=== PATIENT | male | born 1940 | race African-American/Black ===

== ENCOUNTER → 2016-03-06 | Outpatient (CLI) | payer BC ==
[2015-06-19 21:00] VITALS: BP 156/83
[~2016-03-06] MED LIST: ALLO300T PO; ASPI325T11 PO; ASPI81TA2 PO; BUPIVACAINE 0.5% 50 ML VIAL. IJ ONE; CALC0.5C PO; CARV25TA2 PO; CARV6.25 PO; CLOP75TA27 PO; Diltiazem Hcl PO; Doxycycline Hyclate PO; FURO-68 PO; FURO80TA3 PO; IOHEXOL 300 MG/ML 50 ML VIAL. INT ART ONE; KRIL1CAP10 PO; LIDOCAINE 1% Multi-Dose 20 ML VIAL. ID ONE; LISI2.5T PO; LORA10TA3 PO; MULT1TAB13 PO; OMEG-57 PO; POTA20TA4 PO; POTA20TA82 PO; POTA20TA84 PO; RIVA10TA PO; SOTA80TA PO; Sulfamethoxazole/Trimethoprim PO; baking soda PO; methylPREDNISolone ACETATE 40 MG/ML VIAL. INT ART ONE
--- NOTE | 2016-03-06 16:44 | KCIC ---
PROCEDURE Therapeutic right hip injection using fluoroscopic guidance. HISTORY Hip pain. TECHNIQUE The procedure was explained to the patient as were potential risks, including infection, bleeding or allergic reaction. All questions were answered. Informed written and verbal consent was obtained. The hip was prepped and draped in the usual sterile manner. Following administration of local anesthetic, a 22-gauge spinal needle was advanced into the hip joint without difficulty, with care taken to avoid the vascular structures. Stylet was removed and following negative aspiration, a mixture of 4 cc Omnipaque-300, 2 cc (80 mg) Depo-Medrol, 4 cc 0.5% Marcaine and 4 cc 1% lidocaine were injected without difficulty. Fluoroscopy demonstrates uniform and satisfactory distribution of the injection through the hip. The needle was removed. There was good hemostasis at the injection site. The patient left in stable condition without immediate complication. The patient was given postprocedural instructions, instructed to contact us or the emergency room if there are any complications. A single spot image was obtained. FLUOROSCOPY TIME: 44 seconds Electronically signed by: Pineda Doyle MD (Mar 06, 2016 16:43:35)
== END | disposition home or self-care (01) ==
LOC: KCIC 15:15
PROVIDERS: ATTEND Internal Medicine Rheumatology
DX: M25.551 Pain in right hip (principal)
CPT/HCPCS: J1030; J3490; Q9967

== ENCOUNTER 2016-04-03 15:52 | Emergency (ER) | payer BC ==
[~2016-04-03] VITALS: Ht 185.4 cm; Wt 104.3 kg
[~2016-04-03 15:52] MED LIST changes: -BUPIVACAINE 0.5% 50 ML VIAL. IJ ONE; -IOHEXOL 300 MG/ML 50 ML VIAL. INT ART ONE; -LIDOCAINE 1% Multi-Dose 20 ML VIAL. ID ONE; -methylPREDNISolone ACETATE 40 MG/ML VIAL. INT ART ONE
[2016-04-03 16:32] LABS: BASO # 0.1 x10^3/uL (0.0-0.2); BASO % 1 % (0-3); EOS % 3 % (0-3); HEMATOCRIT 34.3 % (39.0-53.0); HEMOGLOBIN 11.3 g/dL (13.0-17.5); LYMPH % 21 % (24-48); MEAN CORPUSCULAR HEMOGLOBIN 30 pg (25-35); MEAN CORPUSCULAR HGB CONC 33 g/dL (31-37); MEAN CORPUSCULAR VOLUME 92 fL (79-100); MONO % 10 % (0-9); NEUT % 64 % (31-73); PLATELET COUNT 198 x10^3/uL (140-400); RED BLOOD COUNT 3.72 x10^6/uL (4.30-5.70); RED CELL DISTRIBUTION WIDTH 15.7 % (11.5-14.5); WHITE BLOOD COUNT 4.7 x10^3/uL (4.0-11.0)
[2016-04-03 16:45] LABS: CALCIUM 9.2 mg/dL (8.5-10.1); CREATININE 3.5 mg/dL (0.7-1.3); GFR 20.7; POTASSIUM 4.7 mmol/L (3.5-5.1)
--- NOTE | 2016-04-03 18:02 | PHYS DOC ---
Past Medical History Past Medical History: A-Fib, Hypertension, Other Additional Past Medical Histor: GOUT Past Surgical History: Knee Replacement Additional Past Surgical Histo: cardiac stents placed Alcohol Use: Sober Drug Use: None Adult General Chief Complaint Chief Complaint: OTHER COMPLAINTS [facility] Patient is a 75 year old male who presents with from urgent care for concern of A fib with rate in 110s. He notes 1 week of rhinorrhea, dry cough, fatigue, intermittent nausea and chills. He has been taking OTC cough medication. He notes some dyspnea and lightheadedness on exertion. Denies resting dyspnea, resting lightheadedness/dizziness, chest pain, orthopnea, leg pain or swelling. Review of Systems Review of Systems Constitutional: Denies measured fever [] Eyes: Denies change in visual acuity, redness, or eye pain [] HENT: Denies nasal congestion or sore throat [] Respiratory: Denies shortness of breath [] Cardiovascular: No additional information not addressed in HPI [] GI: Denies abdominal pain, nausea, vomiting, bloody stools or diarrhea [] : Denies dysuria or hematuria [] Musculoskeletal: Denies back pain or joint pain [] Integument: Denies rash or skin lesions [] Neurologic: Denies headache, focal weakness or sensory changes [] Endocrine: Denies polyuria or polydipsia [] Allergies Allergies Allergies Coded Allergies Type Severity Reaction Last Updated Verified No Known Drug Allergies 10/07/13 No Physical Exam Physical Exam Constitutional: Well developed, well nourished, no acute distress, non-toxic appearance. [] HENT: Normocephalic, atraumatic, bilateral external ears normal, oropharynx moist, no oral exudates, nose normal. [] Eyes: PERRLA, EOMI, conjunctiva normal, no discharge. [] Neck: Normal range of motion, supple, no stridor. [] Cardiovascular: Irregular rhythm [] Lungs & Thorax: Bilateral breath sounds clear to auscultation [] Abdomen: Bowel sounds normal, soft, no tenderness. [] Skin: Warm, dry, no erythema, no rash. [] Back: Normal ROM. [] Extremities: No tenderness, ROM intact, no edema. [] Neurologic: Alert and oriented X 3, normal motor function, normal sensory function, no focal deficits noted. [] Psychologic: Affect normal, judgement normal, mood normal. [] Current Patient Data Vital Signs Vital Signs Date Time Temp Pulse Resp B/P Pulse Ox O2 Delivery O2 Flow Rate FiO2 04/03/16 18:34 113 15 141/94 98 Room Air 04/03/16 16:12 98.4 98.4 Lab Values Laboratory Tests Test 04/03/16 16:24 White Blood Count 4.7x10^3/uL (4.0-11.0) Red Blood Count 3.72x10^6/uL (4.30-5.70) L Hemoglobin 11.3g/dL (13.0-17.5) L Hematocrit 34.3% (39.0-53.0) L Mean Corpuscular Volume 92fL (79-100) Mean Corpuscular Hemoglobin 30pg (25-35) Mean Corpuscular Hemoglobin Concent 33g/dL (31-37) Red Cell Distribution Width 15.7% (11.5-14.5) H Platelet Count 198x10^3/uL (140-400) Neutrophils (%) (Auto) 64% (31-73) Lymphocytes (%) (Auto) 21% (24-48) L Monocytes (%) (Auto) 10% (0-9) H Eosinophils (%) (Auto) 3% (0-3) Basophils (%) (Auto) 1% (0-3) Neutrophils # (Auto) 3.0x10^3uL (1.8-7.7) Lymphocytes # (Auto) 1.0x10^3/uL (1.0-4.8) Monocytes # (Auto) 0.5x10^3/uL (0.0-1.1) Eosinophils # (Auto) 0.1x10^3/uL (0.0-0.7) Basophils # (Auto) 0.1x10^3/uL (0.0-0.2) Sodium Level 139mmol/L (136-145) Potassium Level 4.7mmol/L (3.5-5.1) Chloride Level 101mmol/L (98-107) Carbon Dioxide Level 24mmol/L (21-32) Anion Gap 14 (6-14) Blood Urea Nitrogen 58mg/dL (8-26) H Creatinine 3.5mg/dL (0.7-1.3) H Estimated GFR (Cockcroft-Gault) 20.7 Glucose Level 97mg/dL (70-99) Calcium Level 9.2mg/dL (8.5-10.1) Troponin I Quantitative < 0.017ng/mL (0.000-0.055) YN-Anr-I-Type Natriuretic Peptide 1692pg/mL (0-449) H Laboratory Tests 04/03/16 16:24 Laboratory Tests 04/03/16 16:24 EKG EKG EKG as interpreted by me as atrial fibrillation, rate 113, no ST-T changes, normal intervals Radiology/Procedures Radiology/Procedures Chest xray as interpreted by me with no acute cardiopulmonary disease process Course & Med Decision Making Course & Med Decision Making Pertinent Labs and Imaging studies reviewed. (See chart for details) Workup is unremarkable other than noted CKD. His HR has been in 80s to 110s. He feels well at rest and minimal exertion. Discussed his cough medication and illness could be elevating his HR. He would like to go home, hydrate and avoid cough medicine to try for better rate control prior to being admitted to the hospital. Strict return precautions given. He and understand and agree with plan. Dragon Disclaimer Dragon Disclaimer This electronic medical record was generated, in whole or in part, using a voice recognition dictation system. Departure Departure Impression: Primary Impression: Upper respiratory infection Additional Impressions: Atrial fibrillation Dyspnea on exertion Disposition: 01 HOME, SELF-CARE Condition: STABLE Referrals: Adboulaye CARDENAS MD (PCP) Patient Instructions: Upper Respiratory Infection, Adult, [id number] Additional Instructions: Follow-up with your primary care doctor within one week. Return for any concerns. Problem Qualifiers Primary Impression: Upper respiratory infection URI type: unspecified viral URI Qualified Code: J06.9 - Acute upper respiratory infection, unspecified Additional Impressions: Atrial fibrillation Atrial fibrillation type: chronic Qualified Code: I48.2 - Chronic atrial fibrillation Ramiro COELHO MD Apr 03, 2016 18:02
[2016-04-03 18:34] VITALS: BP 141/94
--- NOTE | 2016-04-03 18:39 | EKG ---
[facility] [address] [place] [address] Test Date: 2016-04-03 Test Time: 16:14:01 Pat Name: ROSALIA MARTI Department: Room: Gender: M Web Worker: : 1940 Requested By: Ramiro COELHO Order Number: [id number] Reading MD: Roger Lyles Measurements Intervals [place] Rate: 113 P: 90 W[place]: 172 QRS: 46 QRSD: 92 T: 26 QT: 348 QTc: 477 Interpretive Statements SINUS TACHYCARDIA NONSPECIFIC ANTERIOR ST CHANGES T ABNORMALITY IN INFERIOR LEADS RI6.01 Unconfirmed report Electronically Signed On 04-10-2016 10:38:24 MOLD COOLER by Roger Lyles
--- NOTE | 2016-04-04 08:29 | RAD ---
Chest, 2 views, 04/03/2016: History: Dyspnea on exertion, hypertension Comparison is made to a study from 09/23/2013. The heart size and pulmonary vascularity are normal. No pulmonary infiltrates are seen. There is no evidence of pleural fluid. There is moderate hypertrophic spurring in the spine. IMPRESSION: No acute cardiopulmonary abnormality is detected.
== END 2016-04-03 18:35 | disposition home or self-care (01) ==
LOC: ER 15:52
DX: I48.2 Chronic atrial fibrillation (principal); R06.09 Other forms of dyspnea; J06.9 Acute upper respiratory infection, unspecified; I10 Essential (primary) hypertension
CPT/HCPCS: 36415; 71020; 80048; 83880; 84484; 85027; 93005; 99285-25

== ENCOUNTER 2016-06-07 19:40 | Emergency (ER) | payer BC ==
[~2016-06-07] VITALS: Ht 185.4 cm; Wt 106.6 kg
[~2016-06-07 19:40] MED LIST changes: -SOTA80TA PO; +SOTA80TA48 PO
--- NOTE | 2016-06-07 21:11 | RAD ---
PROCEDURE Noncontrast head CT Noncontrast cervical spine CT HISTORY Fall. Head injury. Neck pain. TECHNIQUE Noncontrast axial cross sectional CT scanning of the head was performed. Noncontrast helical CT scanning of the cervical spine was performed. Multiplanar 2D reconstructions were generated. One or more of the following individualized dose reduction techniques were utilized for this study: 1. Automated exposure control 2. Adjustment of the mA and/or kV according to patient size 3. Use of iterative reconstruction technique COMPARISON None available. FINDINGS HEAD CT: No acute intracranial hemorrhage or midline shift or mass-effect or extra-axial fluid collection is seen. The into the megaly seen with distention of the occipital and temporal horns. This may be secondary to cerebral atrophy or normal pressure hydrocephalus. Moderate to severe bilateral periventricular white matter hypodensity is seen consistent with chronic small vessel ischemic disease in this age group. This may be seen with normal pressure hydrocephalus secondary to transependymal flow CSF as well. No focal hypodense area is seen to indicate an acute infarct or edema radiographically. No skull fracture or pneumocephalus is seen. No opacification of the mastoid sinuses or the paranasal sinuses is seen. The maxillary sinuses are not completely seen in this study. CERVICAL SPINE CT: No acute fracture is evident. No anterolisthesis is seen. No discitis or osteolytic process is evident. There is moderate to severe degenerative disc space narrowing and endplate spurring throughout the cervical spine. Degenerative facet arthropathy is evident. IMPRESSION HEAD CT: No acute intracranial hemorrhage is seen. Moderate to severe bilateral periventricular white matter hypodensity which may be seen with chronic small vessel ischemic disease or transependymal flow of CSF in association with normal pressure hydrocephalus. Ventriculomegaly is present. CERVICAL SPINE CT: No acute fracture. Moderate to severe degenerative cervical spondylosis. Electronically signed by: Chente Almeida MD (June 07, 2016 21:09:03)
--- NOTE | 2016-06-07 21:28 | PHYS DOC ---
Past Medical History Past Medical History: A-Fib, Hypertension, Other Additional Past Medical Histor: GOUT Past Surgical History: Knee Replacement Additional Past Surgical Histo: cardiac stents placed Alcohol Use: Rarely Drug Use: None Adult General Chief Complaint Chief Complaint: MECHANICAL FALL HPI HPI Patient is a 75 year old male brought to the ED by family members after a fall at home. He doesn't know what happened, he doesn't know if his feet got tangled up her , and he fell down about 5 steps. He doesn't believe he hit his head , his neck is a bit sore but it was before the fall, he says he hurts in the middle of his back to the low back. He has no other specific complaints. PCP Dr. Tree Condon Review of Systems Review of Systems Constitutional: Denies fever or chills [] Eyes: Denies change in visual acuity, redness, or eye pain [] HENT: Denies nasal congestion or sore throat [] Respiratory: Denies cough or shortness of breath [] Cardiovascular: Denies chest pain GI: Denies abdominal pain, nausea, vomiting, bloody stools or diarrhea [] : Denies dysuria or hematuria [] Musculoskeletal: As in history of present illness Integument: Denies rash or skin lesions [] Neurologic: Denies headache, focal weakness or sensory changes [] Allergies Allergies Allergies Coded Allergies Type Severity Reaction Last Updated Verified No Known Drug Allergies 10/07/13 No Physical Exam Physical Exam Constitutional: Well developed, well nourished, no acute distress, non-toxic appearance. Alert, mentating normally. HENT: Normocephalic, atraumatic, bilateral external ears normal, oropharynx moist, no oral exudates, nose normal. [] Eyes: conjunctiva normal, no discharge. [] Neck: C-collar had been placed at the ED triage area and was initially left in place Cardiovascular:Heart rate regular rhythm, no murmur [] Lungs & Thorax: Bilateral breath sounds clear to auscultation [] Abdomen: Bowel sounds normal, soft, no tenderness, no masses, no pulsatile masses. [] Skin: Warm, dry, no erythema, no rash. [] Back: Tender to palpation in the mid thoracic spine without significant point tenderness, no deformity, no overlying skin abnormality. Extremities: No tenderness, no cyanosis, no clubbing, ROM intact, no edema. [] Neurologic: Alert and oriented X 3, normal motor function, normal sensory function, no focal deficits noted. [] Current Patient Data Vital Signs Vital Signs Date Time Temp Pulse Resp B/P Pulse Ox O2 Delivery O2 Flow Rate FiO2 06/07/16 21:17 72 18 154/79 94 Room Air 06/07/16 19:46 98.6 98.6 EKG EKG [] Radiology/Procedures Radiology/Procedures CT scan of the head and cervical spine read by the radiologist. No acute intracranial or cervical spine finding. However, radiologist did remark that the patient has findings that may be consistent with normal pressure hydrocephalus. Ventriculomegaly is present. Thoracolumbar two-view x-rays obtained and read by me. [] Course & Med Decision Making Course & Med Decision Making Pertinent Labs and Imaging studies reviewed. (See chart for details) 75-year-old male who fell down some stairs without apparent significant injury. However, CT scan of the head has findings that could be consistent with normal pressure hydrocephalus. I discussed with the patient and his who states that yes for about 1 month the patient has had some gait disturbance, he had a fall in the yard and he doesn't know what happened today but something caused him to fall. He denies urinary incontinence. When talking to him, he does not appear to have any dementia today. I called and spoke with Dr. Casper, taking calls for Dr. Condon, and let him know about the concern. He advised that we will have the patient follow up with Dr. Condon, he sent a message to Dr. Condon about the CT scan findings. [] Dragon Disclaimer Dragon Disclaimer This electronic medical record was generated, in whole or in part, using a voice recognition dictation system. Departure Departure Impression: Primary Impression: Fall (on) (from) other stairs and steps, initial encounter Additional Impression: Gait disturbance Disposition: 01 HOME, SELF-CARE Condition: STABLE Referrals: TIFFANY CONDON MD (PCP) Patient Instructions: Contusion, [id number] Additional Instructions: Ice to areas of pain. Call tomorrow to make an appointment with Dr. Condon. As we discussed, there is a possible abnormality on your CT scan that he needs to know about. I spoke with Dr. Tremayne lux who will send Dr. Condon a message. He may refer you to a neurologist for further evaluation. Problem Qualifiers ILEANA SUNG MD June 07, 2016 21:28
[2016-06-07 21:38] VITALS: BP 176/92
--- NOTE | 2016-06-08 08:11 | RAD ---
Thoracolumbar spine, 2 views, 06/07/2016: History: Pain Two views of the spine centered at the thoracolumbar junction level were obtained. No fracture or dislocation is identified. There is disc space narrowing and moderate marginal spurring at multiple levels. There are bridging osteophytes at several levels. There are moderate degenerative changes involving the facet joints in the lumbar spine. Aortic calcific plaquing is present. Multiple surgical clips are evident in the abdomen. IMPRESSION: 1. Moderate multilevel hypertrophic degenerative change. 2. No acute bony abnormality is detected.
== END 2016-06-07 21:50 | disposition home or self-care (01) ==
LOC: ER 19:40
DX: R26.9 Unspecified abnormalities of gait and mobility (principal); M54.6 Pain in thoracic spine; I48.91 Unspecified atrial fibrillation; I10 Essential (primary) hypertension; M10.9 Gout, unspecified; Z95.5 Presence of coronary angioplasty implant and graft; W10.9XXA Fall (on) (from) unspecified stairs and steps, initial encounter; Y93.89 Activity, other specified; Y92.096 Garden or yard of other non-institutional residence as the place of occurrence of the external cause; Y99.8 Other external cause status
CPT/HCPCS: 70450; 72080; 72125; 99284-25

== ENCOUNTER → 2016-10-16 | Outpatient (CLI) | payer BC ==
[~2016-10-16] MED LIST changes: +ACET325T9 PO; +ASPI-630 PO; -ASPI81TA2 PO; +CLOP75TA PO; -CLOP75TA27 PO; +CLOP75TA57 PO; +DIPH25TA64 PO; +DOCU100C28 PO; +FURO80TA72 PO; +LOSA50TA2 PO; +TIZA4TAB PO; +TRAM50TA PO
[2016-10-25 08:16] VITALS: BP 123/71
== END | disposition home or self-care (01) ==
LOC: SURGPAT 13:15
PROVIDERS: ATTEND Orthopaedic Surgery Sports Medicine
DX: M16.11 Unilateral primary osteoarthritis, right hip (principal); Z96.641 Presence of right artificial hip joint
CPT/HCPCS: 36415; 87641

== ENCOUNTER → 2016-10-19 | Outpatient (CLI) | payer BC ==
--- NOTE | 2016-10-19 10:27 | CARD ---
APPROVED REPORT EXAM: Two-dimensional and M-mode echocardiogram with Doppler and color Doppler. Other Information Quality : GoodHR: 68bpm Rhythm : NSR INDICATION Pre-Op RISK FACTORS Hypertension Hyperlipidemia Previous smoker 2D DIMENSIONS RVDd2.9 (2.9-3.5cm)Left Atrium(2D)4.3 (1.6-4.0cm) IVSd1.2 (0.7-1.1cm)Aortic Root(2D)3.3 (2.0-3.7cm) LVDd6.0 (3.9-5.9cm)LVOT Diameter2.4 (1.8-2.4cm) PWd1.2 (0.7-1.1cm)LVDs4.1 (2.5-4.0cm) FS (%) 31.5 %SV105.6 ml LVEF(%)58.5 (>50%) Aortic Valve AoV Peak Jake.120.9cm/sAoV VTI25.3cm AO Peak GR.5.8mmHgLVOT Peak Jake.113.7cm/s AO Mean GR.3mmHgAVA (VMAX)4.30cm2 Mitral Valve MV E Svmxmstw15.8cm/sMV DECEL [id number] MV A Hcnrwrdi88.3cm/sE/A Ratio1.0 MV A Aysflpdl695ot Pulmonary Valve PV Peak Imqnetkq493.9cm/s Pulmonary Vein S1 Ozfciczk81.1cm/sD2 Hgzbblfy99.3cm/s PVa [id number] LEFT VENTRICLE The left ventricle is normal size. There is mild concentric left ventricular hypertrophy. The left ve ntricular systolic function is normal. The Ejection Fraction is 55-60%. There is normal LV segmental wall motion. The left ventricular diastolic function and filling is normal for age. RIGHT VENTRICLE The right ventricle is normal size. There is normal right ventricular wall thickness. The right ventr icular systolic function is normal. ATRIA The left atrium is mildly dilated. The right atrium size is normal. The interatrial septum is intact with no evidence for an atrial septal defect or patent foramen ovale as noted on 2-D or Doppler imagi ng. AORTIC VALVE The aortic valve is mildly sclerotic. The aortic valve is trileaflet. Doppler and Color Flow revealed no significant aortic regurgitation. There is no significant aortic valvular stenosis. MITRAL VALVE Mitral annular calcification is mild. The mitral valve leaflets are thickened. There is no evidence o f mitral valve prolapse. There is no mitral valve stenosis. Doppler and Color Flow revealed no mitral valve regurgitation noted. TRICUSPID VALVE Doppler and Color Flow revealed trace tricuspid regurgitation. PULMONIC VALVE The pulmonary valve is not well visualized but appears to open adequately. Doppler and Color Flow rev ealed trace pulmonic valvular regurgitation. There is no pulmonic valvular stenosis by spectral Doppl er. GREAT VESSELS The aortic root is normal in size. The ascending aorta is normal in size. The pulmonary artery is nor mal. The IVC is normal in size and collapses >50% with inspiration. PERICARDIAL EFFUSION There is no evidence of significant pericardial effusion. Critical Notification Critical Value: No <Conclusion> The left ventricular systolic function is normal. The Ejection Fraction is 55-60%. There is normal LV segmental wall motion. Doppler and Color Flow revealed trace tricuspid regurgitation. There is no evidence of significant pericardial effusion.
== END | disposition home or self-care (01) ==
LOC: ECHO 08:04
PROVIDERS: ATTEND Internal Medicine Cardiovascular Disease
DX: Z01.818 Encounter for other preprocedural examination (principal); I51.7 Cardiomegaly
CPT/HCPCS: 93306

== ENCOUNTER 2016-10-23 08:45 | Inpatient (IN) | payer BC ==
[2016-10-23] VITALS (9 sets, daily range): BP systolic 113–140; BP diastolic 67–93
[~2016-10-23] VITALS: Ht 185.4 cm; Wt 113.4 kg
[~2016-10-23 08:45] MED LIST changes: +IV RINGERS,LACTATED 1000ML 1,000 ML IV SCH; +LIDOCAINE 1% 1 ML SYRINGE. ID PRN; +MORPHINE SULFATE 5 MG, KETOROLAC 30 MG, ROPIVacaine 0.5% PF 60 ML, EPINEPHrine 0.5 MG i... INT ART ONE; +PROCHLORPERAZINE 10 MG/2 ML VIAL. IV PRN; +TRANEXAMIC ACID 1,000 MG in IV NORMAL SALINE 50ML 50 ML INJ ONE; +fentaNYL PF VIAL 100 MCG/2 ML VIAL IV PRN
[2016-10-23] MEDS ORDERED: PROPOFOL 20 ML IV ONE (08:59)
[2016-10-23] MEDS ORDERED: LIDOCAINE 2% PF Vial for OR 5 ML VIAL. ONE (08:59)
[2016-10-23] MEDS ORDERED: ONDANSETRON PF 4 MG/2 ML VIAL. ONE (08:59)
[2016-10-23] MEDS ORDERED: FAMOTIDINE 20 MG/2 ML VIAL ONE (08:59)
[2016-10-23] MEDS ORDERED: ROCURONIUM 100 MG/10 ML VIAL. ONE (09:00)
[2016-10-23] MEDS ORDERED: fentaNYL PF VIAL 100 MCG/2 ML VIAL ONE ×2 (09:00→10:52)
[2016-10-23] MEDS ORDERED: MIDAZOLAM HCL/PF 2 MG/2 ML VIAL. ONE (09:00)
[2016-10-23] MEDS ORDERED: IV DEXTROSE 5 %-0.45 % NACL 1,000 ML IV SCH (09:33)
[2016-10-23] MEDS ORDERED: ACETAMINOPHEN 325 MG TABLET. PO PRN (09:45)
[2016-10-23] MEDS ORDERED: HYDROcodone/APAP 10/325 1 TAB TABLET PO PRN (09:45)
[2016-10-23] MEDS ORDERED: ZOLPIDEM 5 MG TABLET. PO PRN (09:45)
[2016-10-23] MEDS ORDERED: 0.9 % SODIUM CHLORIDE 10 ML DISP.SYRIN. IV PRN (09:45)
[2016-10-23] MEDS ORDERED: traMADol 50 MG TABLET PO PRN ×3 (09:45→10:15)
[2016-10-23] MEDS ORDERED: PROCHLORPERAZINE 5 MG TABLET. PO PRN (09:45)
[2016-10-23] MEDS ORDERED: fentaNYL PF VIAL 100 MCG/2 ML VIAL IV PRN ×2 (09:45)
[2016-10-23] MEDS ORDERED: MORPHINE SULFATE 10 MG/ML VIAL. IV PRN (09:45)
[2016-10-23] MEDS ORDERED: METOCLOPRAMIDE HCL 10 MG/2 ML VIAL. IV PRN (09:45)
[2016-10-23] MEDS ORDERED: HYDROcodone/APAP 7.5/325MG 1 TAB TABLET PO PRN (09:45)
[2016-10-23] MEDS ORDERED: MORPHINE SULFATE 4 MG/ML DISP.SYRIN. IV PRN ×3 (09:45→10:00)
[2016-10-23] MEDS ORDERED: DEXTROSE 50% 25 GM / 50ML DISP.SYRIN. IV PRN (09:45)
[2016-10-23] MEDS ORDERED: PROCHLORPERAZINE 10 MG/2 ML VIAL. IV PRN (09:45)
[2016-10-23] MEDS ORDERED: diphenhydrAMINE 50 MG/ML VIAL IV PRN (09:45)
[2016-10-23] MEDS ORDERED: CALCIUM CARBONATE 500 MG TAB.CHEW PO PRN (09:45)
[2016-10-23] MEDS ORDERED: IV NORMAL SALINE 1000ML BAG 1,000 ML IV ONE (09:55)
[2016-10-23] MEDS ORDERED: tiZANidine 4 MG TABLET. PO PRN (10:15)
--- NOTE | 2016-10-23 10:16 | PDOC ---
BRIEF OPERATIVE NOTE Date: Oct 23, 2016 Pre-Op Diagnosis R hip DJD Post-Op Diagnosis same Procedure Performed R BRANT Surgeon Abi Ophthalmic Medical Assistant Nicol Anesthesiologist [place] Blood Loss 250mL Complications none BROOKLYN LEVI II, MD Oct 23, 2016 10:16
[2016-10-23] MEDS ORDERED: hydrALAZINE 20 MG/ML VIAL. ONE (10:57)
[2016-10-23] MEDS: ALLOPURINOL 300 MG TABLET. PO SCH (12:00)
[2016-10-23] MEDS: CARVEDILOL 6.25 MG TABLET. PO SCH ×2 (12:00→16:19)
[2016-10-23] MEDS: fentaNYL PF VIAL 100 MCG/2 ML VIAL IV PRN ×2 (12:52→13:01)
[2016-10-23] MEDS: DOCUSATE SODIUM 100 MG CAPSULE. PO SCH ×2 (13:00→19:53)
[2016-10-23] MEDS: LOSARTAN POTASSIUM 50 MG TABLET. PO SCH (13:00)
[2016-10-23] MEDS: SENNOSIDES/DOCUSATE 8.6/50MG TABLET. PO SCH (13:00)
[2016-10-23] MEDS: MULTIVITAMIN with MINERAL TABLET. PO SCH (13:00)
[2016-10-23] MEDS: MORPHINE SULFATE 2 MG/ML DISP.SYRIN. IV PRN ×2 (13:13→13:23)
[2016-10-23] MEDS: HYDROmorphone 2 MG/ML VIAL IV PRN ×4 (13:37→14:15)
--- NOTE | 2016-10-23 13:42 | RAD ---
Pelvis, 2 views, 10/23/2016: History: Postop evaluation Comparison is made to a study from 09/19/2016. A right total hip prosthesis has been placed. It appears to be in satisfactory position. There is mild to moderate degenerative change at the left hip joint. A surgical drain overlies the operative site on the right. There is no evidence of a retained surgical instrument, needle or radiopaque sponge. IMPRESSION: Interval insertion of a right total hip prosthesis in satisfactory position.
--- NOTE | 2016-10-23 14:16 | OP ---
DATE OF SURGERY: 10/23/2016 DATE OF SERVICE: 10/23/2016 SURGEON: Brenton Levi MD PRODUCT SAFETY TESTER: None. ANESTHESIA: General plus local. PREOPERATIVE DIAGNOSIS: Advanced right hip primary degenerative joint disease. POSTOPERATIVE DIAGNOSIS: 1. Advanced right hip primary degenerative joint disease. 2. Right hip abdcutor tendon tear PROCEDURE PERFORMED: 1. Right total hip arthroplasty. 2. Right hip abductor tendon repair COMPONENTS INSERTED: 1. Rodríguez and Nephew 58 mm R3 acetabular shell. 2. There was a 20-degree posteriorly directed elevated liner as well. 3. Size 8 standard offset femoral head with a 40-mm +0 taper sleeve head. COMPLICATIONS: None. ESTIMATED BLOOD LOSS: 250 mL. REASON FOR PROCEDURE: The patient is a very pleasant 75-year-old gentleman with severe and progressive right hip pain attributable to his primary degenerative joint disease of his right hip. Clinical and radiographic examination was consistent with preoperative diagnosis. He had tried and failed conservative therapy such as exercise program and intra-articular injections. He was not able to take anti-inflammatories secondary to his renal disease. Because of his progressive pain, we had discussion of risks, benefits, alternatives to the above surgery and he elected to proceed. DESCRIPTION OF PROCEDURE: The patient was greeted in the preoperative area by myself. Correct extremity was marked and verified. He was taken to the operative suite and antibiotics were started en route. Once in the OR, he was transferred gently supine to the OR table and had successful induction of general anesthetic. We then laid him in the lateral decubitus position with the right side up and secured him to the bed with the hip positioning device after placing an axillary roll. All down pressure points were padded. I then conducted an examination under anesthesia to feel his leg lengths. His hip was quite stiff. After this, we proceeded to prep and drape right lower extremity and hip in usual sterile fashion and conducted a standard preoperative timeout. I then palpated, marked the surface anatomy and rufus a line for my standard posterolateral skin incision and incised skin in accordance with this. I dissected subcutaneous tissue and cauterized bleeders with electrocautery until I identified the fascia. This was incised in line with the skin incision after I used a Rodarte elevator to sweep aside some adherent subcutaneous tissue for later identification and repair of the fascia. We then held his hip in internal rotation, I swept the side bursal tissue and took down his quadratus femoris and piriformis and tagged the piriformis for later repair. At this point, I noted the hip abductor tendon tear, the anterior and superior portion of his greater trochanter were essentially bald. I then identified his hip capsule and incised this in a Z-plasty type incision. I tagged the ends of this for later repair as well. I was then able to dislocate the femoral head. He had completely absent cartilage at the superior portion of his femoral head. He had large osteophytes, lateral to this as well. I then palpated and marked reproducible areas around his greater and lesser trochanter and center of his femoral head and made my measurements for leg length and offset. I then palpated again for the lesser trochanter and rufus a line with electrocautery for my neck cut and made my femoral neck cut and delivered the femoral head from the operative field. I then returned the leg to a normal position, placed my anterior and posterior acetabular retractors and inspected the acetabulum. I removed the soft tissue from the medial floor of the acetabulum and took down the labrum as well. I then used a curved osteotome to takedown osteophytes posteriorly, which were then removed fully with a rongeur. After this, I began reaming and reamed up to a 58, which gave a good circumferential fit. He had a punctate bleeding bony bed. I referenced his acetabular orientation as well as the transverse acetabular ligament while reaming. I then irrigated out his acetabulum, then impacted my cup into position after I palpated for the greater sciatic notch. I then placed a single screw into the posterior column which had an excellent fit. I then washed and dried the cup or the acetabular component again and impacted my liner into place with the elevation directed posteriorly. I then removed my acetabular retractors and repositioned the leg to deliver the femur in the operative field, I also used the proximal femoral elevator. I used my box cutting osteotome laterally followed by my canal finding reamer and my lateralizing reamer. I then began broaching with the chili pepper up to a size 7 and then up to an 8. I trialled different head and neck offset and sizes and felt the best fit in stability and range of motion was with the above combination. Therefore, I removed the trial femoral component, impacted my size 8 into the standard offset stem into position. I then retrialed the 0 and -3 as well as tried for a +3 head. I felt the 0 was the best fit. Therefore, I redislocated the hip, irrigated out the operative field, washed and dried the Lackey taper region and impacted my head and taper sleeve into position. I then reduced the hip again. He had good range of motion and excellent stability. The hip was stable to 110 degrees of flexion, 30 of adduction and 30 of internal rotation. I felt that I had restored his leg lengths appropriately. Therefore, I irrigated out the operative field again and then closed capsule with simple interrupted #2 Ethibond. Piriformis was reapproximated to proximal femur through drill holes. After this, I injected my periarticular mixture in the rafal-incisional area. After this, I sutured a #2 ultra braid in a locked running fashion up and down his abductor tendon, and then passed the free ends of the suture through own at the greater trochanter and tied it down. I then closed the fascia with a running #2 Quill. Subcutaneous tissue at the deeper layer was closed with simple interrupted 0 Vicryl. Inverted interrupted 2-0 was used for the more superficial subcutaneous tissue and running 4-0 Monocryl in subcuticular fashion was used for skin. We then applied the VEE wound dressing. Prior to completion of wound closure, all counts were reported correct x2. No complications. At the conclusion of surgery, the patient was awakened from anesthesia. He tolerated surgery well. He was transferred gently supine to a hospital bed after he was awakened from anesthesia. He was taken to the PACU in stable and extubated condition. Postop plan is to weightbear as tolerated. He will be admitted to the joint center for DVT and antibiotic prophylaxis as well as IV pain medicine and physical and occupational therapy. BRENTON LEVI MD DR: IRINA/jennifer JOB#: [id number] / [id number] IDALMIS
[2016-10-23] MEDS ORDERED: INFLUENZA VAX SCREEN BY RX. MC ONE (15:15)
[2016-10-23] MEDS ORDERED: FLU VACC QS2017-18 (36MOS+)/PF 0.5 ML SYRINGE. VAX IM ONE (15:15)
[2016-10-23 15:18] LABS: INR 1.1 (0.8-1.1); PROTHROMBIN TIME PATIENT 13.4 SEC (11.7-14.0)
[2016-10-23] MEDS ORDERED: WARFARIN 7.5 MG TABLET. PO ONE (16:00)
[2016-10-23] MEDS: FUROSEMIDE 80 MG TABLET. PO SCH (16:01)
[2016-10-23] MEDS: oxyCODONE/APAP 7.5/325 1 TAB TABLET PO PRN ×2 (16:05→23:52)
[2016-10-23] MEDS: FERROUS SULFATE 325 MG TABLET. PO SCH (16:20)
--- NOTE | 2016-10-23 18:02 | PDOC ---
Provider Note Provider Note consult note dictated # [id number] Abdoulaye CARDENAS MD Oct 23, 2016 18:02
[2016-10-24 03:02] VITALS: BP 134/81
[2016-10-24 05:52] LABS: HEMATOCRIT 26.9 % (39.0-53.0); HEMOGLOBIN 9.2 g/dL (13.0-17.5)
[2016-10-24] MEDS ORDERED: MAGNESIUM HYDROXIDE 2,400 MG/30 ML ORAL.SUSP. PO PRN (06:00)
[2016-10-24 06:10] VITALS: BP 120/73
[2016-10-24 06:11] LABS: CALCIUM 8.8 mg/dL (8.5-10.1); CREATININE 3.8 mg/dL (0.7-1.3); GFR 18.8; POTASSIUM 4.6 mmol/L (3.5-5.1)
[2016-10-24 06:13] LABS: INR 1.1 (0.8-1.1); PROTHROMBIN TIME PATIENT 13.9 SEC (11.7-14.0)
[2016-10-24] MEDS: oxyCODONE/APAP 7.5/325 1 TAB TABLET PO PRN ×3 (06:33→17:02)
--- NOTE | 2016-10-24 08:18 | CONS ---
DATE OF CONSULTATION: 10/23/2016 DATE OF ADMISSION: 10/23/2016. ADMITTING PHYSICIAN: Brenton Alex MD REASON FOR CONSULTATION: Management of atrial fib and chronic kidney disease. HISTORY OF PRESENT ILLNESS: This is a 75-year-old -[place] male with advanced right hip degenerative joint disease, who came in for a right total hip arthroplasty, which was done today without complication. He is seen postop up in the chair, alert and oriented with his nurse and in the room with him. PAST MEDICAL HISTORY: Significant for osteoarthritis, heart disease including coronary artery disease status post stent in 2013, for which he has been on daily Plavix. He has a history of atrial fibrillation, but not chronically. He has sleep apnea, but he does not use CPAP since losing weight. 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 He has a history of gout. He also has a history of prior joint replacement. PAST SURGICAL HISTORY: Coronary stent 2013, lysis of abdominal adhesions in the , small-bowel resection due to obstruction in 2002, bilateral knee replacements in 2008. FAMILY HISTORY: Obesity, hypertension, diabetes, heart disease, and angina. ALLERGIES: He has no known drug allergies. HOME MEDICATIONS: Include Tylenol 325 mg tabs q.i.d. p.r.n., allopurinol 300 mg daily, aspirin 81 daily, carvedilol 6.25 mg b.i.d., Plavix 75 mg daily, Benadryl 12.5 mg I believe at bedtime, furosemide 80 mg b.i.d., losartan 50 mg daily, multivitamin daily, sotalol 120 mg daily, tizanidine 4 mg t.i.d. p.r.n. muscle spasms and tramadol 50 mg q.4 hours p.r.n. pain along with diltiazem CD 240 mg daily. SOCIAL HISTORY: Quit smoking about 30 years ago. He is . His is present. REVIEW OF SYSTEMS: HEENT: He wears glasses and hearing aids. No acute changes in either his vision or hearing though. Throat, voice is a little raspy from being intubated today, but he does not have any chronic hoarseness issues. CARDIAC: Negative for chest pain or palpitations. PULMONARY: No shortness of breath and normal spirometry done preoperatively. GASTROINTESTINAL: No nausea, vomiting or change in bowels. GENITOURINARY: No dysuria or frequency. MUSCULOSKELETAL: Chronic arthritis pain. MENTAL: No mood issues. Sleep is interrupted by pain occasionally. SKIN: No lesions, bleeding or bruising. NEUROLOGIC: He has some tingling in his feet. EXTREMITIES: He has chronic edema of both lower extremities. PHYSICAL EXAMINATION: POSTOPERATIVE VITAL SIGNS: Blood pressure 131/78, pulse is 69, respiratory rate is 16, and room air oxygen saturation of 95. GENERAL: He is up in the chair. He is alert and oriented. Glasses are on. Mucous membranes are moist. NECK: Supple. HEART: Regular rate and rhythm. LUNGS: Clear anteriorly. ABDOMEN: Soft and nondistended. EXTREMITIES: His feet bilaterally show edema in the lower extremity up to about the level of the knee. It pits. Both lower extremities are warm. He moves toes without difficulty. Sensation of his feet is somewhat diminished to light touch. Dry dressing on his right hip area. LABORATORY STUDIES: INR preop 1.1. IMAGING STUDIES: Interval insertion of right total hip prosthesis is in satisfactory position. A surgical drain overlies the operative site on the right. ASSESSMENT: 1. Postoperative day 0, right total hip arthroplasty. 2. History of coronary artery disease. 3. History of stage 4 chronic kidney disease. 4. Osteoarthritis. 5. Peripheral neuropathy. 6. History of atrial fibrillation. 7. History of sleep apnea that resolved with the weight loss. PLAN: He is admitted to the joint center. We will monitor his H and H daily, his INR daily and BNP routinely, but anticipate uneventful recovery. W Aj CARDENAS MD DR: JOSELINE/jennifer JOB#: [id number] / [id number]
--- NOTE | 2016-10-24 08:22 | PDOC ---
ORTHO PROGRESS NOTES Subjective some pain at hip, tolerable. Urinary retention last night, straight cath Vitals Vital Signs Date Time Temp Pulse Resp B/P (MAP) Pulse Ox O2 Delivery O2 Flow Rate FiO2 10/24/16 06:33 18 94 Room Air 10/24/16 06:10 97.5 81 120/73 (89) 97.5 10/23/16 14:15 10.0 Labs Laboratory Tests Test 10/23/16 15:00 10/24/16 04:00 Prothrombin Time 13.4 SEC (11.7-14.0) 13.9 SEC (11.7-14.0) Prothromb Time International Ratio 1.1 (0.8-1.1) 1.1 (0.8-1.1) Hemoglobin 9.2 g/dL (13.0-17.5) Hematocrit 26.9 % (39.0-53.0) Mean Corpuscular Hemoglobin Concent 34 g/dL (31-37) Sodium Level 139 mmol/L (136-145) Potassium Level 4.6 mmol/L (3.5-5.1) Chloride Level 103 mmol/L (98-107) Carbon Dioxide Level 28 mmol/L (21-32) Anion Gap 8 (6-14) Blood Urea Nitrogen 54 mg/dL (8-26) Creatinine 3.8 mg/dL (0.7-1.3) Estimated GFR (Cockcroft-Gault) 18.8 Glucose Level 118 mg/dL (70-99) Calcium Level 8.8 mg/dL (8.5-10.1) Laboratory Tests Test 10/23/16 15:00 10/24/16 04:00 Prothrombin Time 13.4 SEC (11.7-14.0) 13.9 SEC (11.7-14.0) Prothromb Time International Ratio 1.1 (0.8-1.1) 1.1 (0.8-1.1) Hemoglobin 9.2 g/dL (13.0-17.5) Hematocrit 26.9 % (39.0-53.0) Mean Corpuscular Hemoglobin Concent 34 g/dL (31-37) Sodium Level 139 mmol/L (136-145) Potassium Level 4.6 mmol/L (3.5-5.1) Chloride Level 103 mmol/L (98-107) Carbon Dioxide Level 28 mmol/L (21-32) Anion Gap 8 (6-14) Blood Urea Nitrogen 54 mg/dL (8-26) Creatinine 3.8 mg/dL (0.7-1.3) Estimated GFR (Cockcroft-Gault) 18.8 Glucose Level 118 mg/dL (70-99) Calcium Level 8.8 mg/dL (8.5-10.1) Notes A and A in bed incision ok normal m/s RLE Assessment and Plan PT/OT coumadin start flomax BROOKLYN LEVI II, MD Oct 24, 2016 08:22
[2016-10-24] MEDS: MULTIVITAMIN with MINERAL TABLET. PO SCH (08:26)
[2016-10-24] MEDS: DOCUSATE SODIUM 100 MG CAPSULE. PO SCH (08:26)
[2016-10-24] MEDS: CLOPIDOGREL BISULFATE 75 MG TABLET PO SCH (08:26)
[2016-10-24] MEDS: FERROUS SULFATE 325 MG TABLET. PO SCH ×2 (08:26→17:00)
[2016-10-24] MEDS: FUROSEMIDE 80 MG TABLET. PO SCH ×2 (08:26→17:00)
[2016-10-24] MEDS: ALLOPURINOL 300 MG TABLET. PO SCH (08:26)
[2016-10-24] MEDS: SENNOSIDES/DOCUSATE 8.6/50MG TABLET. PO SCH (08:26)
[2016-10-24] MEDS: LOSARTAN POTASSIUM 50 MG TABLET. PO SCH (08:27)
[2016-10-24] MEDS: SOTALOL 80 MG TABLET. PO SCH (08:28)
[2016-10-24] MEDS: CARVEDILOL 6.25 MG TABLET. PO SCH ×2 (08:28→17:01)
[2016-10-24 14:00] VITALS: BP 136/71
[2016-10-24] MEDS ORDERED: BISACODYL 10 MG SUPP.RECT. PR PRN (16:00)
[2016-10-24] MEDS ORDERED: WARFARIN 5 MG TABLET. PO ONE (16:00)
[2016-10-24 18:00] VITALS: BP 140/79
--- NOTE | 2016-10-24 18:35 | PDOC ---
PROGRESS NOTES Subjective Some urinary retention requiring straight cath but now urinating and has tamsulosin dose starting this evening, pain controlled, eating, feels ok. Renal function poor but making adequate urine Objective Afebrile BP: as below General: NAD, alert Heart: RRR, no M Lungs: CTAB, no crackles Abd: soft, present bowel sounds Ext: chronic lymphedema bilaterally without ulceration Hgb: [] K+: normal Creat: 3.8 Vital Signs Vital Signs Date Time Temp Pulse Resp B/P (MAP) Pulse Ox O2 Delivery O2 Flow Rate FiO2 10/24/16 18:00 98.8 76 140/79 (99) 96 Room Air 98.8 10/24/16 14:00 18 10/23/16 14:15 10.0 I & O Intake and Output 10/25/16 07:00 Intake Total 1480 ml Output Total 1475 ml Balance 5 ml Intake Oral 1480 ml Output Urine Total 1475 ml # Voids 2 Assessment and Plan 1. POD #1 right BRANT, pain controlled 2. stage 4 CKD, stable 3. post op blood loss anemia 4. OA, chronic 5. HTN. controlled. 6. CAD, stable 7. urinary retention - likely from anesthesia- start Flomax, prn straight cath if recurs but urinating now Problems: Abdoulaye CARDENAS MD Oct 24, 2016 18:35
[2016-10-24] MEDS: TAMSULOSIN 0.4 MG CAP.ER.24H. PO SCH (20:58)
[2016-10-25 06:30] VITALS: BP 116/69
[2016-10-25 07:18] LABS: CALCIUM 8.6 mg/dL (8.5-10.1); GFR 17.8; POTASSIUM 4.3 mmol/L (3.5-5.1)
[2016-10-25 07:24] LABS: INR 1.3 (0.8-1.1); PROTHROMBIN TIME PATIENT 15.5 SEC (11.7-14.0)
[2016-10-25 07:55] LABS: HEMATOCRIT 25.5 % (39.0-53.0); HEMOGLOBIN 8.5 g/dL (13.0-17.5)
--- NOTE | 2016-10-25 08:03 | DISCH ---
DISCHARGE INSTRUCTIONS Condition on Discharge Condition on Discharge: Stable Activity After Discharge Activity Instructions for Disc: Activity as tolerated Bathing Instructions: Shower-keep dressing dry Weight Bearing Status after Di: As tolerated Diet after Discharge Diet after Discharge: Regular Wound Incision Care Wound/Incision Care: Ice to area for comfort, Keep wound/cast CDI, Do not change dressing Contacting the DRRosa after DC Call your doctor for: Concerns you may have Follow-Up Follow up with: Abi in 2wks Warfarin Follow-Up Warfarin Follow UP: per Pharmacy BROOKLYN LEVI II, MD Oct 25, 2016 08:03
--- NOTE | 2016-10-25 08:05 | PDOC ---
ORTHO PROGRESS NOTES Subjective Voiding a little better, had about 500 out. c/o stiffness at hip, pain tolerable. No CP, SOB, abd complaints Vitals Vital Signs Date Time Temp Pulse Resp B/P (MAP) Pulse Ox O2 Delivery O2 Flow Rate FiO2 10/25/16 06:30 98.8 74 16 116/69 (85) 93 Room Air 98.8 Labs Laboratory Tests Test 10/23/16 15:00 10/24/16 04:00 10/25/16 06:15 10/25/16 06:45 Prothrombin Time 13.4 SEC (11.7-14.0) 13.9 SEC (11.7-14.0) 15.5 SEC (11.7-14.0) Prothromb Time International Ratio 1.1 (0.8-1.1) 1.1 (0.8-1.1) 1.3 (0.8-1.1) Hemoglobin 9.2 g/dL (13.0-17.5) 8.5 g/dL (13.0-17.5) Hematocrit 26.9 % (39.0-53.0) 25.5 % (39.0-53.0) Mean Corpuscular Hemoglobin Concent 34 g/dL (31-37) 33 g/dL (31-37) Sodium Level 139 mmol/L (136-145) 134 mmol/L (136-145) Potassium Level 4.6 mmol/L (3.5-5.1) 4.3 mmol/L (3.5-5.1) Chloride Level 103 mmol/L (98-107) 100 mmol/L (98-107) Carbon Dioxide Level 28 mmol/L (21-32) 27 mmol/L (21-32) Anion Gap 8 (6-14) 7 (6-14) Blood Urea Nitrogen 54 mg/dL (8-26) 58 mg/dL (8-26) Creatinine 3.8 mg/dL (0.7-1.3) 4.0 mg/dL (0.7-1.3) Estimated GFR (Cockcroft-Gault) 18.8 17.8 Glucose Level 118 mg/dL (70-99) 104 mg/dL (70-99) Calcium Level 8.8 mg/dL (8.5-10.1) 8.6 mg/dL (8.5-10.1) Laboratory Tests Test 10/25/16 06:15 10/25/16 06:45 Hemoglobin 8.5 g/dL (13.0-17.5) Hematocrit 25.5 % (39.0-53.0) Mean Corpuscular Hemoglobin Concent 33 g/dL (31-37) Prothrombin Time 15.5 SEC (11.7-14.0) Prothromb Time International Ratio 1.3 (0.8-1.1) Sodium Level 134 mmol/L (136-145) Potassium Level 4.3 mmol/L (3.5-5.1) Chloride Level 100 mmol/L (98-107) Carbon Dioxide Level 27 mmol/L (21-32) Anion Gap 7 (6-14) Blood Urea Nitrogen 58 mg/dL (8-26) Creatinine 4.0 mg/dL (0.7-1.3) Estimated GFR (Cockcroft-Gault) 17.8 Glucose Level 104 mg/dL (70-99) Calcium Level 8.6 mg/dL (8.5-10.1) Notes A and A in bed, eating breakfast incision ok RLE remains NVI Assessment and Plan likely transfer to SNF tomorrow cont PT/OT cath BROOKLYN Germain II, MD Oct 25, 2016 08:05
[2016-10-25] MEDS: CLOPIDOGREL BISULFATE 75 MG TABLET PO SCH (08:11)
[2016-10-25] MEDS: FUROSEMIDE 80 MG TABLET. PO SCH ×2 (08:11→15:24)
[2016-10-25] MEDS: SENNOSIDES/DOCUSATE 8.6/50MG TABLET. PO SCH (08:11)
[2016-10-25] MEDS: oxyCODONE/APAP 7.5/325 1 TAB TABLET PO PRN (08:11)
[2016-10-25] MEDS: FERROUS SULFATE 325 MG TABLET. PO SCH ×2 (08:11→17:05)
[2016-10-25] MEDS: MULTIVITAMIN with MINERAL TABLET. PO SCH (08:12)
[2016-10-25] MEDS: DOCUSATE SODIUM 100 MG CAPSULE. PO SCH (08:12)
[2016-10-25] MEDS: ALLOPURINOL 300 MG TABLET. PO SCH (08:12)
[2016-10-25] MEDS: CARVEDILOL 6.25 MG TABLET. PO SCH ×2 (08:13→17:05)
[2016-10-25] MEDS: SOTALOL 80 MG TABLET. PO SCH (08:16)
[2016-10-25] MEDS: LOSARTAN POTASSIUM 50 MG TABLET. PO SCH (09:00)
--- NOTE | 2016-10-25 11:04 | PATHOLOGY ---
PATHOLOGY REPORT * * * * * * * * FINAL DIAGNOSIS: Femoral head and attached segments of synovial and fibroadipose tissue, right total hip arthroplasty: - Advanced degenerative arthritis. - Chronic inflammation of synovial and fibroadipose tissue. (JPM:kathleen; 10/25/2016) REPORT ELECTRONICALLY SIGNED BY: Alireza Ruiz M.D. DATE/TIME: 10/25/2016 11:04 * * * * * * * * GROSS PATHOLOGY: The specimen is received in formalin, labeled "Wade-right hip tissue" is a femoral head measureing 5.3 x 5.2 x 4.2 cm with an attached femoral neck measuring 2.0 cm in length by up to 4.4 cm in diameter. The specimen also displays attached yellow lobular adipose tissue and pinkish brown membranous tissue. The articular surface of the specimen is frederick to brown and smooth with focal areas of slight peripheral eburnation and erosion. Sectioning through the specimen reveals a yellow-frederick hard trabeculated cut surface and an articular surface ranging in thickness from less than 0.1 cm up to 0.3 cm. [employer] sections of the specimen are submitted in cassette A1 following decalcification. (AKA; 10/24/2016) INITIAL CPT CODE(S): A; 41153, 03094 Professional services [place] [address] Technical services performed by [facility] at [address] [place] [address]. SPECIMEN(S) RECEIVED: A.Right hip tissue CLINICAL HISTORY: Right hip DJD, OA PATIENT: ROSALIA MARTI /AGE: [id number] (Age: 75) PATIENT #: [id number] ALT CASE #: SPECIMEN COLLECTION DATE: 10/23/2016 SPECIMEN RECEIVED DATE: 10/23/2016 [facility] - [id number] [place] [address] - PHONE: [phone] * * * END OF REPORT * * *
[2016-10-25] MEDS: oxyCODONE/APAP 5/325 1 TAB TABLET PO PRN (12:42)
[2016-10-25] MEDS ORDERED: WARFARIN 5 MG TABLET. PO ONE (16:00)
--- NOTE | 2016-10-25 16:25 | PDOC ---
PROGRESS NOTES Subjective renal function stable, pain controlled, progressing well, he has decided to go to [facility] Objective Afebrile General: NAD Heart: RRR Lungs: CTAB Abd: soft, non distended Ext: lymphedema better Hgb: 9.2 BUN: 51 Creat: 4.0 eGFR 17 Vital Signs Vital Signs Date Time Temp Pulse Resp B/P (MAP) Pulse Ox O2 Delivery O2 Flow Rate FiO2 10/25/16 12:42 18 10/25/16 12:03 84 120/72 10/25/16 08:00 Room Air 10/25/16 06:30 98.8 93 98.8 10/23/16 14:15 10.0 I & O Intake and Output 10/26/16 07:00 Output Total 1000 ml Balance -1000 ml Output Urine Total 1000 ml Assessment and Plan 1. POD #2 right BRANT, pain controlled. He plans on going to [facility] 2. stage 4 CKD, stable, continue to monitor but he has good urine output 3. post op blood loss anemia, worsening but should justin 4. OA, chronic 5. HTN. controlled. 6. CAD, stable 7. urinary retention - likely from anesthesia- started Flomax, prn straight cath if recurs but urinating well now Problems: Abdoulaye CARDENAS MD Oct 25, 2016 16:25
[2016-10-25 17:32] VITALS: BP 128/66
[2016-10-25] MEDS: TAMSULOSIN 0.4 MG CAP.ER.24H. PO SCH (20:41)
[2016-10-26 04:40] LABS: CALCIUM 8.4 mg/dL (8.5-10.1); CREATININE 3.9 mg/dL (0.7-1.3); GFR 18.3
[2016-10-26 04:53] LABS: INR 1.3 (0.8-1.1)
[2016-10-26 05:37] LABS: HEMATOCRIT 23.6 % (39.0-53.0); HEMOGLOBIN 8.3 g/dL (13.0-17.5)
[2016-10-26 05:43] VITALS: BP 121/64
--- NOTE | 2016-10-26 08:08 | PDOC ---
ORTHO PROGRESS NOTES Subjective Pain a little better today, no complaints Vitals Vital Signs Date Time Temp Pulse Resp B/P (MAP) Pulse Ox O2 Delivery O2 Flow Rate FiO2 10/26/16 05:43 99.3 87 20 121/64 (83) 96 Room Air 99.3 Labs Laboratory Tests Test 10/25/16 06:15 10/25/16 06:45 10/26/16 03:50 10/26/16 04:00 Hemoglobin 8.5 g/dL (13.0-17.5) 8.3 g/dL (13.0-17.5) Hematocrit 25.5 % (39.0-53.0) 23.6 % (39.0-53.0) Mean Corpuscular Hemoglobin Concent 33 g/dL (31-37) 35 g/dL (31-37) Prothrombin Time 15.5 SEC (11.7-14.0) 15.0 SEC (11.7-14.0) Prothromb Time International Ratio 1.3 (0.8-1.1) 1.3 (0.8-1.1) Sodium Level 134 mmol/L (136-145) 133 mmol/L (136-145) Potassium Level 4.3 mmol/L (3.5-5.1) 4.0 mmol/L (3.5-5.1) Chloride Level 100 mmol/L (98-107) 98 mmol/L (98-107) Carbon Dioxide Level 27 mmol/L (21-32) 27 mmol/L (21-32) Anion Gap 7 (6-14) 8 (6-14) Blood Urea Nitrogen 58 mg/dL (8-26) 63 mg/dL (8-26) Creatinine 4.0 mg/dL (0.7-1.3) 3.9 mg/dL (0.7-1.3) Estimated GFR (Cockcroft-Gault) 17.8 18.3 Glucose Level 104 mg/dL (70-99) 102 mg/dL (70-99) Calcium Level 8.6 mg/dL (8.5-10.1) 8.4 mg/dL (8.5-10.1) Laboratory Tests Test 10/26/16 03:50 10/26/16 04:00 Hemoglobin 8.3 g/dL (13.0-17.5) Hematocrit 23.6 % (39.0-53.0) Mean Corpuscular Hemoglobin Concent 35 g/dL (31-37) Prothrombin Time 15.0 SEC (11.7-14.0) Prothromb Time International Ratio 1.3 (0.8-1.1) Sodium Level 133 mmol/L (136-145) Potassium Level 4.0 mmol/L (3.5-5.1) Chloride Level 98 mmol/L (98-107) Carbon Dioxide Level 27 mmol/L (21-32) Anion Gap 8 (6-14) Blood Urea Nitrogen 63 mg/dL (8-26) Creatinine 3.9 mg/dL (0.7-1.3) Estimated GFR (Cockcroft-Gault) 18.3 Glucose Level 102 mg/dL (70-99) Calcium Level 8.4 mg/dL (8.5-10.1) Notes A and A in chair RLE remains NVI dressing intact Assessment and Plan ok to transfer stable chronic medical conditions WBBROOKLYN REGAN II, MD Oct 26, 2016 08:08
[2016-10-26] MEDS: DOCUSATE SODIUM 100 MG CAPSULE. PO SCH (08:44)
[2016-10-26] MEDS: CLOPIDOGREL BISULFATE 75 MG TABLET PO SCH (08:44)
[2016-10-26] MEDS: SENNOSIDES/DOCUSATE 8.6/50MG TABLET. PO SCH (08:44)
[2016-10-26] MEDS: FUROSEMIDE 80 MG TABLET. PO SCH ×2 (08:44→14:00)
[2016-10-26] MEDS: FERROUS SULFATE 325 MG TABLET. PO SCH (08:44)
[2016-10-26] MEDS: MULTIVITAMIN with MINERAL TABLET. PO SCH (08:44)
[2016-10-26] MEDS: ALLOPURINOL 300 MG TABLET. PO SCH (08:44)
[2016-10-26] MEDS: LOSARTAN POTASSIUM 50 MG TABLET. PO SCH (08:45)
[2016-10-26] MEDS: SOTALOL 80 MG TABLET. PO SCH (08:45)
[2016-10-26] MEDS: oxyCODONE/APAP 7.5/325 1 TAB TABLET PO PRN (08:46)
[2016-10-26] MEDS: CARVEDILOL 6.25 MG TABLET. PO SCH (08:46)
--- NOTE | 2016-10-26 08:50 | PDOC ---
PROGRESS NOTES Subjective Ready for transfer, no medical issues except constipation and he now has hiccups , swelling in LE improving, renal function stable although BUN up somewhat, urinating well. No BM since admission though. Pain controlled Objective Afebrile BP: 121/64 General: NAD, A&O Heart: RRR Lungs: CTAB Abd: soft, mildly distended, bowel sounds present, non tender Ext: improved edema of LE but still prominent Hgb: 8.3 Creat: 3.9 Vital Signs Vital Signs Date Time Temp Pulse Resp B/P (MAP) Pulse Ox O2 Delivery O2 Flow Rate FiO2 10/26/16 05:43 99.3 87 20 121/64 (83) 96 Room Air 99.3 10/23/16 14:15 10.0 I & O Intake and Output 10/27/16 07:00 Intake Total 300 ml Balance 300 ml Intake Oral 300 ml Assessment and Plan 1. POD #3 right BRANT, pain controlled. He plans on going to [facility] today 2. stage 4 CKD, stable, continue to monitor but he has good urine output 3. post op blood loss anemia, stable 4. OA, chronic 5. HTN. controlled. 6. CAD, stable 7. urinary retention - likely from anesthesia- started Flomax, prn straight cath if recurs but urinating well now 8. constipation - start bowel program 9. Hiccups - should resolve with BM Problems: Abdoulaye CARDENAS MD Oct 26, 2016 08:50
[2016-10-26] MEDS ORDERED: METHYLNALTREXONE 12 MG/0.6 ML VIAL. SQ ONE (09:30)
[2016-10-26] MEDS ORDERED: BISACODYL 10 MG SUPP.RECT. PR ONE (10:00)
[2016-10-26] MEDS: oxyCODONE/APAP 5/325 1 TAB TABLET PO PRN (12:43)
[2016-10-26] MEDS ORDERED: WARFARIN 4 MG TABLET. PO ONE (13:00)
[2016-10-26 14:34] VITALS: BP 103/56
== END 2016-10-26 14:58 | DRG 470 ==
LOC: OPSVCIP 08:45 → 4 SOUTHEST 14:23
PROVIDERS: ADMIT Orthopaedic Surgery Sports Medicine; ATTEND Orthopaedic Surgery Sports Medicine
PROC: 0SR90JZ Replacement of Right Hip Joint with Synthetic Substitute, Open Approach (ICD-10-PCS; 2016-10-23)
PROC: 0LQJ0ZZ Repair Right Hip Tendon, Open Approach (ICD-10-PCS; principal; 2016-10-23 10:30)
DX: M16.11 Unilateral primary osteoarthritis, right hip (principal); N18.4 Chronic kidney disease, stage 4 (severe); G62.9 Polyneuropathy, unspecified; I48.91 Unspecified atrial fibrillation; D62 Acute posthemorrhagic anemia; I12.9 Hypertensive chronic kidney disease with stage 1 through stage 4 chronic kidney disease, or unspecified chronic kidney disease; M10.9 Gout, unspecified; N13.5 Crossing vessel and stricture of ureter without hydronephrosis; I25.10 Atherosclerotic heart disease of native coronary artery without angina pectoris; R06.6 Hiccough; K59.00 Constipation, unspecified; S76.011A Strain of muscle, fascia and tendon of right hip, initial encounter; X58.XXXA Exposure to other specified factors, initial encounter; Z96.653 Presence of artificial knee joint, bilateral; R33.9 Retention of urine, unspecified; Z79.02 Long term (current) use of antithrombotics/antiplatelets; Z82.49 Family history of ischemic heart disease and other diseases of the circulatory system; Z83.3 Family history of diabetes mellitus; Z87.891 Personal history of nicotine dependence; Z90.49 Acquired absence of other specified parts of digestive tract; Z95.5 Presence of coronary angioplasty implant and graft; Y93.89 Activity, other specified; Y92.89 Other specified places as the place of occurrence of the external cause; Y99.8 Other external cause status
CPT/HCPCS: 36415; 72170; 80048; 85014; 85018; 85610; 86850; 86900; 86901; 88304; 88311; 90686; J0171; J0360; J0690; J1170; J1885; J2212; J2250; J2270; J2405; J2704; J2795; J3010; J7030; J7120; S0028; 97110; 97116; 97140; 97150; 97530; 97535; J2001

== ENCOUNTER 2017-06-21 22:08 | Inpatient (IN) | payer BC ==
[2017-06-21] MEDS ORDERED: BENZOCAINE ONE 20% MUCOSAL SPRAY. (22:42)
[2017-06-21] MEDS ORDERED: fentaNYL PF VIAL 100 MCG/2 ML VIAL (22:42)
[2017-06-21 22:43] LABS: ADD MAN DIFF? NO
[2017-06-21] MEDS: BENZOCAINE ONE 20% MUCOSAL SPRAY. MM (22:45)
[2017-06-21] MEDS: fentaNYL PF VIAL 100 MCG/2 ML VIAL IV (22:45)
[2017-06-21 22:46] LABS: BASO % 1 % (0-3); EOS # 0.2 x10^3/uL (0.0-0.7); EOS % 4 % (0-3); HEMATOCRIT 35.3 % (39.0-53.0); HEMOGLOBIN 12.4 g/dL (13.0-17.5); LYMPH # 0.7 x10^3/uL (1.0-4.8); LYMPH % 16 % (24-48); MEAN CORPUSCULAR HEMOGLOBIN 31 pg (25-35); MEAN CORPUSCULAR HGB CONC 35 g/dL (31-37); MEAN CORPUSCULAR VOLUME 89 fL (79-100); MONO # 0.5 x10^3/uL (0.0-1.1); MONO % 12 % (0-9); NEUT # 2.7 x10^3uL (1.8-7.7); NEUT % 67 % (31-73); PLATELET COUNT 250 x10^3/uL (140-400); RED BLOOD COUNT 3.96 x10^6/uL (4.30-5.70); RED CELL DISTRIBUTION WIDTH 16.7 % (11.5-14.5); WHITE BLOOD COUNT 4.1 x10^3/uL (4.0-11.0)
[2017-06-21 23:05] LABS: ANION GAP 9 (6-14); BLOOD UREA NITROGEN 55 mg/dL (8-26); BUN/CREATININE RATIO 13 (6-20); CALCIUM 9.2 mg/dL (8.5-10.1); CARBON DIOXIDE 27 mmol/L (21-32); CHLORIDE 101 mmol/L (98-107); CREATININE 4.2 mg/dL (0.7-1.3); GFR 16.7; GLUCOSE 91 mg/dL (70-99); POTASSIUM 4.9 mmol/L (3.5-5.1); SODIUM 137 mmol/L (136-145)
[2017-06-21] MEDS: IV NORMAL SALINE 1000ML BAG 1,000 ML IV (23:05)
[2017-06-21 23:08] LABS: ALBUMIN 3.3 g/dL (3.4-5.0); ALBUMIN/GLOBULIN RATIO 0.7 (1.0-1.7); ALK PHOS 112 U/L (46-116); ALT (SGPT) 18 U/L (16-63); AST (SGOT) 27 U/L (15-37); LIPASE 613 U/L (73-393); TOTAL BILIRUBIN 0.8 mg/dL (0.2-1.0); TOTAL PROTEIN 7.8 g/dL (6.4-8.2)
[2017-06-21 23:58] LABS: BILIRUBIN,URINE NEGATIVE (NEG); CLARITY,URINE CLEAR; COLOR,URINE YELLOW; GLUCOSE,URINE NEGATIVE (NEG); NITRITE,URINE NEGATIVE (NEG); PH,URINE 7.5; PROTEIN,URINE 100 mg/dL (NEG-TRACE)
[2017-06-22 00:17] LABS: BACTERIA,URINE 0 /HPF (0-FEW); RBC,URINE 0 /HPF (0-2); SQUAMOUS EPITHELIAL CELL,UR FEW /LPF
[2017-06-22] MEDS ORDERED: ONDANSETRON PF 4 MG/2 ML VIAL. IV (00:30)
[2017-06-22] MEDS: fentaNYL PF VIAL 100 MCG/2 ML VIAL IV ×2 (02:16→02:58)
[2017-06-22] MEDS ORDERED: LABETALOL 20 MG/4 ML DISP.SYRIN. IVP (16:30)
[2017-06-22] MEDS: AMINO AC 3%/ELECTROLYTE/GLYCER 1,000 ML IV (19:06)
[2017-06-22] MEDS: FUROSEMIDE 20 MG/2 ML VIAL. IVP (19:06)
[2017-06-23 04:53] LABS: ADD MAN DIFF? NO
[2017-06-23 05:12] LABS: BASO % 1 % (0-3); EOS # 0.2 x10^3/uL (0.0-0.7); EOS % 3 % (0-3); HEMATOCRIT 31.6 % (39.0-53.0); HEMOGLOBIN 10.9 g/dL (13.0-17.5); LYMPH # 0.7 x10^3/uL (1.0-4.8); LYMPH % 12 % (24-48); MEAN CORPUSCULAR HEMOGLOBIN 31 pg (25-35); MEAN CORPUSCULAR HGB CONC 34 g/dL (31-37); MEAN CORPUSCULAR VOLUME 89 fL (79-100); MONO # 0.7 x10^3/uL (0.0-1.1); MONO % 11 % (0-9); NEUT # 4.5 x10^3uL (1.8-7.7); NEUT % 74 % (31-73); PLATELET COUNT 216 x10^3/uL (140-400); RED BLOOD COUNT 3.55 x10^6/uL (4.30-5.70); RED CELL DISTRIBUTION WIDTH 16.1 % (11.5-14.5); WHITE BLOOD COUNT 6.1 x10^3/uL (4.0-11.0)
[2017-06-23] MEDS: AMINO AC 3%/ELECTROLYTE/GLYCER 1,000 ML IV ×3 (05:26→22:39)
[2017-06-23 05:27] LABS: ALBUMIN 2.7 g/dL (3.4-5.0); ALBUMIN/GLOBULIN RATIO 0.7 (1.0-1.7); ALK PHOS 90 U/L (46-116); ALT (SGPT) 15 U/L (16-63); AMYLASE 198 U/L (25-115); ANION GAP 9 (6-14); AST (SGOT) 13 U/L (15-37); BLOOD UREA NITROGEN 58 mg/dL (8-26); BUN/CREATININE RATIO 15 (6-20); CALCIUM 8.5 mg/dL (8.5-10.1); CARBON DIOXIDE 26 mmol/L (21-32); CHLORIDE 107 mmol/L (98-107); GFR 17.7; GLUCOSE 92 mg/dL (70-99); LIPASE 502 U/L (73-393); POTASSIUM 4.4 mmol/L (3.5-5.1); SODIUM 142 mmol/L (136-145); TOTAL BILIRUBIN 0.8 mg/dL (0.2-1.0); TOTAL PROTEIN 6.5 g/dL (6.4-8.2)
[2017-06-23] MEDS: FUROSEMIDE 20 MG/2 ML VIAL. IVP (09:00)
[2017-06-23] MEDS: IOHEXOL 300 MG/ML 100ML VIAL. PO (12:45)
[2017-06-23] MEDS ORDERED: CONTRAST GIVEN MC (12:45)
[2017-06-23] MEDS: SENNOSIDES/DOCUSATE 8.6/50MG TABLET. PO (20:55)
[2017-06-24 05:24] LABS: ANION GAP 11 (6-14); BLOOD UREA NITROGEN 65 mg/dL (8-26); CALCIUM 8.5 mg/dL (8.5-10.1); CARBON DIOXIDE 25 mmol/L (21-32); CHLORIDE 109 mmol/L (98-107); GFR 17.7; GLUCOSE 92 mg/dL (70-99); POTASSIUM 5.1 mmol/L (3.5-5.1); SODIUM 145 mmol/L (136-145)
[2017-06-24] MEDS: FUROSEMIDE 20 MG/2 ML VIAL. IVP (09:15)
[2017-06-24] MEDS: SENNOSIDES/DOCUSATE 8.6/50MG TABLET. PO ×2 (09:15→20:13)
[2017-06-24] MEDS: SOTALOL 80 MG TABLET. PO ×2 (11:30→20:13)
[2017-06-24] MEDS: AMINO AC 3%/ELECTROLYTE/GLYCER 1,000 ML IV ×2 (12:32→20:12)
[2017-06-24] MEDS: LOSARTAN POTASSIUM 50 MG TABLET. PO (12:36)
[2017-06-24] MEDS ORDERED: ANTI-COAG MONITOR BY PHARMACY. MC (13:00)
[2017-06-24] MEDS: CARVEDILOL 6.25 MG TABLET. PO (17:45)
[2017-06-25] MEDS: AMINO AC 3%/ELECTROLYTE/GLYCER 1,000 ML IV ×2 (04:30→08:47)
[2017-06-25] MEDS ORDERED: PROCHLORPERAZINE 10 MG/2 ML VIAL. IV (07:00)
[2017-06-25] MEDS ORDERED: LIDOCAINE 1% PF 2 ML VIAL. ID (07:00)
[2017-06-25] MEDS ORDERED: MORPHINE SULFATE 4 MG/ML DISP.SYRIN. IV (07:00)
[2017-06-25] MEDS ORDERED: fentaNYL PF VIAL 100 MCG/2 ML VIAL IV ×2 (07:00)
[2017-06-25] MEDS ORDERED: IV NORMAL SALINE 1000ML BAG 1,000 ML IV (07:00)
[2017-06-25] MEDS: LOSARTAN POTASSIUM 50 MG TABLET. PO (08:45)
[2017-06-25] MEDS: FUROSEMIDE 80 MG TABLET. PO (08:45)
[2017-06-25] MEDS: SENNOSIDES/DOCUSATE 8.6/50MG TABLET. PO (08:46)
[2017-06-25] MEDS: SOTALOL 80 MG TABLET. PO (08:46)
[2017-06-25] MEDS: CARVEDILOL 6.25 MG TABLET. PO (08:47)
== END 2017-06-25 11:40 | disposition home or self-care (01) | DRG 388 ==
LOC: ER 06-22 00:37 → 6 SOUTH 06-22 00:20
PROC: 0D9670Z Drainage of Stomach with Drainage Device, Via Natural or Artificial Opening (ICD-10-PCS; principal; 2017-06-22)
DX: K56.699 Other intestinal obstruction unspecified as to partial versus complete obstruction (principal); K85.90 Acute pancreatitis without necrosis or infection, unspecified; I48.2 Chronic atrial fibrillation; I12.0 Hypertensive chronic kidney disease with stage 5 chronic kidney disease or end stage renal disease; N18.5 Chronic kidney disease, stage 5; D63.1 Anemia in chronic kidney disease; E78.5 Hyperlipidemia, unspecified; I25.10 Atherosclerotic heart disease of native coronary artery without angina pectoris; I51.7 Cardiomegaly; N28.89 Other specified disorders of kidney and ureter; Z82.49 Family history of ischemic heart disease and other diseases of the circulatory system; Z83.3 Family history of diabetes mellitus; Z95.5 Presence of coronary angioplasty implant and graft; Z96.649 Presence of unspecified artificial hip joint; Z96.659 Presence of unspecified artificial knee joint; M10.9 Gout, unspecified; M19.90 Unspecified osteoarthritis, unspecified site
CPT/HCPCS: 31500; 36415; 74176; 74250; 80048; 80053; 81001; 82150; 83690; 85025; 96360; 99285-25; J1650; J3010; J7030

== ENCOUNTER 2017-07-16 14:28 | Emergency (ER) | payer BC ==
[2017-07-16] MEDS ORDERED: IV NORMAL SALINE 500ML BAG 500 ML IV (15:00)
[2017-07-16] MEDS: IV NORMAL SALINE 500ML BAG 500 ML IV (15:23)
[2017-07-16 15:30] LABS: ADD MAN DIFF? NO
[2017-07-16 15:35] LABS: BASO % 1 % (0-3); EOS # 0.1 x10^3/uL (0.0-0.7); EOS % 3 % (0-3); HEMATOCRIT 32.9 % (39.0-53.0); HEMOGLOBIN 11.2 g/dL (13.0-17.5); LYMPH # 0.6 x10^3/uL (1.0-4.8); LYMPH % 16 % (24-48); MEAN CORPUSCULAR HEMOGLOBIN 31 pg (25-35); MEAN CORPUSCULAR HGB CONC 34 g/dL (31-37); MEAN CORPUSCULAR VOLUME 90 fL (79-100); MONO # 0.4 x10^3/uL (0.0-1.1); MONO % 10 % (0-9); NEUT # 2.8 x10^3uL (1.8-7.7); NEUT % 71 % (31-73); PLATELET COUNT 182 x10^3/uL (140-400); RED BLOOD COUNT 3.65 x10^6/uL (4.30-5.70); RED CELL DISTRIBUTION WIDTH 15.7 % (11.5-14.5)
[2017-07-16 16:00] LABS: TROPONINI < 0.017 ng/mL (0.000-0.055)
[2017-07-16 16:27] LABS: ANION GAP 12 (6-14); BLOOD UREA NITROGEN 46 mg/dL (8-26); BUN/CREATININE RATIO 12 (6-20); CALCIUM 9.1 mg/dL (8.5-10.1); CARBON DIOXIDE 22 mmol/L (21-32); CHLORIDE 103 mmol/L (98-107); GFR 17.7; GLUCOSE 96 mg/dL (70-99); POTASSIUM 4.3 mmol/L (3.5-5.1); SODIUM 137 mmol/L (136-145)
[2017-07-16 16:34] LABS: ALBUMIN 3.5 g/dL (3.4-5.0); ALK PHOS 90 U/L (46-116); ALT (SGPT) 19 U/L (16-63); AST (SGOT) 16 U/L (15-37); MAGNESIUM 2.3 mg/dL (1.8-2.4); TOTAL BILIRUBIN 0.9 mg/dL (0.2-1.0)
[2017-07-16] MEDS ORDERED: IV NORMAL SALINE 1000ML BAG 1,000 ML IV (17:30)
== END 2017-07-16 18:05 | disposition home or self-care (01) ==
LOC: ER 18:05
DX: E86.0 Dehydration (principal); I12.9 Hypertensive chronic kidney disease with stage 1 through stage 4 chronic kidney disease, or unspecified chronic kidney disease; N18.9 Chronic kidney disease, unspecified; I48.91 Unspecified atrial fibrillation; I25.10 Atherosclerotic heart disease of native coronary artery without angina pectoris; M10.9 Gout, unspecified; R51 Headache; Z90.49 Acquired absence of other specified parts of digestive tract
CPT/HCPCS: 36415; 80053; 83735; 84484; 85025; 93005; 96360; 99285-25; J7040

== ENCOUNTER 2017-08-23 05:51 | Emergency (ER) | payer BC ==
[2017-08-23 06:43] LABS: ADD MAN DIFF? NO
[2017-08-23 06:46] LABS: BASO % 1 % (0-3); EOS # 0.1 x10^3/uL (0.0-0.7); EOS % 4 % (0-3); HEMATOCRIT 33.3 % (39.0-53.0); HEMOGLOBIN 11.2 g/dL (13.0-17.5); LYMPH # 0.8 x10^3/uL (1.0-4.8); LYMPH % 27 % (24-48); MEAN CORPUSCULAR HEMOGLOBIN 31 pg (25-35); MEAN CORPUSCULAR HGB CONC 34 g/dL (31-37); MEAN CORPUSCULAR VOLUME 92 fL (79-100); MONO # 0.4 x10^3/uL (0.0-1.1); MONO % 12 % (0-9); NEUT # 1.7 x10^3uL (1.8-7.7); NEUT % 57 % (31-73); PLATELET COUNT 177 x10^3/uL (140-400); RED BLOOD COUNT 3.64 x10^6/uL (4.30-5.70); RED CELL DISTRIBUTION WIDTH 15.8 % (11.5-14.5); WHITE BLOOD COUNT 3.1 x10^3/uL (4.0-11.0)
[2017-08-23 06:56] LABS: ANION GAP 11 (6-14); BLOOD UREA NITROGEN 76 mg/dL (8-26); BUN/CREATININE RATIO 15 (6-20); CALCIUM 8.9 mg/dL (8.5-10.1); CARBON DIOXIDE 23 mmol/L (21-32); CHLORIDE 102 mmol/L (98-107); CREATININE 5.2 mg/dL (0.7-1.3); GFR 13.1; GLUCOSE 105 mg/dL (70-99); POTASSIUM 4.8 mmol/L (3.5-5.1); SODIUM 136 mmol/L (136-145)
[2017-08-23 07:03] LABS: ALBUMIN 3.5 g/dL (3.4-5.0); ALK PHOS 101 U/L (46-116); ALT (SGPT) 77 U/L (16-63); AST (SGOT) 61 U/L (15-37); MAGNESIUM 2.1 mg/dL (1.8-2.4); TOTAL BILIRUBIN 0.8 mg/dL (0.2-1.0); TOTAL PROTEIN 6.9 g/dL (6.4-8.2)
[2017-08-23 07:05] LABS: TROPONINI < 0.017 ng/mL (0.000-0.055)
[2017-08-23 07:09] LABS: CKMB MASS 0.9 ng/mL (0.0-3.6); CREATINE KINASE 54 U/L (39-308)
[2017-08-23] MEDS: IV NORMAL SALINE 500ML BAG 400 ML IV (09:38)
== END 2017-08-23 10:38 | disposition home or self-care (01) ==
LOC: ER 05:51
DX: R53.1 Weakness (principal); R19.7 Diarrhea, unspecified; R11.2 Nausea with vomiting, unspecified; I12.0 Hypertensive chronic kidney disease with stage 5 chronic kidney disease or end stage renal disease; N18.6 End stage renal disease; Z99.2 Dependence on renal dialysis; M10.9 Gout, unspecified; I48.91 Unspecified atrial fibrillation; I25.10 Atherosclerotic heart disease of native coronary artery without angina pectoris; Z95.5 Presence of coronary angioplasty implant and graft
CPT/HCPCS: 36415; 71045; 80053; 82553; 83735; 84484; 85025; 93005; 96360; 99285-25; J7040

== ENCOUNTER → 2017-09-07 | Day surgery (SDC) | payer BC ==
[~2017-09-07] MED LIST changes: -ACET325T9 PO; -ALLO300T PO; -ASPI-630 PO; -ASPI325T11 PO; -CALC0.5C PO; -CARV25TA2 PO; -CARV6.25 PO; -CLOP75TA PO; -CLOP75TA57 PO; -DIPH25TA64 PO; -DOCU100C28 PO; -Diltiazem Hcl PO; -Doxycycline Hyclate PO; -FURO-68 PO; -FURO80TA3 PO; -FURO80TA72 PO; +IV RINGERS,LACTATED 1000ML 1,000 ML IV; -IV RINGERS,LACTATED 1000ML 1,000 ML IV SCH; -KRIL1CAP10 PO; -LIDOCAINE 1% 1 ML SYRINGE. ID PRN; +LIDOCAINE 1% PF 2 ML VIAL. ID; +LIDOCAINE 2% PF Vial for OR 5 ML VIAL.; -LISI2.5T PO; -LORA10TA3 PO; -LOSA50TA2 PO; +MORPHINE SULFATE 2 MG/ML DISP.SYRIN. IV; -MORPHINE SULFATE 5 MG, KETOROLAC 30 MG, ROPIVacaine 0.5% PF 60 ML, EPINEPHrine 0.5 MG i... INT ART ONE; -MULT1TAB13 PO; -OMEG-57 PO; -POTA20TA4 PO; -POTA20TA82 PO; -POTA20TA84 PO; +PROCHLORPERAZINE 10 MG/2 ML VIAL. IV; -PROCHLORPERAZINE 10 MG/2 ML VIAL. IV PRN; +PROPOFOL 20 ML IV; -RIVA10TA PO; -SOTA80TA48 PO; -Sulfamethoxazole/Trimethoprim PO; -TIZA4TAB PO; -TRAM50TA PO; -TRANEXAMIC ACID 1,000 MG in IV NORMAL SALINE 50ML 50 ML INJ ONE; -baking soda PO; +fentaNYL PF VIAL 100 MCG/2 ML VIAL IV; -fentaNYL PF VIAL 100 MCG/2 ML VIAL IV PRN
[2017-09-07] MEDS: IV NORMAL SALINE 1000ML BAG 1,000 ML IV (06:56)
== END | disposition home or self-care (01) ==
LOC: ENDOS 06:03
DX: K64.0 First degree hemorrhoids (principal); D50.0 Iron deficiency anemia secondary to blood loss (chronic); I12.0 Hypertensive chronic kidney disease with stage 5 chronic kidney disease or end stage renal disease; N18.6 End stage renal disease; G47.30 Sleep apnea, unspecified; M19.90 Unspecified osteoarthritis, unspecified site; N25.81 Secondary hyperparathyroidism of renal origin; Z83.511 Family history of glaucoma; Z72.89 Other problems related to lifestyle; Z87.891 Personal history of nicotine dependence; Z79.82 Long term (current) use of aspirin; Z79.899 Other long term (current) drug therapy; Z90.49 Acquired absence of other specified parts of digestive tract; Z98.890 Other specified postprocedural states; I25.10 Atherosclerotic heart disease of native coronary artery without angina pectoris; Z95.5 Presence of coronary angioplasty implant and graft; Z99.2 Dependence on renal dialysis; M10.9 Gout, unspecified; Z96.653 Presence of artificial knee joint, bilateral; Z96.641 Presence of right artificial hip joint; Z83.3 Family history of diabetes mellitus; Z82.49 Family history of ischemic heart disease and other diseases of the circulatory system; I48.91 Unspecified atrial fibrillation
CPT/HCPCS: 45378; J2001; J2704

== ENCOUNTER → 2018-01-30 | Outpatient (CLI) | payer BC ==
[2017-09-07 08:32] VITALS: BP 106/53
[~2018-01-30] MED LIST changes: +ACET325T9 PO; +ALLO300T PO; +AMOX500C PO; +ASPI-630 PO; +ASPI325T11 PO; +BISA-42 PO; +CALC0.5C8 PO; +CARV25TA2 PO; +CARV6.25 PO; +CARV6.2511 PO; +CLOP75TA PO; +CLOP75TA57 PO; +DIPH25CA58 PO; +DIPH25TA64 PO; +DOCU100C28 PO; +Diltiazem Hcl PO; +Doxycycline Hyclate PO; +FURO-68 PO; +FURO40TA4 PO; +FURO80TA3 PO; +FURO80TA72 PO; -IV RINGERS,LACTATED 1000ML 1,000 ML IV; +KRIL1CAP10 PO; -LIDOCAINE 1% PF 2 ML VIAL. ID; -LIDOCAINE 2% PF Vial for OR 5 ML VIAL.; +LISI2.5T PO; +LORA10TA3 PO; +LOSA-73 PO; -MORPHINE SULFATE 2 MG/ML DISP.SYRIN. IV; +MULT1TAB13 PO; +MULT1TAB52 PO; +OMEG-57 PO; +POTA20TA4 PO; +POTA20TA82 PO; +POTA20TA84 PO; -PROCHLORPERAZINE 10 MG/2 ML VIAL. IV; -PROPOFOL 20 ML IV; +REGADENOSON 0.4 MG/5 ML DISP.SYRIN. IV ONE; +RIVA10TA PO; +SODI650T PO; +SOTA80TA48 PO; +Sulfamethoxazole/Trimethoprim PO; +TIZA4TAB PO; +TRAM50TA PO; +baking soda PO; -fentaNYL PF VIAL 100 MCG/2 ML VIAL IV
--- NOTE | 2018-01-30 14:04 | RAD ---
MR#: [id number] Date of Study: 01/30/2018 Ordering Physician: MATTI LYLES, Referring Physician: RIVER MENDEZ Tech: ZINA Cabrales APPROVED REPORT Test Type: Pharmacological Stress Nurse/Tech: Isabella Patel R.N. Test Indications: fatigue Cardiac History: stents x2 Medications: See Electronic Medical Record Medical History: See Electronic Medical Record Resting ECG: a fib Resting Heart Rate: 73 bpm Resting Blood Pressure: 94/47mmHg Pretest Chest Pain: No chest pain Nurse/Tech Notes S1S2, lungs sound clear. was unable to detect an O2 sat due to cold extremities. denies any SOB Consent: The procedure was explained to the patient in lay terms. Informed consent was witnessed. Víctor eout was entered into [employer]. History and Stress Test performed by Isabella Patel R.N. Pharm. Details Pharmacologic stress testing was performed using 0.4mg per 5ml of regadenoson given intravenously ove r 7-10 seconds. Stress Symptoms No chest pain or symptoms. POST EXERCISE Reason for Termination: Infusion complete Target HR: 120 Max HR: 116 bpm Max Blood Pressure: 92/52mmHg Blood Pressure response to exercise: Normal blood pressure response during stress. Chest Pain: No. Arrhythmia: Yes. occ. PVC ST Change: No. INTERPRETATION Stress EKG Conclusion: The resting EKG shows an atrial fibrillation with nonspecific ST segment arteaga es. The stress EKG shows no significant changes from baseline. No EKG evidence of stressed induced ischemia. Imaging Protocol IMAGE PROTOCOL: Rest Tc-99m/stress Tc-99m 1 day Rest: Stress: Viability: Radiopharm.Tc99m AozulystgWh61x Sestamibi Dose11.4mCi 32.1mCi Duration 15min. 13min. Img Date 01/30/2018 01/30/2018 Inj-Img Tlxt98ngr. 60min. Rest Admin Site:IV - Right ForearmAdministrator:ZINA Cabrales Stress Admin Site: IV - Right ForearmAdministrator: ZINA Cabrales STRESS DATA End Diast. Vol.121.0mlLVEDV index BSA59.0ml End Syst. Vol.42.0mlLVESV index BSA20.0ml Myocardial Hkkb266.0gEject. Kejiybic11.0% Stress Scores Regional WT0.00Summed WT7.00 Regional WM0.00Summed WM0.00 LV Perfusion The stress scans showed no significant defects. The rest scans showed no significant defects. Nuclear imaging is negative for reversible ischemia or infarct. Wall Motion Left ventricular systolic function is normal. There are no regional wall motion abnormalities. Ejecti on fraction is 65%. LV Perf. Quant 17 Seg. SSS1.00 17 Seg. SRS11.00 17 Seg. SDS0.00 Stress Defect Extent (% LAD)0.00Rest Defect Extent (% LAD)18.10Rev. Defect Extent (% LAD)0.00 Stress Defect Extent (% LCX) 0.00Rest Defect Extent (% LCX)35.00Rev. Defect Extent (% LCX)0.00 Stress Defect Extent (% RCA)0.00Rest Defect Extent (% RCA)27.80Rev. Defect Extent (% RCA)0.00 Stress Defect Extent (% ARY)0.00Rest Defect Extent (% ARY)27.80Rev. Defect Extent (% ARY)0.00 Conclusion 1. No EKG evidence of stressed induced ischemia. 2. Nuclear imaging shows no reversible ischemia or infarct. 3. Normal left ventricular systolic function with an ejection fraction of 65%. 4. Moderately low to low risk Lexiscan nuclear stress test. Signed by : Matti Lyles MD Electronically Approved : 01/30/2018 14:03:13
== END | disposition home or self-care (01) ==
LOC: NM 08:45
PROVIDERS: ATTEND Internal Medicine Cardiovascular Disease
DX: R07.9 Chest pain, unspecified (principal); R53.83 Other fatigue
CPT/HCPCS: 78452; 93017; 96374; A9500; J2785

== ENCOUNTER 2018-04-21 05:58 | Inpatient (IN) | payer BC ==
[~2018-04-21] VITALS: Ht 185.4 cm; Wt 80.9 kg
[~2018-04-21 05:58] MED LIST changes: -REGADENOSON 0.4 MG/5 ML DISP.SYRIN. IV ONE
--- NOTE | 2018-04-21 06:22 | PHYS DOC ---
Past Medical History Past Medical History: A-Fib, CAD, Hypertension, Renal Failure, Other Additional Past Medical Histor: GOUT, chronic renal failure Past Surgical History: Cholecystectomy, Hip Replacement, Knee Replacement Additional Past Surgical Histo: cardiac stents placed, left upper extremity AV shunt Alcohol Use: None Drug Use: None Adult General HPI HPI Patient is a 77-year-old male who is past history of ESRD, chronic A. fib, and other medical problems, who presents to the emergency department for evaluation. He states he awakened early this morning to go urinate and felt generally weak and fatigued and EMS was called. He does not have any focal pain. He has had some diarrhea for the past few days. He is noted to be hypotensive. He denies any abdominal pain, nausea or vomiting, or black or bloody stools. He does admit to some weight loss over the past few weeks, and appears cachectic. There are no alleviating or exacerbating factors to his symptoms otherwise. Review of Systems Review of Systems Constitutional: Denies fever or chills [] Eyes: Denies change in visual acuity, redness, or eye pain [] HENT: Denies nasal congestion or sore throat [] Respiratory: Denies shortness of breath. Reports nonproductive cough [] Cardiovascular: The patient denies any shortness of breath, chest pain, palpitations, or orthopnea [] GI: Denies abdominal pain, nausea, vomiting, bloody stools [] : Denies dysuria or hematuria [] Musculoskeletal: Denies back pain or joint pain [] Integument: Denies rash or skin lesions [] Neurologic: Denies headache, focal weakness or sensory changes [] Endocrine: Denies polyuria or polydipsia [] All other systems were reviewed and found to be within normal limits, except as documented in this note. Current Medications Current Medications Current Medications Medications (Trade) Dose Ordered Sig/Maria Eugenia Start Time Stop Time Status Last Admin Dose Admin Dextrose/Lactated Ringer's 1,000 ml @ 75 mls/hr 1X ONCE 04/21/18 07:45 04/21/18 21:04 Sodium Chloride 1,000 ml @ 1,000 mls/hr Q1H 04/21/18 07:00 04/21/18 07:59 04/21/18 06:55 1,000 MLS/HR Allergies Allergies Allergies Coded Allergies Type Severity Reaction Last Updated Verified No Known Drug Allergies 09/07/17 No Physical Exam Physical Exam PHYSICAL EXAM: CONSTITUTIONAL: Thin, cachectic HEAD: normocephalic, atraumatic EENT: PERRL, EOMI. Conjunctivae normal color, sclerae non-icteric; moist mucous membranes. NECK: Supple, non-tender; no meningismus. LUNGS: Lungs CTA, breathing even and unlabored. Normal air movement. HEART: Irregularly irregular rhythm, no murmur CHEST: No deformity; non-tender ABDOMEN: The abdomen is soft, there is mild diffuse firmness to the upper abdomen without definite palpable mass, no rebound or guarding, normal bowel sounds are present. EXTREM: Normal ROM; no deformity, no calf tenderness. Normal pulses palpable in all extremities. There is 3+ bilateral pitting pedal edema. There is an AV fistula in the left upper extremity. There is also edema to the left upper extremity which the patient states is stable and baseline for him. SKIN: No rash; no diaphoresis NEURO: Alert; normal speech and cognition; CN's grossly intact; strength grossly intact without focal deficit. BACK: No CVA TTP. Current Patient Data Vital Signs Vital Signs Date Time Temp Pulse Resp B/P (MAP) Pulse Ox O2 Delivery O2 Flow Rate FiO2 04/21/18 07:23 84 24 04/21/18 06:30 100 04/21/18 06:00 98.8 78/57 (64) Nasal Cannula 2.0 98.8 Lab Values Laboratory Tests Test 04/21/18 06:15 White Blood Count 3.1 x10^3/uL (4.0-11.0) L Red Blood Count 3.29 x10^6/uL (4.30-5.70) L Hemoglobin 10.4 g/dL (13.0-17.5) L Hematocrit 30.9 % (39.0-53.0) L Mean Corpuscular Volume 94 fL (79-100) Mean Corpuscular Hemoglobin 31 pg (25-35) Mean Corpuscular Hemoglobin Concent 34 g/dL (31-37) Red Cell Distribution Width 16.2 % (11.5-14.5) H Platelet Count 199 x10^3/uL (140-400) Neutrophils (%) (Auto) 62 % (31-73) Lymphocytes (%) (Auto) 24 % (24-48) Monocytes (%) (Auto) 12 % (0-9) H Eosinophils (%) (Auto) 1 % (0-3) Basophils (%) (Auto) 1 % (0-3) Neutrophils # (Auto) 1.9 x10^3uL (1.8-7.7) Lymphocytes # (Auto) 0.7 x10^3/uL (1.0-4.8) L Monocytes # (Auto) 0.4 x10^3/uL (0.0-1.1) Eosinophils # (Auto) 0.0 x10^3/uL (0.0-0.7) Basophils # (Auto) 0.0 x10^3/uL (0.0-0.2) Prothrombin Time 14.3 SEC (11.7-14.0) H Prothrombin Time INR 1.1 (0.8-1.1) Sodium Level 139 mmol/L (136-145) Potassium Level 3.9 mmol/L (3.5-5.1) Chloride Level 100 mmol/L (98-107) Carbon Dioxide Level 30 mmol/L (21-32) Anion Gap 9 (6-14) Blood Urea Nitrogen 40 mg/dL (8-26) H Creatinine 2.0 mg/dL (0.7-1.3) H Estimated GFR (Cockcroft-Gault) 39.3 BUN/Creatinine Ratio 20 (6-20) Glucose Level 88 mg/dL (70-99) Lactic Acid Level 1.9 mmol/L (0.4-2.0) Calcium Level 8.3 mg/dL (8.5-10.1) L Magnesium Level 1.7 mg/dL (1.8-2.4) L Total Bilirubin 1.3 mg/dL (0.2-1.0) H Aspartate Amino Transferase (AST) 45 U/L (15-37) H Alanine Aminotransferase (ALT) 70 U/L (16-63) H Alkaline Phosphatase 183 U/L (46-116) H Creatine Kinase 49 U/L (39-308) Creatine Kinase MB (Mass) 1.1 ng/mL (0.0-3.6) Creatine Kinase MB Relative Index % (0-4) Troponin I Quantitative 0.021 ng/mL (0.000-0.055) RW-Omo-J-Type Natriuretic Peptide 3971 pg/mL (0-449) H Total Protein 6.1 g/dL (6.4-8.2) L Albumin 2.4 g/dL (3.4-5.0) L Albumin/Globulin Ratio 0.6 (1.0-1.7) L Lipase 159 U/L (73-393) Laboratory Tests 04/21/18 06:15 Laboratory Tests 04/21/18 06:15 EKG EKG atrial fibrillation at a rate of 84 beats for minute, normal axis, normal intervals, anterior T-wave inversion with nonspecific ST/T changes. Anterior T- wave inversion is new compared to EKG from 08/2017. Radiology/Procedures Radiology/Procedures [] Course & Med Decision Making Course & Med Decision Making Pertinent Labs and Imaging studies reviewed. (See chart for details) [7:40 AM: The patient's condition remained stable at this time. The CT report from the radiologist has not been forthcoming as of yet, but I reviewed the images myself and the patient has a very obvious small bowel obstruction. I discussed the case with Dr. Casper, the patient's PCP, who will admit the patient for further evaluation and treatment.] Dragon Disclaimer Dragon Disclaimer This electronic medical record was generated, in whole or in part, using a voice recognition dictation system. Departure Departure Impression: Primary Impression: Small bowel obstruction Additional Impressions: CKD (chronic kidney disease), stage III Hypotension Disposition: ADMITTED INPATIENT Admitting Physician: Pineda Casper Condition: STABLE Referrals: PINEDA CASPER MD (PCP) Problem Qualifiers ENID HERNANDEZ MD Apr 21, 2018 06:22
[2018-04-21 06:35] LABS: BASO % 1 % (0-3); EOS % 1 % (0-3); HEMATOCRIT 30.9 % (39.0-53.0); HEMOGLOBIN 10.4 g/dL (13.0-17.5); LYMPH # 0.7 x10^3/uL (1.0-4.8); LYMPH % 24 % (24-48); MEAN CORPUSCULAR HEMOGLOBIN 31 pg (25-35); MEAN CORPUSCULAR HGB CONC 34 g/dL (31-37); MEAN CORPUSCULAR VOLUME 94 fL (79-100); MONO # 0.4 x10^3/uL (0.0-1.1); MONO % 12 % (0-9); NEUT # 1.9 x10^3uL (1.8-7.7); NEUT % 62 % (31-73); PLATELET COUNT 199 x10^3/uL (140-400); RED BLOOD COUNT 3.29 x10^6/uL (4.30-5.70); RED CELL DISTRIBUTION WIDTH 16.2 % (11.5-14.5); WHITE BLOOD COUNT 3.1 x10^3/uL (4.0-11.0)
[2018-04-21 06:46] LABS: CALCIUM 8.3 mg/dL (8.5-10.1); GFR 39.3; POTASSIUM 3.9 mmol/L (3.5-5.1)
[2018-04-21 06:49] LABS: PROTHROMBIN TIME PATIENT 14.3 SEC (11.7-14.0)
[2018-04-21 06:51] LABS: ALBUMIN 2.4 g/dL (3.4-5.0); ALBUMIN/GLOBULIN RATIO 0.6 (1.0-1.7); MAGNESIUM 1.7 mg/dL (1.8-2.4); TOTAL BILIRUBIN 1.3 mg/dL (0.2-1.0); TOTAL PROTEIN 6.1 g/dL (6.4-8.2)
[2018-04-21 06:59] LABS: CREATINE KINASE 49 U/L (39-308)
[2018-04-21] MEDS ORDERED: IV NORMAL SALINE 1000ML BAG 1,000 ML IV SCH (07:00)
--- NOTE | 2018-04-21 07:18 | RAD ---
PQRS Compliance Statement: One or more of the following individualized dose reduction techniques were utilized for this examination: 1. Automated exposure control 2. Adjustment of the mA and/or kV according to patient size 3. Use of iterative reconstruction technique CT ABDOMEN PELVIS WO CONTRAST Clinical Indication: abd distension Comparison: CT abdomen and pelvis without contrast, June 21, 2017. Technique: Helical CT imaging of the abdomen and pelvis is performed without IV or oral contrast. Findings: Evaluation of solid organs and bowel is limited without oral and IV contrast, decreasing sensitivity for detection of pathology. Coronary artery disease. Aortic annular calcification. Cardiac size normal. No pericardial effusion. Trace bilateral pleural effusions. Mild scarring or atelectasis in the lung bases. No obvious abnormality of the liver or spleen. Gallbladder not seen. Pancreas and adrenal glands not well seen. Left kidney is atrophic. Right extrarenal pelvis or pelviectasis is similar to prior study. Cyst in upper pole right kidney. Atherosclerotic abdominal aorta and iliac arteries. Soft tissue with partial calcification of the retroperitoneum partially surrounding the abdominal aorta and iliac vessels is unchanged and may be due to fibrosis. The stomach is distended, mainly with air. There are markedly dilated and fluid-filled small bowel loops, worse than on prior study. There is no intraperitoneal free air. The rectum is moderately distended with stool. There is no obvious colon wall thickening. Bilateral hydroceles are demonstrated. There is anasarca. Degenerative spondylosis of the thoracolumbar spine. Right hip arthroplasty. IMPRESSION: 1. There are markedly dilated and fluid-filled small bowel loops consistent with small bowel obstruction. 2. Stomach is distended. Patient may benefit from enteric tube. 3. Trace bilateral pleural effusions. 4. Stable findings suggestive of retroperitoneal fibrosis. 5. Anasarca. 6. Bilateral hydroceles. Electronically signed by: Ken Fernandez MD (04/21/2018 7:15 AM) [id number]
[2018-04-21] MEDS ORDERED: IV DEXTROSE 5%-LACT RINGERS 1,000 ML IV ONE (07:45)
--- NOTE | 2018-04-21 07:57 | RAD ---
EXAM: CHEST 1 VIEW History: Cough COMPARISON: 08/23/2017 TECHNIQUE: Single portable radiograph of the chest FINDINGS: The cardiac silhouette is unremarkable. The lungs are clear bilaterally. The costophrenic sulci are clear and well demarcated. IMPRESSION: No radiographic evidence of an acute cardiopulmonary process. Electronically signed by: Evgeny Sosa MD (04/21/2018 7:54 AM) [facility]
[2018-04-21] MEDS ORDERED: LOPE2CAP3 PO (09:30)
[2018-04-21] MEDS ORDERED: DILT120C85 PO (09:32)
[2018-04-21] MEDS ORDERED: CARV3.1210 PO (09:35)
[2018-04-21] MEDS ORDERED: FOLI0.8T21 PO (09:35)
[2018-04-21] MEDS ORDERED: HYOS0.1264 PO (09:37)
[2018-04-21] MEDS ORDERED: ONDA4TAB7 PO (09:38)
[2018-04-21] MEDS ORDERED: ZINC50TA2 PO (09:39)
[2018-04-21] MEDS ORDERED: HYOSCYAMINE 0.125 MG TAB.RAPDIS PO PRN (09:45)
[2018-04-21] MEDS ORDERED: LOPERAMIDE 2 MG CAPSULE PO PRN (10:00)
[2018-04-21] MEDS ORDERED: ONDANSETRON ODT 4 MG TAB.RAPDIS. PO PRN (10:00)
--- NOTE | 2018-04-21 10:26 | PDOC2 ---
CONSULT Date of Consult Date of Consult DATE: 04/21/18 TIME: 10:21 Reason for Consult Reason for Consult: Abnormal CT scan findings Referring Physician Referring Physician: Tremayne Identification/Chief Complaint Chief Complaint Weakness and fatigue Source Source: Caregiver, Patient History of Present Illness Reason for Visit: 77-year-old male with multiple medical problems renal failure called EMS this morning because he is feeling quite fatigued and weak. He was admitted to the hospital with these symptoms and his chronic renal failure on CT scan he was found to have dilated loops of small bowel and distended stomach concerning for small bowel obstruction. The patient denies any nausea vomiting fevers or chills or abdominal pain. He denies any vomiting states his last bowel movement was this morning quite loose has been having some loose stools over the last several days. Past Medical History Cardiovascular: AFIB, CAD, HTN, Hyperlipidemia Pulmonary: Other CENTRAL NERVOUS SYSTEM: Other GI: No pertinent hx Heme/Onc: No pertinent hx Hepatobiliary: No pertinent hx Psych: No pertinent hx Musculoskeletal: Osteoarthritis Rheumatologic: Gout Infectious disease: Other Renal/: Chronic renal insuff, Acute renal failure Endocrine: No pertinent hx Past Surgical History Past Surgical History: Cholecystectomy, Total hip replacement, Total knee replacement, Tonsillectomy, Other Family History Family History: Coronary Artery Disease Social History ALCOHOL: none Drugs: None Lives: with Family Domestic Violence: Neg Current Problem List Problem List Problems Medical Problems: (1) CKD (chronic kidney disease), stage III Status: Acute (2) Hypotension Status: Acute Current Medications Current Medications Current Medications Sodium Chloride 1,000 ml @ 1,000 mls/hr Q1H IV Last administered on 04/21/18at 06:55; Start 04/21/18 at 07:00; Stop 04/21/18 at 07:59; Status DC Dextrose/Lactated Ringer's 1,000 ml @ 75 mls/hr 1X ONCE IV Last administered on 04/21/18at 08:22; Start 04/21/18 at 07:45; Stop 04/21/18 at 21:04 Allopurinol (Zyloprim) 300 mg DAILY PO ; Start 04/21/18 at 10:30 Aspirin (Children'S Aspirin) 81 mg DAILY PO ; Start 04/21/18 at 10:30 Clopidogrel Bisulfate (Plavix) 75 mg DAILY PO ; Start 04/21/18 at 10:30 Vitamin B Complex/ Vitamin C (Leanne-Bev) 1 tab DAILY PO ; Start 04/21/18 at 10: 30 Hyoscyamine (Anaspaz) 0.125 mg PRN Q6HRS PRN PO STOMACH CRAMPING; Start at 09:45 Loperamide HCl (Imodium) 2 mg PRN Q15MIN PRN PO DIARRHEA; Start 04/21/18 at 10: 00 Ondansetron HCl (Zofran Odt) 4 mg PRN Q4HRS PRN PO NAUSEA/VOMITING; Start 04/21 at 10:00 Zinc Sulfate (Orazinc) 220 mg DAILY PO ; Start 04/21/18 at 10:30 Active Scripts Active Reported Zinc (Zinc Gluconate) 50 Mg Tablet 50 Mg PO DAILY Zofran (Ondansetron Hcl) 4 Mg Tablet 1 Tab PO PRN Q4HRS PRN Levsin (Hyoscyamine Sulfate) 0.125 Mg Tablet 0.125 Mg PO PRN Q6HRS PRN Leanne-Bev Tablet (Folic Acid/Vitamin B Comp W-C) 0.8 Mg Tablet 0.8 Mg PO DAILY Carvedilol (Carvedilol) 3.125 Mg Tablet 3.125 Mg PO BIDWMEALS Diltiazem 24HR Cd (Diltiazem Hcl) 120 Mg Cap.er.24h 1 Cap PO DAILY Anti-Diarrheal (Loperamide Hcl) 2 Mg Capsule 2 Mg PO PRN QID PRN Sotalol (Sotalol Hcl) 80 Mg Tablet 120 Mg PO DAILY Aspirin 81 Mg Tab.chew 1 Tab PO DAILY Clopidogrel (Clopidogrel Bisulfate) 75 Mg Tablet 75 Mg PO DAILY Allopurinol 300 Mg Tablet 300 Mg PO DAILY Allergies Allergies: Coded Allergies: No Known Drug Allergies (Unverified , 09/07/17) ROS General: YES: Fatigue, Malaise Gastrointestinal: Yes Diarrhea Physical Exam General: Alert, Cooperative, mild distress, Other (mildly confused) HEENT: Atraumatic, PERRLA, EOMI, Other (NGT in place) Lungs: Clear to auscultation, Normal air movement Heart: Regular rate, No murmurs Abdomen: Normal bowel sounds, Soft, No tenderness, Other (abdomen is mildly distended) Extremities: No edema Skin: No significant lesion Neuro: Normal speech Vitals VITALS Vital Signs Date Time Temp Pulse Resp B/P (MAP) Pulse Ox O2 Delivery O2 Flow Rate FiO2 04/21/18 07:56 87 21 100 04/21/18 06:00 98.8 78/57 (64) Nasal Cannula 2.0 98.8 Labs Labs Laboratory Tests Test 04/21/18 06:15 White Blood Count 3.1 x10^3/uL (4.0-11.0) Red Blood Count 3.29 x10^6/uL (4.30-5.70) Hemoglobin 10.4 g/dL (13.0-17.5) Hematocrit 30.9 % (39.0-53.0) Mean Corpuscular Volume 94 fL (79-100) Mean Corpuscular Hemoglobin 31 pg (25-35) Mean Corpuscular Hemoglobin Concent 34 g/dL (31-37) Red Cell Distribution Width 16.2 % (11.5-14.5) Platelet Count 199 x10^3/uL (140-400) Neutrophils (%) (Auto) 62 % (31-73) Lymphocytes (%) (Auto) 24 % (24-48) Monocytes (%) (Auto) 12 % (0-9) Eosinophils (%) (Auto) 1 % (0-3) Basophils (%) (Auto) 1 % (0-3) Neutrophils # (Auto) 1.9 x10^3uL (1.8-7.7) Lymphocytes # (Auto) 0.7 x10^3/uL (1.0-4.8) Monocytes # (Auto) 0.4 x10^3/uL (0.0-1.1) Eosinophils # (Auto) 0.0 x10^3/uL (0.0-0.7) Basophils # (Auto) 0.0 x10^3/uL (0.0-0.2) Prothrombin Time 14.3 SEC (11.7-14.0) Prothromb Time International Ratio 1.1 (0.8-1.1) Sodium Level 139 mmol/L (136-145) Potassium Level 3.9 mmol/L (3.5-5.1) Chloride Level 100 mmol/L (98-107) Carbon Dioxide Level 30 mmol/L (21-32) Anion Gap 9 (6-14) Blood Urea Nitrogen 40 mg/dL (8-26) Creatinine 2.0 mg/dL (0.7-1.3) Estimated GFR (Cockcroft-Gault) 39.3 BUN/Creatinine Ratio 20 (6-20) Glucose Level 88 mg/dL (70-99) Lactic Acid Level 1.9 mmol/L (0.4-2.0) Calcium Level 8.3 mg/dL (8.5-10.1) Magnesium Level 1.7 mg/dL (1.8-2.4) Total Bilirubin 1.3 mg/dL (0.2-1.0) Aspartate Amino Transf (AST/SGOT) 45 U/L (15-37) Alanine Aminotransferase (ALT/SGPT) 70 U/L (16-63) Alkaline Phosphatase 183 U/L (46-116) Creatine Kinase 49 U/L (39-308) Creatine Kinase MB (Mass) 1.1 ng/mL (0.0-3.6) Creatine Kinase MB Relative Index % (0-4) Troponin I Quantitative 0.021 ng/mL (0.000-0.055) MV-Hwy-R-Type Natriuretic Peptide 3971 pg/mL (0-449) Total Protein 6.1 g/dL (6.4-8.2) Albumin 2.4 g/dL (3.4-5.0) Albumin/Globulin Ratio 0.6 (1.0-1.7) Lipase 159 U/L (73-393) Laboratory Tests Test 04/21/18 06:15 White Blood Count 3.1 x10^3/uL (4.0-11.0) Red Blood Count 3.29 x10^6/uL (4.30-5.70) Hemoglobin 10.4 g/dL (13.0-17.5) Hematocrit 30.9 % (39.0-53.0) Mean Corpuscular Volume 94 fL (79-100) Mean Corpuscular Hemoglobin 31 pg (25-35) Mean Corpuscular Hemoglobin Concent 34 g/dL (31-37) Red Cell Distribution Width 16.2 % (11.5-14.5) Platelet Count 199 x10^3/uL (140-400) Neutrophils (%) (Auto) 62 % (31-73) Lymphocytes (%) (Auto) 24 % (24-48) Monocytes (%) (Auto) 12 % (0-9) Eosinophils (%) (Auto) 1 % (0-3) Basophils (%) (Auto) 1 % (0-3) Neutrophils # (Auto) 1.9 x10^3uL (1.8-7.7) Lymphocytes # (Auto) 0.7 x10^3/uL (1.0-4.8) Monocytes # (Auto) 0.4 x10^3/uL (0.0-1.1) Eosinophils # (Auto) 0.0 x10^3/uL (0.0-0.7) Basophils # (Auto) 0.0 x10^3/uL (0.0-0.2) Prothrombin Time 14.3 SEC (11.7-14.0) Prothromb Time International Ratio 1.1 (0.8-1.1) Sodium Level 139 mmol/L (136-145) Potassium Level 3.9 mmol/L (3.5-5.1) Chloride Level 100 mmol/L (98-107) Carbon Dioxide Level 30 mmol/L (21-32) Anion Gap 9 (6-14) Blood Urea Nitrogen 40 mg/dL (8-26) Creatinine 2.0 mg/dL (0.7-1.3) Estimated GFR (Cockcroft-Gault) 39.3 BUN/Creatinine Ratio 20 (6-20) Glucose Level 88 mg/dL (70-99) Lactic Acid Level 1.9 mmol/L (0.4-2.0) Calcium Level 8.3 mg/dL (8.5-10.1) Magnesium Level 1.7 mg/dL (1.8-2.4) Total Bilirubin 1.3 mg/dL (0.2-1.0) Aspartate Amino Transf (AST/SGOT) 45 U/L (15-37) Alanine Aminotransferase (ALT/SGPT) 70 U/L (16-63) Alkaline Phosphatase 183 U/L (46-116) Creatine Kinase 49 U/L (39-308) Creatine Kinase MB (Mass) 1.1 ng/mL (0.0-3.6) Creatine Kinase MB Relative Index % (0-4) Troponin I Quantitative 0.021 ng/mL (0.000-0.055) YL-Meo-P-Type Natriuretic Peptide 3971 pg/mL (0-449) Total Protein 6.1 g/dL (6.4-8.2) Albumin 2.4 g/dL (3.4-5.0) Albumin/Globulin Ratio 0.6 (1.0-1.7) Lipase 159 U/L (73-393) Images Images CT scan of his abdomen and pelvis shows dilated loops of small bowel and distended stomach prior to NG tube being placed Assessment/Plan Assessment/Plan Small bowel obstruction versus ileus Conservative management at this time with bowel rest and NG suction and hydration Repeat abdominal films and exam tomorrow KEV KHALIL MD Apr 21, 2018 10:26
[2018-04-21] MEDS: ALLOPURINOL 300 MG TABLET. PO SCH (10:30)
[2018-04-21] MEDS: CLOPIDOGREL BISULFATE 75 MG TABLET PO SCH (10:30)
[2018-04-21] MEDS: ZINC SULFATE 220 MG CAPSULE. PO SCH (10:30)
[2018-04-21] MEDS: ASPIRIN CHEWABLE 81 MG TABLET. PO SCH (10:30)
[2018-04-21] MEDS: FOLIC/VIT B COMP W-C (RENAL) TABLET. PO SCH (10:30)
[2018-04-21 11:00] VITALS: BP 98/65
--- NOTE | 2018-04-21 11:35 | PDOC2 ---
CONSULT Date of Consult Date of Consult DATE: 04/21/18 TIME: 11:30 History of Present Illness Reason for Visit: THIS IS A 77 YR OLD WITH WEAKNESS AND FATIGUE. SOME DIARRHEA AND SOME ABD PAIN. APPETITE HAS BEEN BAD. NOTE TO HAVE SOME HYPOTENSION WHICH IS SOMEWHAT CHRONIC FOR HIM. 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 HE IS COMPLIANT WITH HIS MEDS AND TX. IMAGING SHOWED A SBO AND SURGICAL EVALUATION IS ONGOING AT THIS TIME. NO OTHER ACUTE COMPLAINTS. NO OTHER HX. HE HAS AN AV ACCESS Past Medical History Cardiovascular: AFIB, CAD, HTN, Hyperlipidemia Pulmonary: Other CENTRAL NERVOUS SYSTEM: Other GI: No pertinent hx Heme/Onc: No pertinent hx Hepatobiliary: No pertinent hx Psych: No pertinent hx Musculoskeletal: Osteoarthritis Rheumatologic: Gout Infectious disease: Other Renal/: Chronic renal insuff, Acute renal failure Endocrine: No pertinent hx, Hyperparathyroidism Past Surgical History Past Surgical History: Cholecystectomy, Total hip replacement, Total knee replacement, Tonsillectomy, Other Family History Family History: Coronary Artery Disease Social History ALCOHOL: none Drugs: None Lives: with Family Domestic Violence: Neg Current Problem List Problem List Problems Medical Problems: (1) CKD (chronic kidney disease), stage III Status: Acute (2) Hypotension Status: Acute Current Medications Current Medications Current Medications Sodium Chloride 1,000 ml @ 1,000 mls/hr Q1H IV Last administered on 04/21/18at 06:55; Start 04/21/18 at 07:00; Stop 04/21/18 at 07:59; Status DC Dextrose/Lactated Ringer's 1,000 ml @ 75 mls/hr 1X ONCE IV Last administered on 04/21/18at 08:22; Start 04/21/18 at 07:45; Stop 04/21/18 at 21:04 Allopurinol (Zyloprim) 300 mg DAILY PO ; Start 04/21/18 at 10:30 Aspirin (Children'S Aspirin) 81 mg DAILY PO ; Start 04/21/18 at 10:30 Clopidogrel Bisulfate (Plavix) 75 mg DAILY PO ; Start 04/21/18 at 10:30 Vitamin B Complex/ Vitamin C (Leanne-Bev) 1 tab DAILY PO ; Start 04/21/18 at 10: 30 Hyoscyamine (Anaspaz) 0.125 mg PRN Q6HRS PRN PO STOMACH CRAMPING; Start at 09:45 Loperamide HCl (Imodium) 2 mg PRN Q15MIN PRN PO DIARRHEA; Start 04/21/18 at 10: 00 Ondansetron HCl (Zofran Odt) 4 mg PRN Q4HRS PRN PO NAUSEA/VOMITING; Start 04/21 at 10:00 Zinc Sulfate (Orazinc) 220 mg DAILY PO ; Start 04/21/18 at 10:30 Active Scripts Active Reported Zinc (Zinc Gluconate) 50 Mg Tablet 50 Mg PO DAILY Zofran (Ondansetron Hcl) 4 Mg Tablet 1 Tab PO PRN Q4HRS PRN Levsin (Hyoscyamine Sulfate) 0.125 Mg Tablet 0.125 Mg PO PRN Q6HRS PRN Leanne-Bev Tablet (Folic Acid/Vitamin B Comp W-C) 0.8 Mg Tablet 0.8 Mg PO DAILY Carvedilol (Carvedilol) 3.125 Mg Tablet 3.125 Mg PO BIDWMEALS Diltiazem 24HR Cd (Diltiazem Hcl) 120 Mg Cap.er.24h 1 Cap PO DAILY Anti-Diarrheal (Loperamide Hcl) 2 Mg Capsule 2 Mg PO PRN QID PRN Sotalol (Sotalol Hcl) 80 Mg Tablet 120 Mg PO DAILY Aspirin 81 Mg Tab.chew 1 Tab PO DAILY Clopidogrel (Clopidogrel Bisulfate) 75 Mg Tablet 75 Mg PO DAILY Allopurinol 300 Mg Tablet 300 Mg PO DAILY Allergies Allergies: Coded Allergies: No Known Drug Allergies (Unverified , 09/07/17) ROS General: YES: Fatigue, Malaise, Appetite PSYCHOLOGICAL ROS: YES: Anxiety, Depression Eyes: Yes Decreased vision HEENT: YES: Stanislaw ALLERGY AND IMMUNOLOGY: YES: Seasonal Allergies Respiratory: YES: Cough, Shortness of breath Cardiovascular: yes Lt Headedness Gastrointestinal: Yes Nausea, Yes Constipation Genitourinary: YES Other (ANURIA) Musculoskeletal: Yes Muscular Weakness Neurological: Yes Weakness Skin: Yes Dry Skin Physical Exam General: Alert, Oriented X3, Cooperative, No acute distress, mild distress, moderate distress HEENT: Atraumatic, PERRLA, EOMI, Mucous membr. moist/pink Lungs: Clear to auscultation, Normal air movement Heart: Regular rate, Normal S1, Normal S2 Abdomen: Normal bowel sounds, Soft, No tenderness Extremities: No edema, Normal pulses Skin: No rashes Neuro: Normal speech, Strength at 5/5 X4 ext, Sensation intact, Cranial nerves 3-12 NL Psych/Mental Status: Mental status NL MUSCULOSKELETAL: No joint tenderness, No deformity, No swelling Vitals VITALS Vital Signs Date Time Temp Pulse Resp B/P (MAP) Pulse Ox O2 Delivery O2 Flow Rate FiO2 04/21/18 11:00 98.1 95 16 98/65 (76) 96 Room Air 98.1 04/21/18 06:00 2.0 Labs Labs Laboratory Tests Test 04/21/18 06:15 White Blood Count 3.1 x10^3/uL (4.0-11.0) Red Blood Count 3.29 x10^6/uL (4.30-5.70) Hemoglobin 10.4 g/dL (13.0-17.5) Hematocrit 30.9 % (39.0-53.0) Mean Corpuscular Volume 94 fL (79-100) Mean Corpuscular Hemoglobin 31 pg (25-35) Mean Corpuscular Hemoglobin Concent 34 g/dL (31-37) Red Cell Distribution Width 16.2 % (11.5-14.5) Platelet Count 199 x10^3/uL (140-400) Neutrophils (%) (Auto) 62 % (31-73) Lymphocytes (%) (Auto) 24 % (24-48) Monocytes (%) (Auto) 12 % (0-9) Eosinophils (%) (Auto) 1 % (0-3) Basophils (%) (Auto) 1 % (0-3) Neutrophils # (Auto) 1.9 x10^3uL (1.8-7.7) Lymphocytes # (Auto) 0.7 x10^3/uL (1.0-4.8) Monocytes # (Auto) 0.4 x10^3/uL (0.0-1.1) Eosinophils # (Auto) 0.0 x10^3/uL (0.0-0.7) Basophils # (Auto) 0.0 x10^3/uL (0.0-0.2) Prothrombin Time 14.3 SEC (11.7-14.0) Prothromb Time International Ratio 1.1 (0.8-1.1) Sodium Level 139 mmol/L (136-145) Potassium Level 3.9 mmol/L (3.5-5.1) Chloride Level 100 mmol/L (98-107) Carbon Dioxide Level 30 mmol/L (21-32) Anion Gap 9 (6-14) Blood Urea Nitrogen 40 mg/dL (8-26) Creatinine 2.0 mg/dL (0.7-1.3) Estimated GFR (Cockcroft-Gault) 39.3 BUN/Creatinine Ratio 20 (6-20) Glucose Level 88 mg/dL (70-99) Lactic Acid Level 1.9 mmol/L (0.4-2.0) Calcium Level 8.3 mg/dL (8.5-10.1) Magnesium Level 1.7 mg/dL (1.8-2.4) Total Bilirubin 1.3 mg/dL (0.2-1.0) Aspartate Amino Transf (AST/SGOT) 45 U/L (15-37) Alanine Aminotransferase (ALT/SGPT) 70 U/L (16-63) Alkaline Phosphatase 183 U/L (46-116) Creatine Kinase 49 U/L (39-308) Creatine Kinase MB (Mass) 1.1 ng/mL (0.0-3.6) Creatine Kinase MB Relative Index % (0-4) Troponin I Quantitative 0.021 ng/mL (0.000-0.055) YN-Lji-L-Type Natriuretic Peptide 3971 pg/mL (0-449) Total Protein 6.1 g/dL (6.4-8.2) Albumin 2.4 g/dL (3.4-5.0) Albumin/Globulin Ratio 0.6 (1.0-1.7) Lipase 159 U/L (73-393) Laboratory Tests Test 04/21/18 06:15 White Blood Count 3.1 x10^3/uL (4.0-11.0) Red Blood Count 3.29 x10^6/uL (4.30-5.70) Hemoglobin 10.4 g/dL (13.0-17.5) Hematocrit 30.9 % (39.0-53.0) Mean Corpuscular Volume 94 fL (79-100) Mean Corpuscular Hemoglobin 31 pg (25-35) Mean Corpuscular Hemoglobin Concent 34 g/dL (31-37) Red Cell Distribution Width 16.2 % (11.5-14.5) Platelet Count 199 x10^3/uL (140-400) Neutrophils (%) (Auto) 62 % (31-73) Lymphocytes (%) (Auto) 24 % (24-48) Monocytes (%) (Auto) 12 % (0-9) Eosinophils (%) (Auto) 1 % (0-3) Basophils (%) (Auto) 1 % (0-3) Neutrophils # (Auto) 1.9 x10^3uL (1.8-7.7) Lymphocytes # (Auto) 0.7 x10^3/uL (1.0-4.8) Monocytes # (Auto) 0.4 x10^3/uL (0.0-1.1) Eosinophils # (Auto) 0.0 x10^3/uL (0.0-0.7) Basophils # (Auto) 0.0 x10^3/uL (0.0-0.2) Prothrombin Time 14.3 SEC (11.7-14.0) Prothromb Time International Ratio 1.1 (0.8-1.1) Sodium Level 139 mmol/L (136-145) Potassium Level 3.9 mmol/L (3.5-5.1) Chloride Level 100 mmol/L (98-107) Carbon Dioxide Level 30 mmol/L (21-32) Anion Gap 9 (6-14) Blood Urea Nitrogen 40 mg/dL (8-26) Creatinine 2.0 mg/dL (0.7-1.3) Estimated GFR (Cockcroft-Gault) 39.3 BUN/Creatinine Ratio 20 (6-20) Glucose Level 88 mg/dL (70-99) Lactic Acid Level 1.9 mmol/L (0.4-2.0) Calcium Level 8.3 mg/dL (8.5-10.1) Magnesium Level 1.7 mg/dL (1.8-2.4) Total Bilirubin 1.3 mg/dL (0.2-1.0) Aspartate Amino Transf (AST/SGOT) 45 U/L (15-37) Alanine Aminotransferase (ALT/SGPT) 70 U/L (16-63) Alkaline Phosphatase 183 U/L (46-116) Creatine Kinase 49 U/L (39-308) Creatine Kinase MB (Mass) 1.1 ng/mL (0.0-3.6) Creatine Kinase MB Relative Index % (0-4) Troponin I Quantitative 0.021 ng/mL (0.000-0.055) UO-Uae-M-Type Natriuretic Peptide 3971 pg/mL (0-449) Total Protein 6.1 g/dL (6.4-8.2) Albumin 2.4 g/dL (3.4-5.0) Albumin/Globulin Ratio 0.6 (1.0-1.7) Lipase 159 U/L (73-393) Assessment/Plan Assessment/Plan IMP SBO HX OF RETROPERITONEAL FIBROSIS ESRD ANEMIA CHRONIC HYPOTENSION PLAN HD TTS ARANESP MIDODRINE START PPN FOR NOW D/C MAINTENANCE IVF'S NGT IN PLACE SURGICAL EVALUATION WILL FOLLOW CLOTILDE WALLACE MD Apr 21, 2018 11:35
[2018-04-21] MEDS: MIDODRINE 2.5 MG TABLET PO SCH ×2 (11:47→16:25)
--- NOTE | 2018-04-21 11:50 | HP ---
ADMIT DATE: 04/21/2018 CHIEF COMPLAINT: Weakness. HISTORY OF PRESENT ILLNESS AND HOSPITAL COURSE: This patient is a 77-year-old -[place] male who was in the bathroom and unable to get off the toilet, complaining of extreme weakness, was brought by ambulance to the Emergency Room due to inability to care for himself. He was found to have a distended abdomen and CT confirmed a small-bowel obstruction. The patient was also hypotensive with blood pressures of 70s/50s. NG tube was placed, and the patient was admitted for further evaluation by Surgery. The patient states his illness has been present for less than 24 hours. He denies nausea, vomiting. He does have chronic diarrhea. Denies fever or chills. The patient has had significant weight loss over the last year, has been under evaluation by GI Medicine and Cardiology and Renal Medicine. On current evaluation, the patient has lost approximately 5 pounds in the last 3-4 months. PAST MEDICAL HISTORY: Significant for 1. End-stage renal disease. 2. Severe protein malnutrition. 3. Retroperitoneal fibrosis. 4. Chronic diarrhea. 5. IBS. 6. Coronary artery disease, status post stent placement in the remote past. 7. Hypertension. 8. Gouty arthritis. 9. Hyperlipidemia. 10. Recurrent small bowel obstructions. 11. Venous insufficiency of lower extremities. 12. Hyperparathyroidism. 13. Chronic atrial fibrillation. 14. Cerebrovascular disease. PAST SURGICAL HISTORY: Significant for 1. Bilateral total knee arthroplasties. 2. TURP. 3. Right hip pinning. 4. Lysis of adhesions. FAMILY HISTORY: Significant for parents who of extreme old age at 91 with his mother and 103 with his father. SOCIAL HISTORY: The patient has never smoked and does not use alcohol significantly. He is and lives with his spouse. ALLERGIES: The patient denies drug allergies. REVIEW OF SYSTEMS: The patient denies fever, cough, congestion, nausea or vomiting. The patient does have chronic diarrhea, which has not changed significantly. Denies any significant muscle pains, but has severe muscle weakness and inability to care for himself at present. PHYSICAL EXAMINATION: GENERAL: This is an emaciated -[place]ian male in no apparent distress. He is alert and able to answer questions. HEENT: Benign except for dry mucous membranes. NECK: Supple. CARDIAC: Irregularly irregular. LUNGS: Clear. ABDOMEN: Soft. After 12 hours of NG tube suctioning, he had positive bowel sounds. He states he is having bowel movements with diarrhea. EXTREMITIES: Noted for 4+ pitting edema. NEUROLOGIC: Showed no unilateral findings. ASSESSMENT: 1. Small-bowel obstruction, now resolving with NG tube decompression. 2. Severe weakness. 3. Hypotension. 4. Severe protein malnutrition. 5. End-stage renal disease. 6. Retroperitoneal fibrosis. 7. Hypomagnesemia. 8. Elevated liver function tests. 9. Leukopenia. 10. Mild anemia. PLAN: To proceed with surgical evaluation. NG tube suctioning, proceed with IV fluids, proceed with PT and OT modalities, consult Physical Rehabilitation Medicine, consult Cardiology for hypotension and management of weight medications with atrial fibrillation. Consult GI Medicine for chronic diarrhea and pulmonary fibrosis. Old records were reviewed and placed in the paper chart from recent [facility] evaluation. Recent MPI was done and is in his hospital record. HIRO FIGUEROA MD DR: NELI/jennifer JOB#: [id number] / [id number]
[2018-04-21] MEDS: AMINO AC 3%/ELECTROLYTE/GLYCER 1,000 ML IV SCH (11:57)
--- NOTE | 2018-04-21 14:00 | EKG ---
[facility] [address] [place] [address] Test Date: 2018-04-21 Test Time: 06:37:12 Pat Name: ROSALIA MARTI Department: Room: 502 1 Gender: M Handle Turner: : 1940 Requested By: ENID HERNANDEZ Order Number: [id number] Reading MD: Nasir Watts MD Measurements Intervals Fifty Six Rate: 84 P: ME: QRS: 59 QRSD: 84 T: 54 QT: 406 QTc: 483 Interpretive Statements SUSPECT ATRIAL FIBRILLATION NON-SPECIFIC ST/T CHANGES Electronically Signed On 04-25-2018 15:06:11 CDT by Nasir Watts MD
--- NOTE | 2018-04-21 14:16 | CONS ---
DATE OF CONSULTATION: 04/21/2018 REASON FOR CONSULTATION: Hypotension and known coronary artery disease. HISTORY OF PRESENT ILLNESS: The patient is a 77-year-old man with past medical history as noted below, coming into the hospital with GI symptoms. Cardiology has been asked to evaluate him for his hypotension. Apparently, the patient has been having decreased p.o. intake and nausea and emesis and ultimately has been diagnosed with a small bowel obstruction. He also has a chronic history of hypotension, which has been known to his primary development officer. He does have a remote coronary artery disease, but recently he denies any specific angina or exertional dyspnea. PAST MEDICAL HISTORY: 1. Coronary artery disease status post PCI to the RCA several years ago with a bare-metal stent. 2. Hypertension. 3. End-stage renal disease. 4. Chronic bilateral lower extremity edema, presumably lymphedema versus venous stasis. SOCIAL HISTORY: The patient denies any alcohol, tobacco or illicit drug use. He is retired. FAMILY HISTORY: Noncontributory. ALLERGIES: No known drug allergies. CURRENT CARDIAC MEDICATIONS: 1. Midodrine 2.5 mg p.o. t.i.d. 2. Plavix 75 mg daily. 3. Aspirin 81 mg daily. REVIEW OF SYSTEMS: As noted above in HPI. PHYSICAL EXAMINATION: VITAL SIGNS: Afebrile, 95, 16, 98/65, 96% on room air. Review of his blood pressure shows blood pressure as low as 78/53. GENERAL: He appears weak and tired with an NG tube in place. CARDIAC: Regular rate and rhythm without any murmurs, rubs or gallops. LUNGS: Clear to auscultation bilaterally. ABDOMEN: Soft, nontender, nondistended. LOWER EXTREMITIES: Notable for 2+ pitting edema. NEUROLOGIC: No focal deficits, but he appears weak. DIAGNOSTIC STUDIES: Hemoglobin 10.4, platelets 199. Creatinine 2.0. ALT and AST mildly elevated. Initial troponin negative. BNP is elevated at 3971. Chest x-ray is grossly unremarkable. Abdominopelvic CT scan reveals a small bowel obstruction. Nuclear stress test performed in 01/2018 reveals no significant ischemia. IMPRESSION: 1. Hypotension, likely secondary to dehydration, nausea and vomiting in the setting of a small bowel obstruction and chronic hypotension likely neuropathic in nature from end-stage renal disease. 2. Coronary artery disease, currently stable. 3. End-stage renal disease. RECOMMENDATIONS: 1. Treatment of hypotension per Nephrology as they have already started him on midodrine and agree with this plan. 2. Recent myocardial perfusion study is unremarkable and no further cardiovascular testing necessary at this time. We will obtain an EKG as it was not in the chart. 3. 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 Gandara, with regards to need for continuation of Plavix as he does not have any recent stenting, could likely safely stop his Plavix and continue aspirin only. Thank you for this consultation. DUANE DURON MD DR: CHRIS/jennifer JOB#: [id number] / [id number]
--- NOTE | 2018-04-21 14:31 | PDOC2 ---
GI CONSULT Reason For Consult: diarrhea/ sbo HPI: HPI: 77-year-old male who is past history of ESRD, chronic A. fib, presented to ER with diarrhea and CT with SBO. He had taken antibiotics when he went to see the dentist on . He has been having intermittent diarrhea and is scheduled for a colonoscopy at in the next few weeks He states he awakened early this morning to go urinate and felt generally weak and fatigued and EMS was called. He does not have any focal pain. He has had some diarrhea for the past few days. He is noted to be hypotensive. He denies any abdominal pain, nausea or vomiting, or black or bloody stools. He does admit to some weight loss over the past few weeks, and appears cachectic. There are no alleviating or exacerbating factors to his symptoms otherwise. CT with SBO. PMH: PMH: PMH: PMH: CAD w/ coronary stent, A Fib, HTN, retroperitoneal fibrosis, CKD, OA, HLD, gout , cholecystectomy (stones), BEAR, SBR, tonsillectomy, bilateral knee replacements , right hip replacement, LUE AV fistula, TURP FH: Family History: No pertinent hx (denies GI cancers, GB, liver, or pancreatic disease), CAD, DM, Hypertension Social History: Smoke: No ALCOHOL: none Drugs: None Active Scripts Active Reported Zinc (Zinc Gluconate) 50 Mg Tablet 50 Mg PO DAILY Zofran (Ondansetron Hcl) 4 Mg Tablet 1 Tab PO PRN Q4HRS PRN Levsin (Hyoscyamine Sulfate) 0.125 Mg Tablet 0.125 Mg PO PRN Q6HRS PRN Leanne-Bev Tablet (Folic Acid/Vitamin B Comp W-C) 0.8 Mg Tablet 0.8 Mg PO DAILY Carvedilol (Carvedilol) 3.125 Mg Tablet 3.125 Mg PO BIDWMEALS Diltiazem 24HR Cd (Diltiazem Hcl) 120 Mg Cap.er.24h 1 Cap PO DAILY Anti-Diarrheal (Loperamide Hcl) 2 Mg Capsule 2 Mg PO PRN QID PRN Sotalol (Sotalol Hcl) 80 Mg Tablet 120 Mg PO DAILY Aspirin 81 Mg Tab.chew 1 Tab PO DAILY Clopidogrel (Clopidogrel Bisulfate) 75 Mg Tablet 75 Mg PO DAILY Allopurinol 300 Mg Tablet 300 Mg PO DAILY Allergies Allergies: Coded Allergies: No Known Drug Allergies (Unverified , 09/07/17) FH: Family History: No pertinent hx, CAD, DM, Hypertension Social History: ALCOHOL: none Drugs: None ROS: Review of Systems Review of Systems Constitutional: Denies fever or chills [] Eyes: Denies change in visual acuity, redness, or eye pain [] HENT: Denies nasal congestion or sore throat [] Respiratory: Denies shortness of breath. Reports nonproductive cough [] Cardiovascular: The patient denies any shortness of breath, chest pain, palpitations, or orthopnea [] GI: Denies abdominal pain, nausea, vomiting, bloody stools [] : Denies dysuria or hematuria [] Musculoskeletal: Denies back pain or joint pain [] Integument: Denies rash or skin lesions [] Neurologic: Denies headache, focal weakness or sensory changes [] Endocrine: Denies polyuria or polydipsia [] VItals: Vitals: Vital Signs Date Time Temp Pulse Resp B/P (MAP) Pulse Ox O2 Delivery O2 Flow Rate FiO2 04/21/18 11:00 98.1 95 16 98/65 (76) 96 Room Air 98.1 04/21/18 06:00 2.0 Labs: Labs: Laboratory Tests Test 04/21/18 06:15 White Blood Count 3.1 x10^3/uL (4.0-11.0) Red Blood Count 3.29 x10^6/uL (4.30-5.70) Hemoglobin 10.4 g/dL (13.0-17.5) Hematocrit 30.9 % (39.0-53.0) Mean Corpuscular Volume 94 fL (79-100) Mean Corpuscular Hemoglobin 31 pg (25-35) Mean Corpuscular Hemoglobin Concent 34 g/dL (31-37) Red Cell Distribution Width 16.2 % (11.5-14.5) Platelet Count 199 x10^3/uL (140-400) Neutrophils (%) (Auto) 62 % (31-73) Lymphocytes (%) (Auto) 24 % (24-48) Monocytes (%) (Auto) 12 % (0-9) Eosinophils (%) (Auto) 1 % (0-3) Basophils (%) (Auto) 1 % (0-3) Neutrophils # (Auto) 1.9 x10^3uL (1.8-7.7) Lymphocytes # (Auto) 0.7 x10^3/uL (1.0-4.8) Monocytes # (Auto) 0.4 x10^3/uL (0.0-1.1) Eosinophils # (Auto) 0.0 x10^3/uL (0.0-0.7) Basophils # (Auto) 0.0 x10^3/uL (0.0-0.2) Prothrombin Time 14.3 SEC (11.7-14.0) Prothromb Time International Ratio 1.1 (0.8-1.1) Sodium Level 139 mmol/L (136-145) Potassium Level 3.9 mmol/L (3.5-5.1) Chloride Level 100 mmol/L (98-107) Carbon Dioxide Level 30 mmol/L (21-32) Anion Gap 9 (6-14) Blood Urea Nitrogen 40 mg/dL (8-26) Creatinine 2.0 mg/dL (0.7-1.3) Estimated GFR (Cockcroft-Gault) 39.3 BUN/Creatinine Ratio 20 (6-20) Glucose Level 88 mg/dL (70-99) Lactic Acid Level 1.9 mmol/L (0.4-2.0) Calcium Level 8.3 mg/dL (8.5-10.1) Magnesium Level 1.7 mg/dL (1.8-2.4) Total Bilirubin 1.3 mg/dL (0.2-1.0) Aspartate Amino Transf (AST/SGOT) 45 U/L (15-37) Alanine Aminotransferase (ALT/SGPT) 70 U/L (16-63) Alkaline Phosphatase 183 U/L (46-116) Creatine Kinase 49 U/L (39-308) Creatine Kinase MB (Mass) 1.1 ng/mL (0.0-3.6) Creatine Kinase MB Relative Index % (0-4) Troponin I Quantitative 0.021 ng/mL (0.000-0.055) FV-Grl-D-Type Natriuretic Peptide 3971 pg/mL (0-449) Total Protein 6.1 g/dL (6.4-8.2) Albumin 2.4 g/dL (3.4-5.0) Albumin/Globulin Ratio 0.6 (1.0-1.7) Lipase 159 U/L (73-393) Imaging: Imaging: PQRS Compliance Statement: One or more of the following individualized dose reduction techniques were utilized for this examination: 1. Automated exposure control 2. Adjustment of the mA and/or kV according to patient size 3. Use of iterative reconstruction technique CT ABDOMEN PELVIS WO CONTRAST Clinical Indication: abd distension Comparison: CT abdomen and pelvis without contrast, June 21, 2017. Technique: Helical CT imaging of the abdomen and pelvis is performed without IV or oral contrast. Findings: Evaluation of solid organs and bowel is limited without oral and IV contrast, decreasing sensitivity for detection of pathology. Coronary artery disease. Aortic annular calcification. Cardiac size normal. No pericardial effusion. Trace bilateral pleural effusions. Mild scarring or atelectasis in the lung bases. No obvious abnormality of the liver or spleen. Gallbladder not seen. Pancreas and adrenal glands not well seen. Left kidney is atrophic. Right extrarenal pelvis or pelviectasis is similar to prior study. Cyst in upper pole right kidney. Atherosclerotic abdominal aorta and iliac arteries. Soft tissue with partial calcification of the retroperitoneum partially surrounding the abdominal aorta and iliac vessels is unchanged and may be due to fibrosis. The stomach is distended, mainly with air. There are markedly dilated and fluid-filled small bowel loops, worse than on prior study. There is no intraperitoneal free air. The rectum is moderately distended with stool. There is no obvious colon wall thickening. Bilateral hydroceles are demonstrated. There is anasarca. Degenerative spondylosis of the thoracolumbar spine. Right hip arthroplasty. IMPRESSION: 1. There are markedly dilated and fluid-filled small bowel loops consistent with small bowel obstruction. 2. Stomach is distended. Patient may benefit from enteric tube. 3. Trace bilateral pleural effusions. 4. Stable findings suggestive of retroperitoneal fibrosis. 5. Anasarca. 6. Bilateral hydroceles. Electronically signed by: Ken Olivo MD (04/21/2018 7:15 AM) [facility] DICTATED and SIGNED BY: KEN OLIVO MD DATE: 04/21/18 0715 PE: Physical Exam General: Alert, Cooperative, mild distress, Other (mildly confused) HEENT: Atraumatic, PERRLA, EOMI, Other (NGT in place) Lungs: Clear to auscultation, Normal air movement Heart: Regular rate, No murmurs Abdomen: Normal bowel sounds, Soft, No tenderness, Other (abdomen is mildly distended) Extremities: No edema Skin: No significant lesion Neuro: Normal speech A/P: A/P: A) 1) Diarrhea 2) SBO P 1) Check stool studies given recent abx 2) NGT 3) Per his , he is scheduled for colonoscopy at with CARLYLE Manzanares MD Apr 21, 2018 14:31
[2018-04-21 15:00] VITALS: BP 99/61
[2018-04-21 19:00] VITALS: BP 113/74
[2018-04-21] MEDS ORDERED: DARBEPOETIN ALFA 60 MCG/0.3 ML DISP.SYRIN. SQ SCH (21:00)
[2018-04-21 23:00] VITALS: BP 105/66
[2018-04-22] MEDS: AMINO AC 3%/ELECTROLYTE/GLYCER 1,000 ML IV SCH ×2 (00:27→11:42)
[2018-04-22 03:00] VITALS: BP 110/60
[2018-04-22 07:00] VITALS: BP 107/74
[2018-04-22] MEDS: MIDODRINE 2.5 MG TABLET PO SCH ×3 (07:00→17:08)
[2018-04-22 07:15] LABS: BASO % 0 % (0-3); EOS % 0 % (0-3); HEMATOCRIT 28.6 % (39.0-53.0); HEMOGLOBIN 9.6 g/dL (13.0-17.5); LYMPH # 0.7 x10^3/uL (1.0-4.8); LYMPH % 12 % (24-48); MEAN CORPUSCULAR HEMOGLOBIN 32 pg (25-35); MEAN CORPUSCULAR HGB CONC 34 g/dL (31-37); MEAN CORPUSCULAR VOLUME 94 fL (79-100); MONO # 0.5 x10^3/uL (0.0-1.1); MONO % 9 % (0-9); NEUT # 4.4 x10^3uL (1.8-7.7); NEUT % 79 % (31-73); PLATELET COUNT 197 x10^3/uL (140-400); RED BLOOD COUNT 3.04 x10^6/uL (4.30-5.70); RED CELL DISTRIBUTION WIDTH 16.4 % (11.5-14.5); WHITE BLOOD COUNT 5.5 x10^3/uL (4.0-11.0)
[2018-04-22] MEDS: ALLOPURINOL 300 MG TABLET. PO SCH (07:34)
[2018-04-22] MEDS: ZINC SULFATE 220 MG CAPSULE. PO SCH (07:34)
[2018-04-22] MEDS: CLOPIDOGREL BISULFATE 75 MG TABLET PO SCH (07:34)
[2018-04-22] MEDS: ASPIRIN CHEWABLE 81 MG TABLET. PO SCH (07:34)
[2018-04-22] MEDS: FOLIC/VIT B COMP W-C (RENAL) TABLET. PO SCH (07:34)
[2018-04-22 07:41] LABS: ALBUMIN 2.1 g/dL (3.4-5.0); ALBUMIN/GLOBULIN RATIO 0.6 (1.0-1.7); CALCIUM 8.3 mg/dL (8.5-10.1); CREATININE 2.3 mg/dL (0.7-1.3); GFR 33.4; POTASSIUM 4.3 mmol/L (3.5-5.1); TOTAL BILIRUBIN 1.3 mg/dL (0.2-1.0); TOTAL PROTEIN 5.7 g/dL (6.4-8.2)
--- NOTE | 2018-04-22 08:19 | PDOC ---
SURGICAL PROGRESS NOTE Subjective Doing ok, no pain or nausea. Doesn't think he has passed any stool or flatus. Vital Signs Vital Signs Date Time Temp Pulse Resp B/P (MAP) Pulse Ox O2 Delivery O2 Flow Rate FiO2 04/22/18 03:00 98.0 91 16 110/60 (77) 95 Room Air 98.0 I&O Intake and Output 04/22/18 07:00 Intake Total 0 ml Output Total 100 ml Balance -100 ml Intake Oral 0 ml Output Gastric Drainage Total 100 ml PATIENT HAS A ALLISON: No General: Alert, Cooperative, Other (mildly confused) Abdomen: Normal bowel sounds, Soft, No tenderness, Other (NGT in place 300ml output 24 hours) Extremities: No edema Neuro: Normal speech Labs Laboratory Tests Test 04/21/18 06:15 04/22/18 06:12 White Blood Count 3.1 x10^3/uL (4.0-11.0) 5.5 x10^3/uL (4.0-11.0) Red Blood Count 3.29 x10^6/uL (4.30-5.70) 3.04 x10^6/uL (4.30-5.70) Hemoglobin 10.4 g/dL (13.0-17.5) 9.6 g/dL (13.0-17.5) Hematocrit 30.9 % (39.0-53.0) 28.6 % (39.0-53.0) Mean Corpuscular Volume 94 fL (79-100) 94 fL (79-100) Mean Corpuscular Hemoglobin 31 pg (25-35) 32 pg (25-35) Mean Corpuscular Hemoglobin Concent 34 g/dL (31-37) 34 g/dL (31-37) Red Cell Distribution Width 16.2 % (11.5-14.5) 16.4 % (11.5-14.5) Platelet Count 199 x10^3/uL (140-400) 197 x10^3/uL (140-400) Neutrophils (%) (Auto) 62 % (31-73) 79 % (31-73) Lymphocytes (%) (Auto) 24 % (24-48) 12 % (24-48) Monocytes (%) (Auto) 12 % (0-9) 9 % (0-9) Eosinophils (%) (Auto) 1 % (0-3) 0 % (0-3) Basophils (%) (Auto) 1 % (0-3) 0 % (0-3) Neutrophils # (Auto) 1.9 x10^3uL (1.8-7.7) 4.4 x10^3uL (1.8-7.7) Lymphocytes # (Auto) 0.7 x10^3/uL (1.0-4.8) 0.7 x10^3/uL (1.0-4.8) Monocytes # (Auto) 0.4 x10^3/uL (0.0-1.1) 0.5 x10^3/uL (0.0-1.1) Eosinophils # (Auto) 0.0 x10^3/uL (0.0-0.7) 0.0 x10^3/uL (0.0-0.7) Basophils # (Auto) 0.0 x10^3/uL (0.0-0.2) 0.0 x10^3/uL (0.0-0.2) Prothrombin Time 14.3 SEC (11.7-14.0) Prothromb Time International Ratio 1.1 (0.8-1.1) Sodium Level 139 mmol/L (136-145) 138 mmol/L (136-145) Potassium Level 3.9 mmol/L (3.5-5.1) 4.3 mmol/L (3.5-5.1) Chloride Level 100 mmol/L (98-107) 101 mmol/L (98-107) Carbon Dioxide Level 30 mmol/L (21-32) 29 mmol/L (21-32) Anion Gap 9 (6-14) 8 (6-14) Blood Urea Nitrogen 40 mg/dL (8-26) 51 mg/dL (8-26) Creatinine 2.0 mg/dL (0.7-1.3) 2.3 mg/dL (0.7-1.3) Estimated GFR (Cockcroft-Gault) 39.3 33.4 BUN/Creatinine Ratio 20 (6-20) 22 (6-20) Glucose Level 88 mg/dL (70-99) 91 mg/dL (70-99) Lactic Acid Level 1.9 mmol/L (0.4-2.0) Calcium Level 8.3 mg/dL (8.5-10.1) 8.3 mg/dL (8.5-10.1) Magnesium Level 1.7 mg/dL (1.8-2.4) Total Bilirubin 1.3 mg/dL (0.2-1.0) 1.3 mg/dL (0.2-1.0) Aspartate Amino Transf (AST/SGOT) 45 U/L (15-37) 42 U/L (15-37) Alanine Aminotransferase (ALT/SGPT) 70 U/L (16-63) 72 U/L (16-63) Alkaline Phosphatase 183 U/L (46-116) 154 U/L (46-116) Creatine Kinase 49 U/L (39-308) Creatine Kinase MB (Mass) 1.1 ng/mL (0.0-3.6) Creatine Kinase MB Relative Index % (0-4) Troponin I Quantitative 0.021 ng/mL (0.000-0.055) KY-Luw-L-Type Natriuretic Peptide 3971 pg/mL (0-449) Total Protein 6.1 g/dL (6.4-8.2) 5.7 g/dL (6.4-8.2) Albumin 2.4 g/dL (3.4-5.0) 2.1 g/dL (3.4-5.0) Albumin/Globulin Ratio 0.6 (1.0-1.7) 0.6 (1.0-1.7) Lipase 159 U/L (73-393) Laboratory Tests Test 04/22/18 06:12 White Blood Count 5.5 x10^3/uL (4.0-11.0) Red Blood Count 3.04 x10^6/uL (4.30-5.70) Hemoglobin 9.6 g/dL (13.0-17.5) Hematocrit 28.6 % (39.0-53.0) Mean Corpuscular Volume 94 fL (79-100) Mean Corpuscular Hemoglobin 32 pg (25-35) Mean Corpuscular Hemoglobin Concent 34 g/dL (31-37) Red Cell Distribution Width 16.4 % (11.5-14.5) Platelet Count 197 x10^3/uL (140-400) Neutrophils (%) (Auto) 79 % (31-73) Lymphocytes (%) (Auto) 12 % (24-48) Monocytes (%) (Auto) 9 % (0-9) Eosinophils (%) (Auto) 0 % (0-3) Basophils (%) (Auto) 0 % (0-3) Neutrophils # (Auto) 4.4 x10^3uL (1.8-7.7) Lymphocytes # (Auto) 0.7 x10^3/uL (1.0-4.8) Monocytes # (Auto) 0.5 x10^3/uL (0.0-1.1) Eosinophils # (Auto) 0.0 x10^3/uL (0.0-0.7) Basophils # (Auto) 0.0 x10^3/uL (0.0-0.2) Sodium Level 138 mmol/L (136-145) Potassium Level 4.3 mmol/L (3.5-5.1) Chloride Level 101 mmol/L (98-107) Carbon Dioxide Level 29 mmol/L (21-32) Anion Gap 8 (6-14) Blood Urea Nitrogen 51 mg/dL (8-26) Creatinine 2.3 mg/dL (0.7-1.3) Estimated GFR (Cockcroft-Gault) 33.4 BUN/Creatinine Ratio 22 (6-20) Glucose Level 91 mg/dL (70-99) Calcium Level 8.3 mg/dL (8.5-10.1) Total Bilirubin 1.3 mg/dL (0.2-1.0) Aspartate Amino Transf (AST/SGOT) 42 U/L (15-37) Alanine Aminotransferase (ALT/SGPT) 72 U/L (16-63) Alkaline Phosphatase 154 U/L (46-116) Total Protein 5.7 g/dL (6.4-8.2) Albumin 2.1 g/dL (3.4-5.0) Albumin/Globulin Ratio 0.6 (1.0-1.7) Problem List Problems Medical Problems: (1) CKD (chronic kidney disease), stage III Status: Acute (2) Hypotension Status: Acute Assessment/Plan SBO Abd films pending Some improvement in pain, will review films Continue bowel rest and NGT suction. KEV KHALIL MD Apr 22, 2018 08:19
--- NOTE | 2018-04-22 09:29 | RAD ---
Indication: Elbow pain status post fall TECHNIQUE: 3 views of the left elbow COMPARISON: None Findings/ impression: Punctate calcific density is seen projecting dorsal to the proximal ulna most likely an avulsion fracture or foreign body. Soft tissue swelling is seen of the posterior elbow. Anterolateral soft tissue defect is seen in the lower arm which may represent a ulcer or wound. No joint effusion. Electronically signed by: Mauro Lopez DO (04/22/2018 9:26 AM) [facility]
--- NOTE | 2018-04-22 09:32 | RAD ---
Indication: Status post fall with arm pain TECHNIQUE: 2 views of the left humerus COMPARISON: None FINDINGS/ impression: No acute fracture or dislocation. Mild glenohumeral joint osteoarthritis. Superficial skin defect is seen in the distal arm. Electronically signed by: Mauro Lopez DO (04/22/2018 9:29 AM) [facility]
--- NOTE | 2018-04-22 09:33 | PDOC ---
SUBJECTIVE ROS Stable OBJECTIVE Vital Signs Vital Signs Date Time Temp Pulse Resp B/P (MAP) Pulse Ox O2 Delivery O2 Flow Rate FiO2 04/22/18 08:00 Room Air 04/22/18 07:00 98.7 101 16 107/74 (85) 99 98.7 I & 0 Intake and Output 04/22/18 07:00 Intake Total 0 ml Output Total 100 ml Balance -100 ml Intake Oral 0 ml Gastric Drainage Total 100 ml PHYSICAL EXAM Physical Exam GENERAL: no apparent distress. HEENT: OM moist NECK: Supple. CARDIAC: Irregularly irregular. LUNGS: Clear. ABDOMEN: Soft. NEUROLOGIC: Grossly Normal DIAGNOSIS/ASSESSMENT Assessment & Plan ESRD- On HD TTS No Indication today Tomorrow as per his schedule SBO-On PPN NGT in place GS following HX OF RETROPERITONEAL FIBROSIS Anemia- On Aranesp Chronic Hypotension- On Midodrine COMMENT/RELEVANT DATA Meds Current Medications Medications (Trade) Dose Ordered Sig/Maria Eugenia Start Time Stop Time Status Last Admin Dose Admin Allopurinol (Zyloprim) 300 mg DAILY 04/21/18 10:30 Amino Acids/ Glycerin/ Electrolytes 1,000 ml @ 80 mls/hr [id number] 04/21/18 12:00 04/22/18 00:27 80 MLS/HR Aspirin (Children'S Aspirin) 81 mg DAILY 04/21/18 10:30 Clopidogrel Bisulfate (Plavix) 75 mg DAILY 04/21/18 10:30 Darbepoetin Luciano (Aranesp) 60 mcg [id number] 04/21/18 21:00 04/21/18 20:54 60 MCG Dextrose/Lactated Ringer's 1,000 ml @ 75 mls/hr 1X ONCE 04/21/18 07:45 04/21/18 11:37 DC 04/21/18 08:22 75 MLS/HR Hyoscyamine (Anaspaz) 0.125 mg PRN Q6HRS PRN 04/21/18 09:45 Loperamide HCl (Imodium) 2 mg PRN Q15MIN PRN 04/21/18 10:00 Midodrine (Proamatine) 2.5 mg [id number] 04/21/18 13:00 Ondansetron HCl (Zofran Odt) 4 mg PRN Q4HRS PRN 04/21/18 10:00 04/21/18 12:19 4 MG Sodium Chloride 1,000 ml @ 1,000 mls/hr Q1H 04/21/18 07:00 04/21/18 07:59 DC 04/21/18 06:55 1,000 MLS/HR Vitamin B Complex/ Vitamin C (Leanne-Bev) 1 tab DAILY 04/21/18 10:30 Zinc Sulfate (Orazinc) 220 mg DAILY 04/21/18 10:30 Lab Laboratory Tests Test 04/22/18 06:12 White Blood Count 5.5 x10^3/uL (4.0-11.0) Red Blood Count 3.04 x10^6/uL (4.30-5.70) Hemoglobin 9.6 g/dL (13.0-17.5) Hematocrit 28.6 % (39.0-53.0) Mean Corpuscular Volume 94 fL (79-100) Mean Corpuscular Hemoglobin 32 pg (25-35) Mean Corpuscular Hemoglobin Concent 34 g/dL (31-37) Red Cell Distribution Width 16.4 % (11.5-14.5) Platelet Count 197 x10^3/uL (140-400) Neutrophils (%) (Auto) 79 % (31-73) Lymphocytes (%) (Auto) 12 % (24-48) Monocytes (%) (Auto) 9 % (0-9) Eosinophils (%) (Auto) 0 % (0-3) Basophils (%) (Auto) 0 % (0-3) Neutrophils # (Auto) 4.4 x10^3uL (1.8-7.7) Lymphocytes # (Auto) 0.7 x10^3/uL (1.0-4.8) Monocytes # (Auto) 0.5 x10^3/uL (0.0-1.1) Eosinophils # (Auto) 0.0 x10^3/uL (0.0-0.7) Basophils # (Auto) 0.0 x10^3/uL (0.0-0.2) Sodium Level 138 mmol/L (136-145) Potassium Level 4.3 mmol/L (3.5-5.1) Chloride Level 101 mmol/L (98-107) Carbon Dioxide Level 29 mmol/L (21-32) Anion Gap 8 (6-14) Blood Urea Nitrogen 51 mg/dL (8-26) Creatinine 2.3 mg/dL (0.7-1.3) Estimated GFR (Cockcroft-Gault) 33.4 BUN/Creatinine Ratio 22 (6-20) Glucose Level 91 mg/dL (70-99) Calcium Level 8.3 mg/dL (8.5-10.1) Total Bilirubin 1.3 mg/dL (0.2-1.0) Aspartate Amino Transf (AST/SGOT) 42 U/L (15-37) Alanine Aminotransferase (ALT/SGPT) 72 U/L (16-63) Alkaline Phosphatase 154 U/L (46-116) Total Protein 5.7 g/dL (6.4-8.2) Albumin 2.1 g/dL (3.4-5.0) Albumin/Globulin Ratio 0.6 (1.0-1.7) Results All relevant outside records, renal labs, imaging studies, telemetry/EKG's were reviewed. JERRY VERA MD Apr 22, 2018 09:33
--- NOTE | 2018-04-22 09:43 | RAD ---
3 views of the abdomen 04/22/2018 INDICATION: Abdominal pain. Diarrhea. Small bowel obstruction. Diarrhea. COMPARISON STUDY: CT of the abdomen and pelvis April 21, 2018. Discussion: There is an enteric tube extending into the proximal stomach. Dilated loops of bowel are again seen throughout the abdomen.No gross pneumoperitoneum is identified, though exam is limited for the purpose. Right hip prosthesis noted. Degenerative changes of the spine are similar. IMPRESSION: 1.Persistent dilated loops of bowel throughout the abdomen suggesting ongoing ileus or obstruction 2. Enteric tube in the expected region of the stomach Electronically signed by: Antonio Bowling MD (04/22/2018 9:41 AM) [id number]
--- NOTE | 2018-04-22 10:05 | PDOC ---
Subjective: Subjective: Feels about the same since admission. No diarrhea, is passing gas, has occasional abd cramping. Objective: Objective: C Diff uncollected. On PPN, Plavix, and ASA. Vital Signs: Vital Signs Date Time Temp Pulse Resp B/P (MAP) Pulse Ox O2 Delivery O2 Flow Rate FiO2 04/22/18 08:00 Room Air 04/22/18 07:00 98.7 101 16 107/74 (85) 99 98.7 Labs: Laboratory Tests Test 04/22/18 06:12 White Blood Count 5.5 x10^3/uL Red Blood Count 3.04 x10^6/uL Hemoglobin 9.6 g/dL Hematocrit 28.6 % Mean Corpuscular Volume 94 fL Mean Corpuscular Hemoglobin 32 pg Mean Corpuscular Hemoglobin Concent 34 g/dL Red Cell Distribution Width 16.4 % Platelet Count 197 x10^3/uL Neutrophils (%) (Auto) 79 % Lymphocytes (%) (Auto) 12 % Monocytes (%) (Auto) 9 % Eosinophils (%) (Auto) 0 % Basophils (%) (Auto) 0 % Neutrophils # (Auto) 4.4 x10^3uL Lymphocytes # (Auto) 0.7 x10^3/uL Monocytes # (Auto) 0.5 x10^3/uL Eosinophils # (Auto) 0.0 x10^3/uL Basophils # (Auto) 0.0 x10^3/uL Sodium Level 138 mmol/L Potassium Level 4.3 mmol/L Chloride Level 101 mmol/L Carbon Dioxide Level 29 mmol/L Anion Gap 8 Blood Urea Nitrogen 51 mg/dL Creatinine 2.3 mg/dL Estimated GFR (Cockcroft-Gault) 33.4 BUN/Creatinine Ratio 22 Glucose Level 91 mg/dL Calcium Level 8.3 mg/dL Total Bilirubin 1.3 mg/dL Aspartate Amino Transf (AST/SGOT) 42 U/L Alanine Aminotransferase (ALT/SGPT) 72 U/L Alkaline Phosphatase 154 U/L Total Protein 5.7 g/dL Albumin 2.1 g/dL Albumin/Globulin Ratio 0.6 Imaging: CT A/P 04/21/18 IMPRESSION: 1. There are markedly dilated and fluid-filled small bowel loops consistent with small bowel obstruction. 2. Stomach is distended. Patient may benefit from enteric tube. 3. Trace bilateral pleural effusions. 4. Stable findings suggestive of retroperitoneal fibrosis. 5. Anasarca. 6. Bilateral hydroceles. Abd X-Ray 04/22 IMPRESSION: 1.Persistent dilated loops of bowel throughout the abdomen suggesting ongoing ileus or obstruction 2. Enteric tube in the expected region of the stomach. Left Elbow X-Ray Impression: Punctate calcific density is seen projecting dorsal to the proximal ulna most likely an avulsion fracture or foreign body. Soft tissue swelling is seen of the posterior elbow. Anterolateral soft tissue defect is seen in the lower arm which may represent a ulcer or wound. No joint effusion. Humerus X-Ray Impression: No acute fracture or dislocation. Mild glenohumeral joint osteoarthritis. Superficial skin defect is seen in the distal arm. PE: GEN: NAD - brushing teeth HEENT: NG tube dark brown LUNGS: CTAB ABD: soft, occasional gurgle - might be suction from NG NEURO/PSYCH: A & O 3 A/P: Ileus vs SBO ESRD Normocytic anemia - past iron studies (in 2018) c/w ACD (and normal B12 and retic) Elevated LFTs - unremarkable liver on CT, s/p cholecystectomy -- Surgery following - continue NG for now. 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 Check RUQ US. He has plans for outpt colonoscopy at [facility]. FANNY SARAH Apr 22, 2018 10:05
[2018-04-22 10:14] LABS: BILIRUBIN,URINE SMALL (NEG); CLARITY,URINE CLEAR; COLOR,URINE AMBER; NITRITE,URINE NEGATIVE (NEG); PROTEIN,URINE 30 mg/dL (NEG-TRACE)
[2018-04-22 10:49] LABS: SQUAMOUS EPITHELIAL CELL,UR OCC /LPF
[2018-04-22 10:51] LABS: BACTERIA,URINE 0 /HPF (0-FEW); RBC,URINE 0 /HPF (0-2); WBC,URINE >40 /HPF (0-4)
[2018-04-22 11:00] VITALS: BP 85/57
[2018-04-22] MEDS: PANTOPRAZOLE IV PUSH 40 MG VIAL. IVP SCH (11:42)
--- NOTE | 2018-04-22 12:48 | RAD ---
Indication:NG TUBE PLACEMENT TECHNIQUE:Single supine AP view of the abdomen and pelvis COMPARISON: Study from same day hours earlier FINDINGS:Interval retraction of NG tube with its tip in the distal esophagus. Dilated loop of small bowel is seen in the upper abdomen. IMPRESSION: As above. Please advance NG tube by at least 15 cm. Electronically signed by: Mauro Lopez DO (04/22/2018 12:45 PM) [facility]
--- NOTE | 2018-04-22 12:55 | NUR ---
SW responding to a referral regarding med alert. Chart reviewed and discussed with RN. Pt lives at home with spouse. PT/OT recommends SNU. Spoke with pt at bedside about SNU options and insurance coverage. Pt agreeable with [facility]. WILFREDO also provided pt with a life alert brochure and informed him to call the phone number listed for further assistance. WILFREDO also discussed this with pt's son, via phone who is agreeable with plans. WILFREDO left a voice mail to pt's as well. WILFREDO phoned and faxed referral to [facility]. Pt acceptance and admission pending. Pt and family notified insurance auth is needed before dc to SNU pending acceptance. Will continue to follow.
--- NOTE | 2018-04-22 13:03 | PDOC ---
PROGRESS NOTES Subjective Subjective Patient states he feels similar to admission. Patient denies bowel movement or passing gas. Patient has swelling and ecchymosis about left elbow x-ray shows possible avulsion fracture. Objective Objective Vital Signs Date Time Temp Pulse Resp B/P (MAP) Pulse Ox O2 Delivery O2 Flow Rate FiO2 04/22/18 11:00 98.4 84 16 85/57 (66) 96 Room Air 98.4 04/21/18 06:00 2.0 Intake and Output 04/22/18 07:00 Intake Total 0 ml Output Total 100 ml Balance -100 ml Intake Oral 0 ml Gastric Drainage Total 100 ml Physical Exam Abdomen: Other (bowel sounds appreciated) Heart: Regular rate Extremities: Other (4+ pitting edema bilaterally) General: Alert Lungs: Clear to auscultation Assessment Assessment Problems Medical Problems: (1) CKD (chronic kidney disease), stage III Status: Acute (2) Hypotension Status: Acute 1. Small-bowel obstruction 2. Severe weakness. 3. Hypotension. 4. Severe protein malnutrition. 5. End-stage renal disease. 6. Retroperitoneal fibrosis. 7. Hypomagnesemia. 8. Elevated liver function tests. 9. Leukopenia. 10. Mild anemia. 11. Left elbow pain possible avulsion fracture Plan Plan of Care Continue surgery recommendations. Proceed with dialysis as indicated. Continue PPN Proceed with PT and OT eval and treat. DC NG and advance diet when appropriate per surgery and GI medicine Consults orthopedic surgery. Comment Review of Relevant I have reviewed the following items demar (where applicable) has been applied. Labs Laboratory Tests Test 04/21/18 06:15 04/22/18 06:12 04/22/18 09:55 White Blood Count 3.1 x10^3/uL (4.0-11.0) 5.5 x10^3/uL (4.0-11.0) Red Blood Count 3.29 x10^6/uL (4.30-5.70) 3.04 x10^6/uL (4.30-5.70) Hemoglobin 10.4 g/dL (13.0-17.5) 9.6 g/dL (13.0-17.5) Hematocrit 30.9 % (39.0-53.0) 28.6 % (39.0-53.0) Mean Corpuscular Volume 94 fL (79-100) 94 fL (79-100) Mean Corpuscular Hemoglobin 31 pg (25-35) 32 pg (25-35) Mean Corpuscular Hemoglobin Concent 34 g/dL (31-37) 34 g/dL (31-37) Red Cell Distribution Width 16.2 % (11.5-14.5) 16.4 % (11.5-14.5) Platelet Count 199 x10^3/uL (140-400) 197 x10^3/uL (140-400) Neutrophils (%) (Auto) 62 % (31-73) 79 % (31-73) Lymphocytes (%) (Auto) 24 % (24-48) 12 % (24-48) Monocytes (%) (Auto) 12 % (0-9) 9 % (0-9) Eosinophils (%) (Auto) 1 % (0-3) 0 % (0-3) Basophils (%) (Auto) 1 % (0-3) 0 % (0-3) Neutrophils # (Auto) 1.9 x10^3uL (1.8-7.7) 4.4 x10^3uL (1.8-7.7) Lymphocytes # (Auto) 0.7 x10^3/uL (1.0-4.8) 0.7 x10^3/uL (1.0-4.8) Monocytes # (Auto) 0.4 x10^3/uL (0.0-1.1) 0.5 x10^3/uL (0.0-1.1) Eosinophils # (Auto) 0.0 x10^3/uL (0.0-0.7) 0.0 x10^3/uL (0.0-0.7) Basophils # (Auto) 0.0 x10^3/uL (0.0-0.2) 0.0 x10^3/uL (0.0-0.2) Prothrombin Time 14.3 SEC (11.7-14.0) Prothromb Time International Ratio 1.1 (0.8-1.1) Sodium Level 139 mmol/L (136-145) 138 mmol/L (136-145) Potassium Level 3.9 mmol/L (3.5-5.1) 4.3 mmol/L (3.5-5.1) Chloride Level 100 mmol/L (98-107) 101 mmol/L (98-107) Carbon Dioxide Level 30 mmol/L (21-32) 29 mmol/L (21-32) Anion Gap 9 (6-14) 8 (6-14) Blood Urea Nitrogen 40 mg/dL (8-26) 51 mg/dL (8-26) Creatinine 2.0 mg/dL (0.7-1.3) 2.3 mg/dL (0.7-1.3) Estimated GFR (Cockcroft-Gault) 39.3 33.4 BUN/Creatinine Ratio 20 (6-20) 22 (6-20) Glucose Level 88 mg/dL (70-99) 91 mg/dL (70-99) Lactic Acid Level 1.9 mmol/L (0.4-2.0) Calcium Level 8.3 mg/dL (8.5-10.1) 8.3 mg/dL (8.5-10.1) Magnesium Level 1.7 mg/dL (1.8-2.4) Total Bilirubin 1.3 mg/dL (0.2-1.0) 1.3 mg/dL (0.2-1.0) Aspartate Amino Transf (AST/SGOT) 45 U/L (15-37) 42 U/L (15-37) Alanine Aminotransferase (ALT/SGPT) 70 U/L (16-63) 72 U/L (16-63) Alkaline Phosphatase 183 U/L (46-116) 154 U/L (46-116) Creatine Kinase 49 U/L (39-308) Creatine Kinase MB (Mass) 1.1 ng/mL (0.0-3.6) Creatine Kinase MB Relative Index % (0-4) Troponin I Quantitative 0.021 ng/mL (0.000-0.055) TY-[id number]-Type Natriuretic Peptide 3971 pg/mL (0-449) Total Protein 6.1 g/dL (6.4-8.2) 5.7 g/dL (6.4-8.2) Albumin 2.4 g/dL (3.4-5.0) 2.1 g/dL (3.4-5.0) Albumin/Globulin Ratio 0.6 (1.0-1.7) 0.6 (1.0-1.7) Lipase 159 U/L (73-393) Urine Collection Type Unknown Urine Color Melissa Urine Clarity Clear Urine pH 7.0 Urine Specific [place] 1.015 Urine Protein 30 mg/dL (NEG-TRACE) Urine Glucose (UA) Negative mg/dL (NEG) Urine Ketones (Stick) Trace mg/dL (NEG) Urine Blood Negative (NEG) Urine Nitrite Negative (NEG) Urine Bilirubin Small (NEG) Urine Urobilinogen Dipstick 1.0 mg/dL (0.2 mg/dL) Urine Leukocyte Esterase Moderate (NEG) Urine RBC 0 /HPF (0-2) Urine WBC >40 /HPF (0-4) Urine Squamous Epithelial Cells Occ /LPF Urine Bacteria 0 /HPF (0-FEW) Laboratory Tests Test 04/22/18 06:12 04/22/18 09:55 White Blood Count 5.5 x10^3/uL (4.0-11.0) Red Blood Count 3.04 x10^6/uL (4.30-5.70) Hemoglobin 9.6 g/dL (13.0-17.5) Hematocrit 28.6 % (39.0-53.0) Mean Corpuscular Volume 94 fL (79-100) Mean Corpuscular Hemoglobin 32 pg (25-35) Mean Corpuscular Hemoglobin Concent 34 g/dL (31-37) Red Cell Distribution Width 16.4 % (11.5-14.5) Platelet Count 197 x10^3/uL (140-400) Neutrophils (%) (Auto) 79 % (31-73) Lymphocytes (%) (Auto) 12 % (24-48) Monocytes (%) (Auto) 9 % (0-9) Eosinophils (%) (Auto) 0 % (0-3) Basophils (%) (Auto) 0 % (0-3) Neutrophils # (Auto) 4.4 x10^3uL (1.8-7.7) Lymphocytes # (Auto) 0.7 x10^3/uL (1.0-4.8) Monocytes # (Auto) 0.5 x10^3/uL (0.0-1.1) Eosinophils # (Auto) 0.0 x10^3/uL (0.0-0.7) Basophils # (Auto) 0.0 x10^3/uL (0.0-0.2) Sodium Level 138 mmol/L (136-145) Potassium Level 4.3 mmol/L (3.5-5.1) Chloride Level 101 mmol/L (98-107) Carbon Dioxide Level 29 mmol/L (21-32) Anion Gap 8 (6-14) Blood Urea Nitrogen 51 mg/dL (8-26) Creatinine 2.3 mg/dL (0.7-1.3) Estimated GFR (Cockcroft-Gault) 33.4 BUN/Creatinine Ratio 22 (6-20) Glucose Level 91 mg/dL (70-99) Calcium Level 8.3 mg/dL (8.5-10.1) Total Bilirubin 1.3 mg/dL (0.2-1.0) Aspartate Amino Transf (AST/SGOT) 42 U/L (15-37) Alanine Aminotransferase (ALT/SGPT) 72 U/L (16-63) Alkaline Phosphatase 154 U/L (46-116) Total Protein 5.7 g/dL (6.4-8.2) Albumin 2.1 g/dL (3.4-5.0) Albumin/Globulin Ratio 0.6 (1.0-1.7) Urine Collection Type Unknown Urine Color Melissa Urine Clarity Clear Urine pH 7.0 Urine Specific [place] 1.015 Urine Protein 30 mg/dL (NEG-TRACE) Urine Glucose (UA) Negative mg/dL (NEG) Urine Ketones (Stick) Trace mg/dL (NEG) Urine Blood Negative (NEG) Urine Nitrite Negative (NEG) Urine Bilirubin Small (NEG) Urine Urobilinogen Dipstick 1.0 mg/dL (0.2 mg/dL) Urine Leukocyte Esterase Moderate (NEG) Urine RBC 0 /HPF (0-2) Urine WBC >40 /HPF (0-4) Urine Squamous Epithelial Cells Occ /LPF Urine Bacteria 0 /HPF (0-FEW) Microbiology 04/21/18 Blood Culture - Preliminary, Resulted NO GROWTH AFTER 1 DAY Medications Current Medications Sodium Chloride 1,000 ml @ 1,000 mls/hr Q1H IV Last administered on 04/21/18at 06:55; Start 04/21/18 at 07:00; Stop 04/21/18 at 07:59; Status DC Dextrose/Lactated Ringer's 1,000 ml @ 75 mls/hr 1X ONCE IV Last administered on 04/21/18at 08:22; Start 04/21/18 at 07:45; Stop 04/21/18 at 11:37; Status DC Allopurinol (Zyloprim) 300 mg DAILY PO ; Start 04/21/18 at 10:30 Aspirin (Children'S Aspirin) 81 mg DAILY PO ; Start 04/21/18 at 10:30 Clopidogrel Bisulfate (Plavix) 75 mg DAILY PO ; Start 04/21/18 at 10:30 Vitamin B Complex/ Vitamin C (Leanne-Bev) 1 tab DAILY PO ; Start 04/21/18 at 10: 30 Hyoscyamine (Anaspaz) 0.125 mg PRN Q6HRS PRN PO STOMACH CRAMPING; Start at 09:45 Loperamide HCl (Imodium) 2 mg PRN Q15MIN PRN PO DIARRHEA; Start 04/21/18 at 10: 00 Ondansetron HCl (Zofran Odt) 4 mg PRN Q4HRS PRN PO NAUSEA/VOMITING Last administered on 04/21/18at 12:19; Start 04/21/18 at 10:00 Zinc Sulfate (Orazinc) 220 mg DAILY PO ; Start 04/21/18 at 10:30 Darbepoetin Luciano (Aranesp) 60 mcg [id number] SQ Last administered on 04/21/18at 20 :54; Start 04/21/18 at 21:00 Amino Acids/ Glycerin/ Electrolytes 1,000 ml @ 80 mls/hr [id number] IV Last administered on 04/22/18at 11:42; Start 04/21/18 at 12:00 Midodrine (Proamatine) 2.5 mg [id number] PO ; Start 04/21/18 at 13:00 Pantoprazole Sodium (PROTONIX VIAL for IV PUSH) 40 mg DAILYAC IVP Last administered on 04/22/18at 11:42; Start 04/22/18 at 11:00 Active Scripts Active Reported Zinc (Zinc Gluconate) 50 Mg Tablet 50 Mg PO DAILY Zofran (Ondansetron Hcl) 4 Mg Tablet 1 Tab PO PRN Q4HRS PRN Levsin (Hyoscyamine Sulfate) 0.125 Mg Tablet 0.125 Mg PO PRN Q6HRS PRN Leanne-Ebv Tablet (Folic Acid/Vitamin B Comp W-C) 0.8 Mg Tablet 0.8 Mg PO DAILY Carvedilol (Carvedilol) 3.125 Mg Tablet 3.125 Mg PO BIDWMEALS Diltiazem 24HR Cd (Diltiazem Hcl) 120 Mg Cap.er.24h 1 Cap PO DAILY Anti-Diarrheal (Loperamide Hcl) 2 Mg Capsule 2 Mg PO PRN QID PRN Sotalol (Sotalol Hcl) 80 Mg Tablet 120 Mg PO DAILY Aspirin 81 Mg Tab.chew 1 Tab PO DAILY Clopidogrel (Clopidogrel Bisulfate) 75 Mg Tablet 75 Mg PO DAILY Allopurinol 300 Mg Tablet 300 Mg PO DAILY Vitals/I & O Vital Sign - Last 24 Hours 04/21/18 04/21/18 04/21/18 04/22/18 15:00 19:00 23:00 03:00 Temp 97.7 98.4 98.2 98.0 97.7 98.4 98.2 98.0 Pulse 89 92 94 91 Resp 16 16 16 16 B/P (MAP) 99/61 (74) 113/74 (87) 105/66 (79) 110/60 (77) Pulse Ox 99 98 94 95 O2 Delivery Room Air Room Air Room Air Room Air 04/22/18 04/22/18 04/22/18 07:00 08:00 11:00 Temp 98.7 98.4 98.7 98.4 Pulse 101 84 Resp 16 16 B/P (MAP) 107/74 (85) 85/57 (66) Pulse Ox 99 96 O2 Delivery Room Air Room Air Room Air Intake and Output 04/21/18 04/21/18 04/22/18 15:00 23:00 07:00 Intake Total 0 ml 0 ml 0 ml Output Total 100 ml Balance 0 ml 0 ml -100 ml HIRO FIGUEROA MD Apr 22, 2018 13:03
--- NOTE | 2018-04-22 13:14 | RAD ---
Indication:ELEVATED LFT'S TECHNIQUE: Grayscale, color Doppler and spectral waveform is of the abdomen obtained. COMPARISON:None FINDINGS:Pancreas, right kidney obscured by overlying bowel gas. IVC is patent. Main portal vein is patent. Status post cholecystectomy. CBD measures 7 mm in diameter and is within normal limits in post cholecystectomy patient. Diffuse increased echogenicity seen in the hepatic parenchyma. Liver measures 17 cm and is top normal in size. IMPRESSION: 1. Hepatic steatosis. Electronically signed by: Mauro Lopez DO (04/22/2018 1:11 PM) [facility]
[2018-04-22 15:00] VITALS: BP 113/78
--- NOTE | 2018-04-22 15:50 | CONS ---
DATE OF CONSULTATION: 04/22/2018 ATTENDING PHYSICIAN: Dr. Pineda Casper. The patient was seen at the request of Dr. Casper for rehab evaluation. HISTORY OF PRESENT ILLNESS: This is a 77-year-old male, right-handed. The patient was admitted on 04/21/2018 after he had difficulty to get up from commode chair, complaining of extreme weakness on 04/21/2018. In the Emergency Room, he was found with a distended abdomen and CT scan confirmed small-bowel obstruction. He was also noted with hypotension, blood pressure being 70/50s. The patient had NG tube placed. He apparently had vomited last night. He had chronic diarrhea, apparently had weight loss of significant amount in the last year, was seen by GI, Cardiology and Renal Medicine. The patient with end-stage renal disease, on hemodialysis. He lost about 5 pounds in the last 3-4 months. Also with known severe protein malnutrition, retroperitoneal fibrosis, chronic diarrhea, irritable bowel syndrome, coronary artery disease, status post stenting; hypertension, gouty arthritis, hyperlipidemia, recurrent small bowel obstructions, venous insufficiency of lower extremities, hyperparathyroidism, chronic atrial fibrillation, cerebrovascular disease, status post bilateral total knee arthroplasty, TURP, right hip pinning, lysis of adhesions in intestine. Both parents of extreme old age around 91 years with his mother, 103 with his father. ALLERGIES: The patient is not known allergic to any medication. SOCIAL HISTORY: He lives with his , had a flight of stairs with railing to enter his house. The patient uses a cane and walker to get around. He was noted with left elbow swelling. X-rays failed to reveal any acute abnormalities. PHYSICAL EXAMINATION: Today revealed an elderly male. He is alert, oriented to time, place, person and circumstance and follows commands appropriately, moves all 4 extremities voluntarily where he had 4/5 to 4+/5 grade muscle strength. He had hand intrinsic muscle atrophy. Negative Tinel sign over median nerve at the wrist and over ulnar nerve at the wrist and elbow. He had tenderness to palpation over left elbow, mainly lateral humeral epicondylar area. He had edema of his left elbow incision and drainage. He had equal perception of touch and pinprick sensation bilaterally. Deep tendon reflexes are decreased to absent overall. He had edema of his feet and legs with skin changes from chronic venous insufficiency. He had painful range of motion of both hip and knee joints and shoulder joints. He is receiving IV fluids and NG tube in place. Not much abdominal distention was noted. The patient got up and walked using a roller walker with supervision. He gets tired easily. He had some urine output. His skin is intact at this time other than he had dressing over anterior aspect of left forearm where he had access for dialysis. ASSESSMENT: Mobility and self-care limitation in a patient with deconditioned state from diabetes mellitus with peripheral neuropathy; end-stage renal disease, on hemodialysis; recent admission for small intestine obstruction in a patient with known recurrent small-bowel obstruction, status post lysis of adhesions in the past, degenerative joint disease of left elbow with some edema, left elbow and forearm and mild degree of left lateral humeral epicondylitis, severe protein malnutrition, retroperitoneal fibrosis, chronic diarrhea, irritable bowel syndrome; coronary artery disease, status post stenting; hypertension, gouty arthritis, hyperlipidemia, chronic venous insufficiency of both lower extremities, hyperparathyroidism, chronic atrial fibrillation and cerebrovascular disease by history. RECOMMENDATIONS: Agree with the plan for physical therapy and occupational therapy to get him up as tolerated. He may benefit from a stool riser for commode as he had difficulty to get up from commode chair. Dr. Casper, I appreciate asking me to participate in the care of this interesting patient. I will be glad to follow him with you as needed for his rehabilitation. WARD RANDOLPH MD DR: SIL/jennifer JOB#: [id number] / [id number]
--- NOTE | 2018-04-22 16:06 | EKG ---
[facility] [address] [place] [address] Test Date: 2018-04-21 Test Time: 06:35:52 Pat Name: ROSALIA MARTI Department: Room: 502 1 Gender: M Social Sciences Chair: : 1940 Requested By: HIRO FIGUEROA Order Number: [id number] Reading MD: Nasir Watts MD Measurements Intervals Nixa Rate: 81 P: MA: QRS: 54 QRSD: 82 T: 2 QT: 402 QTc: 467 Interpretive Statements PROBABLE SINUS RHYTHM VENTRICULAR PREMATURE COMPLEX(ES) Electronically Signed On 04-25-2018 15:05:44 CDT by Nasir Watts MD
--- NOTE | 2018-04-22 16:46 | RAD ---
Indication:NG TUBE PLACEMENT TECHNIQUE:KUB COMPARISON: Study from the same day earlier FINDINGS:Tip of the NG tube is seen in the body of the stomach. Lungs are clear. Heart is normal in size. Redemonstrated are dilated bowel loops in the visualized abdomen. IMPRESSION: NG tube with its tip in the body of the stomach. Electronically signed by: Mauro Lopez DO (04/22/2018 4:44 PM) [facility]
--- NOTE | 2018-04-22 18:39 | NUR ---
Patient has pulled NG tube X2 this shift. MD Taurus and MD Ferny notified. MD Taurus stated that NG tube needed to be placed and mittens applied and to have 1:1 sitter.
[2018-04-22 19:00] VITALS: BP 112/68
[2018-04-22 23:00] VITALS: BP 108/71
--- NOTE | 2018-04-22 23:17 | RAD ---
One view abdomen HISTORY: NG tube One view upright AP view lower chest upper abdomen. 7:15 PM There is an NG tube with its tip in the proximal stomach. There is multiple dilated air-filled loops of small bowel. There is no free air. IMPRESSION: 1. NG tube well-positioned. 2. Small bowel obstruction. Electronically signed by: Vince Bates III, MD (04/22/2018 11:14 PM) [facility]
[2018-04-23] MEDS: AMINO AC 3%/ELECTROLYTE/GLYCER 1,000 ML IV SCH ×2 (01:17→14:16)
--- NOTE | 2018-04-23 01:54 | CONS ---
DATE OF CONSULTATION: 04/22/2018 ORTHOPEDIC CONSULTATION REQUESTING PHYSICIAN: Dr. Pineda Casper. REASON FOR CONSULTATION: Left elbow swelling. HISTORY OF PRESENT ILLNESS: The patient is a 77-year-old male who was brought by ambulance and admitted through the Emergency Room due to inability to care for himself and was found to have a small-bowel obstruction and hypotension. He denies any injuries to his left elbow, but indicated that it has been swollen. He is not aware of hitting it or any problems. He does have dialysis in his left arm typically. He states that the elbow does not hurt, other than just some limited motion and stiffness, but he was told that he has a fracture. He is not sure how long this has been going on with the left elbow area swelling, but remembers perhaps a couple of days. PAST MEDICAL HISTORY: His past medical history is very extensive and significant for end-stage renal disease, protein malnutrition, fibrosis, inflammatory bowel syndrome, hypertension, gout, hyperlipidemia, history of small-bowel obstructions, venous insufficiency, chronic atrial fibrillation and heart disease, hyperparathyroidism and cerebrovascular disease. PAST SURGICAL HISTORY: Bilateral total knees, a transurethral resection of the prostate, right hip fracture pinning and lysis of bowel adhesions in the past. FAMILY HISTORY: Parents at very old ages. SOCIAL HISTORY: , lives at home with his spouse. Denies smoking, alcohol or drug use. ALLERGIES: He has no known drug allergies. MEDICATIONS: Medication list is reviewed. REVIEW OF SYSTEMS: Today is significant for the elbow swelling, without complaining of pain. He wishes he could eat, although he is having some nausea and currently sitting on the side of the bed with a bucket in front of him. He has apparently pulled out NG tubes twice today and complains of weakness. PHYSICAL EXAMINATION: On examination of the left elbow, he does have some overall global swelling, has a thrill palpable in his proximal medial forearm for dialysis site. He has some mild diffuse tenderness and swelling over the entire elbow area. He is unable to get into full extension with the left elbow as he is with the right. He has full pronation and supination. Ligamentous stability is normal. Compartments are soft. He has some mild swelling in the forearm. He can fully flex and extend his fingers bilaterally. He does have some intrinsic muscle atrophy in the hands. Normal motion of both shoulders. IMAGING DATA: X-rays of the left elbow show some mild degenerative change present and also a calcified area in the distal portion of the olecranon bursa. Although the radiology report says possible correlation for an avulsion fracture, this is not an area of significant tendon insertion and I believe to be calcification or old injury. There is no evidence of acute fracture or either on radiology report or my evaluation or for that matter, Dr. May's. IMPRESSION: Left elbow swelling, without evidence of fracture, atraumatic in onset. TREATMENT PLAN: I went over with him that I do not anticipate any limitations or intervention for this. His swelling could certainly be related to his dialysis shunt or vascular issues. I really doubt that it is due to any structural abnormality based on his physical examination, x-ray findings and frankly, his history. He can use the elbow as symptomatic. No other restrictions, other than symptomatic limitation and of course, his dialysis shunt area should be monitored carefully for any abnormalities which could certainly also cause swelling around the elbow area. I would be happy to follow along as necessary, but no indications for orthopedic intervention at present and noted Dr. May's rehabilitation evaluation, which is consistent with those plans. NELSON GOLDSTEIN MD DR: CURT/jennifer JOB#: [id number] / [id number]
[2018-04-23 03:01] VITALS: BP 113/75
[2018-04-23 06:03] LABS: HEMATOCRIT 28.4 % (39.0-53.0); HEMOGLOBIN 9.4 g/dL (13.0-17.5); RED BLOOD COUNT 3.01 x10^6/uL (4.30-5.70); RED CELL DISTRIBUTION WIDTH 16.1 % (11.5-14.5); WHITE BLOOD COUNT 3.4 x10^3/uL (4.0-11.0)
[2018-04-23] MEDS: MIDODRINE 2.5 MG TABLET PO SCH ×3 (07:00→18:00)
[2018-04-23 07:03] VITALS: BP 108/72
[2018-04-23] MEDS: PANTOPRAZOLE IV PUSH 40 MG VIAL. IVP SCH (07:30)
[2018-04-23 08:17] LABS: ALBUMIN 1.9 g/dL (3.4-5.0); DIRECT BILIRUBIN 0.5 mg/dL (0.0-0.2); TOTAL BILIRUBIN 1.1 mg/dL (0.2-1.0); TOTAL PROTEIN 5.2 g/dL (6.4-8.2)
--- NOTE | 2018-04-23 08:34 | NUR ---
SW following pt. Pt has been accepted at pending insurance approval. SW will continue to follow.
[2018-04-23] MEDS: FOLIC/VIT B COMP W-C (RENAL) TABLET. PO SCH (09:00)
[2018-04-23] MEDS: ASPIRIN CHEWABLE 81 MG TABLET. PO SCH (09:00)
[2018-04-23] MEDS: ZINC SULFATE 220 MG CAPSULE. PO SCH (09:00)
[2018-04-23] MEDS: CLOPIDOGREL BISULFATE 75 MG TABLET PO SCH (09:00)
[2018-04-23] MEDS: ALLOPURINOL 300 MG TABLET. PO SCH (09:00)
[2018-04-23] MEDS ORDERED: IV NORMAL SALINE 1000ML BAG 1,000 ML IV PRN ×2 (09:00)
--- NOTE | 2018-04-23 09:09 | PDOC ---
PROGRESS NOTES Subjective Subjective No new complaints.He apparently pulled out NG tube last night several times. Objective Objective Vital Signs Date Time Temp Pulse Resp B/P (MAP) Pulse Ox O2 Delivery O2 Flow Rate FiO2 04/23/18 07:03 97.9 86 16 108/72 (84) 97 Room Air 97.9 04/21/18 06:00 2.0 Intake and Output 04/23/18 07:00 Output Total 350 ml Balance -350 ml Output Urine Total 350 ml # Voids 2 # Bowel Movements 1 Physical Exam Physical Exam He is alert,comfortable,NG tube in place ,less edema of his feet and legs. He did get up and walk with roller walker yesterday under supervision.Low physical endurance. Assessment Assessment Problems Medical Problems: (1) CKD (chronic kidney disease), stage III Status: Acute (2) Hypotension Status: Acute Plan Plan of Care To get him up as tolerated. Comment Review of Relevant I have reviewed the following items demar (where applicable) has been applied. Labs Laboratory Tests Test 04/22/18 06:12 04/22/18 09:55 04/23/18 05:50 White Blood Count 5.5 x10^3/uL (4.0-11.0) 3.4 x10^3/uL (4.0-11.0) Red Blood Count 3.04 x10^6/uL (4.30-5.70) 3.01 x10^6/uL (4.30-5.70) Hemoglobin 9.6 g/dL (13.0-17.5) 9.4 g/dL (13.0-17.5) Hematocrit 28.6 % (39.0-53.0) 28.4 % (39.0-53.0) Mean Corpuscular Volume 94 fL (79-100) 94 fL (79-100) Mean Corpuscular Hemoglobin 32 pg (25-35) 31 pg (25-35) Mean Corpuscular Hemoglobin Concent 34 g/dL (31-37) 33 g/dL (31-37) Red Cell Distribution Width 16.4 % (11.5-14.5) 16.1 % (11.5-14.5) Platelet Count 197 x10^3/uL (140-400) 170 x10^3/uL (140-400) Neutrophils (%) (Auto) 79 % (31-73) Lymphocytes (%) (Auto) 12 % (24-48) Monocytes (%) (Auto) 9 % (0-9) Eosinophils (%) (Auto) 0 % (0-3) Basophils (%) (Auto) 0 % (0-3) Neutrophils # (Auto) 4.4 x10^3uL (1.8-7.7) Lymphocytes # (Auto) 0.7 x10^3/uL (1.0-4.8) Monocytes # (Auto) 0.5 x10^3/uL (0.0-1.1) Eosinophils # (Auto) 0.0 x10^3/uL (0.0-0.7) Basophils # (Auto) 0.0 x10^3/uL (0.0-0.2) Sodium Level 138 mmol/L (136-145) Potassium Level 4.3 mmol/L (3.5-5.1) Chloride Level 101 mmol/L (98-107) Carbon Dioxide Level 29 mmol/L (21-32) Anion Gap 8 (6-14) Blood Urea Nitrogen 51 mg/dL (8-26) Creatinine 2.3 mg/dL (0.7-1.3) Estimated GFR (Cockcroft-Gault) 33.4 BUN/Creatinine Ratio 22 (6-20) Glucose Level 91 mg/dL (70-99) Calcium Level 8.3 mg/dL (8.5-10.1) Total Bilirubin 1.3 mg/dL (0.2-1.0) 1.1 mg/dL (0.2-1.0) Aspartate Amino Transf (AST/SGOT) 42 U/L (15-37) 37 U/L (15-37) Alanine Aminotransferase (ALT/SGPT) 72 U/L (16-63) 55 U/L (16-63) Alkaline Phosphatase 154 U/L (46-116) 128 U/L (46-116) Total Protein 5.7 g/dL (6.4-8.2) 5.2 g/dL (6.4-8.2) Albumin 2.1 g/dL (3.4-5.0) 1.9 g/dL (3.4-5.0) Albumin/Globulin Ratio 0.6 (1.0-1.7) Urine Collection Type Unknown Urine Color Melissa Urine Clarity Clear Urine pH 7.0 Urine Specific [place] 1.015 Urine Protein 30 mg/dL (NEG-TRACE) Urine Glucose (UA) Negative mg/dL (NEG) Urine Ketones (Stick) Trace mg/dL (NEG) Urine Blood Negative (NEG) Urine Nitrite Negative (NEG) Urine Bilirubin Small (NEG) Urine Urobilinogen Dipstick 1.0 mg/dL (0.2 mg/dL) Urine Leukocyte Esterase Moderate (NEG) Urine RBC 0 /HPF (0-2) Urine WBC >40 /HPF (0-4) Urine Squamous Epithelial Cells Occ /LPF Urine Bacteria 0 /HPF (0-FEW) Direct Bilirubin 0.5 mg/dL (0.0-0.2) Laboratory Tests Test 04/22/18 09:55 04/23/18 05:50 Urine Collection Type Unknown Urine Color Melissa Urine Clarity Clear Urine pH 7.0 Urine Specific [place] 1.015 Urine Protein 30 mg/dL (NEG-TRACE) Urine Glucose (UA) Negative mg/dL (NEG) Urine Ketones (Stick) Trace mg/dL (NEG) Urine Blood Negative (NEG) Urine Nitrite Negative (NEG) Urine Bilirubin Small (NEG) Urine Urobilinogen Dipstick 1.0 mg/dL (0.2 mg/dL) Urine Leukocyte Esterase Moderate (NEG) Urine RBC 0 /HPF (0-2) Urine WBC >40 /HPF (0-4) Urine Squamous Epithelial Cells Occ /LPF Urine Bacteria 0 /HPF (0-FEW) White Blood Count 3.4 x10^3/uL (4.0-11.0) Red Blood Count 3.01 x10^6/uL (4.30-5.70) Hemoglobin 9.4 g/dL (13.0-17.5) Hematocrit 28.4 % (39.0-53.0) Mean Corpuscular Volume 94 fL (79-100) Mean Corpuscular Hemoglobin 31 pg (25-35) Mean Corpuscular Hemoglobin Concent 33 g/dL (31-37) Red Cell Distribution Width 16.1 % (11.5-14.5) Platelet Count 170 x10^3/uL (140-400) Total Bilirubin 1.1 mg/dL (0.2-1.0) Direct Bilirubin 0.5 mg/dL (0.0-0.2) Aspartate Amino Transf (AST/SGOT) 37 U/L (15-37) Alanine Aminotransferase (ALT/SGPT) 55 U/L (16-63) Alkaline Phosphatase 128 U/L (46-116) Total Protein 5.2 g/dL (6.4-8.2) Albumin 1.9 g/dL (3.4-5.0) Microbiology 04/21/18 Blood Culture - Preliminary, Resulted NO GROWTH AFTER 2 DAYS Medications Current Medications Sodium Chloride 1,000 ml @ 1,000 mls/hr Q1H IV Last administered on 04/21/18at 06:55; Start 04/21/18 at 07:00; Stop 04/21/18 at 07:59; Status DC Dextrose/Lactated Ringer's 1,000 ml @ 75 mls/hr 1X ONCE IV Last administered on 04/21/18at 08:22; Start 04/21/18 at 07:45; Stop 04/21/18 at 11:37; Status DC Allopurinol (Zyloprim) 300 mg DAILY PO ; Start 04/21/18 at 10:30 Aspirin (Children'S Aspirin) 81 mg DAILY PO ; Start 04/21/18 at 10:30 Clopidogrel Bisulfate (Plavix) 75 mg DAILY PO ; Start 04/21/18 at 10:30 Vitamin B Complex/ Vitamin C (Leanne-Bev) 1 tab DAILY PO ; Start 04/21/18 at 10: 30 Hyoscyamine (Anaspaz) 0.125 mg PRN Q6HRS PRN PO STOMACH CRAMPING; Start at 09:45 Loperamide HCl (Imodium) 2 mg PRN Q15MIN PRN PO DIARRHEA; Start 04/21/18 at 10: 00 Ondansetron HCl (Zofran Odt) 4 mg PRN Q4HRS PRN PO NAUSEA/VOMITING Last administered on 04/21/18at 12:19; Start 04/21/18 at 10:00 Zinc Sulfate (Orazinc) 220 mg DAILY PO ; Start 04/21/18 at 10:30 Darbepoetin Luciano (Aranesp) 60 mcg WEEKLYHS SQ Last administered on 04/21/18at 20 :54; Start 04/21/18 at 21:00 Amino Acids/ Glycerin/ Electrolytes 1,000 ml @ 80 mls/hr [id number] IV Last administered on 04/23/18at 01:17; Start 04/21/18 at 12:00 Midodrine (Proamatine) 2.5 mg [id number] PO ; Start 04/21/18 at 13:00 Pantoprazole Sodium (PROTONIX VIAL for IV PUSH) 40 mg DAILYAC IVP Last administered on 04/22/18at 11:42; Start 04/22/18 at 11:00 Active Scripts Active Reported Zinc (Zinc Gluconate) 50 Mg Tablet 50 Mg PO DAILY Zofran (Ondansetron Hcl) 4 Mg Tablet 1 Tab PO PRN Q4HRS PRN Levsin (Hyoscyamine Sulfate) 0.125 Mg Tablet 0.125 Mg PO PRN Q6HRS PRN Leanne-Bev Tablet (Folic Acid/Vitamin B Comp W-C) 0.8 Mg Tablet 0.8 Mg PO DAILY Carvedilol (Carvedilol) 3.125 Mg Tablet 3.125 Mg PO BIDWMEALS Diltiazem 24HR Cd (Diltiazem Hcl) 120 Mg Cap.er.24h 1 Cap PO DAILY Anti-Diarrheal (Loperamide Hcl) 2 Mg Capsule 2 Mg PO PRN QID PRN Sotalol (Sotalol Hcl) 80 Mg Tablet 120 Mg PO DAILY Aspirin 81 Mg Tab.chew 1 Tab PO DAILY Clopidogrel (Clopidogrel Bisulfate) 75 Mg Tablet 75 Mg PO DAILY Allopurinol 300 Mg Tablet 300 Mg PO DAILY Vitals/I & O Vital Sign - Last 24 Hours 04/22/18 04/22/18 04/22/18 04/22/18 11:00 15:00 19:00 20:12 Temp 98.4 99.0 98.6 98.4 99.0 98.6 Pulse 84 91 82 Resp 16 18 20 B/P (MAP) 85/57 (66) 113/78 (90) 112/68 (83) Pulse Ox 96 99 98 O2 Delivery Room Air Room Air Room Air Room Air 04/22/18 04/23/18 04/23/18 23:00 03:01 07:03 Temp 98.1 97.9 97.9 98.1 97.9 97.9 Pulse 83 82 86 Resp 20 20 16 B/P (MAP) 108/71 (83) 113/75 (88) 108/72 (84) Pulse Ox 99 98 97 O2 Delivery Room Air Room Air Room Air Intake and Output 04/22/18 04/22/18 04/23/18 15:00 23:00 07:00 Output Total 250 ml 100 ml Balance -250 ml -100 ml WARD RANDOLPH MD Apr 23, 2018 09:09
--- NOTE | 2018-04-23 09:50 | PDOC ---
SUBJECTIVE ROS Stable OBJECTIVE Vital Signs Vital Signs Date Time Temp Pulse Resp B/P (MAP) Pulse Ox O2 Delivery O2 Flow Rate FiO2 04/23/18 07:03 97.9 86 16 108/72 (84) 97 Room Air 97.9 I & 0 Intake and Output 04/23/18 06:59 Output Total 350 ml Balance -350 ml Output Urine Total 350 ml # Voids 2 # Bowel Movements 1 PHYSICAL EXAM Physical Exam GENERAL: no apparent distress. HEENT: OM moist NECK: Supple. CARDIAC: Irregularly irregular. LUNGS: Clear. ABDOMEN: Soft. NEUROLOGIC: Grossly Normal DIAGNOSIS/ASSESSMENT Assessment & Plan ESRD- On HD TTS Seen on HD, tolerating well Continue as ordered SBO-On PPN NGT in place GS following HX OF Retroperitoneal fibrosis Anemia- On Aranesp Chronic Hypotension- On Midodrine COMMENT/RELEVANT DATA Meds Current Medications Medications (Trade) Dose Ordered Sig/Maria Eugenia Start Time Stop Time Status Last Admin Dose Admin Allopurinol (Zyloprim) 300 mg DAILY 04/21/18 10:30 Amino Acids/ Glycerin/ Electrolytes 1,000 ml @ 80 mls/hr [id number] 04/21/18 12:00 04/23/18 01:17 80 MLS/HR Aspirin (Children'S Aspirin) 81 mg DAILY 04/21/18 10:30 Clopidogrel Bisulfate (Plavix) 75 mg DAILY 04/21/18 10:30 Darbepoetin Luciano (Aranesp) 60 mcg WEEKLYHS 04/21/18 21:00 04/21/18 20:54 60 MCG Dextrose/Lactated Ringer's 1,000 ml @ 75 mls/hr 1X ONCE 04/21/18 07:45 04/21/18 11:37 DC 04/21/18 08:22 75 MLS/HR Hyoscyamine (Anaspaz) 0.125 mg PRN Q6HRS PRN 04/21/18 09:45 Loperamide HCl (Imodium) 2 mg PRN Q15MIN PRN 04/21/18 10:00 Midodrine (Proamatine) 2.5 mg [id number] 04/21/18 13:00 Ondansetron HCl (Zofran Odt) 4 mg PRN Q4HRS PRN 04/21/18 10:00 04/21/18 12:19 4 MG Pantoprazole Sodium (PROTONIX VIAL for IV PUSH) 40 mg DAILYAC 04/22/18 11:00 04/22/18 11:42 40 MG Sodium Chloride 1,000 ml @ 1,000 mls/hr Q1H 04/21/18 07:00 04/21/18 07:59 DC 04/21/18 06:55 1,000 MLS/HR Vitamin B Complex/ Vitamin C (Leanne-Bev) 1 tab DAILY 04/21/18 10:30 Zinc Sulfate (Orazinc) 220 mg DAILY 04/21/18 10:30 Lab Laboratory Tests Test 04/22/18 09:55 04/23/18 05:50 Urine Collection Type Unknown Urine Color Melissa Urine Clarity Clear Urine pH 7.0 Urine Specific [place] 1.015 Urine Protein 30 mg/dL (NEG-TRACE) Urine Glucose (UA) Negative mg/dL (NEG) Urine Ketones (Stick) Trace mg/dL (NEG) Urine Blood Negative (NEG) Urine Nitrite Negative (NEG) Urine Bilirubin Small (NEG) Urine Urobilinogen Dipstick 1.0 mg/dL (0.2 mg/dL) Urine Leukocyte Esterase Moderate (NEG) Urine RBC 0 /HPF (0-2) Urine WBC >40 /HPF (0-4) Urine Squamous Epithelial Cells Occ /LPF Urine Bacteria 0 /HPF (0-FEW) White Blood Count 3.4 x10^3/uL (4.0-11.0) Red Blood Count 3.01 x10^6/uL (4.30-5.70) Hemoglobin 9.4 g/dL (13.0-17.5) Hematocrit 28.4 % (39.0-53.0) Mean Corpuscular Volume 94 fL (79-100) Mean Corpuscular Hemoglobin 31 pg (25-35) Mean Corpuscular Hemoglobin Concent 33 g/dL (31-37) Red Cell Distribution Width 16.1 % (11.5-14.5) Platelet Count 170 x10^3/uL (140-400) Total Bilirubin 1.1 mg/dL (0.2-1.0) Direct Bilirubin 0.5 mg/dL (0.0-0.2) Aspartate Amino Transf (AST/SGOT) 37 U/L (15-37) Alanine Aminotransferase (ALT/SGPT) 55 U/L (16-63) Alkaline Phosphatase 128 U/L (46-116) Total Protein 5.2 g/dL (6.4-8.2) Albumin 1.9 g/dL (3.4-5.0) Results All relevant outside records, renal labs, imaging studies, telemetry/EKG's were reviewed. JERRY VERA MD Apr 23, 2018 09:50
[2018-04-23] MEDS ORDERED: DIALYSIS PATIENT. MC PRN ×2 (10:15)
--- NOTE | 2018-04-23 14:20 | PDOC ---
SURGICAL PROGRESS NOTE Subjective Patient doing well, denies nausea. Has been passing flatus and small BM Vital Signs Vital Signs Date Time Temp Pulse Resp B/P (MAP) Pulse Ox O2 Delivery O2 Flow Rate FiO2 04/23/18 13:00 89 122/67 04/23/18 07:03 97.9 16 97 Room Air 97.9 I&O Intake and Output 04/23/18 07:00 Output Total 350 ml Balance -350 ml Output Urine Total 350 ml # Voids 2 # Bowel Movements 1 PATIENT HAS A ALLISON: No General: Alert, Oriented X3, Cooperative, mild distress Abdomen: Normal bowel sounds, Soft, No tenderness, Other (NGT in place with minimal output) Labs Laboratory Tests Test 04/22/18 06:12 04/22/18 09:55 04/23/18 05:50 White Blood Count 5.5 x10^3/uL (4.0-11.0) 3.4 x10^3/uL (4.0-11.0) Red Blood Count 3.04 x10^6/uL (4.30-5.70) 3.01 x10^6/uL (4.30-5.70) Hemoglobin 9.6 g/dL (13.0-17.5) 9.4 g/dL (13.0-17.5) Hematocrit 28.6 % (39.0-53.0) 28.4 % (39.0-53.0) Mean Corpuscular Volume 94 fL (79-100) 94 fL (79-100) Mean Corpuscular Hemoglobin 32 pg (25-35) 31 pg (25-35) Mean Corpuscular Hemoglobin Concent 34 g/dL (31-37) 33 g/dL (31-37) Red Cell Distribution Width 16.4 % (11.5-14.5) 16.1 % (11.5-14.5) Platelet Count 197 x10^3/uL (140-400) 170 x10^3/uL (140-400) Neutrophils (%) (Auto) 79 % (31-73) Lymphocytes (%) (Auto) 12 % (24-48) Monocytes (%) (Auto) 9 % (0-9) Eosinophils (%) (Auto) 0 % (0-3) Basophils (%) (Auto) 0 % (0-3) Neutrophils # (Auto) 4.4 x10^3uL (1.8-7.7) Lymphocytes # (Auto) 0.7 x10^3/uL (1.0-4.8) Monocytes # (Auto) 0.5 x10^3/uL (0.0-1.1) Eosinophils # (Auto) 0.0 x10^3/uL (0.0-0.7) Basophils # (Auto) 0.0 x10^3/uL (0.0-0.2) Sodium Level 138 mmol/L (136-145) Potassium Level 4.3 mmol/L (3.5-5.1) Chloride Level 101 mmol/L (98-107) Carbon Dioxide Level 29 mmol/L (21-32) Anion Gap 8 (6-14) Blood Urea Nitrogen 51 mg/dL (8-26) Creatinine 2.3 mg/dL (0.7-1.3) Estimated GFR (Cockcroft-Gault) 33.4 BUN/Creatinine Ratio 22 (6-20) Glucose Level 91 mg/dL (70-99) Calcium Level 8.3 mg/dL (8.5-10.1) Total Bilirubin 1.3 mg/dL (0.2-1.0) 1.1 mg/dL (0.2-1.0) Aspartate Amino Transf (AST/SGOT) 42 U/L (15-37) 37 U/L (15-37) Alanine Aminotransferase (ALT/SGPT) 72 U/L (16-63) 55 U/L (16-63) Alkaline Phosphatase 154 U/L (46-116) 128 U/L (46-116) Total Protein 5.7 g/dL (6.4-8.2) 5.2 g/dL (6.4-8.2) Albumin 2.1 g/dL (3.4-5.0) 1.9 g/dL (3.4-5.0) Albumin/Globulin Ratio 0.6 (1.0-1.7) Urine Collection Type Unknown Urine Color Melissa Urine Clarity Clear Urine pH 7.0 Urine Specific [place] 1.015 Urine Protein 30 mg/dL (NEG-TRACE) Urine Glucose (UA) Negative mg/dL (NEG) Urine Ketones (Stick) Trace mg/dL (NEG) Urine Blood Negative (NEG) Urine Nitrite Negative (NEG) Urine Bilirubin Small (NEG) Urine Urobilinogen Dipstick 1.0 mg/dL (0.2 mg/dL) Urine Leukocyte Esterase Moderate (NEG) Urine RBC 0 /HPF (0-2) Urine WBC >40 /HPF (0-4) Urine Squamous Epithelial Cells Occ /LPF Urine Bacteria 0 /HPF (0-FEW) Direct Bilirubin 0.5 mg/dL (0.0-0.2) Hepatitis A IgM Antibody Nonreactive (Nonreactive) Hepatitis B Surface Antigen Nonreactive (Nonreactive) Hepatitis B Surface Antibody Reactive Hepatitis B Core IgM Antibody Nonreactive (Nonreactive) Hepatitis C IgG Antibody Nonreactive (Nonreactive) Laboratory Tests Test 04/23/18 05:50 White Blood Count 3.4 x10^3/uL (4.0-11.0) Red Blood Count 3.01 x10^6/uL (4.30-5.70) Hemoglobin 9.4 g/dL (13.0-17.5) Hematocrit 28.4 % (39.0-53.0) Mean Corpuscular Volume 94 fL (79-100) Mean Corpuscular Hemoglobin 31 pg (25-35) Mean Corpuscular Hemoglobin Concent 33 g/dL (31-37) Red Cell Distribution Width 16.1 % (11.5-14.5) Platelet Count 170 x10^3/uL (140-400) Total Bilirubin 1.1 mg/dL (0.2-1.0) Direct Bilirubin 0.5 mg/dL (0.0-0.2) Aspartate Amino Transf (AST/SGOT) 37 U/L (15-37) Alanine Aminotransferase (ALT/SGPT) 55 U/L (16-63) Alkaline Phosphatase 128 U/L (46-116) Total Protein 5.2 g/dL (6.4-8.2) Albumin 1.9 g/dL (3.4-5.0) Hepatitis A IgM Antibody Nonreactive (Nonreactive) Hepatitis B Surface Antigen Nonreactive (Nonreactive) Hepatitis B Surface Antibody Reactive Hepatitis B Core IgM Antibody Nonreactive (Nonreactive) Hepatitis C IgG Antibody Nonreactive (Nonreactive) Problem List Problems Medical Problems: (1) CKD (chronic kidney disease), stage III Status: Acute (2) Hypotension Status: Acute Assessment/Plan Note fro [facility] from 04/10/2018 shows 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
--- NOTE | 2018-04-23 14:27 | PDOC ---
Subjective: Subjective: Would like some soup. Thinks maybe he stooled last night. His wants to know how he could have a blockage if he had so much diarrhea at home. 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 Vital Signs: Vital Signs Date Time Temp Pulse Resp B/P (MAP) Pulse Ox O2 Delivery O2 Flow Rate FiO2 04/23/18 13:00 89 122/67 04/23/18 07:03 97.9 16 97 Room Air 97.9 Labs: Laboratory Tests Test 04/23/18 05:50 White Blood Count 3.4 x10^3/uL Red Blood Count 3.01 x10^6/uL Hemoglobin 9.4 g/dL Hematocrit 28.4 % Mean Corpuscular Volume 94 fL Mean Corpuscular Hemoglobin 31 pg Mean Corpuscular Hemoglobin Concent 33 g/dL Red Cell Distribution Width 16.1 % Platelet Count 170 x10^3/uL Total Bilirubin 1.1 mg/dL Direct Bilirubin 0.5 mg/dL Aspartate Amino Transf (AST/SGOT) 37 U/L Alanine Aminotransferase (ALT/SGPT) 55 U/L Alkaline Phosphatase 128 U/L Total Protein 5.2 g/dL Albumin 1.9 g/dL Hepatitis A IgM Antibody Nonreactive Hepatitis B Surface Antigen Nonreactive Hepatitis B Surface Antibody Reactive Hepatitis B Core IgM Antibody Nonreactive Hepatitis C IgG Antibody Nonreactive Imaging: Abd US IMPRESSION: 1. Hepatic steatosis. KUB IMPRESSION: 1. NG tube well-positioned. 2. Small bowel obstruction. PE: GEN: NAD HEENT: NG dark brown material LUNGS: room air ABD: soft NEURO/PSYCH: A & O 3 A/P: SBO - h/o chronic partial SBO ESRD, ACD Elevated LFTs (better), hepatic steatosis -- Await interval imaging and follow surgical recs. Continue IV PPI. FANNY SARAH Apr 23, 2018 14:27 CHANTE TOMLINSON MD Apr 23, 2018 14:39
[2018-04-23 15:00] VITALS: BP_SYST 106; BP_SYST 99; BP_DIAS 66; BP_DIAS 71
--- NOTE | 2018-04-23 16:23 | RAD ---
2 views of the abdomen 04/23/2018 INDICATION: Small bowel obstruction Discussion: 2 views of the abdomen were obtained. Comparison is made to abdominal radiographs from yesterday. There is an enteric tube with tip in the proximal most stomach. Side-port projects at the expected level of the GE junction. Persistent gaseous distention of bowel the upper abdomen is seen. No gross pneumoperitoneum is identified, though exam somewhat limited for this purpose. No acute osseous changes are seen. IMPRESSION: 1. Tip of NG tube in the proximal stomach side-port at the GE junction 2. Persistent gaseous distention of bowel suggesting ongoing obstruction or ileus Electronically signed by: Antonio Bowling MD (04/23/2018 4:20 PM) [id number]
--- NOTE | 2018-04-23 17:47 | PDOC ---
PROGRESS NOTES Subjective Subjective Patient continues to have evidence of bowel obstruction. Patient became confused last evening required one-on-one observation. Patient pulled out NG tube twice. Today patient is more alert and cooperative. Patient going to dialysis day. Nurse reports dark NG output concern for GI bleed. Objective Objective Vital Signs Date Time Temp Pulse Resp B/P (MAP) Pulse Ox O2 Delivery O2 Flow Rate FiO2 04/23/18 15:00 86 106/66 (79) 04/23/18 15:00 97.6 14 100 Room Air 97.6 04/23/18 08:00 2.0 Intake and Output 04/23/18 07:00 Output Total 350 ml Balance -350 ml Output Urine Total 350 ml # Voids 2 # Bowel Movements 1 Physical Exam Abdomen: Other (bowel sounds heard in left lower quadrant minimal bowel sounds and mid abdomen) Heart: Regular rate Extremities: Other (4+ edema) General: Alert Lungs: Clear to auscultation Assessment Assessment Problems Medical Problems: (1) CKD (chronic kidney disease), stage III Status: Acute (2) Hypotension Status: Acute 1. Small-bowel obstruction 2. Severe weakness. 3. Hypotension. 4. Severe protein malnutrition. 5. End-stage renal disease. 6. Retroperitoneal fibrosis. 7. Hypomagnesemia. 8. Elevated liver function tests. 9. Leukopenia. 10. Mild anemia. Plan Plan of Care Continue surgery recommendations. Proceed with dialysis as indicated. Continue PPN Proceed with PT and OT eval and treat. DC NG and advance diet when appropriate per surgery and GI medicine Occult test of NG output. Comment Review of Relevant I have reviewed the following items demar (where applicable) has been applied. Labs Laboratory Tests Test 04/22/18 06:12 04/22/18 09:55 04/23/18 05:50 White Blood Count 5.5 x10^3/uL (4.0-11.0) 3.4 x10^3/uL (4.0-11.0) Red Blood Count 3.04 x10^6/uL (4.30-5.70) 3.01 x10^6/uL (4.30-5.70) Hemoglobin 9.6 g/dL (13.0-17.5) 9.4 g/dL (13.0-17.5) Hematocrit 28.6 % (39.0-53.0) 28.4 % (39.0-53.0) Mean Corpuscular Volume 94 fL (79-100) 94 fL (79-100) Mean Corpuscular Hemoglobin 32 pg (25-35) 31 pg (25-35) Mean Corpuscular Hemoglobin Concent 34 g/dL (31-37) 33 g/dL (31-37) Red Cell Distribution Width 16.4 % (11.5-14.5) 16.1 % (11.5-14.5) Platelet Count 197 x10^3/uL (140-400) 170 x10^3/uL (140-400) Neutrophils (%) (Auto) 79 % (31-73) Lymphocytes (%) (Auto) 12 % (24-48) Monocytes (%) (Auto) 9 % (0-9) Eosinophils (%) (Auto) 0 % (0-3) Basophils (%) (Auto) 0 % (0-3) Neutrophils # (Auto) 4.4 x10^3uL (1.8-7.7) Lymphocytes # (Auto) 0.7 x10^3/uL (1.0-4.8) Monocytes # (Auto) 0.5 x10^3/uL (0.0-1.1) Eosinophils # (Auto) 0.0 x10^3/uL (0.0-0.7) Basophils # (Auto) 0.0 x10^3/uL (0.0-0.2) Sodium Level 138 mmol/L (136-145) Potassium Level 4.3 mmol/L (3.5-5.1) Chloride Level 101 mmol/L (98-107) Carbon Dioxide Level 29 mmol/L (21-32) Anion Gap 8 (6-14) Blood Urea Nitrogen 51 mg/dL (8-26) Creatinine 2.3 mg/dL (0.7-1.3) Estimated GFR (Cockcroft-Gault) 33.4 BUN/Creatinine Ratio 22 (6-20) Glucose Level 91 mg/dL (70-99) Calcium Level 8.3 mg/dL (8.5-10.1) Total Bilirubin 1.3 mg/dL (0.2-1.0) 1.1 mg/dL (0.2-1.0) Aspartate Amino Transf (AST/SGOT) 42 U/L (15-37) 37 U/L (15-37) Alanine Aminotransferase (ALT/SGPT) 72 U/L (16-63) 55 U/L (16-63) Alkaline Phosphatase 154 U/L (46-116) 128 U/L (46-116) Total Protein 5.7 g/dL (6.4-8.2) 5.2 g/dL (6.4-8.2) Albumin 2.1 g/dL (3.4-5.0) 1.9 g/dL (3.4-5.0) Albumin/Globulin Ratio 0.6 (1.0-1.7) Urine Collection Type Unknown Urine Color Melissa Urine Clarity Clear Urine pH 7.0 Urine Specific [place] 1.015 Urine Protein 30 mg/dL (NEG-TRACE) Urine Glucose (UA) Negative mg/dL (NEG) Urine Ketones (Stick) Trace mg/dL (NEG) Urine Blood Negative (NEG) Urine Nitrite Negative (NEG) Urine Bilirubin Small (NEG) Urine Urobilinogen Dipstick 1.0 mg/dL (0.2 mg/dL) Urine Leukocyte Esterase Moderate (NEG) Urine RBC 0 /HPF (0-2) Urine WBC >40 /HPF (0-4) Urine Squamous Epithelial Cells Occ /LPF Urine Bacteria 0 /HPF (0-FEW) Direct Bilirubin 0.5 mg/dL (0.0-0.2) Hepatitis A IgM Antibody Nonreactive (Nonreactive) Hepatitis B Surface Antigen Nonreactive (Nonreactive) Hepatitis B Surface Antibody Reactive Hepatitis B Core IgM Antibody Nonreactive (Nonreactive) Hepatitis C IgG Antibody Nonreactive (Nonreactive) Laboratory Tests Test 04/23/18 05:50 White Blood Count 3.4 x10^3/uL (4.0-11.0) Red Blood Count 3.01 x10^6/uL (4.30-5.70) Hemoglobin 9.4 g/dL (13.0-17.5) Hematocrit 28.4 % (39.0-53.0) Mean Corpuscular Volume 94 fL (79-100) Mean Corpuscular Hemoglobin 31 pg (25-35) Mean Corpuscular Hemoglobin Concent 33 g/dL (31-37) Red Cell Distribution Width 16.1 % (11.5-14.5) Platelet Count 170 x10^3/uL (140-400) Total Bilirubin 1.1 mg/dL (0.2-1.0) Direct Bilirubin 0.5 mg/dL (0.0-0.2) Aspartate Amino Transf (AST/SGOT) 37 U/L (15-37) Alanine Aminotransferase (ALT/SGPT) 55 U/L (16-63) Alkaline Phosphatase 128 U/L (46-116) Total Protein 5.2 g/dL (6.4-8.2) Albumin 1.9 g/dL (3.4-5.0) Hepatitis A IgM Antibody Nonreactive (Nonreactive) Hepatitis B Surface Antigen Nonreactive (Nonreactive) Hepatitis B Surface Antibody Reactive Hepatitis B Core IgM Antibody Nonreactive (Nonreactive) Hepatitis C IgG Antibody Nonreactive (Nonreactive) Microbiology 04/21/18 Blood Culture - Preliminary, Resulted NO GROWTH AFTER 2 DAYS Medications Current Medications Sodium Chloride 1,000 ml @ 1,000 mls/hr Q1H IV Last administered on 04/21/18at 06:55; Start 04/21/18 at 07:00; Stop 04/21/18 at 07:59; Status DC Dextrose/Lactated Ringer's 1,000 ml @ 75 mls/hr 1X ONCE IV Last administered on 04/21/18at 08:22; Start 04/21/18 at 07:45; Stop 04/21/18 at 11:37; Status DC Allopurinol (Zyloprim) 300 mg DAILY PO ; Start 04/21/18 at 10:30 Aspirin (Children'S Aspirin) 81 mg DAILY PO ; Start 04/21/18 at 10:30 Clopidogrel Bisulfate (Plavix) 75 mg DAILY PO ; Start 04/21/18 at 10:30 Vitamin B Complex/ Vitamin C (Leanne-Bev) 1 tab DAILY PO ; Start 04/21/18 at 10: 30 Hyoscyamine (Anaspaz) 0.125 mg PRN Q6HRS PRN PO STOMACH CRAMPING; Start at 09:45 Loperamide HCl (Imodium) 2 mg PRN Q15MIN PRN PO DIARRHEA; Start 04/21/18 at 10: 00 Ondansetron HCl (Zofran Odt) 4 mg PRN Q4HRS PRN PO NAUSEA/VOMITING Last administered on 04/21/18at 12:19; Start 04/21/18 at 10:00 Zinc Sulfate (Orazinc) 220 mg DAILY PO ; Start 04/21/18 at 10:30 Darbepoetin Luciano (Aranesp) 60 mcg WEEKLYHS SQ Last administered on 04/21/18at 20 :54; Start 04/21/18 at 21:00 Amino Acids/ Glycerin/ Electrolytes 1,000 ml @ 80 mls/hr [id number] IV Last administered on 04/23/18at 14:16; Start 04/21/18 at 12:00 Midodrine (Proamatine) 2.5 mg [id number] PO ; Start 04/21/18 at 13:00 Pantoprazole Sodium (PROTONIX VIAL for IV PUSH) 40 mg DAILYAC IVP Last administered on 04/22/18at 11:42; Start 04/22/18 at 11:00 Sodium Chloride 1,000 ml @ 1,000 mls/hr Q1H PRN IV hypotension; Start 04/23/18 at 09:00; Stop 04/23/18 at 14:59; Status DC Sodium Chloride 1,000 ml @ 400 mls/hr Q2H30M PRN IV PATENCY; Start 04/23/18 at 09:00; Stop 04/23/18 at 20:59 Info (PHARMACY MONITORING -- do not chart) 1 each PRN DAILY PRN MC SEE COMMENTS ; Start 04/23/18 at 10:15; Status UNV Info (PHARMACY MONITORING -- do not chart) 1 each PRN DAILY PRN MC SEE COMMENTS ; Start 04/23/18 at 10:15 Pantoprazole Sodium (PROTONIX VIAL for IV PUSH) 40 mg DAILYAC IVP ; Start at 07:30; Status UNV Active Scripts Active Reported Zinc (Zinc Gluconate) 50 Mg Tablet 50 Mg PO DAILY Zofran (Ondansetron Hcl) 4 Mg Tablet 1 Tab PO PRN Q4HRS PRN Levsin (Hyoscyamine Sulfate) 0.125 Mg Tablet 0.125 Mg PO PRN Q6HRS PRN Leanne-Bev Tablet (Folic Acid/Vitamin B Comp W-C) 0.8 Mg Tablet 0.8 Mg PO DAILY Carvedilol (Carvedilol) 3.125 Mg Tablet 3.125 Mg PO BIDWMEALS Diltiazem 24HR Cd (Diltiazem Hcl) 120 Mg Cap.er.24h 1 Cap PO DAILY Anti-Diarrheal (Loperamide Hcl) 2 Mg Capsule 2 Mg PO PRN QID PRN Sotalol (Sotalol Hcl) 80 Mg Tablet 120 Mg PO DAILY Aspirin 81 Mg Tab.chew 1 Tab PO DAILY Clopidogrel (Clopidogrel Bisulfate) 75 Mg Tablet 75 Mg PO DAILY Allopurinol 300 Mg Tablet 300 Mg PO DAILY Vitals/I & O Vital Sign - Last 24 Hours 04/22/18 04/22/18 04/22/18 04/23/18 19:00 20:12 23:00 03:01 Temp 98.6 98.1 97.9 98.6 98.1 97.9 Pulse 82 83 82 Resp 20 20 20 B/P (MAP) 112/68 (83) 108/71 (83) 113/75 (88) Pulse Ox 98 99 98 O2 Delivery Room Air Room Air Room Air Room Air 04/23/18 04/23/18 04/23/18 04/23/18 07:00 07:03 08:00 13:00 Temp 97.9 97.9 Pulse 86 86 89 Resp 16 B/P (MAP) 108/72 108/72 (84) 122/67 Pulse Ox 97 O2 Delivery Room Air Room Air O2 Flow Rate 2.0 04/23/18 04/23/18 15:00 15:00 Temp 97.6 97.6 Pulse 87 86 Resp 14 B/P (MAP) 99/71 (80) 106/66 (79) Pulse Ox 100 O2 Delivery Room Air Intake and Output 04/22/18 04/22/18 04/23/18 15:00 23:00 07:00 Output Total 250 ml 100 ml Balance -250 ml -100 ml HIRO FIGUEROA MD Apr 23, 2018 17:47
[2018-04-23 18:06] LABS: GASTRIC OB PAT POSITIVE (NEG)
[2018-04-23 19:00] VITALS: BP 109/73
[2018-04-23 23:00] VITALS: BP 94/57
--- NOTE | 2018-04-24 01:41 | RAD ---
INDICATION: ng placement COMPARISON: One day prior IMPRESSION: Abdomen: Single view of abdomen obtained. Air filled dilated loops of bowel within the abdomen. Could be secondary to bowel obstruction or ileus. Enteric tube is seen coursing down the left side of the chest with tip at left upper quadrant of the abdomen and may be just distal to the gastroesophageal junction. Please note that free air cannot be excluded on a supine radiograph. Electronically signed by: Saeed Donovan MD (04/24/2018 1:38 AM) [email or web address]
[2018-04-24] MEDS: AMINO AC 3%/ELECTROLYTE/GLYCER 1,000 ML IV SCH ×2 (02:52→15:17)
[2018-04-24 03:00] VITALS: BP 106/66
[2018-04-24 06:17] LABS: BASO % 0 % (0-3); EOS % 1 % (0-3); HEMATOCRIT 30.8 % (39.0-53.0); HEMOGLOBIN 10.4 g/dL (13.0-17.5); LYMPH # 0.5 x10^3/uL (1.0-4.8); LYMPH % 17 % (24-48); MEAN CORPUSCULAR HEMOGLOBIN 32 pg (25-35); MEAN CORPUSCULAR HGB CONC 34 g/dL (31-37); MEAN CORPUSCULAR VOLUME 94 fL (79-100); MONO # 0.4 x10^3/uL (0.0-1.1); MONO % 12 % (0-9); NEUT # 2.1 x10^3uL (1.8-7.7); NEUT % 70 % (31-73); PLATELET COUNT 186 x10^3/uL (140-400); RED BLOOD COUNT 3.29 x10^6/uL (4.30-5.70); RED CELL DISTRIBUTION WIDTH 15.9 % (11.5-14.5)
[2018-04-24 07:00] VITALS: BP 119/84
[2018-04-24] MEDS: MIDODRINE 2.5 MG TABLET PO SCH ×3 (07:00→15:24)
[2018-04-24] MEDS: FOLIC/VIT B COMP W-C (RENAL) TABLET. PO SCH (07:28)
[2018-04-24] MEDS: ZINC SULFATE 220 MG CAPSULE. PO SCH (07:28)
[2018-04-24] MEDS: ALLOPURINOL 300 MG TABLET. PO SCH (07:28)
[2018-04-24] MEDS: CLOPIDOGREL BISULFATE 75 MG TABLET PO SCH (07:28)
[2018-04-24] MEDS: ASPIRIN CHEWABLE 81 MG TABLET. PO SCH (07:28)
[2018-04-24] MEDS ORDERED: PANTOPRAZOLE IV PUSH 40 MG VIAL. IVP SCH (07:30)
--- NOTE | 2018-04-24 07:34 | RAD ---
Indication:2nd attempt tonight; ng placement TECHNIQUE:KUB COMPARISON: Previous exam from the same day earlier FINDINGS: NG tube is seen with its tip in the fundus of the stomach. Redemonstrated are dilated loops of small bowel in the upper abdomen. Lucency is seen underneath the left hemidiaphragm. IMPRESSION: 1. NG tube with its tip in the fundus of the stomach. 2. Lucency underneath the left hemidiaphragm may represent pneumoperitoneum or prominent splenic flexure. Findings discussed with ANDREINA Gray on 04/24/2018 at 7:30 AM. Electronically signed by: Mauro Lopez DO (04/24/2018 7:31 AM) [facility]
--- NOTE | 2018-04-24 08:50 | PDOC ---
SURGICAL PROGRESS NOTE Subjective Patient doing well, no nausea. Passing flatus, questionable BM Vital Signs Vital Signs Date Time Temp Pulse Resp B/P (MAP) Pulse Ox O2 Delivery O2 Flow Rate FiO2 04/24/18 07:00 98.7 106 18 119/84 (96) 97 Room Air 98.7 04/23/18 08:00 2.0 I&O Intake and Output 04/24/18 07:00 Intake Total 0 ml Output Total 100 ml Balance -100 ml Intake Oral 0 ml Output Urine Total 100 ml PATIENT HAS A ALLISON: No General: Alert, Oriented X3, Cooperative, No acute distress Abdomen: Normal bowel sounds, Soft, No tenderness, Other (ND NGT with minimal output) Labs Laboratory Tests Test 04/22/18 09:55 04/23/18 05:50 04/23/18 17:45 04/24/18 05:22 Urine Collection Type Unknown Urine Color Melissa Urine Clarity Clear Urine pH 7.0 Urine Specific [place] 1.015 Urine Protein 30 mg/dL (NEG-TRACE) Urine Glucose (UA) Negative mg/dL (NEG) Urine Ketones (Stick) Trace mg/dL (NEG) Urine Blood Negative (NEG) Urine Nitrite Negative (NEG) Urine Bilirubin Small (NEG) Urine Urobilinogen Dipstick 1.0 mg/dL (0.2 mg/dL) Urine Leukocyte Esterase Moderate (NEG) Urine RBC 0 /HPF (0-2) Urine WBC >40 /HPF (0-4) Urine Squamous Epithelial Cells Occ /LPF Urine Bacteria 0 /HPF (0-FEW) White Blood Count 3.4 x10^3/uL (4.0-11.0) 3.0 x10^3/uL (4.0-11.0) Red Blood Count 3.01 x10^6/uL (4.30-5.70) 3.29 x10^6/uL (4.30-5.70) Hemoglobin 9.4 g/dL (13.0-17.5) 10.4 g/dL (13.0-17.5) Hematocrit 28.4 % (39.0-53.0) 30.8 % (39.0-53.0) Mean Corpuscular Volume 94 fL (79-100) 94 fL (79-100) Mean Corpuscular Hemoglobin 31 pg (25-35) 32 pg (25-35) Mean Corpuscular Hemoglobin Concent 33 g/dL (31-37) 34 g/dL (31-37) Red Cell Distribution Width 16.1 % (11.5-14.5) 15.9 % (11.5-14.5) Platelet Count 170 x10^3/uL (140-400) 186 x10^3/uL (140-400) Total Bilirubin 1.1 mg/dL (0.2-1.0) Direct Bilirubin 0.5 mg/dL (0.0-0.2) Aspartate Amino Transf (AST/SGOT) 37 U/L (15-37) Alanine Aminotransferase (ALT/SGPT) 55 U/L (16-63) Alkaline Phosphatase 128 U/L (46-116) Total Protein 5.2 g/dL (6.4-8.2) Albumin 1.9 g/dL (3.4-5.0) Hepatitis A IgM Antibody Nonreactive (Nonreactive) Hepatitis B Surface Antigen Nonreactive (Nonreactive) Hepatitis B Surface Antibody Reactive Hepatitis B Core IgM Antibody Nonreactive (Nonreactive) Hepatitis C IgG Antibody Nonreactive (Nonreactive) Gastric Fluid Occult Blood Positive (NEG) Neutrophils (%) (Auto) 70 % (31-73) Lymphocytes (%) (Auto) 17 % (24-48) Monocytes (%) (Auto) 12 % (0-9) Eosinophils (%) (Auto) 1 % (0-3) Basophils (%) (Auto) 0 % (0-3) Neutrophils # (Auto) 2.1 x10^3uL (1.8-7.7) Lymphocytes # (Auto) 0.5 x10^3/uL (1.0-4.8) Monocytes # (Auto) 0.4 x10^3/uL (0.0-1.1) Eosinophils # (Auto) 0.0 x10^3/uL (0.0-0.7) Basophils # (Auto) 0.0 x10^3/uL (0.0-0.2) Laboratory Tests Test 04/23/18 17:45 04/24/18 05:22 Gastric Fluid Occult Blood Positive (NEG) White Blood Count 3.0 x10^3/uL (4.0-11.0) Red Blood Count 3.29 x10^6/uL (4.30-5.70) Hemoglobin 10.4 g/dL (13.0-17.5) Hematocrit 30.8 % (39.0-53.0) Mean Corpuscular Volume 94 fL (79-100) Mean Corpuscular Hemoglobin 32 pg (25-35) Mean Corpuscular Hemoglobin Concent 34 g/dL (31-37) Red Cell Distribution Width 15.9 % (11.5-14.5) Platelet Count 186 x10^3/uL (140-400) Neutrophils (%) (Auto) 70 % (31-73) Lymphocytes (%) (Auto) 17 % (24-48) Monocytes (%) (Auto) 12 % (0-9) Eosinophils (%) (Auto) 1 % (0-3) Basophils (%) (Auto) 0 % (0-3) Neutrophils # (Auto) 2.1 x10^3uL (1.8-7.7) Lymphocytes # (Auto) 0.5 x10^3/uL (1.0-4.8) Monocytes # (Auto) 0.4 x10^3/uL (0.0-1.1) Eosinophils # (Auto) 0.0 x10^3/uL (0.0-0.7) Basophils # (Auto) 0.0 x10^3/uL (0.0-0.2) Problem List Problems Medical Problems: (1) CKD (chronic kidney disease), stage III Status: Acute (2) Hypotension Status: Acute Assessment/Plan Will D/C NGT today, diet ice chips only KEV KHALIL MD Apr 24, 2018 08:50
--- NOTE | 2018-04-24 09:00 | NUR ---
radiology md called this am and stated that the NG was in the proper placement with concern regarding the diaphragm he if complained of discomfort or has short of breath to obytain ct scan
[2018-04-24] MEDS: PANTOPRAZOLE IV PUSH 40 MG VIAL. IVP SCH (09:44)
--- NOTE | 2018-04-24 09:58 | PDOC ---
PROGRESS NOTES Subjective Subjective No new complaints. Objective Objective Vital Signs Date Time Temp Pulse Resp B/P (MAP) Pulse Ox O2 Delivery O2 Flow Rate FiO2 04/24/18 07:00 98.7 106 18 119/84 (96) 97 Room Air 98.7 04/23/18 08:00 2.0 Intake and Output 04/24/18 07:00 Intake Total 0 ml Output Total 100 ml Balance -100 ml Intake Oral 0 ml Output Urine Total 100 ml Physical Exam Physical Exam He is supine in bed and he continues with abdominal distension and NG tube in place and physical therapy apparently not getting him up as they are concerned about his questionable left elbow fracture. I have advised them to work with him as he does not have any fracture of elbow. Assessment Assessment Problems Medical Problems: (1) CKD (chronic kidney disease), stage III Status: Acute (2) Hypotension Status: Acute Plan Plan of Care To get him up as tolerated. Comment Review of Relevant I have reviewed the following items demar (where applicable) has been applied. Labs Laboratory Tests Test 04/22/18 09:55 04/23/18 05:50 04/23/18 17:45 04/24/18 05:22 Urine Collection Type Unknown Urine Color Melissa Urine Clarity Clear Urine pH 7.0 Urine Specific [place] 1.015 Urine Protein 30 mg/dL (NEG-TRACE) Urine Glucose (UA) Negative mg/dL (NEG) Urine Ketones (Stick) Trace mg/dL (NEG) Urine Blood Negative (NEG) Urine Nitrite Negative (NEG) Urine Bilirubin Small (NEG) Urine Urobilinogen Dipstick 1.0 mg/dL (0.2 mg/dL) Urine Leukocyte Esterase Moderate (NEG) Urine RBC 0 /HPF (0-2) Urine WBC >40 /HPF (0-4) Urine Squamous Epithelial Cells Occ /LPF Urine Bacteria 0 /HPF (0-FEW) White Blood Count 3.4 x10^3/uL (4.0-11.0) 3.0 x10^3/uL (4.0-11.0) Red Blood Count 3.01 x10^6/uL (4.30-5.70) 3.29 x10^6/uL (4.30-5.70) Hemoglobin 9.4 g/dL (13.0-17.5) 10.4 g/dL (13.0-17.5) Hematocrit 28.4 % (39.0-53.0) 30.8 % (39.0-53.0) Mean Corpuscular Volume 94 fL (79-100) 94 fL (79-100) Mean Corpuscular Hemoglobin 31 pg (25-35) 32 pg (25-35) Mean Corpuscular Hemoglobin Concent 33 g/dL (31-37) 34 g/dL (31-37) Red Cell Distribution Width 16.1 % (11.5-14.5) 15.9 % (11.5-14.5) Platelet Count 170 x10^3/uL (140-400) 186 x10^3/uL (140-400) Total Bilirubin 1.1 mg/dL (0.2-1.0) Direct Bilirubin 0.5 mg/dL (0.0-0.2) Aspartate Amino Transf (AST/SGOT) 37 U/L (15-37) Alanine Aminotransferase (ALT/SGPT) 55 U/L (16-63) Alkaline Phosphatase 128 U/L (46-116) Total Protein 5.2 g/dL (6.4-8.2) Albumin 1.9 g/dL (3.4-5.0) Hepatitis A IgM Antibody Nonreactive (Nonreactive) Hepatitis B Surface Antigen Nonreactive (Nonreactive) Hepatitis B Surface Antibody Reactive Hepatitis B Core IgM Antibody Nonreactive (Nonreactive) Hepatitis C IgG Antibody Nonreactive (Nonreactive) Gastric Fluid Occult Blood Positive (NEG) Neutrophils (%) (Auto) 70 % (31-73) Lymphocytes (%) (Auto) 17 % (24-48) Monocytes (%) (Auto) 12 % (0-9) Eosinophils (%) (Auto) 1 % (0-3) Basophils (%) (Auto) 0 % (0-3) Neutrophils # (Auto) 2.1 x10^3uL (1.8-7.7) Lymphocytes # (Auto) 0.5 x10^3/uL (1.0-4.8) Monocytes # (Auto) 0.4 x10^3/uL (0.0-1.1) Eosinophils # (Auto) 0.0 x10^3/uL (0.0-0.7) Basophils # (Auto) 0.0 x10^3/uL (0.0-0.2) Laboratory Tests Test 04/23/18 17:45 04/24/18 05:22 Gastric Fluid Occult Blood Positive (NEG) White Blood Count 3.0 x10^3/uL (4.0-11.0) Red Blood Count 3.29 x10^6/uL (4.30-5.70) Hemoglobin 10.4 g/dL (13.0-17.5) Hematocrit 30.8 % (39.0-53.0) Mean Corpuscular Volume 94 fL (79-100) Mean Corpuscular Hemoglobin 32 pg (25-35) Mean Corpuscular Hemoglobin Concent 34 g/dL (31-37) Red Cell Distribution Width 15.9 % (11.5-14.5) Platelet Count 186 x10^3/uL (140-400) Neutrophils (%) (Auto) 70 % (31-73) Lymphocytes (%) (Auto) 17 % (24-48) Monocytes (%) (Auto) 12 % (0-9) Eosinophils (%) (Auto) 1 % (0-3) Basophils (%) (Auto) 0 % (0-3) Neutrophils # (Auto) 2.1 x10^3uL (1.8-7.7) Lymphocytes # (Auto) 0.5 x10^3/uL (1.0-4.8) Monocytes # (Auto) 0.4 x10^3/uL (0.0-1.1) Eosinophils # (Auto) 0.0 x10^3/uL (0.0-0.7) Basophils # (Auto) 0.0 x10^3/uL (0.0-0.2) Microbiology 04/21/18 Blood Culture - Preliminary, Resulted NO GROWTH AFTER 3 DAYS Medications Current Medications Sodium Chloride 1,000 ml @ 1,000 mls/hr Q1H IV Last administered on 04/21/18at 06:55; Start 04/21/18 at 07:00; Stop 04/21/18 at 07:59; Status DC Dextrose/Lactated Ringer's 1,000 ml @ 75 mls/hr 1X ONCE IV Last administered on 04/21/18at 08:22; Start 04/21/18 at 07:45; Stop 04/21/18 at 11:37; Status DC Allopurinol (Zyloprim) 300 mg DAILY PO ; Start 04/21/18 at 10:30 Aspirin (Children'S Aspirin) 81 mg DAILY PO ; Start 04/21/18 at 10:30 Clopidogrel Bisulfate (Plavix) 75 mg DAILY PO ; Start 04/21/18 at 10:30 Vitamin B Complex/ Vitamin C (Leanne-Bev) 1 tab DAILY PO ; Start 04/21/18 at 10: 30 Hyoscyamine (Anaspaz) 0.125 mg PRN Q6HRS PRN PO STOMACH CRAMPING; Start at 09:45 Loperamide HCl (Imodium) 2 mg PRN Q15MIN PRN PO DIARRHEA; Start 04/21/18 at 10: 00 Ondansetron HCl (Zofran Odt) 4 mg PRN Q4HRS PRN PO NAUSEA/VOMITING Last administered on 04/21/18at 12:19; Start 04/21/18 at 10:00 Zinc Sulfate (Orazinc) 220 mg DAILY PO ; Start 04/21/18 at 10:30 Darbepoetin Luciano (Aranesp) 60 mcg WEEKLYHS SQ Last administered on 04/21/18at 20 :54; Start 04/21/18 at 21:00 Amino Acids/ Glycerin/ Electrolytes 1,000 ml @ 80 mls/hr [id number] IV Last administered on 04/24/18at 02:52; Start 04/21/18 at 12:00 Midodrine (Proamatine) 2.5 mg [id number] PO ; Start 04/21/18 at 13:00 Pantoprazole Sodium (PROTONIX VIAL for IV PUSH) 40 mg DAILYAC IVP Last administered on 04/24/18at 09:44; Start 04/22/18 at 11:00 Sodium Chloride 1,000 ml @ 1,000 mls/hr Q1H PRN IV hypotension; Start 04/23/18 at 09:00; Stop 04/23/18 at 14:59; Status DC Sodium Chloride 1,000 ml @ 400 mls/hr Q2H30M PRN IV PATENCY; Start 04/23/18 at 09:00; Stop 04/23/18 at 20:59; Status DC Info (PHARMACY MONITORING -- do not chart) 1 each PRN DAILY PRN MC SEE COMMENTS ; Start 04/23/18 at 10:15; Status UNV Info (PHARMACY MONITORING -- do not chart) 1 each PRN DAILY PRN MC SEE COMMENTS ; Start 04/23/18 at 10:15 Pantoprazole Sodium (PROTONIX VIAL for IV PUSH) 40 mg DAILYAC IVP ; Start at 07:30; Status UNV Active Scripts Active Reported Zinc (Zinc Gluconate) 50 Mg Tablet 50 Mg PO DAILY Zofran (Ondansetron Hcl) 4 Mg Tablet 1 Tab PO PRN Q4HRS PRN Levsin (Hyoscyamine Sulfate) 0.125 Mg Tablet 0.125 Mg PO PRN Q6HRS PRN Leanne-Bev Tablet (Folic Acid/Vitamin B Comp W-C) 0.8 Mg Tablet 0.8 Mg PO DAILY Carvedilol (Carvedilol) 3.125 Mg Tablet 3.125 Mg PO BIDWMEALS Diltiazem 24HR Cd (Diltiazem Hcl) 120 Mg Cap.er.24h 1 Cap PO DAILY Anti-Diarrheal (Loperamide Hcl) 2 Mg Capsule 2 Mg PO PRN QID PRN Sotalol (Sotalol Hcl) 80 Mg Tablet 120 Mg PO DAILY Aspirin 81 Mg Tab.chew 1 Tab PO DAILY Clopidogrel (Clopidogrel Bisulfate) 75 Mg Tablet 75 Mg PO DAILY Allopurinol 300 Mg Tablet 300 Mg PO DAILY Vitals/I & O Vital Sign - Last 24 Hours 04/23/18 04/23/18 04/23/18 04/23/18 13:00 15:00 15:00 19:00 Temp 97.6 98.6 97.6 98.6 Pulse 89 87 86 82 Resp 14 16 B/P (MAP) 122/67 99/71 (80) 106/66 (79) 109/73 (85) Pulse Ox 100 96 O2 Delivery Room Air Room Air 04/23/18 04/23/18 04/24/18 04/24/18 20:00 23:00 03:00 07:00 Temp 98.2 98.2 98.7 98.2 98.2 98.7 Pulse 93 106 106 Resp 16 16 18 B/P (MAP) 94/57 (69) 106/66 (79) 119/84 (96) Pulse Ox 96 96 97 O2 Delivery Room Air Room Air Room Air Room Air Intake and Output 04/23/18 04/23/18 04/24/18 15:00 23:00 07:00 Intake Total 0 ml 0 ml 0 ml Output Total 0 ml 0 ml 100 ml Balance 0 ml 0 ml -100 ml WARD RANDOLPH MD Apr 24, 2018 09:58
[2018-04-24 11:00] VITALS: BP 116/80
--- NOTE | 2018-04-24 11:00 | NUR ---
ng that was in the right nare removed; tolerated well
--- NOTE | 2018-04-24 11:47 | PDOC ---
PROGRESS NOTES Subjective Subjective Patient still has evidence of small bowel obstruction on x-ray. Patient is having bowel sounds and passing gas and small amounts of stool. X-ray appearance appears to be chronic. Case discussed with surgery and recommendations for feeding trial in removal of NG tube were agreed upon. Objective Objective Vital Signs Date Time Temp Pulse Resp B/P (MAP) Pulse Ox O2 Delivery O2 Flow Rate FiO2 04/24/18 08:00 Room Air 04/24/18 07:00 98.7 106 18 119/84 (96) 97 98.7 04/23/18 08:00 2.0 Intake and Output 04/24/18 07:00 Intake Total 0 ml Output Total 100 ml Balance -100 ml Intake Oral 0 ml Output Urine Total 100 ml Physical Exam Abdomen: Other (positive bowel sounds nontender.) Heart: Regular rate Extremities: No edema General: Alert Lungs: Clear to auscultation Assessment Assessment Problems Medical Problems: (1) CKD (chronic kidney disease), stage III Status: Acute (2) Hypotension Status: Acute 1. Small-bowel obstruction on x-ray appears chronic bowel function improving 2. Severe weakness. 3. Hypotension. 4. Severe protein malnutrition. 5. End-stage renal disease. 6. Retroperitoneal fibrosis. Plan Plan of Care Discussed with surgery remove NG tube up attempt feeding trial. Proceed with PT OT evaluation and's new care if stable. Comment Review of Relevant I have reviewed the following items demar (where applicable) has been applied. Labs Laboratory Tests Test 04/23/18 05:50 04/23/18 17:45 04/24/18 05:22 White Blood Count 3.4 x10^3/uL (4.0-11.0) 3.0 x10^3/uL (4.0-11.0) Red Blood Count 3.01 x10^6/uL (4.30-5.70) 3.29 x10^6/uL (4.30-5.70) Hemoglobin 9.4 g/dL (13.0-17.5) 10.4 g/dL (13.0-17.5) Hematocrit 28.4 % (39.0-53.0) 30.8 % (39.0-53.0) Mean Corpuscular Volume 94 fL (79-100) 94 fL (79-100) Mean Corpuscular Hemoglobin 31 pg (25-35) 32 pg (25-35) Mean Corpuscular Hemoglobin Concent 33 g/dL (31-37) 34 g/dL (31-37) Red Cell Distribution Width 16.1 % (11.5-14.5) 15.9 % (11.5-14.5) Platelet Count 170 x10^3/uL (140-400) 186 x10^3/uL (140-400) Total Bilirubin 1.1 mg/dL (0.2-1.0) Direct Bilirubin 0.5 mg/dL (0.0-0.2) Aspartate Amino Transf (AST/SGOT) 37 U/L (15-37) Alanine Aminotransferase (ALT/SGPT) 55 U/L (16-63) Alkaline Phosphatase 128 U/L (46-116) Total Protein 5.2 g/dL (6.4-8.2) Albumin 1.9 g/dL (3.4-5.0) Hepatitis A IgM Antibody Nonreactive (Nonreactive) Hepatitis B Surface Antigen Nonreactive (Nonreactive) Hepatitis B Surface Antibody Reactive Hepatitis B Core IgM Antibody Nonreactive (Nonreactive) Hepatitis C IgG Antibody Nonreactive (Nonreactive) Gastric Fluid Occult Blood Positive (NEG) Neutrophils (%) (Auto) 70 % (31-73) Lymphocytes (%) (Auto) 17 % (24-48) Monocytes (%) (Auto) 12 % (0-9) Eosinophils (%) (Auto) 1 % (0-3) Basophils (%) (Auto) 0 % (0-3) Neutrophils # (Auto) 2.1 x10^3uL (1.8-7.7) Lymphocytes # (Auto) 0.5 x10^3/uL (1.0-4.8) Monocytes # (Auto) 0.4 x10^3/uL (0.0-1.1) Eosinophils # (Auto) 0.0 x10^3/uL (0.0-0.7) Basophils # (Auto) 0.0 x10^3/uL (0.0-0.2) Laboratory Tests Test 04/23/18 17:45 04/24/18 05:22 Gastric Fluid Occult Blood Positive (NEG) White Blood Count 3.0 x10^3/uL (4.0-11.0) Red Blood Count 3.29 x10^6/uL (4.30-5.70) Hemoglobin 10.4 g/dL (13.0-17.5) Hematocrit 30.8 % (39.0-53.0) Mean Corpuscular Volume 94 fL (79-100) Mean Corpuscular Hemoglobin 32 pg (25-35) Mean Corpuscular Hemoglobin Concent 34 g/dL (31-37) Red Cell Distribution Width 15.9 % (11.5-14.5) Platelet Count 186 x10^3/uL (140-400) Neutrophils (%) (Auto) 70 % (31-73) Lymphocytes (%) (Auto) 17 % (24-48) Monocytes (%) (Auto) 12 % (0-9) Eosinophils (%) (Auto) 1 % (0-3) Basophils (%) (Auto) 0 % (0-3) Neutrophils # (Auto) 2.1 x10^3uL (1.8-7.7) Lymphocytes # (Auto) 0.5 x10^3/uL (1.0-4.8) Monocytes # (Auto) 0.4 x10^3/uL (0.0-1.1) Eosinophils # (Auto) 0.0 x10^3/uL (0.0-0.7) Basophils # (Auto) 0.0 x10^3/uL (0.0-0.2) Microbiology 04/21/18 Blood Culture - Preliminary, Resulted NO GROWTH AFTER 3 DAYS 04/22/18 Urine Culture - Final, Complete 04/22/18 Urine Culture Result 1 (WALTER) - Final, Complete Medications Current Medications Sodium Chloride 1,000 ml @ 1,000 mls/hr Q1H IV Last administered on 04/21/18at 06:55; Start 04/21/18 at 07:00; Stop 04/21/18 at 07:59; Status DC Dextrose/Lactated Ringer's 1,000 ml @ 75 mls/hr 1X ONCE IV Last administered on 04/21/18at 08:22; Start 04/21/18 at 07:45; Stop 04/21/18 at 11:37; Status DC Allopurinol (Zyloprim) 300 mg DAILY PO ; Start 04/21/18 at 10:30 Aspirin (Children'S Aspirin) 81 mg DAILY PO ; Start 04/21/18 at 10:30 Clopidogrel Bisulfate (Plavix) 75 mg DAILY PO ; Start 04/21/18 at 10:30 Vitamin B Complex/ Vitamin C (Leanne-Bev) 1 tab DAILY PO ; Start 04/21/18 at 10: 30 Hyoscyamine (Anaspaz) 0.125 mg PRN Q6HRS PRN PO STOMACH CRAMPING; Start at 09:45 Loperamide HCl (Imodium) 2 mg PRN Q15MIN PRN PO DIARRHEA; Start 04/21/18 at 10: 00 Ondansetron HCl (Zofran Odt) 4 mg PRN Q4HRS PRN PO NAUSEA/VOMITING Last administered on 04/21/18at 12:19; Start 04/21/18 at 10:00 Zinc Sulfate (Orazinc) 220 mg DAILY PO ; Start 04/21/18 at 10:30 Darbepoetin Luciano (Aranesp) 60 mcg WEEKLYHS SQ Last administered on 04/21/18at 20 :54; Start 04/21/18 at 21:00 Amino Acids/ Glycerin/ Electrolytes 1,000 ml @ 80 mls/hr [id number] IV Last administered on 04/24/18at 02:52; Start 04/21/18 at 12:00 Midodrine (Proamatine) 2.5 mg [id number] PO ; Start 04/21/18 at 13:00 Pantoprazole Sodium (PROTONIX VIAL for IV PUSH) 40 mg DAILYAC IVP Last administered on 04/24/18at 09:44; Start 04/22/18 at 11:00 Sodium Chloride 1,000 ml @ 1,000 mls/hr Q1H PRN IV hypotension; Start 04/23/18 at 09:00; Stop 04/23/18 at 14:59; Status DC Sodium Chloride 1,000 ml @ 400 mls/hr Q2H30M PRN IV PATENCY; Start 04/23/18 at 09:00; Stop 04/23/18 at 20:59; Status DC Info (PHARMACY MONITORING -- do not chart) 1 each PRN DAILY PRN MC SEE COMMENTS ; Start 04/23/18 at 10:15; Status UNV Info (PHARMACY MONITORING -- do not chart) 1 each PRN DAILY PRN MC SEE COMMENTS ; Start 04/23/18 at 10:15 Pantoprazole Sodium (PROTONIX VIAL for IV PUSH) 40 mg DAILYAC IVP ; Start at 07:30; Status UNV Active Scripts Active Reported Zinc (Zinc Gluconate) 50 Mg Tablet 50 Mg PO DAILY Zofran (Ondansetron Hcl) 4 Mg Tablet 1 Tab PO PRN Q4HRS PRN Levsin (Hyoscyamine Sulfate) 0.125 Mg Tablet 0.125 Mg PO PRN Q6HRS PRN Leanne-Bev Tablet (Folic Acid/Vitamin B Comp W-C) 0.8 Mg Tablet 0.8 Mg PO DAILY Carvedilol (Carvedilol) 3.125 Mg Tablet 3.125 Mg PO BIDWMEALS Diltiazem 24HR Cd (Diltiazem Hcl) 120 Mg Cap.er.24h 1 Cap PO DAILY Anti-Diarrheal (Loperamide Hcl) 2 Mg Capsule 2 Mg PO PRN QID PRN Sotalol (Sotalol Hcl) 80 Mg Tablet 120 Mg PO DAILY Aspirin 81 Mg Tab.chew 1 Tab PO DAILY Clopidogrel (Clopidogrel Bisulfate) 75 Mg Tablet 75 Mg PO DAILY Allopurinol 300 Mg Tablet 300 Mg PO DAILY Vitals/I & O Vital Sign - Last 24 Hours 04/23/18 04/23/18 04/23/18 04/23/18 13:00 15:00 15:00 19:00 Temp 97.6 98.6 97.6 98.6 Pulse 89 87 86 82 Resp 14 16 B/P (MAP) 122/67 99/71 (80) 106/66 (79) 109/73 (85) Pulse Ox 100 96 O2 Delivery Room Air Room Air 04/23/18 04/23/18 04/24/18 04/24/18 20:00 23:00 03:00 07:00 Temp 98.2 98.2 98.7 98.2 98.2 98.7 Pulse 93 106 106 Resp 16 16 18 B/P (MAP) 94/57 (69) 106/66 (79) 119/84 (96) Pulse Ox 96 96 97 O2 Delivery Room Air Room Air Room Air Room Air 04/24/18 08:00 O2 Delivery Room Air Intake and Output 04/23/18 04/23/18 04/24/18 15:00 23:00 07:00 Intake Total 0 ml 0 ml 0 ml Output Total 0 ml 0 ml 100 ml Balance 0 ml 0 ml -100 ml HIRO FIGUEROA MD Apr 24, 2018 11:47
--- NOTE | 2018-04-24 14:00 | NUR ---
ashwin's stated that he missed the urinal. am care completed and linens changed. He was inc large yellow soft stool. returned to bed. can have ice chips sparingly otherwise to remain NPO.
--- NOTE | 2018-04-24 14:00 | PDOC ---
Subjective: Subjective: Doing okay. Denies pain. Objective: Objective: Per RN - had a mushy stool earlier. Vital Signs: Vital Signs Date Time Temp Pulse Resp B/P (MAP) Pulse Ox O2 Delivery O2 Flow Rate FiO2 04/24/18 11:00 97.5 116 18 116/80 (92) 94 Room Air 97.5 04/23/18 08:00 2.0 Labs: Laboratory Tests Test 04/23/18 17:45 04/24/18 05:22 Gastric Fluid Occult Blood Positive White Blood Count 3.0 x10^3/uL Red Blood Count 3.29 x10^6/uL Hemoglobin 10.4 g/dL Hematocrit 30.8 % Mean Corpuscular Volume 94 fL Mean Corpuscular Hemoglobin 32 pg Mean Corpuscular Hemoglobin Concent 34 g/dL Red Cell Distribution Width 15.9 % Platelet Count 186 x10^3/uL Neutrophils (%) (Auto) 70 % Lymphocytes (%) (Auto) 17 % Monocytes (%) (Auto) 12 % Eosinophils (%) (Auto) 1 % Basophils (%) (Auto) 0 % Neutrophils # (Auto) 2.1 x10^3uL Lymphocytes # (Auto) 0.5 x10^3/uL Monocytes # (Auto) 0.4 x10^3/uL Eosinophils # (Auto) 0.0 x10^3/uL Basophils # (Auto) 0.0 x10^3/uL PE: GEN: NAD LUNGS: CTAB HEART: tachycardic ABD: ?more distended, hernia (reducible), occasional BS NEURO/PSYCH: A & O 3 - more subdued today A/P: SBO - ?improved, h/o retroperitoneal fibrosis ESRD, ACD Elevated LFTs, hepatic steatosis -- NG out, await response, continue per surgery. Note +gastric occult - agree w/ IV PPI. FANNY SARAH Apr 24, 2018 14:00
[2018-04-24 15:00] VITALS: BP 103/75
--- NOTE | 2018-04-24 15:58 | NUR ---
WILFREDO responding to a referral regarding SNU. Pt is accepted at pending insurance approval. Insurance auth request will be submitted once pt is close to being discharged. Discussed with RN. Will continue to follow.
[2018-04-24 19:00] VITALS: BP 112/64
[2018-04-24 23:01] VITALS: BP 87/55
[2018-04-25 03:13] VITALS: BP 79/52
[2018-04-25] MEDS: AMINO AC 3%/ELECTROLYTE/GLYCER 1,000 ML IV SCH ×2 (03:30→20:28)
[2018-04-25] MEDS: MIDODRINE 2.5 MG TABLET PO SCH ×3 (05:44→18:00)
[2018-04-25 07:15] VITALS: BP 83/47
[2018-04-25] MEDS ORDERED: IV NORMAL SALINE 1000ML BAG 1,000 ML IV PRN ×2 (07:35)
[2018-04-25] MEDS ORDERED: DIALYSIS PATIENT. MC PRN ×2 (07:45)
--- NOTE | 2018-04-25 08:55 | PDOC ---
PROGRESS NOTES Subjective Subjective No new complaints. Objective Objective Vital Signs Date Time Temp Pulse Resp B/P (MAP) Pulse Ox O2 Delivery O2 Flow Rate FiO2 04/25/18 07:15 98.4 110 18 83/47 (59) 96 Room Air 98.4 04/23/18 08:00 2.0 Intake and Output 04/25/18 07:00 Intake Total 1960 ml Output Total 0 ml Balance 1960 ml IV Total 1960 ml Output Urine Total 0 ml # Voids 3 # Bowel Movements 2 Physical Exam Physical Exam He is alert,supine in bed receiving hemodialysis and he had less edema of his left elbow and forearm. He did get up with therapy yesterday and walked for 15' with roller walker. NG tube is out. Assessment Assessment Problems Medical Problems: (1) CKD (chronic kidney disease), stage III Status: Acute (2) Hypotension Status: Acute Plan Plan of Care Agree with plans for transfer to SNF when medically stable. Comment Review of Relevant I have reviewed the following items demar (where applicable) has been applied. Labs Laboratory Tests Test 04/23/18 17:45 04/24/18 05:22 Gastric Fluid Occult Blood Positive (NEG) White Blood Count 3.0 x10^3/uL (4.0-11.0) Red Blood Count 3.29 x10^6/uL (4.30-5.70) Hemoglobin 10.4 g/dL (13.0-17.5) Hematocrit 30.8 % (39.0-53.0) Mean Corpuscular Volume 94 fL (79-100) Mean Corpuscular Hemoglobin 32 pg (25-35) Mean Corpuscular Hemoglobin Concent 34 g/dL (31-37) Red Cell Distribution Width 15.9 % (11.5-14.5) Platelet Count 186 x10^3/uL (140-400) Neutrophils (%) (Auto) 70 % (31-73) Lymphocytes (%) (Auto) 17 % (24-48) Monocytes (%) (Auto) 12 % (0-9) Eosinophils (%) (Auto) 1 % (0-3) Basophils (%) (Auto) 0 % (0-3) Neutrophils # (Auto) 2.1 x10^3uL (1.8-7.7) Lymphocytes # (Auto) 0.5 x10^3/uL (1.0-4.8) Monocytes # (Auto) 0.4 x10^3/uL (0.0-1.1) Eosinophils # (Auto) 0.0 x10^3/uL (0.0-0.7) Basophils # (Auto) 0.0 x10^3/uL (0.0-0.2) Microbiology 04/21/18 Blood Culture - Preliminary, Resulted NO GROWTH AFTER 4 DAYS 04/22/18 Urine Culture - Final, Complete 04/22/18 Urine Culture Result 1 (WALTER) - Final, Complete Medications Current Medications Sodium Chloride 1,000 ml @ 1,000 mls/hr Q1H IV Last administered on 04/21/18at 06:55; Start 04/21/18 at 07:00; Stop 04/21/18 at 07:59; Status DC Dextrose/Lactated Ringer's 1,000 ml @ 75 mls/hr 1X ONCE IV Last administered on 04/21/18at 08:22; Start 04/21/18 at 07:45; Stop 04/21/18 at 11:37; Status DC Allopurinol (Zyloprim) 300 mg DAILY PO ; Start 04/21/18 at 10:30 Aspirin (Children'S Aspirin) 81 mg DAILY PO ; Start 04/21/18 at 10:30 Clopidogrel Bisulfate (Plavix) 75 mg DAILY PO ; Start 04/21/18 at 10:30 Vitamin B Complex/ Vitamin C (Leanne-Bev) 1 tab DAILY PO ; Start 04/21/18 at 10: 30 Hyoscyamine (Anaspaz) 0.125 mg PRN Q6HRS PRN PO STOMACH CRAMPING; Start at 09:45 Loperamide HCl (Imodium) 2 mg PRN Q15MIN PRN PO DIARRHEA; Start 04/21/18 at 10: 00 Ondansetron HCl (Zofran Odt) 4 mg PRN Q4HRS PRN PO NAUSEA/VOMITING Last administered on 04/21/18at 12:19; Start 04/21/18 at 10:00 Zinc Sulfate (Orazinc) 220 mg DAILY PO ; Start 04/21/18 at 10:30 Darbepoetin Luciano (Aranesp) 60 mcg WEEKLYHS SQ Last administered on 04/21/18at 20 :54; Start 04/21/18 at 21:00 Amino Acids/ Glycerin/ Electrolytes 1,000 ml @ 80 mls/hr [id number] IV Last administered on 04/25/18at 03:30; Start 04/21/18 at 12:00 Midodrine (Proamatine) 2.5 mg [id number] PO Last administered on 04/25/18at 05:44; Start 04/21/18 at 13:00 Pantoprazole Sodium (PROTONIX VIAL for IV PUSH) 40 mg DAILYAC IVP Last administered on 04/24/18at 09:44; Start 04/22/18 at 11:00 Sodium Chloride 1,000 ml @ 1,000 mls/hr Q1H PRN IV hypotension; Start 04/23/18 at 09:00; Stop 04/23/18 at 14:59; Status DC Sodium Chloride 1,000 ml @ 400 mls/hr Q2H30M PRN IV PATENCY; Start 04/23/18 at 09:00; Stop 04/23/18 at 20:59; Status DC Info (PHARMACY MONITORING -- do not chart) 1 each PRN DAILY PRN MC SEE COMMENTS ; Start 04/23/18 at 10:15; Status UNV Info (PHARMACY MONITORING -- do not chart) 1 each PRN DAILY PRN MC SEE COMMENTS ; Start 04/23/18 at 10:15 Pantoprazole Sodium (PROTONIX VIAL for IV PUSH) 40 mg DAILYAC IVP ; Start at 07:30; Status UNV Sodium Chloride 1,000 ml @ 1,000 mls/hr Q1H PRN IV hypotension; Start 04/25/18 at 07:35; Stop 04/25/18 at 13:34 Sodium Chloride 1,000 ml @ 400 mls/hr Q2H30M PRN IV PATENCY; Start 04/25/18 at 07:35; Stop 04/25/18 at 19:34 Info (PHARMACY MONITORING -- do not chart) 1 each PRN DAILY PRN MC SEE COMMENTS ; Start 04/25/18 at 07:45 Info (PHARMACY MONITORING -- do not chart) 1 each PRN DAILY PRN MC SEE COMMENTS ; Start 04/25/18 at 07:45; Status UNV Active Scripts Active Reported Zinc (Zinc Gluconate) 50 Mg Tablet 50 Mg PO DAILY Zofran (Ondansetron Hcl) 4 Mg Tablet 1 Tab PO PRN Q4HRS PRN Levsin (Hyoscyamine Sulfate) 0.125 Mg Tablet 0.125 Mg PO PRN Q6HRS PRN Leanne-Bev Tablet (Folic Acid/Vitamin B Comp W-C) 0.8 Mg Tablet 0.8 Mg PO DAILY Carvedilol (Carvedilol) 3.125 Mg Tablet 3.125 Mg PO BIDWMEALS Diltiazem 24HR Cd (Diltiazem Hcl) 120 Mg Cap.er.24h 1 Cap PO DAILY Anti-Diarrheal (Loperamide Hcl) 2 Mg Capsule 2 Mg PO PRN QID PRN Sotalol (Sotalol Hcl) 80 Mg Tablet 120 Mg PO DAILY Aspirin 81 Mg Tab.chew 1 Tab PO DAILY Clopidogrel (Clopidogrel Bisulfate) 75 Mg Tablet 75 Mg PO DAILY Allopurinol 300 Mg Tablet 300 Mg PO DAILY Vitals/I & O Vital Sign - Last 24 Hours 04/24/18 04/24/18 04/24/18 04/24/18 11:00 15:00 19:00 19:40 Temp 97.5 99.0 98.4 97.5 99.0 98.4 Pulse 116 116 84 Resp 18 18 20 B/P (MAP) 116/80 (92) 103/75 (84) 112/64 (80) Pulse Ox 94 97 94 O2 Delivery Room Air Room Air Room Air Room Air 04/24/18 04/25/18 04/25/18 04/25/18 23:01 03:13 05:44 07:15 Temp 97.7 98.3 98.4 97.7 98.3 98.4 Pulse 61 110 110 110 Resp 20 20 18 B/P (MAP) 87/55 (66) 79/52 (61) 79/52 83/47 (59) Pulse Ox 95 92 96 O2 Delivery Room Air Room Air Room Air Intake and Output 04/24/18 04/24/18 04/25/18 15:00 23:00 07:00 Intake Total 960 ml 1000 ml Output Total 0 ml Balance 960 ml 1000 ml WARD RANDOLPH MD Apr 25, 2018 08:55
--- NOTE | 2018-04-25 09:03 | PDOC ---
PROGRESS NOTES Subjective Subjective SEEN IN FOLLOW UP OF ESRD Objective Objective Vital Signs Date Time Temp Pulse Resp B/P (MAP) Pulse Ox O2 Delivery O2 Flow Rate FiO2 04/25/18 07:15 98.4 110 18 83/47 (59) 96 Room Air 98.4 04/23/18 08:00 2.0 Intake and Output 04/25/18 07:00 Intake Total 1960 ml Output Total 0 ml Balance 1960 ml IV Total 1960 ml Output Urine Total 0 ml # Voids 3 # Bowel Movements 2 Physical Exam Abdomen: Normal bowel sounds, Soft, No tenderness, No hepatosplenomegaly, No masses Heart: Regular rate, Normal S1, Normal S2, No murmurs, Gallops Extremities: No clubbing, No cyanosis, No edema, Normal pulses, No tenderness/ swelling General: Alert, Cooperative Lungs: Clear to auscultation, Normal air movement Diagnosis RENAL FAILURE: ESRD Assessment Assessment Problems Medical Problems: (1) CKD (chronic kidney disease), stage III Status: Acute (2) Hypotension Status: Acute Plan Plan of Care SEEN ON DIALYSIS. TOLERATING BUT HAS LOW BP AND ELEVATED HR Comment Review of Relevant I have reviewed the following items demar (where applicable) has been applied. Labs Laboratory Tests Test 04/23/18 17:45 04/24/18 05:22 Gastric Fluid Occult Blood Positive (NEG) White Blood Count 3.0 x10^3/uL (4.0-11.0) Red Blood Count 3.29 x10^6/uL (4.30-5.70) Hemoglobin 10.4 g/dL (13.0-17.5) Hematocrit 30.8 % (39.0-53.0) Mean Corpuscular Volume 94 fL (79-100) Mean Corpuscular Hemoglobin 32 pg (25-35) Mean Corpuscular Hemoglobin Concent 34 g/dL (31-37) Red Cell Distribution Width 15.9 % (11.5-14.5) Platelet Count 186 x10^3/uL (140-400) Neutrophils (%) (Auto) 70 % (31-73) Lymphocytes (%) (Auto) 17 % (24-48) Monocytes (%) (Auto) 12 % (0-9) Eosinophils (%) (Auto) 1 % (0-3) Basophils (%) (Auto) 0 % (0-3) Neutrophils # (Auto) 2.1 x10^3uL (1.8-7.7) Lymphocytes # (Auto) 0.5 x10^3/uL (1.0-4.8) Monocytes # (Auto) 0.4 x10^3/uL (0.0-1.1) Eosinophils # (Auto) 0.0 x10^3/uL (0.0-0.7) Basophils # (Auto) 0.0 x10^3/uL (0.0-0.2) Microbiology 04/21/18 Blood Culture - Preliminary, Resulted NO GROWTH AFTER 4 DAYS 04/22/18 Urine Culture - Final, Complete 04/22/18 Urine Culture Result 1 (WALTER) - Final, Complete Medications Current Medications Sodium Chloride 1,000 ml @ 1,000 mls/hr Q1H IV Last administered on 04/21/18at 06:55; Start 04/21/18 at 07:00; Stop 04/21/18 at 07:59; Status DC Dextrose/Lactated Ringer's 1,000 ml @ 75 mls/hr 1X ONCE IV Last administered on 04/21/18at 08:22; Start 04/21/18 at 07:45; Stop 04/21/18 at 11:37; Status DC Allopurinol (Zyloprim) 300 mg DAILY PO ; Start 04/21/18 at 10:30 Aspirin (Children'S Aspirin) 81 mg DAILY PO ; Start 04/21/18 at 10:30 Clopidogrel Bisulfate (Plavix) 75 mg DAILY PO ; Start 04/21/18 at 10:30 Vitamin B Complex/ Vitamin C (Leanne-Bev) 1 tab DAILY PO ; Start 04/21/18 at 10: 30 Hyoscyamine (Anaspaz) 0.125 mg PRN Q6HRS PRN PO STOMACH CRAMPING; Start at 09:45 Loperamide HCl (Imodium) 2 mg PRN Q15MIN PRN PO DIARRHEA; Start 04/21/18 at 10: 00 Ondansetron HCl (Zofran Odt) 4 mg PRN Q4HRS PRN PO NAUSEA/VOMITING Last administered on 04/21/18at 12:19; Start 04/21/18 at 10:00 Zinc Sulfate (Orazinc) 220 mg DAILY PO ; Start 04/21/18 at 10:30 Darbepoetin Luciano (Aranesp) 60 mcg WEEKLYHS SQ Last administered on 04/21/18at 20 :54; Start 04/21/18 at 21:00 Amino Acids/ Glycerin/ Electrolytes 1,000 ml @ 80 mls/hr [id number] IV Last administered on 04/25/18at 03:30; Start 04/21/18 at 12:00 Midodrine (Proamatine) 2.5 mg [id number] PO Last administered on 04/25/18at 05:44; Start 04/21/18 at 13:00 Pantoprazole Sodium (PROTONIX VIAL for IV PUSH) 40 mg DAILYAC IVP Last administered on 04/24/18at 09:44; Start 04/22/18 at 11:00 Sodium Chloride 1,000 ml @ 1,000 mls/hr Q1H PRN IV hypotension; Start 04/23/18 at 09:00; Stop 04/23/18 at 14:59; Status DC Sodium Chloride 1,000 ml @ 400 mls/hr Q2H30M PRN IV PATENCY; Start 04/23/18 at 09:00; Stop 04/23/18 at 20:59; Status DC Info (PHARMACY MONITORING -- do not chart) 1 each PRN DAILY PRN MC SEE COMMENTS ; Start 04/23/18 at 10:15; Status UNV Info (PHARMACY MONITORING -- do not chart) 1 each PRN DAILY PRN MC SEE COMMENTS ; Start 04/23/18 at 10:15 Pantoprazole Sodium (PROTONIX VIAL for IV PUSH) 40 mg DAILYAC IVP ; Start at 07:30; Status UNV Sodium Chloride 1,000 ml @ 1,000 mls/hr Q1H PRN IV hypotension; Start 04/25/18 at 07:35; Stop 04/25/18 at 13:34 Sodium Chloride 1,000 ml @ 400 mls/hr Q2H30M PRN IV PATENCY; Start 04/25/18 at 07:35; Stop 04/25/18 at 19:34 Info (PHARMACY MONITORING -- do not chart) 1 each PRN DAILY PRN MC SEE COMMENTS ; Start 04/25/18 at 07:45 Info (PHARMACY MONITORING -- do not chart) 1 each PRN DAILY PRN MC SEE COMMENTS ; Start 04/25/18 at 07:45; Status UNV Active Scripts Active Reported Zinc (Zinc Gluconate) 50 Mg Tablet 50 Mg PO DAILY Zofran (Ondansetron Hcl) 4 Mg Tablet 1 Tab PO PRN Q4HRS PRN Levsin (Hyoscyamine Sulfate) 0.125 Mg Tablet 0.125 Mg PO PRN Q6HRS PRN Leanne-Bev Tablet (Folic Acid/Vitamin B Comp W-C) 0.8 Mg Tablet 0.8 Mg PO DAILY Carvedilol (Carvedilol) 3.125 Mg Tablet 3.125 Mg PO BIDWMEALS Diltiazem 24HR Cd (Diltiazem Hcl) 120 Mg Cap.er.24h 1 Cap PO DAILY Anti-Diarrheal (Loperamide Hcl) 2 Mg Capsule 2 Mg PO PRN QID PRN Sotalol (Sotalol Hcl) 80 Mg Tablet 120 Mg PO DAILY Aspirin 81 Mg Tab.chew 1 Tab PO DAILY Clopidogrel (Clopidogrel Bisulfate) 75 Mg Tablet 75 Mg PO DAILY Allopurinol 300 Mg Tablet 300 Mg PO DAILY Vitals/I & O Vital Sign - Last 24 Hours 04/24/18 04/24/18 04/24/18 04/24/18 11:00 15:00 19:00 19:40 Temp 97.5 99.0 98.4 97.5 99.0 98.4 Pulse 116 116 84 Resp 18 18 20 B/P (MAP) 116/80 (92) 103/75 (84) 112/64 (80) Pulse Ox 94 97 94 O2 Delivery Room Air Room Air Room Air Room Air 04/24/18 04/25/18 04/25/18 04/25/18 23:01 03:13 05:44 07:15 Temp 97.7 98.3 98.4 97.7 98.3 98.4 Pulse 61 110 110 110 Resp 20 20 18 B/P (MAP) 87/55 (66) 79/52 (61) 79/52 83/47 (59) Pulse Ox 95 92 96 O2 Delivery Room Air Room Air Room Air Intake and Output 04/24/18 04/24/18 04/25/18 15:00 23:00 07:00 Intake Total 960 ml 1000 ml Output Total 0 ml Balance 960 ml 1000 ml HIRO ERAZO MD Apr 25, 2018 09:03
--- NOTE | 2018-04-25 09:56 | PDOC ---
Subjective: Subjective: Says he stooled some this morning. Feels abd is "puffy but okay." Also passing gas. Would like to eat. Objective: Objective: Reviewed w/ director of career services - received report of formed stool. Vital Signs: Vital Signs Date Time Temp Pulse Resp B/P (MAP) Pulse Ox O2 Delivery O2 Flow Rate FiO2 04/25/18 07:15 98.4 110 18 83/47 (59) 96 Room Air 98.4 PE: GEN: dialyzing LUNGS: CTAB HEART: RRR ABD: quiet, stable distention, soft, non-tender NEURO/PSYCH: A & O 3 A/P: SBO ESRD, ACD -- Reports of formed stools now. Recheck labs. Diet per surgery. Can change to PO PPI when eating. FANNY SARAH Apr 25, 2018 09:56
[2018-04-25 10:03] LABS: BASE EXCESS ABG -10 mmol/L (-3-3); HCO3 ABG 14 mmol/L (21-28); PCO2 ABG 21 mmHg (35-46)
--- NOTE | 2018-04-25 10:10 | EKG ---
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
--- NOTE | 2018-04-25 10:12 | EKG ---
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
[2018-04-25] MEDS ORDERED: DIGOXIN IV 500 MCG/2 ML AMPUL. IV ONE (10:15)
[2018-04-25 10:18] LABS: FIO2 ABG 40; PO2 ABG < 42 mmHg (65-108); SAT O2 ABG 28 % (92-99)
--- NOTE | 2018-04-25 10:38 | NUR ---
RN NOTE DINESH CALLED ON PATIENT AROUND 0915 WHILE IN DIALYSIS. PRIOR TO DIALYSIS, PATIENTS MORNING BP 83/47, HR 110. PER DIALYSIS NURSE, PATIENT WAS GIVEN 1L BOLUS NS PRIOR TO RAPID. PATIENT TRANSFERRED TO 206. REPORT GIVEN NURSE. PATIENT BELONGINGS SENT WITH PATIENT.
--- NOTE | 2018-04-25 10:40 | NUR ---
Pt to unit post rapid response. ICU nurse at bedside. BP 67/47 HR 114. Pt alert and oriented. security monitor in place and patient in ST. No complaints at this time. Call light within reach. Will continue to monitor.
[2018-04-25 10:58] LABS: HEMATOCRIT 29.9 % (39.0-53.0); HEMOGLOBIN 9.9 g/dL (13.0-17.5); RED BLOOD COUNT 3.19 x10^6/uL (4.30-5.70); RED CELL DISTRIBUTION WIDTH 16.1 % (11.5-14.5); WHITE BLOOD COUNT 4.6 x10^3/uL (4.0-11.0)
[2018-04-25 11:00] VITALS: BP 70/50
--- NOTE | 2018-04-25 11:01 | PDOC ---
CARDIO Progress Notes Date and Time Date of Service 04/25/18 Time of Evaluation 1010 Subjective Subjective: No Chest Pain, No shortness of breath, No Palpitations Vitals Vitals Vital Signs Date Time Temp Pulse Resp B/P (MAP) Pulse Ox O2 Delivery O2 Flow Rate FiO2 04/25/18 07:15 98.4 110 18 83/47 (59) 96 Room Air 98.4 Weight Weight [ ] Input and Output Intake and Output Intake and Output 04/25/18 06:59 Intake Total 1960 ml Output Total 0 ml Balance 1960 ml IV Total 1960 ml Output Urine Total 0 ml # Voids 3 # Bowel Movements 2 Laboratory Labs Laboratory Tests Test 04/25/18 10:00 O2 Saturation 28 % (92-99) Arterial Blood pH 7.43 (7.35-7.45) Arterial Blood pCO2 at Patient Temp 21 mmHg (35-46) Arterial Blood pO2 at Patient Temp < 42 mmHg (65-108) Arterial Blood HCO3 14 mmol/L (21-28) Arterial Blood Base Excess -10 mmol/L (-3-3) FiO2 40 Microbiology Micro Microbiology 04/21/18 Blood Culture - Preliminary, Resulted NO GROWTH AFTER 4 DAYS 04/22/18 Urine Culture - Final, Complete 04/22/18 Urine Culture Result 1 (WALTER) - Final, Complete Physical Exam HEENT: Neck Supple W Full Motion Chest: Symmetric LUNGS: Clear to Auscultation Heart: S1S2, RRR (SR/ST rate 115) Abdomen: Soft N/T Extremities: No Calf Tenderness Neurology: alert, oriented, follow commands Assessment Assessment 1. SVT; went into SVT with rate 170's while on HD this am. Was reportedly asymptomatic. HD discontinued. 1000cc fluid bolus administered. SBP dropped to the 40's. Rapid called; s/p successful cardioversion. 2. Hypotension; on Midodrine. 3. CAD s/p PCI/stent. Stable, CP free. EKG noted with diffuse ST depression while on HD. Improved following HD. MPI 01/2018 with no reversible ischemia or infarct. 4. ESRD on HS 5. PAFIB; maintaining SR/ST. Previously on Sotalol. QTc 476 upon arrival 6. SBO, chronic Recommendations Additional fluid bolus now Sotalol held due to hypotension Use IV dig PRN for tachycardia ASA for stroke prevention Echo to assess LV systolic function Supportive care DICTATED and SIGNED BY: MATTI GARAY MD DATE: 01/30/18 1403 SONDRA CARCAMO APRN Apr 25, 2018 11:01
--- NOTE | 2018-04-25 11:08 | NUR ---
Called to dialysis room for patient with rapid heart rate, 12 Lead obtained and shows SVT 174. Pt alert no SOB and no conplaints of pain BP at 0940 56/33 Dr Tremayne reagan, Cardiology Paged. [phone] BP 58/31. Cardiology contacted at [address] Rios informed that BP 41/24 and will synchronize cardiovert at 100J pt converted to SR then to ST at rate of 100 another 12 lead obtained, Dr Harris and Dr Rios at bedside after cardioversion. Pt alert no SOB BP up to 89/57. Pt transferred to room 206 accompanied by nursing [employer] supervisor and myself. Report given to Abby. Addendum: 04/25/18 at 1120 by ELVIN HORTON RN Amended: Links added.
[2018-04-25 11:15] LABS: ALBUMIN 1.8 g/dL (3.4-5.0); ALBUMIN/GLOBULIN RATIO 0.5 (1.0-1.7); CREATININE 2.1 mg/dL (0.7-1.3); GFR 37.1; POTASSIUM 4.5 mmol/L (3.5-5.1); TOTAL BILIRUBIN 1.8 mg/dL (0.2-1.0); TOTAL PROTEIN 5.3 g/dL (6.4-8.2)
--- NOTE | 2018-04-25 12:03 | CARD ---
MR#: [id number] Date of Study: 04/25/2018 Ordering Physician: SONDRA CARCAMO, Referring Physician: HIRO FIGUEROA, Tech: Gabriela Khan [facility] APPROVED REPORT EXAM: Two-dimensional and M-mode echocardiogram with Doppler and color Doppler. Other Information Quality : Technically LimitedHR: 106bpm Rhythm : TachycardiaTechnically limited study due to body habitus. INDICATION Arrhythmia 2D DIMENSIONS RVDd2.8 (2.9-3.5cm)Left Atrium(2D)4.2 (1.6-4.0cm) IVSd1.5 (0.7-1.1cm)Aortic Root(2D)3.6 (2.0-3.7cm) LVDd4.0 (3.9-5.9cm)LVOT Diameter2.2 (1.8-2.4cm) PWd1.2 (0.7-1.1cm)LVDs2.7 (2.5-4.0cm) FS (%) 32.5 %SV43.5 ml LVEF(%)61.4 (>50%) M-Mode DIMENSIONS Left Atrium(MM)4.20 (2.5-4.0cm)Aortic Root3.60 (2.2-3.7cm) Aortic Valve AoV Peak Jake.83.2cm/sAoV VTI12.7cm AO Peak GR.2.8mmHgLVOT VTI 9.10cm AO Mean GR.2mmHg Mitral Valve MV E Gvgglybz67.9cm/sMV E Peak Gr.1mmHg MV DECEL [id number] A Qgpatczt42.1cm/s MV E Mean Gr.1mmHgE/A Ratio1.6 MV A [id number] Tricuspid Valve TR P. [id number]/sRAP [id number] TR Peak Gr.54lzPzHWLO96cyKo LEFT VENTRICLE The left ventricle is normal size. There is mild concentric left ventricular hypertrophy. The left ve ntricular systolic function is normal and the ejection fraction is within normal range. The Ejection Fraction is 55-60%. Unable to accurately determine wall motion. Grossly normal. Tissue Doppler imagin g reveals moderate left ventricular diastolic dysfunction. RIGHT VENTRICLE The right ventricle is mildly to moderately dilated. The right ventricle is mildly hypertrophied. The right ventricular systolic function is normal. ATRIA The left atrium is mildly dilated. The right atrium is mildly dilated. The interatrial septum is inta ct with no evidence for an atrial septal defect or patent foramen ovale as noted on 2-D or Doppler im aging. AORTIC VALVE The aortic valve is not well visualized. Doppler and Color Flow revealed no significant aortic regurg itation. There is no significant aortic valvular stenosis. MITRAL VALVE The mitral valve is calcified with restricted leaflet motion. There is no evidence of mitral valve pr olapse. There is no mitral valve stenosis. Doppler and Color Flow revealed no mitral valve regurgitat ion noted. TRICUSPID VALVE The tricuspid valve is normal in structure and function. Doppler and Color Flow revealed mild tricusp id regurgitation. The PA pressure was estimated at 29 mmHg. There is no tricuspid valve prolapse or v egetation. There is no tricuspid valve stenosis. PULMONIC VALVE The pulmonic valve is not well visualized. GREAT VESSELS The aortic root is normal in size. The IVC was not visualized. PERICARDIAL EFFUSION There is a trace pericardial effusion. Critical Notification Critical Value: No <Conclusion> The left ventricular systolic function is normal and the ejection fraction is within normal range. Th e Ejection Fraction is 55-60%. Unable to accurately determine wall motion. Grossly normal. The right ventricle is mildly to moderately dilated. Signed by : Nasir Watts, Electronically Approved : 04/25/2018 12:02:58
--- NOTE | 2018-04-25 13:02 | PDOC ---
PROGRESS NOTES Subjective Subjective Patient tolerating d/c of vNG tube. Patient with episode of SVT and hypotension improved with IVF. Objective Objective Vital Signs Date Time Temp Pulse Resp B/P (MAP) Pulse Ox O2 Delivery O2 Flow Rate FiO2 04/25/18 11:00 109 73/52 04/25/18 10:45 Room Air 04/25/18 07:15 98.4 18 96 98.4 04/23/18 08:00 2.0 Intake and Output 04/25/18 07:00 Intake Total 1960 ml Output Total 0 ml Balance 1960 ml IV Total 1960 ml Output Urine Total 0 ml # Voids 3 # Bowel Movements 2 Physical Exam Abdomen: Other (BS present) Heart: Regular rate Extremities: Other (3+ edema) General: Alert Lungs: Clear to auscultation Assessment Assessment Problems Medical Problems: (1) CKD (chronic kidney disease), stage III Status: Acute (2) Hypotension Status: Acute Small-bowel obstruction on x-ray appears chronic, bowel function improving Severe weakness. SVT Hypotension. Severe protein malnutrition. End-stage renal disease. Retroperitoneal fibrosis. Plan Plan of Care Proceed with feeding Dialysis Proceed with PT OT Transfer for SNU care when stable. Comment Review of Relevant I have reviewed the following items demar (where applicable) has been applied. Labs Laboratory Tests Test 04/23/18 17:45 04/24/18 05:22 04/25/18 10:00 04/25/18 10:35 Gastric Fluid Occult Blood Positive (NEG) White Blood Count 3.0 x10^3/uL (4.0-11.0) 4.6 x10^3/uL (4.0-11.0) Red Blood Count 3.29 x10^6/uL (4.30-5.70) 3.19 x10^6/uL (4.30-5.70) Hemoglobin 10.4 g/dL (13.0-17.5) 9.9 g/dL (13.0-17.5) Hematocrit 30.8 % (39.0-53.0) 29.9 % (39.0-53.0) Mean Corpuscular Volume 94 fL (79-100) 94 fL (79-100) Mean Corpuscular Hemoglobin 32 pg (25-35) 31 pg (25-35) Mean Corpuscular Hemoglobin Concent 34 g/dL (31-37) 33 g/dL (31-37) Red Cell Distribution Width 15.9 % (11.5-14.5) 16.1 % (11.5-14.5) Platelet Count 186 x10^3/uL (140-400) 145 x10^3/uL (140-400) Neutrophils (%) (Auto) 70 % (31-73) Lymphocytes (%) (Auto) 17 % (24-48) Monocytes (%) (Auto) 12 % (0-9) Eosinophils (%) (Auto) 1 % (0-3) Basophils (%) (Auto) 0 % (0-3) Neutrophils # (Auto) 2.1 x10^3uL (1.8-7.7) Lymphocytes # (Auto) 0.5 x10^3/uL (1.0-4.8) Monocytes # (Auto) 0.4 x10^3/uL (0.0-1.1) Eosinophils # (Auto) 0.0 x10^3/uL (0.0-0.7) Basophils # (Auto) 0.0 x10^3/uL (0.0-0.2) O2 Saturation 28 % (92-99) Arterial Blood pH 7.43 (7.35-7.45) Arterial Blood pCO2 at Patient Temp 21 mmHg (35-46) Arterial Blood pO2 at Patient Temp < 42 mmHg (65-108) Arterial Blood HCO3 14 mmol/L (21-28) Arterial Blood Base Excess -10 mmol/L (-3-3) FiO2 40 Sodium Level 138 mmol/L (136-145) Potassium Level 4.5 mmol/L (3.5-5.1) Chloride Level 101 mmol/L (98-107) Carbon Dioxide Level 29 mmol/L (21-32) Anion Gap 8 (6-14) Blood Urea Nitrogen 45 mg/dL (8-26) Creatinine 2.1 mg/dL (0.7-1.3) Estimated GFR (Cockcroft-Gault) 37.1 BUN/Creatinine Ratio 21 (6-20) Glucose Level 81 mg/dL (70-99) Calcium Level 8.0 mg/dL (8.5-10.1) Magnesium Level 1.9 mg/dL (1.8-2.4) Total Bilirubin 1.8 mg/dL (0.2-1.0) Aspartate Amino Transf (AST/SGOT) 108 U/L (15-37) Alanine Aminotransferase (ALT/SGPT) 161 U/L (16-63) Alkaline Phosphatase 172 U/L (46-116) Total Protein 5.3 g/dL (6.4-8.2) Albumin 1.8 g/dL (3.4-5.0) Albumin/Globulin Ratio 0.5 (1.0-1.7) Thyroid Stimulating Hormone (TSH) 2.540 uIU/mL (0.358-3.74) Laboratory Tests Test 04/25/18 10:00 04/25/18 10:35 O2 Saturation 28 % (92-99) Arterial Blood pH 7.43 (7.35-7.45) Arterial Blood pCO2 at Patient Temp 21 mmHg (35-46) Arterial Blood pO2 at Patient Temp < 42 mmHg (65-108) Arterial Blood HCO3 14 mmol/L (21-28) Arterial Blood Base Excess -10 mmol/L (-3-3) FiO2 40 White Blood Count 4.6 x10^3/uL (4.0-11.0) Red Blood Count 3.19 x10^6/uL (4.30-5.70) Hemoglobin 9.9 g/dL (13.0-17.5) Hematocrit 29.9 % (39.0-53.0) Mean Corpuscular Volume 94 fL (79-100) Mean Corpuscular Hemoglobin 31 pg (25-35) Mean Corpuscular Hemoglobin Concent 33 g/dL (31-37) Red Cell Distribution Width 16.1 % (11.5-14.5) Platelet Count 145 x10^3/uL (140-400) Sodium Level 138 mmol/L (136-145) Potassium Level 4.5 mmol/L (3.5-5.1) Chloride Level 101 mmol/L (98-107) Carbon Dioxide Level 29 mmol/L (21-32) Anion Gap 8 (6-14) Blood Urea Nitrogen 45 mg/dL (8-26) Creatinine 2.1 mg/dL (0.7-1.3) Estimated GFR (Cockcroft-Gault) 37.1 BUN/Creatinine Ratio 21 (6-20) Glucose Level 81 mg/dL (70-99) Calcium Level 8.0 mg/dL (8.5-10.1) Magnesium Level 1.9 mg/dL (1.8-2.4) Total Bilirubin 1.8 mg/dL (0.2-1.0) Aspartate Amino Transf (AST/SGOT) 108 U/L (15-37) Alanine Aminotransferase (ALT/SGPT) 161 U/L (16-63) Alkaline Phosphatase 172 U/L (46-116) Total Protein 5.3 g/dL (6.4-8.2) Albumin 1.8 g/dL (3.4-5.0) Albumin/Globulin Ratio 0.5 (1.0-1.7) Thyroid Stimulating Hormone (TSH) 2.540 uIU/mL (0.358-3.74) Microbiology 04/21/18 Blood Culture - Preliminary, Resulted NO GROWTH AFTER 4 DAYS 04/22/18 Urine Culture - Final, Complete 04/22/18 Urine Culture Result 1 (WALTER) - Final, Complete Medications Current Medications Sodium Chloride 1,000 ml @ 1,000 mls/hr Q1H IV Last administered on 04/21/18at 06:55; Start 04/21/18 at 07:00; Stop 04/21/18 at 07:59; Status DC Dextrose/Lactated Ringer's 1,000 ml @ 75 mls/hr 1X ONCE IV Last administered on 04/21/18at 08:22; Start 04/21/18 at 07:45; Stop 04/21/18 at 11:37; Status DC Allopurinol (Zyloprim) 300 mg DAILY PO ; Start 04/21/18 at 10:30 Aspirin (Children'S Aspirin) 81 mg DAILY PO ; Start 04/21/18 at 10:30 Clopidogrel Bisulfate (Plavix) 75 mg DAILY PO ; Start 04/21/18 at 10:30 Vitamin B Complex/ Vitamin C (Leanne-Bev) 1 tab DAILY PO ; Start 04/21/18 at 10: 30 Hyoscyamine (Anaspaz) 0.125 mg PRN Q6HRS PRN PO STOMACH CRAMPING; Start at 09:45 Loperamide HCl (Imodium) 2 mg PRN Q15MIN PRN PO DIARRHEA; Start 04/21/18 at 10: 00 Ondansetron HCl (Zofran Odt) 4 mg PRN Q4HRS PRN PO NAUSEA/VOMITING Last administered on 04/21/18at 12:19; Start 04/21/18 at 10:00 Zinc Sulfate (Orazinc) 220 mg DAILY PO ; Start 04/21/18 at 10:30 Darbepoetin Luciano (Aranesp) 60 mcg WEEKLYHS SQ Last administered on 04/21/18at 20 :54; Start 04/21/18 at 21:00 Amino Acids/ Glycerin/ Electrolytes 1,000 ml @ 80 mls/hr [id number] IV Last administered on 04/25/18at 03:30; Start 04/21/18 at 12:00 Midodrine (Proamatine) 2.5 mg [id number] PO Last administered on 04/25/18at 05:44; Start 04/21/18 at 13:00 Pantoprazole Sodium (PROTONIX VIAL for IV PUSH) 40 mg DAILYAC IVP Last administered on 04/24/18at 09:44; Start 04/22/18 at 11:00 Sodium Chloride 1,000 ml @ 1,000 mls/hr Q1H PRN IV hypotension; Start 04/23/18 at 09:00; Stop 04/23/18 at 14:59; Status DC Sodium Chloride 1,000 ml @ 400 mls/hr Q2H30M PRN IV PATENCY; Start 04/23/18 at 09:00; Stop 04/23/18 at 20:59; Status DC Info (PHARMACY MONITORING -- do not chart) 1 each PRN DAILY PRN MC SEE COMMENTS ; Start 04/23/18 at 10:15; Status UNV Info (PHARMACY MONITORING -- do not chart) 1 each PRN DAILY PRN MC SEE COMMENTS ; Start 04/23/18 at 10:15 Pantoprazole Sodium (PROTONIX VIAL for IV PUSH) 40 mg DAILYAC IVP ; Start at 07:30; Status UNV Sodium Chloride 1,000 ml @ 1,000 mls/hr Q1H PRN IV hypotension; Start 04/25/18 at 07:35; Stop 04/25/18 at 13:34 Sodium Chloride 1,000 ml @ 400 mls/hr Q2H30M PRN IV PATENCY; Start 04/25/18 at 07:35; Stop 04/25/18 at 19:34 Info (PHARMACY MONITORING -- do not chart) 1 each PRN DAILY PRN MC SEE COMMENTS ; Start 04/25/18 at 07:45 Info (PHARMACY MONITORING -- do not chart) 1 each PRN DAILY PRN MC SEE COMMENTS ; Start 04/25/18 at 07:45; Status UNV Digoxin (Lanoxin) 250 mcg 1X ONCE IV Last administered on 04/25/18at 11:00; Start 04/25/18 at 10:15; Stop 04/25/18 at 10:16; Status DC Active Scripts Active Reported Zinc (Zinc Gluconate) 50 Mg Tablet 50 Mg PO DAILY Zofran (Ondansetron Hcl) 4 Mg Tablet 1 Tab PO PRN Q4HRS PRN Levsin (Hyoscyamine Sulfate) 0.125 Mg Tablet 0.125 Mg PO PRN Q6HRS PRN Leanne-Bev Tablet (Folic Acid/Vitamin B Comp W-C) 0.8 Mg Tablet 0.8 Mg PO DAILY Carvedilol (Carvedilol) 3.125 Mg Tablet 3.125 Mg PO BIDWMEALS Diltiazem 24HR Cd (Diltiazem Hcl) 120 Mg Cap.er.24h 1 Cap PO DAILY Anti-Diarrheal (Loperamide Hcl) 2 Mg Capsule 2 Mg PO PRN QID PRN Sotalol (Sotalol Hcl) 80 Mg Tablet 120 Mg PO DAILY Aspirin 81 Mg Tab.chew 1 Tab PO DAILY Clopidogrel (Clopidogrel Bisulfate) 75 Mg Tablet 75 Mg PO DAILY Allopurinol 300 Mg Tablet 300 Mg PO DAILY Vitals/I & O Vital Sign - Last 24 Hours 04/24/18 04/24/18 04/24/18 04/24/18 15:00 19:00 19:40 23:01 Temp 99.0 98.4 97.7 99.0 98.4 97.7 Pulse 116 84 61 Resp 18 20 20 B/P (MAP) 103/75 (84) 112/64 (80) 87/55 (66) Pulse Ox 97 94 95 O2 Delivery Room Air Room Air Room Air Room Air 04/25/18 04/25/18 04/25/18 04/25/18 03:13 05:44 07:15 10:45 Temp 98.3 98.4 98.3 98.4 Pulse 110 110 110 Resp 20 18 B/P (MAP) 79/52 (61) 79/52 83/47 (59) Pulse Ox 92 96 O2 Delivery Room Air Room Air Room Air 04/25/18 11:00 Pulse 109 B/P (MAP) 73/52 Intake and Output 04/24/18 04/24/18 04/25/18 15:00 23:00 07:00 Intake Total 960 ml 1000 ml Output Total 0 ml Balance 960 ml 1000 ml HIRO FIGUEROA MD Apr 25, 2018 13:02
--- NOTE | 2018-04-25 13:04 | PDOC ---
SORIN NORIEGA POSTMASTER 04/25/18 1304: SURGICAL PROGRESS NOTE Subjective reports stool today no n/v no abdominal pain hungry Vital Signs Vital Signs Date Time Temp Pulse Resp B/P (MAP) Pulse Ox O2 Delivery O2 Flow Rate FiO2 04/25/18 11:00 109 73/52 04/25/18 10:45 Room Air 04/25/18 07:15 98.4 18 96 98.4 I&O Intake and Output 04/25/18 06:59 Intake Total 1960 ml Output Total 0 ml Balance 1960 ml IV Total 1960 ml Output Urine Total 0 ml # Voids 3 # Bowel Movements 2 General: Alert, Oriented X3, Cooperative, No acute distress Abdomen: Soft, Other (Nd, NTTP) Labs Laboratory Tests Test 04/23/18 17:45 04/24/18 05:22 04/25/18 10:00 04/25/18 10:35 Gastric Fluid Occult Blood Positive (NEG) White Blood Count 3.0 x10^3/uL (4.0-11.0) 4.6 x10^3/uL (4.0-11.0) Red Blood Count 3.29 x10^6/uL (4.30-5.70) 3.19 x10^6/uL (4.30-5.70) Hemoglobin 10.4 g/dL (13.0-17.5) 9.9 g/dL (13.0-17.5) Hematocrit 30.8 % (39.0-53.0) 29.9 % (39.0-53.0) Mean Corpuscular Volume 94 fL (79-100) 94 fL (79-100) Mean Corpuscular Hemoglobin 32 pg (25-35) 31 pg (25-35) Mean Corpuscular Hemoglobin Concent 34 g/dL (31-37) 33 g/dL (31-37) Red Cell Distribution Width 15.9 % (11.5-14.5) 16.1 % (11.5-14.5) Platelet Count 186 x10^3/uL (140-400) 145 x10^3/uL (140-400) Neutrophils (%) (Auto) 70 % (31-73) Lymphocytes (%) (Auto) 17 % (24-48) Monocytes (%) (Auto) 12 % (0-9) Eosinophils (%) (Auto) 1 % (0-3) Basophils (%) (Auto) 0 % (0-3) Neutrophils # (Auto) 2.1 x10^3uL (1.8-7.7) Lymphocytes # (Auto) 0.5 x10^3/uL (1.0-4.8) Monocytes # (Auto) 0.4 x10^3/uL (0.0-1.1) Eosinophils # (Auto) 0.0 x10^3/uL (0.0-0.7) Basophils # (Auto) 0.0 x10^3/uL (0.0-0.2) O2 Saturation 28 % (92-99) Arterial Blood pH 7.43 (7.35-7.45) Arterial Blood pCO2 at Patient Temp 21 mmHg (35-46) Arterial Blood pO2 at Patient Temp < 42 mmHg (65-108) Arterial Blood HCO3 14 mmol/L (21-28) Arterial Blood Base Excess -10 mmol/L (-3-3) FiO2 40 Sodium Level 138 mmol/L (136-145) Potassium Level 4.5 mmol/L (3.5-5.1) Chloride Level 101 mmol/L (98-107) Carbon Dioxide Level 29 mmol/L (21-32) Anion Gap 8 (6-14) Blood Urea Nitrogen 45 mg/dL (8-26) Creatinine 2.1 mg/dL (0.7-1.3) Estimated GFR (Cockcroft-Gault) 37.1 BUN/Creatinine Ratio 21 (6-20) Glucose Level 81 mg/dL (70-99) Calcium Level 8.0 mg/dL (8.5-10.1) Magnesium Level 1.9 mg/dL (1.8-2.4) Total Bilirubin 1.8 mg/dL (0.2-1.0) Aspartate Amino Transf (AST/SGOT) 108 U/L (15-37) Alanine Aminotransferase (ALT/SGPT) 161 U/L (16-63) Alkaline Phosphatase 172 U/L (46-116) Total Protein 5.3 g/dL (6.4-8.2) Albumin 1.8 g/dL (3.4-5.0) Albumin/Globulin Ratio 0.5 (1.0-1.7) Thyroid Stimulating Hormone (TSH) 2.540 uIU/mL (0.358-3.74) Laboratory Tests Test 04/25/18 10:00 04/25/18 10:35 O2 Saturation 28 % (92-99) Arterial Blood pH 7.43 (7.35-7.45) Arterial Blood pCO2 at Patient Temp 21 mmHg (35-46) Arterial Blood pO2 at Patient Temp < 42 mmHg (65-108) Arterial Blood HCO3 14 mmol/L (21-28) Arterial Blood Base Excess -10 mmol/L (-3-3) FiO2 40 White Blood Count 4.6 x10^3/uL (4.0-11.0) Red Blood Count 3.19 x10^6/uL (4.30-5.70) Hemoglobin 9.9 g/dL (13.0-17.5) Hematocrit 29.9 % (39.0-53.0) Mean Corpuscular Volume 94 fL (79-100) Mean Corpuscular Hemoglobin 31 pg (25-35) Mean Corpuscular Hemoglobin Concent 33 g/dL (31-37) Red Cell Distribution Width 16.1 % (11.5-14.5) Platelet Count 145 x10^3/uL (140-400) Sodium Level 138 mmol/L (136-145) Potassium Level 4.5 mmol/L (3.5-5.1) Chloride Level 101 mmol/L (98-107) Carbon Dioxide Level 29 mmol/L (21-32) Anion Gap 8 (6-14) Blood Urea Nitrogen 45 mg/dL (8-26) Creatinine 2.1 mg/dL (0.7-1.3) Estimated GFR (Cockcroft-Gault) 37.1 BUN/Creatinine Ratio 21 (6-20) Glucose Level 81 mg/dL (70-99) Calcium Level 8.0 mg/dL (8.5-10.1) Magnesium Level 1.9 mg/dL (1.8-2.4) Total Bilirubin 1.8 mg/dL (0.2-1.0) Aspartate Amino Transf (AST/SGOT) 108 U/L (15-37) Alanine Aminotransferase (ALT/SGPT) 161 U/L (16-63) Alkaline Phosphatase 172 U/L (46-116) Total Protein 5.3 g/dL (6.4-8.2) Albumin 1.8 g/dL (3.4-5.0) Albumin/Globulin Ratio 0.5 (1.0-1.7) Thyroid Stimulating Hormone (TSH) 2.540 uIU/mL (0.358-3.74) Problem List Problems Medical Problems: (1) CKD (chronic kidney disease), stage III Status: Acute (2) Hypotension Status: Acute Assessment/Plan no issues with NG out, + stools today noted hypotension, SVT-cardiology following xray pending KEV KHALIL MD 04/26/18 0749: SURGICAL PROGRESS NOTE Assessment/Plan Patient seen and examined abdomen is soft nondistended tolerated removal of NG tube no nausea vomiting passing stools. Agree with Clementine assessment and plan no further surgical recommendations advanced diet as tolerated SORIN NORIEGA APRN Apr 25, 2018 13:04 KEV KHALIL MD Apr 26, 2018 07:49
--- NOTE | 2018-04-25 14:51 | NUR ---
SW following pt. Insurance has approved SNU to [facility]. Discussed with RN. Pt not ready today but could possibly dc tomorrow. Auth is good until tomorrow. Will continue to follow.
[2018-04-25 15:00] VITALS: BP 102/65
--- NOTE | 2018-04-25 15:07 | RAD ---
Single view of the abdomen 04/25/2018 INDICATION: Small bowel obstruction COMPARISON STUDY: Abdominal radiograph, yesterday Discussion: Ongoing gaseous distention of bowel in the upper abdomen persists. No gross pneumoperitoneum is identified, though exam is significantly limited for the purpose. The left upper quadrant as described on yesterday's film is not evaluated on this study. No acute osseous changes are seen. Surgical changes noted in the mid abdomen. IMPRESSION: 1. Ongoing bowel dilatation the upper abdomen suggesting ongoing obstruction 2. If there is continued clinical concern for pneumoperitoneum, CT offers more sensitive evaluation Electronically signed by: Antonio Bowling MD (04/25/2018 3:04 PM) [id number]
[2018-04-25] MEDS: ASPIRIN CHEWABLE 81 MG TABLET. PO SCH (17:02)
[2018-04-25] MEDS: ALLOPURINOL 300 MG TABLET. PO SCH (17:02)
[2018-04-25] MEDS: CLOPIDOGREL BISULFATE 75 MG TABLET PO SCH (17:02)
[2018-04-25] MEDS: PANTOPRAZOLE IV PUSH 40 MG VIAL. IVP SCH (17:03)
[2018-04-25] MEDS: FOLIC/VIT B COMP W-C (RENAL) TABLET. PO SCH (17:03)
[2018-04-25] MEDS: ZINC SULFATE 220 MG CAPSULE. PO SCH (17:03)
--- NOTE | 2018-04-25 17:30 | NUR ---
Pt NPO upon transfer from 5th floor. Meds held due to NPO status. Dr. Casper in to see pt. Pt changed to clear liquids. 1300 dose Midodrine given at 1703. 1800 dose of Midodrine held.
[2018-04-25 19:47] VITALS: BP 107/67
[2018-04-25 23:10] VITALS: BP 94/62
[2018-04-26 02:46] VITALS: BP 89/59
[2018-04-26 06:54] VITALS: BP 112/65
[2018-04-26] MEDS: PANTOPRAZOLE IV PUSH 40 MG VIAL. IVP SCH (07:30)
--- NOTE | 2018-04-26 08:50 | PDOC ---
PROGRESS NOTES Subjective Subjective No new complaints. Objective Objective Vital Signs Date Time Temp Pulse Resp B/P (MAP) Pulse Ox O2 Delivery O2 Flow Rate FiO2 04/26/18 06:54 98.1 90 16 112/65 (81) 97 Nasal Cannula 5.0 98.1 Intake and Output 04/26/18 07:00 Intake Total 932.9 ml Balance 932.9 ml Intake Oral 480 ml IV Total 452.9 ml # Bowel Movements 1 Physical Exam Physical Exam H eis alert,supine in bed and vital signs are stable and he is receiving IV fluids as he had problems with hypotension yesterday. Assessment Assessment Problems Medical Problems: (1) CKD (chronic kidney disease), stage III Status: Acute (2) Hypotension Status: Acute Plan Plan of Care To get him up as tolerated and to SNF when medically stable to improve his physical endurance. Comment Review of Relevant I have reviewed the following items demar (where applicable) has been applied. Labs Laboratory Tests Test 04/25/18 10:00 04/25/18 10:35 04/26/18 03:30 O2 Saturation 28 % (92-99) Arterial Blood pH 7.43 (7.35-7.45) Arterial Blood pCO2 at Patient Temp 21 mmHg (35-46) Arterial Blood pO2 at Patient Temp < 42 mmHg (65-108) Arterial Blood HCO3 14 mmol/L (21-28) Arterial Blood Base Excess -10 mmol/L (-3-3) FiO2 40 White Blood Count 4.6 x10^3/uL (4.0-11.0) 3.5 x10^3/uL (4.0-11.0) Red Blood Count 3.19 x10^6/uL (4.30-5.70) 2.56 x10^6/uL (4.30-5.70) Hemoglobin 9.9 g/dL (13.0-17.5) 7.9 g/dL (13.0-17.5) Hematocrit 29.9 % (39.0-53.0) 24.4 % (39.0-53.0) Mean Corpuscular Volume 94 fL (79-100) 96 fL (79-100) Mean Corpuscular Hemoglobin 31 pg (25-35) 31 pg (25-35) Mean Corpuscular Hemoglobin Concent 33 g/dL (31-37) 32 g/dL (31-37) Red Cell Distribution Width 16.1 % (11.5-14.5) 16.9 % (11.5-14.5) Platelet Count 145 x10^3/uL (140-400) 106 x10^3/uL (140-400) Sodium Level 138 mmol/L (136-145) Potassium Level 4.5 mmol/L (3.5-5.1) Chloride Level 101 mmol/L (98-107) Carbon Dioxide Level 29 mmol/L (21-32) Anion Gap 8 (6-14) Blood Urea Nitrogen 45 mg/dL (8-26) Creatinine 2.1 mg/dL (0.7-1.3) Estimated GFR (Cockcroft-Gault) 37.1 BUN/Creatinine Ratio 21 (6-20) Glucose Level 81 mg/dL (70-99) Calcium Level 8.0 mg/dL (8.5-10.1) Magnesium Level 1.9 mg/dL (1.8-2.4) Total Bilirubin 1.8 mg/dL (0.2-1.0) Aspartate Amino Transf (AST/SGOT) 108 U/L (15-37) Alanine Aminotransferase (ALT/SGPT) 161 U/L (16-63) Alkaline Phosphatase 172 U/L (46-116) Total Protein 5.3 g/dL (6.4-8.2) Albumin 1.8 g/dL (3.4-5.0) Albumin/Globulin Ratio 0.5 (1.0-1.7) Thyroid Stimulating Hormone (TSH) 2.540 uIU/mL (0.358-3.74) Neutrophils (%) (Auto) 87 % (31-73) Lymphocytes (%) (Auto) 6 % (24-48) Monocytes (%) (Auto) 6 % (0-9) Eosinophils (%) (Auto) 1 % (0-3) Basophils (%) (Auto) 0 % (0-3) Neutrophils # (Auto) 3.1 x10^3uL (1.8-7.7) Lymphocytes # (Auto) 0.2 x10^3/uL (1.0-4.8) Monocytes # (Auto) 0.2 x10^3/uL (0.0-1.1) Eosinophils # (Auto) 0.0 x10^3/uL (0.0-0.7) Basophils # (Auto) 0.0 x10^3/uL (0.0-0.2) Segmented Neutrophils % 82 % (35-66) Band Neutrophils % 7 % (0-9) Lymphocytes % 6 % (24-48) Monocytes % 4 % (0-10) Eosinophils % 1 % (0-5) Platelet Estimate Decreased (ADEQUATE) Laboratory Tests Test 04/25/18 10:00 04/25/18 10:35 04/26/18 03:30 O2 Saturation 28 % (92-99) Arterial Blood pH 7.43 (7.35-7.45) Arterial Blood pCO2 at Patient Temp 21 mmHg (35-46) Arterial Blood pO2 at Patient Temp < 42 mmHg (65-108) Arterial Blood HCO3 14 mmol/L (21-28) Arterial Blood Base Excess -10 mmol/L (-3-3) FiO2 40 White Blood Count 4.6 x10^3/uL (4.0-11.0) 3.5 x10^3/uL (4.0-11.0) Red Blood Count 3.19 x10^6/uL (4.30-5.70) 2.56 x10^6/uL (4.30-5.70) Hemoglobin 9.9 g/dL (13.0-17.5) 7.9 g/dL (13.0-17.5) Hematocrit 29.9 % (39.0-53.0) 24.4 % (39.0-53.0) Mean Corpuscular Volume 94 fL (79-100) 96 fL (79-100) Mean Corpuscular Hemoglobin 31 pg (25-35) 31 pg (25-35) Mean Corpuscular Hemoglobin Concent 33 g/dL (31-37) 32 g/dL (31-37) Red Cell Distribution Width 16.1 % (11.5-14.5) 16.9 % (11.5-14.5) Platelet Count 145 x10^3/uL (140-400) 106 x10^3/uL (140-400) Sodium Level 138 mmol/L (136-145) Potassium Level 4.5 mmol/L (3.5-5.1) Chloride Level 101 mmol/L (98-107) Carbon Dioxide Level 29 mmol/L (21-32) Anion Gap 8 (6-14) Blood Urea Nitrogen 45 mg/dL (8-26) Creatinine 2.1 mg/dL (0.7-1.3) Estimated GFR (Cockcroft-Gault) 37.1 BUN/Creatinine Ratio 21 (6-20) Glucose Level 81 mg/dL (70-99) Calcium Level 8.0 mg/dL (8.5-10.1) Magnesium Level 1.9 mg/dL (1.8-2.4) Total Bilirubin 1.8 mg/dL (0.2-1.0) Aspartate Amino Transf (AST/SGOT) 108 U/L (15-37) Alanine Aminotransferase (ALT/SGPT) 161 U/L (16-63) Alkaline Phosphatase 172 U/L (46-116) Total Protein 5.3 g/dL (6.4-8.2) Albumin 1.8 g/dL (3.4-5.0) Albumin/Globulin Ratio 0.5 (1.0-1.7) Thyroid Stimulating Hormone (TSH) 2.540 uIU/mL (0.358-3.74) Neutrophils (%) (Auto) 87 % (31-73) Lymphocytes (%) (Auto) 6 % (24-48) Monocytes (%) (Auto) 6 % (0-9) Eosinophils (%) (Auto) 1 % (0-3) Basophils (%) (Auto) 0 % (0-3) Neutrophils # (Auto) 3.1 x10^3uL (1.8-7.7) Lymphocytes # (Auto) 0.2 x10^3/uL (1.0-4.8) Monocytes # (Auto) 0.2 x10^3/uL (0.0-1.1) Eosinophils # (Auto) 0.0 x10^3/uL (0.0-0.7) Basophils # (Auto) 0.0 x10^3/uL (0.0-0.2) Segmented Neutrophils % 82 % (35-66) Band Neutrophils % 7 % (0-9) Lymphocytes % 6 % (24-48) Monocytes % 4 % (0-10) Eosinophils % 1 % (0-5) Platelet Estimate Decreased (ADEQUATE) Microbiology 04/21/18 Blood Culture - Final, Complete NO GROWTH AFTER 5 DAYS 04/22/18 Urine Culture - Final, Complete 04/22/18 Urine Culture Result 1 (WALTER) - Final, Complete Medications Current Medications Sodium Chloride 1,000 ml @ 1,000 mls/hr Q1H IV Last administered on 04/21/18at 06:55; Start 04/21/18 at 07:00; Stop 04/21/18 at 07:59; Status DC Dextrose/Lactated Ringer's 1,000 ml @ 75 mls/hr 1X ONCE IV Last administered on 04/21/18at 08:22; Start 04/21/18 at 07:45; Stop 04/21/18 at 11:37; Status DC Allopurinol (Zyloprim) 300 mg DAILY PO Last administered on 04/25/18at 17:02; Start 04/21/18 at 10:30 Aspirin (Children'S Aspirin) 81 mg DAILY PO Last administered on 04/25/18at 17: 02; Start 04/21/18 at 10:30 Clopidogrel Bisulfate (Plavix) 75 mg DAILY PO Last administered on 04/25/18at 17 :02; Start 04/21/18 at 10:30 Vitamin B Complex/ Vitamin C (Leanne-Bev) 1 tab DAILY PO Last administered on at 17:03; Start 04/21/18 at 10:30 Hyoscyamine (Anaspaz) 0.125 mg PRN Q6HRS PRN PO STOMACH CRAMPING; Start at 09:45 Loperamide HCl (Imodium) 2 mg PRN Q15MIN PRN PO DIARRHEA; Start 04/21/18 at 10: 00 Ondansetron HCl (Zofran Odt) 4 mg PRN Q4HRS PRN PO NAUSEA/VOMITING Last administered on 04/21/18at 12:19; Start 04/21/18 at 10:00 Zinc Sulfate (Orazinc) 220 mg DAILY PO Last administered on 04/25/18at 17:03; Start 04/21/18 at 10:30 Darbepoetin Luciano (Aranesp) 60 mcg WEEKLYHS SQ Last administered on 04/21/18at 20 :54; Start 04/21/18 at 21:00 Amino Acids/ Glycerin/ Electrolytes 1,000 ml @ 80 mls/hr [id number] IV Last administered on 04/25/18at 20:28; Start 04/21/18 at 12:00 Midodrine (Proamatine) 2.5 mg [id number] PO Last administered on 04/25/18at 17:03; Start 04/21/18 at 13:00 Pantoprazole Sodium (PROTONIX VIAL for IV PUSH) 40 mg DAILYAC IVP Last administered on 04/25/18at 17:03; Start 04/22/18 at 11:00 Sodium Chloride 1,000 ml @ 1,000 mls/hr Q1H PRN IV hypotension; Start 04/23/18 at 09:00; Stop 04/23/18 at 14:59; Status DC Sodium Chloride 1,000 ml @ 400 mls/hr Q2H30M PRN IV PATENCY; Start 04/23/18 at 09:00; Stop 04/23/18 at 20:59; Status DC Info (PHARMACY MONITORING -- do not chart) 1 each PRN DAILY PRN MC SEE COMMENTS ; Start 04/23/18 at 10:15; Status UNV Info (PHARMACY MONITORING -- do not chart) 1 each PRN DAILY PRN MC SEE COMMENTS ; Start 04/23/18 at 10:15 Pantoprazole Sodium (PROTONIX VIAL for IV PUSH) 40 mg DAILYAC IVP ; Start at 07:30; Status UNV Sodium Chloride 1,000 ml @ 1,000 mls/hr Q1H PRN IV hypotension; Start 04/25/18 at 07:35; Stop 04/25/18 at 13:34; Status DC Sodium Chloride 1,000 ml @ 400 mls/hr Q2H30M PRN IV PATENCY; Start 04/25/18 at 07:35; Stop 04/25/18 at 19:34; Status DC Info (PHARMACY MONITORING -- do not chart) 1 each PRN DAILY PRN MC SEE COMMENTS ; Start 04/25/18 at 07:45 Info (PHARMACY MONITORING -- do not chart) 1 each PRN DAILY PRN MC SEE COMMENTS ; Start 04/25/18 at 07:45; Status UNV Digoxin (Lanoxin) 250 mcg 1X ONCE IV Last administered on 04/25/18at 11:00; Start 04/25/18 at 10:15; Stop 04/25/18 at 10:16; Status DC Active Scripts Active Reported Zinc (Zinc Gluconate) 50 Mg Tablet 50 Mg PO DAILY Zofran (Ondansetron Hcl) 4 Mg Tablet 1 Tab PO PRN Q4HRS PRN Levsin (Hyoscyamine Sulfate) 0.125 Mg Tablet 0.125 Mg PO PRN Q6HRS PRN Leanne-Bev Tablet (Folic Acid/Vitamin B Comp W-C) 0.8 Mg Tablet 0.8 Mg PO DAILY Carvedilol (Carvedilol) 3.125 Mg Tablet 3.125 Mg PO BIDWMEALS Diltiazem 24HR Cd (Diltiazem Hcl) 120 Mg Cap.er.24h 1 Cap PO DAILY Anti-Diarrheal (Loperamide Hcl) 2 Mg Capsule 2 Mg PO PRN QID PRN Sotalol (Sotalol Hcl) 80 Mg Tablet 120 Mg PO DAILY Aspirin 81 Mg Tab.chew 1 Tab PO DAILY Clopidogrel (Clopidogrel Bisulfate) 75 Mg Tablet 75 Mg PO DAILY Allopurinol 300 Mg Tablet 300 Mg PO DAILY Vitals/I & O Vital Sign - Last 24 Hours 04/25/18 04/25/18 04/25/18 04/25/18 10:45 11:00 11:00 15:00 Temp 97.9 97.8 97.9 97.8 Pulse 109 116 82 Resp 18 16 B/P (MAP) 73/52 70/50 (57) 102/65 (77) Pulse Ox 97 96 O2 Delivery Room Air Nasal Cannula Nasal Cannula O2 Flow Rate 5.0 5.0 04/25/18 04/25/18 04/25/18 04/25/18 17:03 19:47 20:00 23:10 Temp 97.9 98.4 97.9 98.4 Pulse 90 92 Resp 16 16 B/P (MAP) 104/61 107/67 (80) 94/62 (73) Pulse Ox 100 99 O2 Delivery Nasal Cannula Nasal Cannula O2 Flow Rate 5.0 5.0 5.0 04/26/18 04/26/18 02:46 06:54 Temp 98.4 98.1 98.4 98.1 Pulse 88 90 Resp 18 16 B/P (MAP) 89/59 (69) 112/65 (81) Pulse Ox 97 97 O2 Delivery Nasal Cannula Nasal Cannula O2 Flow Rate 5.0 5.0 Intake and Output 04/25/18 04/25/18 04/26/18 15:00 23:00 07:00 Intake Total 0 ml 632.9 ml 300 ml Balance 0 ml 632.9 ml 300 ml WARD RANDOLPH MD Apr 26, 2018 08:50
[2018-04-26] MEDS: ASPIRIN CHEWABLE 81 MG TABLET. PO SCH (08:59)
[2018-04-26] MEDS: FOLIC/VIT B COMP W-C (RENAL) TABLET. PO SCH (08:59)
[2018-04-26] MEDS: ALLOPURINOL 300 MG TABLET. PO SCH (08:59)
[2018-04-26] MEDS: ZINC SULFATE 220 MG CAPSULE. PO SCH (08:59)
[2018-04-26] MEDS: MIDODRINE 2.5 MG TABLET PO SCH ×2 (08:59→13:03)
[2018-04-26] MEDS: CLOPIDOGREL BISULFATE 75 MG TABLET PO SCH (09:00)
[2018-04-26] MEDS ORDERED: MIDO2.5T PO (09:19)
[2018-04-26] MEDS ORDERED: DARBEPOETIN ALFA IN POLYSORBAT SQ (09:19)
--- NOTE | 2018-04-26 09:20 | SNU/HH DC ---
DISCHARGE ORDERS DISCHARGE INFORMATION: FINAL DIAGNOSIS Problems Medical Problems: (1) CKD (chronic kidney disease), stage III Status: Acute (2) Hypotension Status: Acute CONDITION ON DISCHARGE: Stable CODE STATUS: Code Status: Full LONG-TERM: SNF STAY <30 DAYS: Yes POST DISCHARGE ORDERS: ACTIVITY ORDERS: Activity as tolerated WEIGHT BEARING STATUS: As tolerated BATHING ORDERS: Shower-keep dressing dry WOUND/INCISION CARE: Ice to area for comfort, Keep wound/cast CDI, Do not change dressing CHECKS AFTER DISCHARGE: CHECKS AFTER DISCHARGE: Check blood press - daily, Check your Temp as needed TREATMENT/EQUIPMENT ORDERS: ADAPTIVE EQUIPMENT NEEDED: None Physical Therapy For: Evalulation/Treatment Occupational Therapy For: Evaluation/Treatment DISCHARGE MEDICATIONS: Home Meds Active Scripts [Darbepoetin Luciano] 60 MCG/0.3 ML DISP.SYRIN No Conflict Check, 60 MCG SQ WEEKLYHS for anemia for 30 Days, #4 DIS.SYR Prov:IHRO FIGUEROA MD 04/26/18 Midodrine Hcl (MIDODRINE HCL) 2.5 Mg Tablet, 2.5 MG PO [id number] for low bp for 30 Days, #90 TAB Prov:HIRO FIGUEROA MD 04/26/18 Reported Medications Zinc Gluconate (ZINC) 50 Mg Tablet, 50 MG PO DAILY for PX, TAB 04/21/18 Ondansetron Hcl (ZOFRAN) 4 Mg Tablet, 1 TAB PO PRN Q4HRS PRN for NAUSEA, #20 TAB 04/21/18 Hyoscyamine Sulfate (LEVSIN) 0.125 Mg Tablet, 0.125 MG PO PRN Q6HRS PRN for cramps, TAB 04/21/18 Folic Acid/Vitamin B Comp W-C (ELBA-GARRET TABLET) 0.8 Mg Tablet, 0.8 MG PO DAILY for ESRD, TAB 04/21/18 Loperamide Hcl (ANTI-DIARRHEAL) 2 Mg Capsule, 2 MG PO PRN QID PRN for DIARRHEA, CAP 04/21/18 Aspirin (ASPIRIN) 81 Mg Tab.chew, 1 TAB PO DAILY, #30 TAB 3 Refills 06/13/17 Clopidogrel Bisulfate (CLOPIDOGREL) 75 Mg Tablet, 75 MG PO DAILY for TO PREVENT BLOOD CLOTS, #30 TAB 0 Refills 10/13/16 Allopurinol (ALLOPURINOL) 300 Mg Tablet, 300 MG PO DAILY, TAB 08/20/13 Discontinued Reported Medications Carvedilol (CARVEDILOL ) 3.125 Mg Tablet, 3.125 MG PO BIDWMEALS for CARDIAC, TAB 04/21/18 Diltiazem Hcl (DILTIAZEM 24HR CD) 120 Mg Cap.er.24h, 1 CAP PO DAILY for htn, # 90 CAP 1 Refill 04/21/18 Sotalol Hcl (SOTALOL) 80 Mg Tablet, 120 MG PO DAILY for htn, TAB 06/13/17 HIRO FIGUEROA MD Apr 26, 2018 09:20
[2018-04-26 09:43] LABS: CALCIUM 8.1 mg/dL (8.5-10.1); CREATININE 2.8 mg/dL (0.7-1.3); GFR 26.7; POTASSIUM 4.8 mmol/L (3.5-5.1)
--- NOTE | 2018-04-26 10:00 | NUR ---
SS following up with discharge planning. Discharge orders received for [facility]. SS phoned and faxed discharge orders to [facility], ; fax [phone]. Pt will discharge today and go to [facility] at 1400 via [facility] transport. Pt, pt's RN, and pt's spouse notified.
[2018-04-26 10:03] LABS: BASO % 0 % (0-3); EOS % 0 % (0-3); HEMATOCRIT 29.4 % (39.0-53.0); HEMOGLOBIN 9.7 g/dL (13.0-17.5); LYMPH # 0.2 x10^3/uL (1.0-4.8); LYMPH % 4 % (24-48); MEAN CORPUSCULAR HEMOGLOBIN 31 pg (25-35); MEAN CORPUSCULAR HGB CONC 33 g/dL (31-37); MEAN CORPUSCULAR VOLUME 94 fL (79-100); MONO # 0.3 x10^3/uL (0.0-1.1); MONO % 7 % (0-9); NEUT # 3.4 x10^3uL (1.8-7.7); NEUT % 89 % (31-73); PLATELET COUNT 130 x10^3/uL (140-400); RED BLOOD COUNT 3.13 x10^6/uL (4.30-5.70); WHITE BLOOD COUNT 3.9 x10^3/uL (4.0-11.0)
[2018-04-26] MEDS ORDERED: PANTOPRAZOLE 40 MG TABLET.DR. PO SCH (11:00)
[2018-04-26 11:15] VITALS: BP 103/70
--- NOTE | 2018-04-26 11:47 | PDOC ---
Subjective: Subjective: Working w/ therapy - had an abd cramp but then burped and felt better. Objective: Objective: Reviewed w/ RN - discharging to [facility] today. Stooled overnight, tolerated clears yesterday and regular breakfast this morning. Vital Signs: Vital Signs Date Time Temp Pulse Resp B/P (MAP) Pulse Ox O2 Delivery O2 Flow Rate FiO2 04/26/18 08:59 90 112/65 04/26/18 08:00 Nasal Cannula 5.0 04/26/18 06:54 98.1 16 97 98.1 Labs: Laboratory Tests Test 04/26/18 08:48 White Blood Count 3.9 x10^3/uL Red Blood Count 3.13 x10^6/uL Hemoglobin 9.7 g/dL Hematocrit 29.4 % Mean Corpuscular Volume 94 fL Mean Corpuscular Hemoglobin 31 pg Mean Corpuscular Hemoglobin Concent 33 g/dL Red Cell Distribution Width 16.0 % Platelet Count 130 x10^3/uL Neutrophils (%) (Auto) 89 % Lymphocytes (%) (Auto) 4 % Monocytes (%) (Auto) 7 % Eosinophils (%) (Auto) 0 % Basophils (%) (Auto) 0 % Neutrophils # (Auto) 3.4 x10^3uL Lymphocytes # (Auto) 0.2 x10^3/uL Monocytes # (Auto) 0.3 x10^3/uL Eosinophils # (Auto) 0.0 x10^3/uL Basophils # (Auto) 0.0 x10^3/uL Platelet Estimate Pending Sodium Level 136 mmol/L Potassium Level 4.8 mmol/L Chloride Level 100 mmol/L Carbon Dioxide Level 27 mmol/L Anion Gap 9 Blood Urea Nitrogen 56 mg/dL Creatinine 2.8 mg/dL Estimated GFR (Cockcroft-Gault) 26.7 Glucose Level 112 mg/dL Calcium Level 8.1 mg/dL PE: GEN: NAD - on edge of bed w/ therapy and walker LUNGS: NC ABD: distended, non-tender NEURO/PSYCH: A & O 3 A/P: Chronic partial SBO Elevated LFTs (fluctuating), hepatic steatosis, s/p lisa w/ normal CBD ESRD, ACD SVT s/p cardioversion -- Plans to [facility]SAY Apr 26, 2018 11:47
[2018-04-26 12:20] LABS: % BANDS 9 % (0-9); % EOS 1 % (0-5); % LYMPHS 6 % (24-48); % MONOS 4 % (0-10); % SEGS 80 % (35-66); PLT ESTIMATE ADEQUATE (ADEQUATE)
[2018-04-26 13:03] VITALS: BP 103/70
--- NOTE | 2018-04-26 14:03 | DS ---
DATE OF DISCHARGE: 04/26/2018 ADMITTING DIAGNOSIS: Small-bowel obstruction. DISMISSAL DIAGNOSES: 1. 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 2. End-stage renal disease. 3. Severe protein malnutrition. 4. Chronic diarrhea with irritable bowel syndrome. 5. Coronary artery disease. 6. Hypertension. 7. Hyperlipidemia. 8. Gouty arthritis. 9. Venous stasis, lower extremities. 10. Hyperparathyroidism. 11. Chronic atrial fibrillation. 12. Previous cerebrovascular accidents. HISTORY OF PRESENT ILLNESS AND HOSPITAL COURSE: This patient is a 77-year-old -[place] male who has longstanding renal failure and recurrent small bowel obstructions due to multiple bowel surgeries with findings on x-ray chronically of bowel obstruction, but with improving bowel sounds and evidence of GI function despite x-ray findings. The patient also has had the past medical history of chronic hypotension. The patient was admitted for IV fluid and G-tube suctioning and PT and OT modalities. He improved to the point where try without NG was attempted despite x-ray's findings consistent with small-bowel obstruction. The patient did have positive bowel sounds and was passing stools and was started on diet and tolerated these well. The patient did struggle with low blood pressures, but this improved with treatment of IV fluids and midodrine. The patient also did have episodes of SVT, which improved with dialysis. The patient was back to baseline, but continued to be markedly debilitated, so plans to transfer the patient to intermediate for care were made. DISCHARGE MEDICATIONS: The patient was discharged on the following medications: Midodrine 2.5 mg t.i.d., allopurinol 300 mg daily, aspirin 81 mg daily, Plavix 75 mg daily, Leanne-Bev 0.8 mg daily, Levsin 0.125 q.6. Lomotil 2 mg q.i.d. p.r.n., Zofran 4 mg daily, zinc 50 mg daily. Carvedilol, diltiazem, and sotalol were held due to low blood pressures. The patient will continue dialysis as per the routine. HIRO FIGUEROA MD DR: NELI/jennifer JOB#: [id number] / [id number]
--- NOTE | 2018-04-26 14:18 | PDOC ---
CARDIO Progress Notes Date and Time Date of Service 04/26/18 Time of Evaluation 1210 Subjective Subjective: No Chest Pain, No shortness of breath, No Palpitations Vitals Vitals Vital Signs Date Time Temp Pulse Resp B/P (MAP) Pulse Ox O2 Delivery O2 Flow Rate FiO2 04/26/18 13:03 85 103/70 04/26/18 11:15 97.5 18 97 Nasal Cannula 5.0 97.5 Weight Weight [ ] Input and Output Intake and Output Intake and Output 04/26/18 07:00 Intake Total 932.9 ml Balance 932.9 ml Intake Oral 480 ml IV Total 452.9 ml # Bowel Movements 1 Laboratory Labs Laboratory Tests Test 04/26/18 08:48 White Blood Count 3.9 x10^3/uL (4.0-11.0) Red Blood Count 3.13 x10^6/uL (4.30-5.70) Hemoglobin 9.7 g/dL (13.0-17.5) Hematocrit 29.4 % (39.0-53.0) Mean Corpuscular Volume 94 fL (79-100) Mean Corpuscular Hemoglobin 31 pg (25-35) Mean Corpuscular Hemoglobin Concent 33 g/dL (31-37) Red Cell Distribution Width 16.0 % (11.5-14.5) Platelet Count 130 x10^3/uL (140-400) Neutrophils (%) (Auto) 89 % (31-73) Lymphocytes (%) (Auto) 4 % (24-48) Monocytes (%) (Auto) 7 % (0-9) Eosinophils (%) (Auto) 0 % (0-3) Basophils (%) (Auto) 0 % (0-3) Neutrophils # (Auto) 3.4 x10^3uL (1.8-7.7) Lymphocytes # (Auto) 0.2 x10^3/uL (1.0-4.8) Monocytes # (Auto) 0.3 x10^3/uL (0.0-1.1) Eosinophils # (Auto) 0.0 x10^3/uL (0.0-0.7) Basophils # (Auto) 0.0 x10^3/uL (0.0-0.2) Segmented Neutrophils % 80 % (35-66) Band Neutrophils % 9 % (0-9) Lymphocytes % 6 % (24-48) Monocytes % 4 % (0-10) Eosinophils % 1 % (0-5) Platelet Estimate Adequate (ADEQUATE) Sodium Level 136 mmol/L (136-145) Potassium Level 4.8 mmol/L (3.5-5.1) Chloride Level 100 mmol/L (98-107) Carbon Dioxide Level 27 mmol/L (21-32) Anion Gap 9 (6-14) Blood Urea Nitrogen 56 mg/dL (8-26) Creatinine 2.8 mg/dL (0.7-1.3) Estimated GFR (Cockcroft-Gault) 26.7 Glucose Level 112 mg/dL (70-99) Calcium Level 8.1 mg/dL (8.5-10.1) Microbiology Micro Microbiology 04/21/18 Blood Culture - Final, Complete NO GROWTH AFTER 5 DAYS 04/22/18 Urine Culture - Final, Complete 04/22/18 Urine Culture Result 1 (WALTER) - Final, Complete Physical Exam HEENT: Neck Supple W Full Motion Chest: Symmetric LUNGS: Clear to Auscultation Heart: S1S2, RRR (SR) Abdomen: Soft N/T Extremities: No Calf Tenderness Neurology: alert, oriented, follow commands Assessment Assessment 1. SVT; went into SVT with rate 170's while on HD; SBP 40's. reportedly asymptomatic. s/p successful cardioversion. Has maintained NSR. Echo showed LVEF of 55-60%. 2. Hypotension; on Midodrine. 3. CAD s/p PCI/stent. Stable, CP free. EKG noted with diffuse ST depression while on HD. Improved following HD. MPI 01/2018 with no reversible ischemia or infarct. 4. ESRD on HS 5. PAFIB; maintaining SR/ST. Previously on Sotalol. QTc 476- held due to hypotension. ASA for stroke prevention 6. SBO, chronic SONDRA CARCAMO APRN Apr 26, 2018 14:18
--- NOTE | 2018-04-26 14:53 | NUR ---
Discharge Note: ROSALIA MARTI Discharge instructions and discharge home medications reviewed with Other facility and a copy given. All questions have been answered and understanding verbalized. Patient discharged to Assisted Facility with Transportation via Wheelchair
[2018-05-22] MEDS ORDERED: AMIO200T4 PO (13:01)
[2018-07-09] MEDS ORDERED: FLUD0.1T PO (10:58)
[2018-07-12] MEDS ORDERED: AMOX1TAB61 PO (09:01)
[2018-07-12] MEDS ORDERED: Pantoprazole PO (09:01)
== END 2018-04-26 14:58 | DRG 388 ==
LOC: ER 05:58 → 5 NORTH 07:30 → 2 NORTH 04-25 10:27
PROVIDERS: ADMIT Family Medicine; ATTEND Family Medicine
PROC: 0D9670Z Drainage of Stomach with Drainage Device, Via Natural or Artificial Opening (ICD-10-PCS; principal; 2018-04-21)
PROC: 5A1D70Z Performance of Urinary Filtration, Intermittent, Less than 6 Hours Per Day (ICD-10-PCS; 2018-04-23)
PROC: 5A1D70Z Performance of Urinary Filtration, Intermittent, Less than 6 Hours Per Day (ICD-10-PCS; 2018-04-25)
PROC: 5A2204Z Restoration of Cardiac Rhythm, Single (ICD-10-PCS; 2018-04-25)
DX: K56.600 Partial intestinal obstruction, unspecified as to cause (principal); E43 Unspecified severe protein-calorie malnutrition; N18.6 End stage renal disease; I12.0 Hypertensive chronic kidney disease with stage 5 chronic kidney disease or end stage renal disease; I47.1 Supraventricular tachycardia; I95.89 Other hypotension; I25.10 Atherosclerotic heart disease of native coronary artery without angina pectoris; M10.9 Gout, unspecified; Z96.641 Presence of right artificial hip joint; Z96.653 Presence of artificial knee joint, bilateral; I48.2 Chronic atrial fibrillation; K58.0 Irritable bowel syndrome with diarrhea; E78.5 Hyperlipidemia, unspecified; I87.2 Venous insufficiency (chronic) (peripheral); N13.5 Crossing vessel and stricture of ureter without hydronephrosis; E83.42 Hypomagnesemia; D72.819 Decreased white blood cell count, unspecified; D64.9 Anemia, unspecified; M19.90 Unspecified osteoarthritis, unspecified site; E11.22 Type 2 diabetes mellitus with diabetic chronic kidney disease; E11.42 Type 2 diabetes mellitus with diabetic polyneuropathy; M19.022 Primary osteoarthritis, left elbow; M19.019 Primary osteoarthritis, unspecified shoulder; I87.8 Other specified disorders of veins; I48.0 Paroxysmal atrial fibrillation; K76.0 Fatty (change of) liver, not elsewhere classified; Z79.82 Long term (current) use of aspirin; Z90.49 Acquired absence of other specified parts of digestive tract; Z95.5 Presence of coronary angioplasty implant and graft; Z99.2 Dependence on renal dialysis; Z86.73 Personal history of transient ischemic attack (TIA), and cerebral infarction without residual deficits; Z68.23 Body mass index [BMI] 23.0-23.9, adult; Z82.49 Family history of ischemic heart disease and other diseases of the circulatory system; Z79.899 Other long term (current) drug therapy; N18.3 Chronic kidney disease, stage 3 (moderate)
CPT/HCPCS: 36415; 71045; 73060; 73080; 74018; 74021; 74176; 76705; 80048; 80053; 80076; 81001; 82271; 82553; 82805; 83605; 83690; 83735; 83880; 84443; 84484; 85007; 85025; 85027; 85610; 86705; 86706; 86709; 86803; 87040; 87086; 87340; 93005; 93306; 96360; C9113; J0881; J1160; J7030; Q0162; 97110; 97116; 97530; 97535; 99285-25

== ENCOUNTER 2018-05-16 08:49 | Inpatient (IN) | payer BC ==
[~2018-05-16] VITALS: Ht 182.9 cm; Wt 80.0 kg
[~2018-05-16 08:49] MED LIST changes: +CARV3.1210 PO; +DARBEPOETIN ALFA IN POLYSORBAT SQ; +DILT120C85 PO; +FOLI0.8T21 PO; +HYOS0.1264 PO; +LOPE2CAP3 PO; +MIDO2.5T PO; +ONDA4TAB7 PO; +ZINC50TA2 PO
[2018-05-16] MEDS ORDERED: dilTIAZem INJ 125 MG in IV DEXTROSE 5% 100ML 100 ML IV ONE (09:15)
[2018-05-16] MEDS ORDERED: dilTIAZem IV PUSH 25 MG/5 ML VIAL IVP ONE (09:15)
--- NOTE | 2018-05-16 09:16 | EKG ---
[facility] [address] [place] [address] Test Date: 2018-05-16 Test Time: 08:57:05 Pat Name: ROSALIA MARTI Department: Room: Gender: M Automation Developer: : 1940 Requested By: VIRGILIO CELESTIN Order Number: [id number] Reading MD: Nasir Watts MD Measurements Intervals [place] Rate: 128 P: AK: QRS: 59 QRSD: 82 T: 66 QT: 330 QTc: 485 Interpretive Statements ATRIAL FIB./FLUTTER WITH RAPID VENTRICULAR RESPONSE NON-SPECIFIC ST/T CHANGES Electronically Signed On 05-27-2018 10:20:32 CDT by Nasir Watts MD
--- NOTE | 2018-05-16 09:47 | PHYS DOC ---
Past Medical History Past Medical History: A-Fib, CAD, Hypotension, Renal Disease Additional Past Medical Histor: GOUT, SBO Past Surgical History: Hip Replacement Additional Past Surgical Histo: cardiac stents placed, left upper extremity AV shunt Alcohol Use: Rarely Drug Use: None Adult General Chief Complaint Chief Complaint: SYNCOPE HPI HPI Patient is a 77 year old male who brought in because of syncopal episode. Patient has history of chronic renal failure on hemodialysis and resident of skilled nursing, wheelchair bound condition was found unresponsive on his wheelchair in front of nursing gestation without seizure activity for unknown time. Patient was alert and oriented at EMS arrival and had blood pressure of 60s with cold extremities and undetectable O2 sat. Patient increased to 80s at arrival to ER and his dizziness, chest pain, palpitation, focal neuro deficit before or after episodes of syncope and denies history of syncope. Patient states he had hemodialysis last night and felt weak today Review of Systems Review of Systems Constitutional: Denies fever or chills [] Eyes: Denies change in visual acuity, redness, or eye pain [] HENT: Denies nasal congestion or sore throat [] Respiratory: Denies cough or shortness of breath [] Cardiovascular: No additional information not addressed in HPI [] GI: Denies abdominal pain, nausea, vomiting, bloody stools or diarrhea [] : Denies dysuria or hematuria [] Musculoskeletal: Denies back pain or joint pain [] Integument: Denies rash or skin lesions [] Neurologic: Denies headache, focal weakness or sensory changes [] Endocrine: Denies polyuria or polydipsia [] All other systems were reviewed and found to be within normal limits, except as documented in this note. Current Medications Current Medications Current Medications Medications (Trade) Dose Ordered Sig/Maria Eugenia Start Time Stop Time Status Last Admin Dose Admin Diltiazem HCl (Cardizem Iv Push) 15 mg 1X ONCE 05/16/18 09:15 05/16/18 09:16 DC 05/16/18 09:39 15 MG Diltiazem HCl 125 mg/Dextrose 125 ml @ 10 mls/hr 1X ONCE 05/16/18 09:15 05/16/18 21:44 05/16/18 09:54 10 MLS/HR Allergies Allergies Allergies Coded Allergies Type Severity Reaction Last Updated Verified I S O L A T I O N *CONTACT* Allergy Unknown 05/08/18 Yes No Known Medication Allergies Allergy Unknown 05/08/18 Yes Physical Exam Physical Exam Constitutional: Well developed, well nourished, no acute distress, non-toxic appearance. [] HENT: Normocephalic, atraumatic, bilateral external ears normal, oropharynx moist, no oral exudates, nose normal. [] Eyes: PERRLA, EOMI, conjunctiva normal, no discharge. [] Neck: Normal range of motion, no tenderness, supple, no stridor. [] Cardiovascular:Heart rate regular rhythm, no murmur [] Lungs & Thorax: Bilateral breath sounds clear to auscultation [] Abdomen: Bowel sounds normal, soft, no tenderness, no masses, no pulsatile masses. [] Skin: Warm, dry, no erythema, no rash. [] Back: No tenderness, no CVA tenderness. [] Extremities: No tenderness, no cyanosis, no clubbing, ROM intact, no edema. [] Neurologic: Alert and oriented X 3, normal motor function, normal sensory function, no focal deficits noted. [] Psychologic: Affect normal, judgement normal, mood normal. [] Current Patient Data Vital Signs Vital Signs Date Time Temp Pulse Resp B/P (MAP) Pulse Ox O2 Delivery O2 Flow Rate FiO2 05/16/18 10:05 108 18 98 05/16/18 09:39 80/52 05/16/18 09:21 95.3 Nasal Cannula 2.0 95.3 Lab Values Laboratory Tests Test 05/16/18 09:50 White Blood Count 6.4 x10^3/uL (4.0-11.0) Red Blood Count 3.21 x10^6/uL (4.30-5.70) L Hemoglobin 9.7 g/dL (13.0-17.5) L Hematocrit 29.8 % (39.0-53.0) L Mean Corpuscular Volume 93 fL (79-100) Mean Corpuscular Hemoglobin 30 pg (25-35) Mean Corpuscular Hemoglobin Concent 33 g/dL (31-37) Red Cell Distribution Width 15.7 % (11.5-14.5) H Platelet Count 205 x10^3/uL (140-400) Neutrophils (%) (Auto) 83 % (31-73) H Lymphocytes (%) (Auto) 6 % (24-48) L Monocytes (%) (Auto) 11 % (0-9) H Eosinophils (%) (Auto) 0 % (0-3) Basophils (%) (Auto) 0 % (0-3) Neutrophils # (Auto) 5.3 x10^3uL (1.8-7.7) Lymphocytes # (Auto) 0.4 x10^3/uL (1.0-4.8) L Monocytes # (Auto) 0.7 x10^3/uL (0.0-1.1) Eosinophils # (Auto) 0.0 x10^3/uL (0.0-0.7) Basophils # (Auto) 0.0 x10^3/uL (0.0-0.2) Prothrombin Time 13.4 SEC (11.7-14.0) Prothrombin Time INR 1.1 (0.8-1.1) D-Dimer (Unique) 7.20 ug/mlFEU (0.00-0.50) H Sodium Level 136 mmol/L (136-145) Potassium Level 3.7 mmol/L (3.5-5.1) Chloride Level 99 mmol/L (98-107) Carbon Dioxide Level 27 mmol/L (21-32) Anion Gap 10 (6-14) Blood Urea Nitrogen 54 mg/dL (8-26) H Creatinine 2.5 mg/dL (0.7-1.3) H Estimated GFR (Cockcroft-Gault) 30.4 BUN/Creatinine Ratio 22 (6-20) H Glucose Level 99 mg/dL (70-99) Lactic Acid Level 2.8 mmol/L (0.4-2.0) H Calcium Level 7.8 mg/dL (8.5-10.1) L Magnesium Level 1.7 mg/dL (1.8-2.4) L Total Bilirubin 0.5 mg/dL (0.2-1.0) Aspartate Amino Transferase (AST) 21 U/L (15-37) Alanine Aminotransferase (ALT) 55 U/L (16-63) Alkaline Phosphatase 158 U/L (46-116) H Creatine Kinase 30 U/L (39-308) L Troponin I Quantitative 0.069 ng/mL (0.000-0.055) QJ-Qnq-Q-Type Natriuretic Peptide 92733 pg/mL (0-449) H Total Protein 5.7 g/dL (6.4-8.2) L Albumin 2.2 g/dL (3.4-5.0) L Albumin/Globulin Ratio 0.6 (1.0-1.7) L Laboratory Tests 05/16/18 09:50 Laboratory Tests 05/16/18 09:50 EKG EKG EKG interpreted by me. EKG at 0 757 showed atrial fibrillation with RVR at rate of 129, low voltage QRS, nonspecific T-wave abnormalities, no acute ST and T- wave abnormalities. Radiology/Procedures Radiology/Procedures [] Course & Med Decision Making Course & Med Decision Making Pertinent Labs and Imaging studies reviewed. (See chart for details) Evaluation of patient in ER showed 77-year-old male patient brought in because of syncopal episode. Patient had atrial flutter patient with RVR and blood pressure of 80s. Patient treated with 15 mg of Cardizem bolus and drip of Cardizem with drop of heart rate 96 and blood pressure to 60s. Cardizem drip was stopped. Patient had chronic presacral bedsore fresh dressing on place. Lactic acid was elevated and antibiotic was started. Patient did not treated with IV fluids because of history of renal failure on dialysis. Patient also had elevation of d-dimer at 7.0 and VQ scan was requested that is pending. Patient requiring admission for further evaluation and treatment. Discussed with Dr. Casper who is in agreement with admission. Discussed findings and plan with patient and family, who acknowledge understanding and agreement. Dragon Disclaimer Dragon Disclaimer This electronic medical record was generated, in whole or in part, using a voice recognition dictation system. Departure Departure Impression: Primary Impression: Atrial fibrillation with rapid ventricular response Additional Impressions: Syncope ESRD (end stage renal disease) Elevated lactic acid level Hypotension Pressure sore Disposition: ADMITTED INPATIENT (ERASED) Admitting Physician: Pineda Casper (accepted admission at 1152) Condition: GUARDED Referrals: PINEDA CASPER MD (PCP) Critical Care Time Critical care time was 80 minutes exclusive of procedures. Problem Qualifiers VIRGILIO CELESTIN MD May 16, 2018 09:47
--- NOTE | 2018-05-16 10:00 | RAD ---
Examination: CT HEAD WO CONTRAST History: SYNCOPE Comparison/Correlation: 06/07/2016 CT head and cervical spine without contrast Findings: Axial images of the head were obtained without contrast. Atrophy and chronic ischemic changes white matter noted. 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 No midline shift or mass effect. Cavernous carotid calcifications noted. Visualized paranasal sinuses are unremarkable. Right globe is unremarkable. 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 There is slightly high density posterior aspect of the left lobe measuring 2 x 1 cm transverse by 1.2 cm anteroposterior. It is unchanged compared to the prior exam. Impression: No intracranial hemorrhage. Advanced chronic ischemic changes white matter. Atrophy and volume loss ventriculomegaly. Left coloboma. Somewhat high density within the posterior aspect of the left globe is unchanged. PQRS Compliance Statement: One or more of the following individualized dose reduction techniques were utilized for this examination: 1. Automated exposure control 2. Adjustment of the mA and/or kV according to patient size 3. Use of iterative reconstruction technique Electronically signed by: Jermaine Yin MD (05/16/2018 9:57 AM) [facility]
[2018-05-16 10:13] LABS: BASO % 0 % (0-3); EOS % 0 % (0-3); HEMATOCRIT 29.8 % (39.0-53.0); HEMOGLOBIN 9.7 g/dL (13.0-17.5); LYMPH # 0.4 x10^3/uL (1.0-4.8); LYMPH % 6 % (24-48); MEAN CORPUSCULAR HEMOGLOBIN 30 pg (25-35); MEAN CORPUSCULAR HGB CONC 33 g/dL (31-37); MEAN CORPUSCULAR VOLUME 93 fL (79-100); MONO # 0.7 x10^3/uL (0.0-1.1); MONO % 11 % (0-9); NEUT # 5.3 x10^3uL (1.8-7.7); NEUT % 83 % (31-73); PLATELET COUNT 205 x10^3/uL (140-400); RED BLOOD COUNT 3.21 x10^6/uL (4.30-5.70); RED CELL DISTRIBUTION WIDTH 15.7 % (11.5-14.5); WHITE BLOOD COUNT 6.4 x10^3/uL (4.0-11.0)
[2018-05-16 10:16] LABS: CALCIUM 7.8 mg/dL (8.5-10.1); CREATININE 2.5 mg/dL (0.7-1.3); GFR 30.4; POTASSIUM 3.7 mmol/L (3.5-5.1)
[2018-05-16 10:23] LABS: ALBUMIN 2.2 g/dL (3.4-5.0); ALBUMIN/GLOBULIN RATIO 0.6 (1.0-1.7); MAGNESIUM 1.7 mg/dL (1.8-2.4); TOTAL BILIRUBIN 0.5 mg/dL (0.2-1.0); TOTAL PROTEIN 5.7 g/dL (6.4-8.2)
--- NOTE | 2018-05-16 10:35 | RAD ---
EXAM: CHEST 1 VIEW History: Syncope COMPARISON: 04/21/2018 TECHNIQUE: Single portable radiograph of the chest FINDINGS: Low lung volumes and technique accentuates heart size and pulmonary vascularity. Minimal prominent bilateral interstitial lung markings similar to prior exam. Faint left lower lobe lung airspace opacities likely atelectasis or infiltrates. Vascular stent identified in the left subclavian region. IMPRESSION: 1. Minimal left lung base airspace opacity likely atelectasis or infiltrates. Electronically signed by: Evgeny Sosa MD (05/16/2018 10:32 AM) [id number]
[2018-05-16 10:42] LABS: PROTHROMBIN TIME PATIENT 13.4 SEC (11.7-14.0)
[2018-05-16 11:01] LABS: D-DIMER 7.2 ug/mlFEU (0.00-0.50)
[2018-05-16] MEDS ORDERED: PIPERACILLIN/TAZOBACTAM 3.375 GM in IV NORMAL SALINE 50ML 50 ML IV ONE (13:00)
--- NOTE | 2018-05-16 13:00 | PDOC2 ---
CARDIAC CONSULT DATE OF CONSULT Date of Consult DATE: 05/16/18 TIME: 12:45 REASON FOR CONSULT Reason for Consult: AFIB with RVR REFERRING PHYSICIAN Referring Physician: Dr. Brice SOURCE Source: Chart review, Patient HISTORY OF PRESENT ILLNESS HISTORY OF PRESENT ILLNESS This is a 77 yo male, with a history of PAFIB, CAD, hypertension, and ESRD on HD , who presented from [facility] secondary to syncopal episode. Patient was found unresponsive in his wheelchair in front the the nurses statin. EMS was called. Patient was alert and hypotensive in the 60's upon their arrival. Noted patient to be tachycardiac. Was noted in AFIB with RVR upon arrival to ED. Cardizem bolus was administered. Patient denies any dizziness, diaphoresis, palpitations, SOA, or nausea/vomiting. Does have come mild LE edema. Has a history of bowel obstruction. Is scheduled for colonoscopy at tomorrow. Prep is to start tonight. PAST MEDICAL HISTORY Cardiovascular: AFIB, CAD, Hyperlipidemia, Other (hypotension) Pulmonary: Other (TRICIA) GI: Other (chronic SBO) Heme/Onc: Anemia NOS Musculoskeletal: Osteoarthritis Rheumatologic: Gout Renal/: Acute renal failure (ESRD on HD) PAST SURGICAL HISTORY Past Surgical History: Cholecystectomy, Total hip replacement (right), Total knee replacement (bilateral ), Tonsillectomy, Other (LUE AV fistula, TURP) FAMILY HISTORY Family History: Coronary Artery Disease, Diabetes, Hypertension SOCIAL HISTORY Smoke: No ALCOHOL: none Drugs: None Lives: Roommate ([facility] ) CURRENT MEDICATIONS CURRENT MEDICATIONS Current Medications Medications (Trade) Dose Ordered Sig/Maria Eugenia Route PRN Reason Start Time Stop Time Status Last Admin Dose Admin Diltiazem HCl (Cardizem Iv Push) 15 mg 1X ONCE IVP 05/16/18 09:15 05/16/18 09:16 DC 05/16/18 09:39 Diltiazem HCl 125 mg/Dextrose 125 ml @ 10 mls/hr 1X ONCE IV 05/16/18 09:15 05/16/18 21:44 05/16/18 09:54 ALLERGIES ALLERGIES: Coded Allergies: I S O L A T I O N *CONTACT* (Verified Allergy, Unknown, 05/08/18) ESBL No Known Medication Allergies (Verified Allergy, Unknown, 05/08/18) ROS Review of System 14 point ROS conducted with pertinent positives noted above in HPI. PHYSICAL EXAM General: Alert, Cooperative, No acute distress HEENT: Atraumatic, Mucous membr. moist/pink Lungs: Clear to auscultation Heart: Regular rate (tele SR with PACs), No murmurs Abdomen: Soft, No tenderness Extremities: Other (1-2+ bilateral LE edema ) Skin: No significant lesion Neuro: Normal speech, Sensation intact Psych/Mental Status: Mood NL MUSCULOSKELETAL: Osteoarthritic changes both hands VITALS VITALS Vital Signs Date Time Temp Pulse Resp B/P (MAP) Pulse Ox O2 Delivery O2 Flow Rate FiO2 05/16/18 11:35 98 18 99 05/16/18 10:59 97.9 97.9 05/16/18 09:39 80/52 05/16/18 09:21 Nasal Cannula 2.0 LABS Lab: Laboratory Tests Test 05/16/18 09:50 White Blood Count 6.4 x10^3/uL (4.0-11.0) Red Blood Count 3.21 x10^6/uL (4.30-5.70) Hemoglobin 9.7 g/dL (13.0-17.5) Hematocrit 29.8 % (39.0-53.0) Mean Corpuscular Volume 93 fL (79-100) Mean Corpuscular Hemoglobin 30 pg (25-35) Mean Corpuscular Hemoglobin Concent 33 g/dL (31-37) Red Cell Distribution Width 15.7 % (11.5-14.5) Platelet Count 205 x10^3/uL (140-400) Neutrophils (%) (Auto) 83 % (31-73) Lymphocytes (%) (Auto) 6 % (24-48) Monocytes (%) (Auto) 11 % (0-9) Eosinophils (%) (Auto) 0 % (0-3) Basophils (%) (Auto) 0 % (0-3) Neutrophils # (Auto) 5.3 x10^3uL (1.8-7.7) Lymphocytes # (Auto) 0.4 x10^3/uL (1.0-4.8) Monocytes # (Auto) 0.7 x10^3/uL (0.0-1.1) Eosinophils # (Auto) 0.0 x10^3/uL (0.0-0.7) Basophils # (Auto) 0.0 x10^3/uL (0.0-0.2) Prothrombin Time 13.4 SEC (11.7-14.0) Prothromb Time International Ratio 1.1 (0.8-1.1) D-Dimer (Unique) 7.20 ug/mlFEU (0.00-0.50) Sodium Level 136 mmol/L (136-145) Potassium Level 3.7 mmol/L (3.5-5.1) Chloride Level 99 mmol/L (98-107) Carbon Dioxide Level 27 mmol/L (21-32) Anion Gap 10 (6-14) Blood Urea Nitrogen 54 mg/dL (8-26) Creatinine 2.5 mg/dL (0.7-1.3) Estimated GFR (Cockcroft-Gault) 30.4 BUN/Creatinine Ratio 22 (6-20) Glucose Level 99 mg/dL (70-99) Lactic Acid Level 2.8 mmol/L (0.4-2.0) Calcium Level 7.8 mg/dL (8.5-10.1) Magnesium Level 1.7 mg/dL (1.8-2.4) Total Bilirubin 0.5 mg/dL (0.2-1.0) Aspartate Amino Transf (AST/SGOT) 21 U/L (15-37) Alanine Aminotransferase (ALT/SGPT) 55 U/L (16-63) Alkaline Phosphatase 158 U/L (46-116) Creatine Kinase 30 U/L (39-308) Troponin I Quantitative 0.069 ng/mL (0.000-0.055) RY-Qhj-X-Type Natriuretic Peptide 14821 pg/mL (0-449) Total Protein 5.7 g/dL (6.4-8.2) Albumin 2.2 g/dL (3.4-5.0) Albumin/Globulin Ratio 0.6 (1.0-1.7) ECHOCARDIOGRAM ECHOCARDIOGRAM <Conclusion> The left ventricular systolic function is normal and the ejection fraction is within normal range. The Ejection Fraction is 55-60%. Unable to accurately determine wall motion. Grossly normal. The right ventricle is mildly to moderately dilated. DATE: 04/25/18 1202 STRESS TEST STRESS TEST Conclusion 1. No EKG evidence of stressed induced ischemia. 2. Nuclear imaging shows no reversible ischemia or infarct. 3. Normal left ventricular systolic function with an ejection fraction of 65%. 4. Moderately low to low risk Lexiscan nuclear stress test. DATE: 01/30/18 1403 ASSESSMENT/PLAN ASSESSMENT/PLAN 1. PAFIB with RVR upon arrival. Cardizem 15mg IV push administered in ED. Now SR with controlled rate. 2. Syncope; most probably due to hypotension. Recent echo with preserved LV systolic function as noted above 3. Hypotension; on Midodrine. 4. CAD s/p PCI/stent. Stable, CP free. MPI 01/2018 with no reversible ischemia or infarct. 5. ESRD on HD 6. SBO, chronic. Scheduled for colonoscopy at tomorrow. 7. Elevated d-dimer; VQ scan low probability for PE Recommendations Continue ASA, Plavix. Rate control agents limited due to hypotension and renal disease Will add digoxin QOD. Supportive care SONDRA CARCAMO APRN May 16, 2018 13:00
--- NOTE | 2018-05-16 14:05 | RAD ---
VQ Scan: Clinical History: Elevated d-dimer, syncope. Technique: 12 mCi of xenon-133 was administered as an aerosol and spot views were obtained on a gamma camera for a Nuclear Medicine ventilation examination. 6 mCi of Tc 99m MAA was administered intravenously and spot views were obtained on the gamma camera for a Nuclear Medicine perfusion examination. Static images were reviewed as a V/Q scan in order to exclude pulmonary embolism. Findings: There is mild diffuse heterogeneity of activity on the ventilation study. Perfusion images are homogeneous without perfusion defects. Impression: Low probability for pulmonary embolism. Electronically signed by: Evgeny Sosa MD (05/16/2018 2:02 PM) [id number]
[2018-05-16] MEDS ORDERED: PRED20TA PO (14:14)
[2018-05-16] MEDS ORDERED: FLUD0.1T PO (14:14)
[2018-05-16] MEDS ORDERED: FURO80TA3 PO (14:14)
[2018-05-16] MEDS ORDERED: PEG 3350/NA SULF,BICARB,CL/KCL 4,000 ML SOLUTION. PO ONE (14:30)
[2018-05-16 15:00] VITALS: BP 105/60
[2018-05-16] MEDS ORDERED: LOPERAMIDE 2 MG CAPSULE PO PRN (15:30)
[2018-05-16] MEDS ORDERED: ONDANSETRON ODT 4 MG TAB.RAPDIS. PO PRN (15:30)
[2018-05-16] MEDS ORDERED: HYOSCYAMINE 0.125 MG TAB.RAPDIS PO PRN (15:30)
--- NOTE | 2018-05-16 16:40 | NUR ---
tried to warm pts fingers still would not read. Tried on the ear and could not get that either Addendum: 05/16/18 at 1640 by TARA PINTO RN RN Amended: Links added.
[2018-05-16] MEDS: MIDODRINE 2.5 MG TABLET PO SCH (17:12)
[2018-05-16] MEDS: FUROSEMIDE 80 MG TABLET. PO SCH (17:12)
--- NOTE | 2018-05-16 18:17 | HP ---
ADMIT DATE: 05/16/2018 CHIEF COMPLAINT: Syncope. HISTORY OF PRESENT ILLNESS AND HOSPITAL COURSE: This patient is a 77-year-old severely debilitated -[place] male who was at [facility] receiving PT and OT modalities due to recurrent small-bowel obstruction and malnutrition. The patient had episode of unconsciousness at the chcf unit with high blood pressure and noted AFib with RVR, rate up to 140. He was transferred by ambulance to the Emergency Room where they were able to stabilize him with blood pressures now 80s/50s, which are baseline for him and pulse in the 80s after Cardizem bolus. Cardizem was discontinued due to low blood pressures in the ER and the patient returned to baseline, but due to the severity of symptoms, he was admitted for cardiac evaluation. The patient also has ongoing dialysis due to end-stage renal disease and fluid status will be assessed during hospital stay. PAST MEDICAL HISTORY: Significant for: 1. End-stage renal disease, on dialysis. 2. Severe protein malnutrition. 3. Retroperitoneal fibrosis. 4. Chronic diarrhea. 5. Chronic small-bowel obstruction noted on KUBs, but functionally not obstructed. 6. IBS. 7. Coronary artery disease, status post stent placement in the remote past. 8. Hypertension. 9. Gouty arthritis. 10. Hyperlipidemia. 11. Venous insufficiency of lower extremities and lymphedema due to low protein state. 12. Hyperparathyroidism. 13. Chronic atrial fibrillation. 14. History of cerebrovascular accident. PAST SURGICAL HISTORY: Significant for bilateral total knee arthroplasty, TURP, right hip pinning and lysis of adhesions of the abdomen. FAMILY HISTORY: Reveals long lived parents with age of 91 and 103, otherwise unremarkable family history. SOCIAL HISTORY: The patient has never smoked. He does not use alcohol. He lives with his . ALLERGIES: The patient denies drug allergies. REVIEW OF SYSTEMS: The patient was doing well and progressing slowly at [facility]. He did have difficulty with diarrhea up to 5 diarrheal stools per day and had poor, but ongoing p.o. intake. He has been followed by for retroperitoneal fibrosis and malnutrition and bowel insufficiencies. PHYSICAL EXAMINATION: GENERAL: This is a pleasant, cachectic appearing -[place] male in no distress after ER evaluation and treatment. HEENT: Benign. NECK: Supple. CARDIAC: Irregularly irregular with a grade 2/3 systolic ejection murmur. LUNGS: Clear anteriorly. ABDOMEN: Soft, nontender, positive bowel sounds were noted. EXTREMITIES: 2+ pulses with 3+ pitting edema to the level of the mid calf. NEUROLOGIC: Showed no new unilateral findings. ASSESSMENT: 1. Atrial fibrillation with rapid ventricular response. 2. Syncope. 3. End-stage renal disease, on dialysis. 4. Lactic acidosis. 5. Chronic and recurrent hypotension. 6. Chronic pressure ulcer. PLAN: To proceed with Cardiology evaluation, PT and OT modalities and Nephrology care for dialysis. HIRO FIGUEROA MD DR: NELI/jennifer JOB#: [id number] / [id number]
[2018-05-16 19:43] VITALS: BP 123/57
[2018-05-16 22:52] VITALS: BP 104/69
[2018-05-17 02:03] VITALS: BP 102/59
[2018-05-17] MEDS: MIDODRINE 2.5 MG TABLET PO SCH ×3 (06:38→18:06)
[2018-05-17 07:00] VITALS: BP 124/65
[2018-05-17] MEDS: FUROSEMIDE 80 MG TABLET. PO SCH ×2 (08:22→16:00)
[2018-05-17] MEDS ORDERED: predniSONE 20 MG TABLET PO SCH (09:00)
[2018-05-17] MEDS ORDERED: ZINC SULFATE 220 MG CAPSULE. PO SCH (09:00)
[2018-05-17] MEDS ORDERED: ASPIRIN CHEWABLE 81 MG TABLET. PO SCH (09:00)
[2018-05-17] MEDS ORDERED: FLUDROCORTISONE 0.1 MG TABLET PO SCH (09:00)
[2018-05-17] MEDS ORDERED: FOLIC/VIT B COMP W-C (RENAL) TABLET. PO SCH (09:00)
[2018-05-17] MEDS ORDERED: CLOPIDOGREL BISULFATE 75 MG TABLET PO SCH (09:00)
[2018-05-17] MEDS ORDERED: ALLOPURINOL 300 MG TABLET. PO SCH (09:00)
--- NOTE | 2018-05-17 09:18 | NUR ---
IP: Pt has a hx of ESBL in urine on 05/03/18. Pt to be in contact precautions until there are 2 negative urine cultures 7 days apart without antibiotics.
[2018-05-17 11:00] VITALS: BP 105/54
--- NOTE | 2018-05-17 11:01 | PDOC2 ---
CONSULT Date of Consult Date of Consult DATE: 05/17/18 TIME: 10:48 Reason for Consult Reason for Consult: ESRD Source Source: Chart review, Patient History of Present Illness Reason for Visit: This patient is a 77-year-old -Thai male who was at [facility] receiving PT and OT modalities due to recurrent small-bowel obstruction and malnutrition. The patient had episode of unconsciousness at the shelter unit with high blood pressure and noted AFib with RVR, rate up to 140. He was transferred by ambulance to the Emergency Room where they were able to stabilize him with blood pressures now 80s/50s, which are baseline for him and pulse in the 80s after Cardizem bolus. Cardizem was discontinued due to low blood pressures in the ER and the patient returned to baseline, but due to the severity of symptoms, he was admitted for cardiac evaluation. Gayathri is normally on HD TTS, but his last HD was on Sun Evening . Not Dialyzed yesterday BP were low and clinically stable Past Medical History Cardiovascular: AFIB, CAD, Hyperlipidemia, Other (hypotension) Pulmonary: Other (TRICIA) CENTRAL NERVOUS SYSTEM: Other GI: Other (chronic SBO) Heme/Onc: Anemia NOS Hepatobiliary: No pertinent hx Psych: No pertinent hx Musculoskeletal: Osteoarthritis Rheumatologic: Gout Infectious disease: Other Renal/: Acute renal failure (ESRD on HD) Endocrine: No pertinent hx, Hyperparathyroidism Past Surgical History Past Surgical History: Cholecystectomy, Total hip replacement (right), Total knee replacement (bilateral ), Tonsillectomy, Other (LUE AV fistula, TURP) Family History Family History: Coronary Artery Disease, Diabetes, Hypertension Social History No ALCOHOL: none Drugs: None Lives: Roommate ([facility] ) Domestic Violence: Neg Current Problem List Problem List Problems Medical Problems: (1) Atrial fibrillation with rapid ventricular response Status: Acute (2) Elevated lactic acid level Status: Acute (3) Hypotension Status: Acute (4) Pressure sore Status: Acute (5) Syncope Status: Acute Current Medications Current Medications Current Medications Diltiazem HCl (Cardizem Iv Push) 15 mg 1X ONCE IVP Last administered on at 09:39; Start 05/16/18 at 09:15; Stop 05/16/18 at 09:16; Status DC Diltiazem HCl 125 mg/Dextrose 125 ml @ 10 mls/hr 1X ONCE IV Last administered on 05/16/18 09:54; Start 05/16/18 at 09:15; Stop 05/16/18 at 21:44 ; Status DC Piperacillin Sod/ Tazobactam Sod 3.375 gm/Sodium Chloride 50 ml @ 100 mls/hr 1X ONCE IV Last administered on 05/16/18 17:12; Start 05/16/18 at 13:00; Stop 05/16/18 at 13:29; Status DC Sodium Cl/Sod Bicarb/Potass Cl/ PEG (Golytely) 4,000 ml 1X ONCE PO Last administered on 05/16/18 14:47; Start 05/16/18 at 14:30; Stop 05/16/18 at 14:31 ; Status DC Allopurinol (Zyloprim) 300 mg DAILY PO Last administered on 05/17/18 08:23; Start 05/17/18 at 09:00 Aspirin (Children'S Aspirin) 81 mg DAILY PO Last administered on 05/17/18 08: 22; Start 05/17/18 at 09:00 Clopidogrel Bisulfate (Plavix) 75 mg DAILY PO Last administered on 05/17/18 08 :22; Start 05/17/18 at 09:00 Fludrocortisone Acetate (Florinef) 0.1 mg DAILY PO Last administered on 08:22; Start 05/17/18 at 09:00 Vitamin B Complex/ Vitamin C (Leanne-Bev) 1 tab DAILY PO Last administered on 08:22; Start 05/17/18 at 09:00 Furosemide (Lasix) 80 mg [id number] PO Last administered on 05/17/18 08:22; Start 05/16/18 at 16:00 Prednisone (Prednisone) 40 mg DAILY PO Last administered on 05/17/18 08:22; Start 05/17/18 at 09:00 Hyoscyamine (Anaspaz) 0.125 mg PRN Q6HRS PRN PO STOMACH CRAMPING; Start at 15:30 Loperamide HCl (Imodium) 2 mg PRN QID PRN PO DIARRHEA; Start 05/16/18 at 15:30 Midodrine (Proamatine) 2.5 mg [id number] PO Last administered on 05/17/18 06:38; Start 05/16/18 at 18:00 Ondansetron HCl (Zofran Odt) 4 mg PRN Q4HRS PRN PO NAUSEA/VOMITING; Start 05/16 at 15:30 Zinc Sulfate (Orazinc) 220 mg DAILY PO Last administered on 05/17/18at 08:22; Start 05/17/18 at 09:00 Digoxin (Lanoxin) 125 mcg QODAY PO ; Start 05/18/18 at 09:00 Active Scripts Active Midodrine Hcl 2.5 Mg Tablet 2.5 Mg PO [id number] 30 Days Reported Prednisone 20 Mg Tablet 40 Mg PO DAILY Furosemide 80 Mg Tablet 80 Mg PO BID Fludrocortisone Acetate 0.1 Mg Tablet 0.1 Mg PO DAILY Zinc (Zinc Gluconate) 50 Mg Tablet 50 Mg PO DAILY Zofran (Ondansetron Hcl) 4 Mg Tablet 1 Tab PO PRN Q4HRS PRN Levsin (Hyoscyamine Sulfate) 0.125 Mg Tablet 0.125 Mg PO PRN Q6HRS PRN Leanne-Bev Tablet (Folic Acid/Vitamin B Comp W-C) 0.8 Mg Tablet 0.8 Mg PO DAILY Anti-Diarrheal (Loperamide Hcl) 2 Mg Capsule 2 Mg PO PRN QID PRN Aspirin 81 Mg Tab.chew 1 Tab PO DAILY Clopidogrel (Clopidogrel Bisulfate) 75 Mg Tablet 75 Mg PO DAILY Allopurinol 300 Mg Tablet 300 Mg PO DAILY Allergies Allergies: Coded Allergies: I S O L A T I O N *CONTACT* (Verified Allergy, Unknown, 05/08/18) ESBL No Known Medication Allergies (Verified Allergy, Unknown, 05/08/18) ROS Review of System As per HPI Physical Exam Physical Exam GENERAL: cachectic , NAD HEENT: O2 by NC NECK: Supple. CARDIAC: Irregularly irregular with a grade 2/3 systolic ejection murmur. LUNGS: Clear anteriorly, Non labored ABDOMEN: Soft, nontender, EXTREMITIES: 1-2+ pitting edema NEUROLOGIC: Grossly normal Skin No rash No coley Vital Signs Vital Signs Date Time Temp Pulse Resp B/P (MAP) Pulse Ox O2 Delivery O2 Flow Rate FiO2 05/17/18 08:15 Nasal Cannula 2.0 05/17/18 07:00 97.2 83 16 124/65 (84) 100 97.2 Assessment & Plan ESRD - TTS Last HD was on Sun Will Dialyze today as missed then back on TTS schedule No UF, Discussed with drier feeder Atrial fibrillation with rapid ventricular response Cardiology following Syncope Lactic acidosis. Chronic and recurrent hypotension Discussed with RN Labs Labs Laboratory Tests Test 05/16/18 09:50 White Blood Count 6.4 x10^3/uL (4.0-11.0) Red Blood Count 3.21 x10^6/uL (4.30-5.70) Hemoglobin 9.7 g/dL (13.0-17.5) Hematocrit 29.8 % (39.0-53.0) Mean Corpuscular Volume 93 fL (79-100) Mean Corpuscular Hemoglobin 30 pg (25-35) Mean Corpuscular Hemoglobin Concent 33 g/dL (31-37) Red Cell Distribution Width 15.7 % (11.5-14.5) Platelet Count 205 x10^3/uL (140-400) Neutrophils (%) (Auto) 83 % (31-73) Lymphocytes (%) (Auto) 6 % (24-48) Monocytes (%) (Auto) 11 % (0-9) Eosinophils (%) (Auto) 0 % (0-3) Basophils (%) (Auto) 0 % (0-3) Neutrophils # (Auto) 5.3 x10^3uL (1.8-7.7) Lymphocytes # (Auto) 0.4 x10^3/uL (1.0-4.8) Monocytes # (Auto) 0.7 x10^3/uL (0.0-1.1) Eosinophils # (Auto) 0.0 x10^3/uL (0.0-0.7) Basophils # (Auto) 0.0 x10^3/uL (0.0-0.2) Prothrombin Time 13.4 SEC (11.7-14.0) Prothromb Time International Ratio 1.1 (0.8-1.1) D-Dimer (Unique) 7.20 ug/mlFEU (0.00-0.50) Sodium Level 136 mmol/L (136-145) Potassium Level 3.7 mmol/L (3.5-5.1) Chloride Level 99 mmol/L (98-107) Carbon Dioxide Level 27 mmol/L (21-32) Anion Gap 10 (6-14) Blood Urea Nitrogen 54 mg/dL (8-26) Creatinine 2.5 mg/dL (0.7-1.3) Estimated GFR (Cockcroft-Gault) 30.4 BUN/Creatinine Ratio 22 (6-20) Glucose Level 99 mg/dL (70-99) Lactic Acid Level 2.8 mmol/L (0.4-2.0) Calcium Level 7.8 mg/dL (8.5-10.1) Magnesium Level 1.7 mg/dL (1.8-2.4) Total Bilirubin 0.5 mg/dL (0.2-1.0) Aspartate Amino Transf (AST/SGOT) 21 U/L (15-37) Alanine Aminotransferase (ALT/SGPT) 55 U/L (16-63) Alkaline Phosphatase 158 U/L (46-116) Creatine Kinase 30 U/L (39-308) Troponin I Quantitative 0.069 ng/mL (0.000-0.055) JA-Ywm-T-Type Natriuretic Peptide 02540 pg/mL (0-449) Total Protein 5.7 g/dL (6.4-8.2) Albumin 2.2 g/dL (3.4-5.0) Albumin/Globulin Ratio 0.6 (1.0-1.7) Review All relevant outside records, renal labs, imaging studies, telemetry/EKG's were reviewed. JERRY VERA MD May 17, 2018 11:01
--- NOTE | 2018-05-17 11:21 | NUR ---
SS following for discharge planning. SS reviewed pt chart. Pt is from [facility] retirement unit, ; fax [phone]. PT/OT recommended retirement unit. SS phoned and faxed referral to [facility]. Pt is able to return. SS will await insurance authorization and will proceed accordingly with discharge planning. Pt's RN notified.
--- NOTE | 2018-05-17 11:22 | PDOC ---
CARDIO Progress Notes Date and Time Date of Service 05/17/2018 Time of Evaluation 1100 Subjective Subjective: No Chest Pain, No shortness of breath, No Palpitations Vitals Vitals Vital Signs Date Time Temp Pulse Resp B/P (MAP) Pulse Ox O2 Delivery O2 Flow Rate FiO2 05/17/18 08:15 Nasal Cannula 2.0 05/17/18 07:00 97.2 83 16 124/65 (84) 100 97.2 Weight Weight [ ] Input and Output Intake and Output Intake and Output 05/17/18 06:59 Intake Total 10 ml Output Total 200 ml Balance -190 ml Intake IV Total 10 ml Output Urine Total 200 ml # Voids 1 # Bowel Movements 2 Microbiology Micro Microbiology 05/16/18 Blood Culture - Preliminary, Resulted NO GROWTH AFTER 1 DAY Physical Exam HEENT: Neck Supple W Full Motion Chest: Symmetric LUNGS: Clear to Auscultation Heart: S1S2, irregularly irregular (AFIB) Abdomen: Soft N/T Extremities: No Calf Tenderness Neurology: alert, oriented, follow commands Assessment Assessment 1. PAFIB with RVR: remains in AFIB 90-110 2. Syncope; most probably due to hypotension suspect orthostatic syndrome as well. EF and WM nml 3. Hypotension; BP better with midodrine 4. CAD s/p PCI/stent. clinically stable with recent normal MPI 5. ESRD on HD 6. SBO, chronic. followed by [facility] as outpt. 7. Elevated d-dimer; VQ scan low probability for PE 8. Anemia Recommendations High risk for bleed with advance age and noted SBO and high fall risks. Continue ASA for stroke prevention. Continue plavix unless need to hold for potential invasive procedure Digoxin after every HD. HD pending today. If BP is adequate then will start on low dose metoprolol for better rate control Follow up with Dr. Lyles on June 17 at 1PM ERENDIRA HERNANDEZ APRN May 17, 2018 11:21
[2018-05-17] MEDS ORDERED: DIGO125T PO (13:08)
--- NOTE | 2018-05-17 14:00 | NUR ---
Wound care: Wound care consult for L sacrum PU stage II. Wound assessed cleaned and measured (see wound intervention). Calazime cream applied to sacrum, pt helped to bed and turned to his R side, education on frequent turning and avoiding prolong sitting given to pt. Wc yamilka order for pt, pt possibly discharging today to [facility], if dc doesn't happen a P500 bed will be needed for pt, Marcella RN notified of same.
[2018-05-17] MEDS ORDERED: IV NORMAL SALINE 1000ML BAG 1,000 ML IV PRN ×2 (14:19)
[2018-05-17] MEDS ORDERED: DIALYSIS PATIENT. MC PRN ×2 (14:30)
[2018-05-17] MEDS ORDERED: LIDOCAINE 1% PF 2 ML VIAL. INJ ONE (14:30)
--- NOTE | 2018-05-17 15:29 | SNU/HH DC ---
DISCHARGE ORDERS DISCHARGE INFORMATION: FINAL DIAGNOSIS Problems Medical Problems: (1) Atrial fibrillation with rapid ventricular response Status: Acute (2) Elevated lactic acid level Status: Acute (3) Hypotension Status: Acute (4) Pressure sore Status: Acute (5) Syncope Status: Acute CONDITION ON DISCHARGE: Stable CODE STATUS: Code Status: Full POST DISCHARGE ORDERS: ACTIVITY ORDERS: Activity as tolerated WEIGHT BEARING STATUS: No restrictions BATHING ORDERS: Shower-keep dressing dry WOUND/INCISION CARE: Ice to area for comfort, Keep wound/cast CDI, Do not change dressing CHECKS AFTER DISCHARGE: CHECKS AFTER DISCHARGE: Check blood press - daily, Check your Temp as needed TREATMENT/EQUIPMENT ORDERS: ADAPTIVE EQUIPMENT NEEDED: Walker RESPIRATORY EQUIPMENT NEEDED: Oxygen Physical Therapy For: Evalulation/Treatment Occupational Therapy For: Evaluation/Treatment DISCHARGE MEDICATIONS: Home Meds Active Scripts Digoxin (DIGOXIN) 125 Mcg Tablet, 125 MCG PO MoWeFr@0900 for afib for 30 Days, # 30 TAB Prov:HIRO FIGUEROA MD 05/17/18 Midodrine Hcl (MIDODRINE HCL) 2.5 Mg Tablet, 2.5 MG PO [id number] for low bp for 30 Days, #90 TAB Prov:HIRO FIGUEROA MD 04/26/18 Reported Medications Prednisone (PREDNISONE) 20 Mg Tablet, 40 MG PO DAILY for IBS, TAB 05/16/18 Furosemide (FUROSEMIDE) 80 Mg Tablet, 80 MG PO BID for ESRD, TAB 05/16/18 Fludrocortisone Acetate (FLUDROCORTISONE ACETATE) 0.1 Mg Tablet, 0.1 MG PO DAILY for IBS, TAB 05/16/18 Zinc Gluconate (ZINC) 50 Mg Tablet, 50 MG PO DAILY for PX, TAB 04/21/18 Ondansetron Hcl (ZOFRAN) 4 Mg Tablet, 1 TAB PO PRN Q4HRS PRN for NAUSEA, #20 TAB 04/21/18 Hyoscyamine Sulfate (LEVSIN) 0.125 Mg Tablet, 0.125 MG PO PRN Q6HRS PRN for cramps, TAB 04/21/18 Folic Acid/Vitamin B Comp W-C (ELBA-GARRET TABLET) 0.8 Mg Tablet, 0.8 MG PO DAILY for ESRD, TAB 04/21/18 Loperamide Hcl (ANTI-DIARRHEAL) 2 Mg Capsule, 2 MG PO PRN QID PRN for DIARRHEA, CAP 04/21/18 Aspirin (ASPIRIN) 81 Mg Tab.chew, 1 TAB PO DAILY, #30 TAB 3 Refills 06/13/17 Clopidogrel Bisulfate (CLOPIDOGREL) 75 Mg Tablet, 75 MG PO DAILY for TO PREVENT BLOOD CLOTS, #30 TAB 0 Refills 10/13/16 Allopurinol (ALLOPURINOL) 300 Mg Tablet, 300 MG PO DAILY, TAB 08/20/13 HIRO FIGUEROA MD May 17, 2018 15:29
[2018-05-17] MEDS ORDERED: ALBUMIN HUMAN 25% 100 ML IV ONE (15:30)
--- NOTE | 2018-05-17 15:42 | NUR ---
SS following up with discharge planning. Authorization received for [facility]. SS phoned and faxed discharge orders to [facility], ; fax [phone]. Pt will discharge today and go to [facility] at 1800 via [facility]. Pt and pt's RN notified.
[2018-05-17] MEDS ORDERED: DIGOXIN 125 MCG TABLET. PO SCH (16:00)
[2018-05-17] MEDS ORDERED: DIGOXIN 125 MCG TABLET. PO ONE (18:00)
--- NOTE | 2018-05-17 18:16 | NUR ---
Discharge: Report called to [facility] at 1545 Spoke with Eulalia. Updates called to [facility] at 1800. All belongings with patient. Patient wanted to leave in hospital gown, refused to get dressed. Waiting on transport.
--- NOTE | 2018-05-17 18:39 | NUR ---
Patient assisted off of unit via wheelchair accompanied by transport.
[2018-05-18] MEDS ORDERED: DIGOXIN 125 MCG TABLET. PO SCH ×2 (09:00)
[2018-05-22] MEDS ORDERED: AMIO200T4 PO (13:01)
[2018-07-09] MEDS ORDERED: FLUD0.1T PO (10:58)
[2018-07-12] MEDS ORDERED: Pantoprazole PO (09:01)
[2018-07-12] MEDS ORDERED: AMOX1TAB61 PO (09:01)
== END 2018-05-17 18:46 | DRG 308 ==
LOC: ER 08:49 → 2 NORTH 10:14
PROVIDERS: ADMIT Family Medicine; ATTEND Family Medicine
PROC: 5A1D70Z Performance of Urinary Filtration, Intermittent, Less than 6 Hours Per Day (ICD-10-PCS; principal; 2018-05-17)
DX: I48.0 Paroxysmal atrial fibrillation (principal); N18.6 End stage renal disease; E46 Unspecified protein-calorie malnutrition; E87.2 Acidosis; I12.0 Hypertensive chronic kidney disease with stage 5 chronic kidney disease or end stage renal disease; K56.609 Unspecified intestinal obstruction, unspecified as to partial versus complete obstruction; I95.1 Orthostatic hypotension; D64.9 Anemia, unspecified; E78.5 Hyperlipidemia, unspecified; G47.33 Obstructive sleep apnea (adult) (pediatric); I25.10 Atherosclerotic heart disease of native coronary artery without angina pectoris; I48.2 Chronic atrial fibrillation; I87.2 Venous insufficiency (chronic) (peripheral); M19.90 Unspecified osteoarthritis, unspecified site; Z96.641 Presence of right artificial hip joint; M10.9 Gout, unspecified; Z96.653 Presence of artificial knee joint, bilateral; K58.9 Irritable bowel syndrome, unspecified; E21.3 Hyperparathyroidism, unspecified; L89.90 Pressure ulcer of unspecified site, unspecified stage; Z82.49 Family history of ischemic heart disease and other diseases of the circulatory system; Z83.3 Family history of diabetes mellitus; Z86.73 Personal history of transient ischemic attack (TIA), and cerebral infarction without residual deficits; Z95.5 Presence of coronary angioplasty implant and graft; Z99.2 Dependence on renal dialysis; Z99.3 Dependence on wheelchair; Z68.23 Body mass index [BMI] 23.0-23.9, adult
CPT/HCPCS: 36415; 70450; 71045; 78582; 80053; 82550; 83605; 83735; 83880; 84484; 85025; 85379; 85610; 87040; 87641; 93005; 96365; 96366; 96374; 96375; 99291; 99292; A9540; A9558; J2543; J3490; J7512; P9046

== ENCOUNTER 2018-05-19 08:19 | Inpatient (IN) | payer BC ==
[2018-05-19] VITALS (18 sets, daily range): BP systolic 78–118; BP diastolic 44–80
[~2018-05-19] VITALS: Ht 185.4 cm; Wt 83.6 kg
[~2018-05-19 08:19] MED LIST changes: +ADENOSINE 6 MG/2 ML VIAL. IV ONE; +DEXTROSE 50% 25 GM / 50ML DISP.SYRIN. IV ONE; +DIGO125T PO; +EPINEPHrine SYRINGE 1 MG/10 ML SYRINGE ONE; +FLUD0.1T PO; +PRED20TA PO
[2018-05-19 08:35] LABS: CREATININE ISTAT 1.8 mg/dL (0.5-1.4); HEMOGLOBIN ISTAT 8.5 g/dL (14-18); ION CA ISTAT 0.81 mmol/L (1.13-1.32); POTASSIUM ISTAT 3.5 mmol/L (3.5-5.0)
[2018-05-19] MEDS ORDERED: DIGOXIN IV 500 MCG/2 ML AMPUL. IV ONE (08:45)
[2018-05-19] MEDS ORDERED: AMIODARONE 150 MG in IV DEXTROSE 5% 100ML 100 ML IV ONE (08:45)
[2018-05-19 08:49] LABS: BASO # 0.1 x10^3/uL (0.0-0.2); BASO % 1 % (0-3); EOS # 0.1 x10^3/uL (0.0-0.7); EOS % 1 % (0-3); HEMATOCRIT 29.8 % (39.0-53.0); HEMOGLOBIN 9.4 g/dL (13.0-17.5); LYMPH # 1.7 x10^3/uL (1.0-4.8); LYMPH % 19 % (24-48); MEAN CORPUSCULAR HEMOGLOBIN 30 pg (25-35); MEAN CORPUSCULAR HGB CONC 32 g/dL (31-37); MEAN CORPUSCULAR VOLUME 94 fL (79-100); MONO # 0.8 x10^3/uL (0.0-1.1); MONO % 8 % (0-9); NEUT # 6.7 x10^3uL (1.8-7.7); NEUT % 72 % (31-73); PLATELET COUNT 279 x10^3/uL (140-400); RED BLOOD COUNT 3.17 x10^6/uL (4.30-5.70); RED CELL DISTRIBUTION WIDTH 15.4 % (11.5-14.5); WHITE BLOOD COUNT 9.3 x10^3/uL (4.0-11.0)
[2018-05-19 08:58] LABS: CALCIUM 7.8 mg/dL (8.5-10.1); CREATININE 2.1 mg/dL (0.7-1.3); GFR 37.1; POTASSIUM 3.9 mmol/L (3.5-5.1)
[2018-05-19] MEDS ORDERED: MIDAZOLAM HCL/PF 5 MG/5 ML VIAL. IV ONE (09:00)
[2018-05-19] MEDS ORDERED: ADENOSINE 6 MG/2 ML VIAL. IV ONE ×2 (09:00)
[2018-05-19 09:05] LABS: ALBUMIN 2.3 g/dL (3.4-5.0); ALBUMIN/GLOBULIN RATIO 0.6 (1.0-1.7); MAGNESIUM 1.6 mg/dL (1.8-2.4); TOTAL BILIRUBIN 0.5 mg/dL (0.2-1.0); TOTAL PROTEIN 5.9 g/dL (6.4-8.2)
--- NOTE | 2018-05-19 09:09 | PHYS DOC ---
Past Medical History Past Medical History: A-Fib, CAD, Hypotension, Renal Disease Additional Past Medical Histor: GOUT, SBO Past Surgical History: Hip Replacement Additional Past Surgical Histo: cardiac stents placed, left upper extremity AV shunt Alcohol Use: Rarely Drug Use: None Adult General Chief Complaint Chief Complaint: RAPID HEART RATE HPI HPI Patient is a 77 year old male resident of [facility] with history of end stage renal disease on hemodialysis and atrial fibrillation with recent hospitalization with syncope and A. fib with RVR brought in by EMS because of chest pain and shortness of breath. Patient has sudden onset of shortness of breath and afebrile and has heart rate of 180s. Blood pressure 50/30 and O2 sat of 80s and was started on nonrebreather facial mask. The patient also had several episodes of generalized spasticity movement with consideration of seizure without having postictal condition. History was limited because of critical medical condition at arrival to ER. Review of Systems Review of Systems Constitutional: Denies fever or chills [] Eyes: Denies change in visual acuity, redness, or eye pain [] HENT: Denies nasal congestion or sore throat [] Respiratory: Reports shortness of breath [] Cardiovascular: No additional information not addressed in HPI [] GI: Denies abdominal pain, nausea, vomiting, bloody stools or diarrhea [] : Denies dysuria or hematuria [] Musculoskeletal: Denies back pain or joint pain [] Integument: Denies rash or skin lesions [] Neurologic: Reports dizziness Endocrine: Denies polyuria or polydipsia [] All other systems were reviewed and found to be within normal limits, except as documented in this note. Current Medications Current Medications Current Medications Medications (Trade) Dose Ordered Sig/Maria Eugenia Start Time Stop Time Status Last Admin Dose Admin Amiodarone HCl 150 mg/Dextrose 103 ml @ 618 mls/hr 1X ONCE 05/19/18 08:45 05/19/18 08:54 DC 05/19/18 09:12 618 MLS/HR Digoxin (Lanoxin) 500 mcg 1X ONCE 05/19/18 08:45 05/19/18 08:46 DC Allergies Allergies Allergies Coded Allergies Type Severity Reaction Last Updated Verified I S O L A T I O N *CONTACT* Allergy Unknown 05/08/18 Yes No Known Medication Allergies Allergy Unknown 05/08/18 Yes Physical Exam Physical Exam Constitutional: Well developed moderate distress, non-toxic appearance. [] HENT: Normocephalic, atraumatic Eyes: PERRLA, EOMI, conjunctiva normal, no discharge. [] Neck: Normal range of motion, no tenderness, supple, no stridor. [] Cardiovascular: Severe tachycardia, no murmur [] Lungs & Thorax: Decreased air movement in by basic Abdomen: Bowel sounds normal, soft, no tenderness, several abdominal scar with ventral hernia Skin: Warm, dry, no erythema, no rash. [] Extremities: No tenderness, no cyanosis, no clubbing, ROM intact, 1+ edema. [] Neurologic: Alert and oriented , normal motor function, normal sensory function , no focal deficits noted. [] Current Patient Data Vital Signs Vital Signs Date Time Temp Pulse Resp B/P (MAP) Pulse Ox O2 Delivery O2 Flow Rate FiO2 05/19/18 08:45 118 22 82/59 (67) 99 NonRebreather Mask 15.0 05/19/18 08:19 98.0 98.0 Lab Values Laboratory Tests Test 05/19/18 08:29 05/19/18 08:35 POC Hemoglobin 8.5 g/dL (14-18) L POC Hematocrit 25 % (37-52) L POC Sodium 136 mmol/L (135-145) POC Potassium 3.5 mmol/L (3.5-5.0) POC Chloride 104 mmol/L (98-110) POC Total CO2 19 mmol/L (23-32) L Anion Gap 18 mmol/L (6-14) H 14 (6-14) POC Blood Urea Nitrogen 36 mg/dL (8-26) H POC Creatinine 1.8 mg/dL (0.5-1.4) H Glucose Level 79 mg/dL (70-99) 93 mg/dL (70-99) POC Ionized Calcium (Polly) 0.81 mmol/L (1.13-1.32) L White Blood Count 9.3 x10^3/uL (4.0-11.0) Red Blood Count 3.17 x10^6/uL (4.30-5.70) L Hemoglobin 9.4 g/dL (13.0-17.5) L Hematocrit 29.8 % (39.0-53.0) L Mean Corpuscular Volume 94 fL (79-100) Mean Corpuscular Hemoglobin 30 pg (25-35) Mean Corpuscular Hemoglobin Concent 32 g/dL (31-37) Red Cell Distribution Width 15.4 % (11.5-14.5) H Platelet Count 279 x10^3/uL (140-400) Neutrophils (%) (Auto) 72 % (31-73) Lymphocytes (%) (Auto) 19 % (24-48) L Monocytes (%) (Auto) 8 % (0-9) Eosinophils (%) (Auto) 1 % (0-3) Basophils (%) (Auto) 1 % (0-3) Neutrophils # (Auto) 6.7 x10^3uL (1.8-7.7) Lymphocytes # (Auto) 1.7 x10^3/uL (1.0-4.8) Monocytes # (Auto) 0.8 x10^3/uL (0.0-1.1) Eosinophils # (Auto) 0.1 x10^3/uL (0.0-0.7) Basophils # (Auto) 0.1 x10^3/uL (0.0-0.2) Prothrombin Time 14.0 SEC (11.7-14.0) Prothrombin Time INR 1.1 (0.8-1.1) D-Dimer (Unique) 7.50 ug/mlFEU (0.00-0.50) H Sodium Level 140 mmol/L (136-145) Potassium Level 3.9 mmol/L (3.5-5.1) Chloride Level 101 mmol/L (98-107) Carbon Dioxide Level 25 mmol/L (21-32) Blood Urea Nitrogen 43 mg/dL (8-26) H Creatinine 2.1 mg/dL (0.7-1.3) H Estimated GFR (Cockcroft-Gault) 37.1 BUN/Creatinine Ratio 20 (6-20) Lactic Acid Level 5.9 mmol/L (0.4-2.0) *H Calcium Level 7.8 mg/dL (8.5-10.1) L Magnesium Level 1.6 mg/dL (1.8-2.4) L Total Bilirubin 0.5 mg/dL (0.2-1.0) Aspartate Amino Transferase (AST) 45 U/L (15-37) H Alanine Aminotransferase (ALT) 96 U/L (16-63) H Alkaline Phosphatase 141 U/L (46-116) H Creatine Kinase 44 U/L (39-308) Troponin I Quantitative 0.057 ng/mL (0.000-0.055) UM-[id number]-[id number]-Type Natriuretic Peptide 17840 pg/mL (0-449) H Total Protein 5.9 g/dL (6.4-8.2) L Albumin 2.3 g/dL (3.4-5.0) L Albumin/Globulin Ratio 0.6 (1.0-1.7) L Digoxin Level 0.3 ng/mL (0.9-2.0) L Digoxin Last Dose Date Unknown Digoxin Last Dose Time Unknown Laboratory Tests 05/19/18 08:35 Laboratory Tests 05/19/18 08:29 05/19/18 08:35 EKG EKG EKG interpreted by me. EKG at 02 and 40 showed SVT at rate of 189, low voltage QRS, RVH, nonspecific ST and T-wave abnormalities in anteroseptal dates, no acute ST-T wave abnormality. Repeated EKG at 084 after unsuccessful treatment with Adenosin and dropping heart rate after giving Versed 5 mg IV showed atrial fibrillation with RVR at rate of 124, no acute ST and T-wave abnormalities. Radiology/Procedures Radiology/Procedures [][facility] [address] [place], [place] [id number] IMAGING REPORT Signed PATIENT: ROSALIA MARTI ACCOUNT: [id number] : 1940 LOCATION: [address] [place] [address] AGE: 77 SEX: M EXAM STATUS: ADM IN ORD. PHYSICIAN: VIRGILIO CELESTIN MD REASON: palpitation PROCEDURE: PORTABLE CHEST 1V Examination: PORTABLE CHEST 1V History: PALPITATIONS Comparison/Correlation: 05/16/2018 chest x-ray exam Findings: Supine portable frontal view chest was obtained. Stent material is noted overlying the left axillary and subclavian region. Heart size is enlarged appearance but this is likely related to portable supine technique. Slight pulmonary vascular congestion is questioned but this may be artifactual with the patient in supine position and limited pulmonary inflation noted. Retrocardiac atelectasis at the left basilar aspect is minimal and similar to prior exam. Impression: No suspicious new process. No significant change in pulmonary aeration. Electronically signed by: Jermaine Austin MD (05/19/2018 9:48 AM) [facility] DICTATED and SIGNED BY: JERMAINE AUSTIN MD DATE: 05/19/1848 Course & Med Decision Making Course & Med Decision Making Pertinent Labs and Imaging studies reviewed. (See chart for details) Evaluation of patient in ER showed 77-year-old male patient with history of atrial fibrillation and chronic renal failure on dialysis brought in by EMS because of chest pain and shortness of breath and heart rate of 180s blood pressure of 50s. Patient was alert and oriented. EKG showed SVT. Patient had Adenosine 6 mg 0828 and 12 mg at 0831 without response to treatment. Blood pressure was 80s and O2 sat improved with non-rebreather facial mask. No response to adenosine with heart rate of around 200 and blood pressure decided to cardioversion the patient. 5 mg of IV was given and patient heart rate dropped to 120s with atrial fibrillation with RVR. Dr. Watts was consulted at 0 841 and recommended to start amiodarone bolus at 150 and digoxin 0.5 mg for atrial fibrillation with RVR because of hypotension. Blood pressure dropped to low 70s and patient treated with 500 mL of normal saline and Levophed was started. Patient treated with amiodarone with improvement of heart rate and digoxin was not given. Blood pressure gradually improved to more than 100 with improvement of heart rate. Patient had history of hypotension with blood pressure of 80s and low 90s. Dr Condon accepted admission at [address] Casper. Accepting Care Team: Current data and ongoing care discussed. Primary: Dr Casper/Dr Condon Consulting: Dr Stefanie Mtz Disclaimer [place] Disclaimer This electronic medical record was generated, in whole or in part, using a voice recognition dictation system. Departure Departure Impression: Primary Impression: Cardiogenic shock Additional Impressions: Atrial fibrillation with rapid ventricular response ESRD (end stage renal disease) Elevated troponin CHF (congestive heart failure) Hypoxia Hypotension Severe sepsis Hypomagnesemia Disposition: ADMITTED INPATIENT (at 0911) Admitting Physician: Juan Manuel Condon (accepted admission at [address] Casper) Condition: GUARDED Referrals: HIRO CASPER MD (PCP) Critical Care Time Critical care time was 100 minutes exclusive of procedures. Problem Qualifiers Additional Impressions: CHF (congestive heart failure) Heart failure type: unspecified Heart failure chronicity: unspecified Qualified Codes: I50.9 - Heart failure, unspecified Hypotension Hypotension type: unspecified hypotension type Qualified Codes: I95.9 - Hypotension, unspecified VIRGILIO CELESTIN MD May 19, 2018 09:09
[2018-05-19] MEDS ORDERED: MAGNESIUM SULFATE 2GM 50 ML IV ONE (09:15)
[2018-05-19 09:19] LABS: DIG 0.3 ng/mL (0.9-2.0)
[2018-05-19] MEDS ORDERED: DEXTROSE 50% 25 GM / 50ML DISP.SYRIN. IV ONE (09:30)
[2018-05-19] MEDS ORDERED: NOREPINEPHRIN 8MG/250ML PREMIX 250 ML IV PRN (09:30)
[2018-05-19] MEDS ORDERED: VANCOMYCIN 2 GM in IV NORMAL SALINE 500ML BAG 500 ML IV ONE (09:45)
[2018-05-19] MEDS ORDERED: PIPERACILLIN/TAZOBACTAM 3.375 GM in IV NORMAL SALINE 50ML 50 ML IV ONE (09:45)
[2018-05-19] MEDS ORDERED: VANCOMYCIN 1GM IVPB FOR OMNI 250 ML IV ONE (09:45)
--- NOTE | 2018-05-19 09:51 | RAD ---
Examination: PORTABLE CHEST 1V History: PALPITATIONS Comparison/Correlation: 05/16/2018 chest x-ray exam Findings: Supine portable frontal view chest was obtained. Stent material is noted overlying the left axillary and subclavian region. Heart size is enlarged appearance but this is likely related to portable supine technique. Slight pulmonary vascular congestion is questioned but this may be artifactual with the patient in supine position and limited pulmonary inflation noted. Retrocardiac atelectasis at the left basilar aspect is minimal and similar to prior exam. Impression: No suspicious new process. No significant change in pulmonary aeration. Electronically signed by: Jermaine Yin MD (05/19/2018 9:48 AM) [facility]
--- NOTE | 2018-05-19 11:06 | PDOC ---
CARDIOLOGY PROGRESS NOTE SUBJECTIVE: Please see recent admission notes for full details. 77 w/ labile BP and recent tachyarrhythmia admitted likely due to dehydration and resultant afib with RVR. He has significant neuropathic issues as well. No chest pain. Fainted after getting himself dressed at [facility]. OBJECTIVE: Vital SIgns: Vital Signs Date Time Temp Pulse Resp B/P (MAP) Pulse Ox O2 Delivery O2 Flow Rate FiO2 05/19/18 10:30 Nasal Cannula 2.0 05/19/18 10:15 97.9 75 12 97/63 (74) 100 97.9 Objective: a/o x 3. NAD Irr irr. No m/r/g normal bruit and thrill of the LUE Bilateral chronic venous stasis with 2+ edema. CURRENT MEDICATIONS: Current Medications Medications (Trade) Dose Ordered Sig/Maria Eugenia Start Time Stop Time Status Last Admin Dose Admin Adenosine (Adenocard) 12 mg 1X ONCE 05/19/18 09:00 05/19/18 09:01 DC 05/19/18 09:10 12 MG Amiodarone HCl 150 mg/Dextrose 103 ml @ 618 mls/hr 1X ONCE 05/19/18 08:45 05/19/18 08:54 DC 05/19/18 09:12 618 MLS/HR Dextrose (Dextrose 50%-Water Syringe) 12.5 gm 1X ONCE 05/19/18 09:30 05/19/18 09:31 DC 05/19/18 09:24 12.5 GM Digoxin (Lanoxin) 500 mcg 1X ONCE 05/19/18 08:45 05/19/18 08:46 DC Magnesium Sulfate 50 ml @ 25 mls/hr 1X ONCE 05/19/18 09:15 05/19/18 11:14 05/19/18 09:22 25 MLS/HR Midazolam HCl (Versed) 5 mg 1X ONCE 05/19/18 09:00 05/19/18 09:01 DC 05/19/18 09:11 5 MG Norepinephrine Bitartrate 250 ml @ 1.875 mls/ hr CONT PRN 05/19/18 09:30 05/19/18 09:33 17.625 MLS/HR Piperacillin Sod/ Tazobactam Sod 3.375 gm/Sodium Chloride 50 ml @ 100 mls/hr 1X ONCE 05/19/18 09:45 05/19/18 10:14 DC Vancomycin HCl 250 ml @ 250 mls/hr 1X ONCE 05/19/18 09:45 05/19/18 10:44 Cancel Vancomycin HCl 2 gm/Sodium Chloride 500 ml @ 250 mls/hr ONCE ONCE 05/19/18 09:45 05/19/18 11:44 DIAGNOSTIC TESTING: MPI 01/2018 WNL Echo with EF of 55% Trop minimally elevated Mild anemia Tele with afib. ASSESSMENT: 1. Permanent afib with RVR. 2. ESRD 3. Labile BP's. PLAN: 1. Prior difficulty with initiation of metoprolol. 2. Continue amiodarone 400mg daily, Dig every other day after HD. 3. Continue midodrine and steroid supplement. Supportive care. Thanks. DUANE DURON MD May 19, 2018 11:06
[2018-05-19] MEDS ORDERED: HYOSCYAMINE 0.125 MG TAB.RAPDIS PO PRN (11:30)
[2018-05-19] MEDS ORDERED: LOPERAMIDE 2 MG CAPSULE PO PRN (11:30)
[2018-05-19] MEDS ORDERED: ONDANSETRON ODT 4 MG TAB.RAPDIS. PO PRN (11:30)
--- NOTE | 2018-05-19 11:45 | PDOC2 ---
CONSULT Date of Consult Date of Consult DATE: 05/19/18 TIME: 11:38 Reason for Consult Reason for Consult: ESRD, LOW MAG Referring Physician Referring Physician: Identification/Chief Complaint Chief Complaint DIZZY AND PASSED OUT Source Source: Chart review, Patient History of Present Illness Reason for Visit: THIS IS A 77 YR OLD WITH ESRD. HE HAS OP HD ON TTS. WAS AT PP WHEN HE FELT DIZZY AND SLID OUT OF HIS CHAIR. IN THE ER NOTED TO BE IN AFIB RVR AND HYPOTENSION. FLUID BOLUS OF A LITER SALINE GIVEN IN THE ER. NOW UNDERGOING CARDIOLOGY EVALUATION. 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 LABS C/W ESRD. 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 Past Medical History Past Medical History RETROPERITONEAL FIBROSIS Cardiovascular: AFIB, CAD, HTN, Hyperlipidemia Pulmonary: Other CENTRAL NERVOUS SYSTEM: Other GI: No pertinent hx Heme/Onc: No pertinent hx Hepatobiliary: No pertinent hx Psych: No pertinent hx Musculoskeletal: Osteoarthritis Rheumatologic: Gout Infectious disease: Other Renal/: Chronic renal insuff, Acute renal failure Endocrine: No pertinent hx, Hyperparathyroidism Past Surgical History Past Surgical History: Cholecystectomy, Total hip replacement, Total knee replacement, Tonsillectomy, Other Family History Family History: Coronary Artery Disease Social History ALCOHOL: none Drugs: None Lives: with Family Domestic Violence: Neg Current Problem List Problem List Problems Medical Problems: (1) Atrial fibrillation with rapid ventricular response Status: Acute (2) Cardiogenic shock Status: Acute (3) CHF (congestive heart failure) Status: Acute (4) Elevated troponin Status: Acute (5) Hypomagnesemia Status: Acute (6) Hypotension Status: Acute (7) Hypoxia Status: Acute (8) Severe sepsis Status: Acute Current Medications Current Medications Current Medications Amiodarone HCl 150 mg/Dextrose 103 ml @ 618 mls/hr 1X ONCE IV Last administered on 05/19/18at 09:12; Start 05/19/18 at 08:45; Stop 05/19/18 at 08:54 ; Status DC Digoxin (Lanoxin) 500 mcg 1X ONCE IV ; Start 05/19/18 at 08:45; Stop 05/19/18 at 08:46; Status DC Adenosine (Adenocard) 6 mg 1X ONCE IV Last administered on 05/19/18at 09:10; Start 05/19/18 at 09:00; Stop 05/19/18 at 09:01; Status DC Adenosine (Adenocard) 12 mg 1X ONCE IV Last administered on 05/19/18at 09:10; Start 05/19/18 at 09:00; Stop 05/19/18 at 09:01; Status DC Midazolam HCl (Versed) 5 mg 1X ONCE IV Last administered on 05/19/18at 09:11; Start 05/19/18 at 09:00; Stop 05/19/18 at 09:01; Status DC Magnesium Sulfate 50 ml @ 25 mls/hr 1X ONCE IV Last administered on 05/19/18at 09:22; Start 05/19/18 at 09:15; Stop 05/19/18 at 11:14; Status DC Norepinephrine Bitartrate 250 ml @ 1.875 mls/ hr CONT PRN IV SEE I/O RECORD Last administered on 05/19/18at 09:33; Start 05/19/18 at 09:30 Dextrose (Dextrose 50%-Water Syringe) 12.5 gm 1X ONCE IV Last administered on 05/19/18at 09:24; Start 05/19/18 at 09:30; Stop 05/19/18 at 09:31; Status DC Piperacillin Sod/ Tazobactam Sod 3.375 gm/Sodium Chloride 50 ml @ 100 mls/hr 1X ONCE IV Last administered on 05/19/18at 11:27; Start 05/19/18 at 09:45; Stop 05/19/18 at 10:14; Status DC Vancomycin HCl 250 ml @ 250 mls/hr 1X ONCE IV ; Start 05/19/18 at 09:45; Stop 05/19/18 at 10:44; Status Cancel Vancomycin HCl 2 gm/Sodium Chloride 500 ml @ 250 mls/hr ONCE ONCE IV Last administered on 05/19/18at 11:24; Start 05/19/18 at 09:45; Stop 05/19/18 at 11:44 Allopurinol (Zyloprim) 300 mg DAILY PO ; Start 05/19/18 at 13:00 Aspirin (Children'S Aspirin) 81 mg DAILY08 PO ; Start 05/19/18 at 13:00 Clopidogrel Bisulfate (Plavix) 75 mg DAILY07 PO ; Start 05/19/18 at 13:00 Digoxin (Lanoxin) 125 mcg MoWeFr@0900 PO ; Start 05/20/18 at 09:00 Fludrocortisone Acetate (Florinef) 0.1 mg DAILY PO ; Start 05/19/18 at 13:00 Vitamin B Complex/ Vitamin C (Leanne-Bev) 1 tab DAILY PO ; Start 05/19/18 at 13: 00 Furosemide (Lasix) 80 mg BID92 PO ; Start 05/19/18 at 14:00 Prednisone (Prednisone) 40 mg DAILY PO ; Start 05/19/18 at 12:00 Hyoscyamine (Anaspaz) 0.125 mg PRN Q6HRS PRN PO STOMACH CRAMPING; Start at 11:30 Loperamide HCl (Imodium) 2 mg PRN Q15MIN PRN PO DIARRHEA; Start 05/19/18 at 11: 30 Ondansetron HCl (Zofran Odt) 4 mg PRN Q4HRS PRN PO NAUSEA/VOMITING; Start 05/19 at 11:30 Zinc Sulfate (Orazinc) 220 mg DAILY PO ; Start 05/19/18 at 13:00 Midodrine (Proamatine) 5 mg [id number] PO ; Start 05/19/18 at 13:00 Amiodarone HCl (Cordarone) 200 mg BID PO ; Start 05/19/18 at 21:00 Active Scripts Active Digoxin 125 Mcg Tablet 125 Mcg PO MOWEFR@0900 30 Days Midodrine Hcl 2.5 Mg Tablet 2.5 Mg PO [id number] 30 Days Reported Prednisone 20 Mg Tablet 40 Mg PO DAILY Furosemide 80 Mg Tablet 80 Mg PO BID Fludrocortisone Acetate 0.1 Mg Tablet 0.1 Mg PO DAILY Zinc (Zinc Gluconate) 50 Mg Tablet 50 Mg PO DAILY Zofran (Ondansetron Hcl) 4 Mg Tablet 1 Tab PO PRN Q4HRS PRN Levsin (Hyoscyamine Sulfate) 0.125 Mg Tablet 0.125 Mg PO PRN Q6HRS PRN Leanne-Bev Tablet (Folic Acid/Vitamin B Comp W-C) 0.8 Mg Tablet 0.8 Mg PO DAILY Anti-Diarrheal (Loperamide Hcl) 2 Mg Capsule 2 Mg PO PRN QID PRN Aspirin 81 Mg Tab.chew 1 Tab PO DAILY Clopidogrel (Clopidogrel Bisulfate) 75 Mg Tablet 75 Mg PO DAILY Allopurinol 300 Mg Tablet 300 Mg PO DAILY Allergies Allergies: Coded Allergies: I S O L A T I O N *CONTACT* (Verified Allergy, Unknown, 05/08/18) ESBL No Known Medication Allergies (Verified Allergy, Unknown, 05/08/18) ROS General: YES: Fatigue, Malaise PSYCHOLOGICAL ROS: YES: Anxiety, Depression Eyes: Yes Decreased vision HEENT: YES: Heacaches ALLERGY AND IMMUNOLOGY: YES: Seasonal Allergies Respiratory: YES: Cough, Shortness of breath Cardiovascular: yes Palpitations, yes Orthopnea, yes Lt Headedness Gastrointestinal: Yes Diarrhea Genitourinary: YES Other (ANURIA) Musculoskeletal: Yes Joint Stiffness, Yes Muscular Weakness Neurological: Yes Dizziness, Yes Weakness Skin: Yes Dry Skin Physical Exam General: Alert, Oriented X3, Cooperative, No acute distress HEENT: Atraumatic, PERRLA, EOMI, Mucous membr. moist/pink Lungs: Clear to auscultation, Normal air movement Heart: Other (TACHY IRREGULAR) Abdomen: Normal bowel sounds, Soft, No tenderness, No hepatosplenomegaly Extremities: No cyanosis, No edema Skin: No breakdown Neuro: Normal speech Psych/Mental Status: Mental status NL, Mood NL MUSCULOSKELETAL: No joint tenderness, No deformity, No swelling Vitals VITALS Vital Signs Date Time Temp Pulse Resp B/P (MAP) Pulse Ox O2 Delivery O2 Flow Rate FiO2 05/19/18 10:30 Nasal Cannula 2.0 05/19/18 10:15 97.9 75 12 97/63 (74) 100 97.9 Labs Labs Laboratory Tests Test 05/19/18 08:29 05/19/18 08:35 05/19/18 09:14 Bedside Hemoglobin 8.5 g/dL (14-18) Bedside Hematocrit 25 % (37-52) Bedside Sodium 136 mmol/L (135-145) Bedside Potassium 3.5 mmol/L (3.5-5.0) Bedside Chloride 104 mmol/L (98-110) Bedside Total CO2 19 mmol/L (23-32) Anion Gap 18 mmol/L (6-14) 14 (6-14) Bedside Blood Urea Nitrogen 36 mg/dL (8-26) Bedside Creatinine 1.8 mg/dL (0.5-1.4) Glucose Level 79 mg/dL (70-99) 93 mg/dL (70-99) Bedside Ionized Calcium (Polly) 0.81 mmol/L (1.13-1.32) White Blood Count 9.3 x10^3/uL (4.0-11.0) Red Blood Count 3.17 x10^6/uL (4.30-5.70) Hemoglobin 9.4 g/dL (13.0-17.5) Hematocrit 29.8 % (39.0-53.0) Mean Corpuscular Volume 94 fL (79-100) Mean Corpuscular Hemoglobin 30 pg (25-35) Mean Corpuscular Hemoglobin Concent 32 g/dL (31-37) Red Cell Distribution Width 15.4 % (11.5-14.5) Platelet Count 279 x10^3/uL (140-400) Neutrophils (%) (Auto) 72 % (31-73) Lymphocytes (%) (Auto) 19 % (24-48) Monocytes (%) (Auto) 8 % (0-9) Eosinophils (%) (Auto) 1 % (0-3) Basophils (%) (Auto) 1 % (0-3) Neutrophils # (Auto) 6.7 x10^3uL (1.8-7.7) Lymphocytes # (Auto) 1.7 x10^3/uL (1.0-4.8) Monocytes # (Auto) 0.8 x10^3/uL (0.0-1.1) Eosinophils # (Auto) 0.1 x10^3/uL (0.0-0.7) Basophils # (Auto) 0.1 x10^3/uL (0.0-0.2) Prothrombin Time 14.0 SEC (11.7-14.0) Prothromb Time International Ratio 1.1 (0.8-1.1) D-Dimer (Unique) 7.50 ug/mlFEU (0.00-0.50) Sodium Level 140 mmol/L (136-145) Potassium Level 3.9 mmol/L (3.5-5.1) Chloride Level 101 mmol/L (98-107) Carbon Dioxide Level 25 mmol/L (21-32) Blood Urea Nitrogen 43 mg/dL (8-26) Creatinine 2.1 mg/dL (0.7-1.3) Estimated GFR (Cockcroft-Gault) 37.1 BUN/Creatinine Ratio 20 (6-20) Lactic Acid Level 5.9 mmol/L (0.4-2.0) Calcium Level 7.8 mg/dL (8.5-10.1) Magnesium Level 1.6 mg/dL (1.8-2.4) Total Bilirubin 0.5 mg/dL (0.2-1.0) Aspartate Amino Transf (AST/SGOT) 45 U/L (15-37) Alanine Aminotransferase (ALT/SGPT) 96 U/L (16-63) Alkaline Phosphatase 141 U/L (46-116) Creatine Kinase 44 U/L (39-308) Troponin I Quantitative 0.057 ng/mL (0.000-0.055) JF-Yts-H-Type Natriuretic Peptide 34947 pg/mL (0-449) Total Protein 5.9 g/dL (6.4-8.2) Albumin 2.3 g/dL (3.4-5.0) Albumin/Globulin Ratio 0.6 (1.0-1.7) Digoxin Level 0.3 ng/mL (0.9-2.0) Digoxin Last Dose Date Unknown Digoxin Last Dose Time Unknown Glucose (Fingerstick) 57 mg/dL (70-99) Laboratory Tests Test 05/19/18 08:29 05/19/18 08:35 05/19/18 09:14 Bedside Hemoglobin 8.5 g/dL (14-18) Bedside Hematocrit 25 % (37-52) Bedside Sodium 136 mmol/L (135-145) Bedside Potassium 3.5 mmol/L (3.5-5.0) Bedside Chloride 104 mmol/L (98-110) Bedside Total CO2 19 mmol/L (23-32) Anion Gap 18 mmol/L (6-14) 14 (6-14) Bedside Blood Urea Nitrogen 36 mg/dL (8-26) Bedside Creatinine 1.8 mg/dL (0.5-1.4) Glucose Level 79 mg/dL (70-99) 93 mg/dL (70-99) Bedside Ionized Calcium (Polly) 0.81 mmol/L (1.13-1.32) White Blood Count 9.3 x10^3/uL (4.0-11.0) Red Blood Count 3.17 x10^6/uL (4.30-5.70) Hemoglobin 9.4 g/dL (13.0-17.5) Hematocrit 29.8 % (39.0-53.0) Mean Corpuscular Volume 94 fL (79-100) Mean Corpuscular Hemoglobin 30 pg (25-35) Mean Corpuscular Hemoglobin Concent 32 g/dL (31-37) Red Cell Distribution Width 15.4 % (11.5-14.5) Platelet Count 279 x10^3/uL (140-400) Neutrophils (%) (Auto) 72 % (31-73) Lymphocytes (%) (Auto) 19 % (24-48) Monocytes (%) (Auto) 8 % (0-9) Eosinophils (%) (Auto) 1 % (0-3) Basophils (%) (Auto) 1 % (0-3) Neutrophils # (Auto) 6.7 x10^3uL (1.8-7.7) Lymphocytes # (Auto) 1.7 x10^3/uL (1.0-4.8) Monocytes # (Auto) 0.8 x10^3/uL (0.0-1.1) Eosinophils # (Auto) 0.1 x10^3/uL (0.0-0.7) Basophils # (Auto) 0.1 x10^3/uL (0.0-0.2) Prothrombin Time 14.0 SEC (11.7-14.0) Prothromb Time International Ratio 1.1 (0.8-1.1) D-Dimer (Unique) 7.50 ug/mlFEU (0.00-0.50) Sodium Level 140 mmol/L (136-145) Potassium Level 3.9 mmol/L (3.5-5.1) Chloride Level 101 mmol/L (98-107) Carbon Dioxide Level 25 mmol/L (21-32) Blood Urea Nitrogen 43 mg/dL (8-26) Creatinine 2.1 mg/dL (0.7-1.3) Estimated GFR (Cockcroft-Gault) 37.1 BUN/Creatinine Ratio 20 (6-20) Lactic Acid Level 5.9 mmol/L (0.4-2.0) Calcium Level 7.8 mg/dL (8.5-10.1) Magnesium Level 1.6 mg/dL (1.8-2.4) Total Bilirubin 0.5 mg/dL (0.2-1.0) Aspartate Amino Transf (AST/SGOT) 45 U/L (15-37) Alanine Aminotransferase (ALT/SGPT) 96 U/L (16-63) Alkaline Phosphatase 141 U/L (46-116) Creatine Kinase 44 U/L (39-308) Troponin I Quantitative 0.057 ng/mL (0.000-0.055) AK-Gjf-J-Type Natriuretic Peptide 33911 pg/mL (0-449) Total Protein 5.9 g/dL (6.4-8.2) Albumin 2.3 g/dL (3.4-5.0) Albumin/Globulin Ratio 0.6 (1.0-1.7) Digoxin Level 0.3 ng/mL (0.9-2.0) Digoxin Last Dose Date Unknown Digoxin Last Dose Time Unknown Glucose (Fingerstick) 57 mg/dL (70-99) Images Images History: PALPITATIONS Comparison/Correlation: 05/16/2018 chest x-ray exam Findings: Supine portable frontal view chest was obtained. Stent material is noted overlying the left axillary and subclavian region. Heart size is enlarged appearance but this is likely related to portable supine technique. Slight pulmonary vascular congestion is questioned but this may be artifactual with the patient in supine position and limited pulmonary inflation noted. Retrocardiac atelectasis at the left basilar aspect is minimal and similar to prior exam. Impression: No suspicious new process. No significant change in pulmonary aeration. Assessment/Plan Assessment/Plan IMP AFIB RVR HYPOTENSION HYPOMAGNESEMIA CHRONIC HYPOTENSION ANEMIA ESRD DECONDITIONING HX OF RETROPERITONEAL FIBROSIS CHRONIC DIARRHEA DUE TO EXOCRINE PANCREATIC INSUFFICIENCY CHRONIC LYMPHEDEMA PLAN REPLACE MAG FLUID BOLUS PRESSORS NEEDED HR CONTROL CARDIOLOGY FOLLOWING HD TTS SANA Shipley/Abdoulaye ATTENDING AND CARDIOLOGY CLOTILDE WALLACE MD May 19, 2018 11:45
[2018-05-19] MEDS: ASPIRIN CHEWABLE 81 MG TABLET. PO SCH (13:58)
[2018-05-19] MEDS: ALLOPURINOL 300 MG TABLET. PO SCH (13:58)
[2018-05-19] MEDS: MIDODRINE 5 MG TABLET PO SCH ×2 (13:58→18:17)
[2018-05-19] MEDS: FUROSEMIDE 80 MG TABLET. PO SCH (13:58)
[2018-05-19] MEDS: FOLIC/VIT B COMP W-C (RENAL) TABLET. PO SCH (13:58)
[2018-05-19] MEDS: FLUDROCORTISONE 0.1 MG TABLET PO SCH (13:59)
[2018-05-19] MEDS: predniSONE 20 MG TABLET PO SCH (13:59)
[2018-05-19] MEDS: ZINC SULFATE 220 MG CAPSULE. PO SCH (13:59)
[2018-05-19] MEDS: CLOPIDOGREL BISULFATE 75 MG TABLET PO SCH (13:59)
--- NOTE | 2018-05-19 15:20 | PDOC1 ---
History and Physical Date of Admission Date of Admission 05/20/18 Identification/Chief Complaint Chief Complaint syncope Source Source: Caregiver, Patient History of Present Illness History of Present Illness He was at [facility] this am and in bathroom in wheelchair and getting ready for breakfast when he slumped to the floor. His eyes rolled back and staff noticed seizure like activity. Vitals were taken and he was hypotensive and tachycardic. EMS summoned and taken to [place] [facility] and found to be in Afib with RVR with HR of 180 and with elevated lactic acid of 5.9 and admitted into the ER but currently A&O with controlled BP on pressors and controlled heart rate. He is a dialysis patient with chronic LE edema. 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 Past Medical History Cardiovascular: AFIB, CAD, HTN, Hyperlipidemia Pulmonary: Other CENTRAL NERVOUS SYSTEM: Other GI: No pertinent hx Heme/Onc: No pertinent hx Hepatobiliary: No pertinent hx Psych: No pertinent hx Rheumatologic: Gout Infectious disease: Other Renal/: Chronic renal insuff, Acute renal failure Endocrine: No pertinent hx, Hyperparathyroidism Past Surgical History Past Surgical History: Cholecystectomy, Total hip replacement, Total knee replacement, Tonsillectomy, Other Family History Family History: Coronary Artery Disease Social History ALCOHOL: none Drugs: None Current Problem List Problem List Problems Medical Problems: (1) Atrial fibrillation with rapid ventricular response Status: Acute (2) Cardiogenic shock Status: Acute (3) CHF (congestive heart failure) Status: Acute (4) Elevated troponin Status: Acute (5) Hypomagnesemia Status: Acute (6) Hypotension Status: Acute (7) Hypoxia Status: Acute (8) Severe sepsis Status: Acute Current Medications Current Medications Current Medications Medications (Trade) Dose Ordered Sig/Maria Eugenia Start Time Stop Time Status Last Admin Dose Admin Adenosine (Adenocard) 12 mg 1X ONCE 05/19/18 09:00 05/19/18 09:01 DC 05/19/18 09:10 12 MG Allopurinol (Zyloprim) 300 mg DAILY 05/19/18 13:00 05/19/18 13:58 300 MG Amiodarone HCl (Cordarone) 200 mg BID 05/19/18 21:00 Amiodarone HCl 150 mg/Dextrose 103 ml @ 618 mls/hr 1X ONCE 05/19/18 08:45 05/19/18 08:54 DC 05/19/18 09:12 618 MLS/HR Aspirin (Children'S Aspirin) 81 mg DAILY08 05/19/18 13:00 05/19/18 13:58 81 MG Clopidogrel Bisulfate (Plavix) 75 mg DAILY07 05/19/18 13:00 05/19/18 13:59 75 MG Darbepoetin Luciano (Aranesp) 60 mcg Denson 05/19/18 21:00 Dextrose (Dextrose 50%-Water Syringe) 12.5 gm 1X ONCE 05/19/18 09:30 05/19/18 09:31 DC 05/19/18 09:24 12.5 GM Digoxin (Lanoxin) 125 mcg MoWeFr@0900 05/20/18 09:00 Fludrocortisone Acetate (Florinef) 0.1 mg DAILY 05/19/18 13:00 05/19/18 13:59 0.1 MG Furosemide (Lasix) 80 mg BID92 05/19/18 14:00 05/19/18 13:58 80 MG Hyoscyamine (Anaspaz) 0.125 mg PRN Q6HRS PRN 05/19/18 11:30 Loperamide HCl (Imodium) 2 mg PRN Q15MIN PRN 05/19/18 11:30 Magnesium Sulfate 50 ml @ 25 mls/hr 1X ONCE 05/19/18 09:15 05/19/18 11:14 DC 05/19/18 09:22 25 MLS/HR Midazolam HCl (Versed) 5 mg 1X ONCE 05/19/18 09:00 05/19/18 09:01 DC 05/19/18 09:11 5 MG Midodrine (Proamatine) 5 mg [id number] 05/19/18 13:00 05/19/18 13:58 5 MG Norepinephrine Bitartrate 250 ml @ 1.875 mls/ hr CONT PRN 05/19/18 09:30 05/19/18 09:33 17.625 MLS/HR Ondansetron HCl (Zofran Odt) 4 mg PRN Q4HRS PRN 05/19/18 11:30 Piperacillin Sod/ Tazobactam Sod 3.375 gm/Sodium Chloride 50 ml @ 100 mls/hr 1X ONCE 05/19/18 09:45 05/19/18 10:14 DC 05/19/18 11:27 100 MLS/HR Prednisone (Prednisone) 40 mg DAILY 05/19/18 12:00 05/19/18 13:59 40 MG Vancomycin HCl 250 ml @ 250 mls/hr 1X ONCE 05/19/18 09:45 05/19/18 10:44 Cancel Vancomycin HCl 2 gm/Sodium Chloride 500 ml @ 250 mls/hr ONCE ONCE 05/19/18 09:45 05/19/18 11:44 DC 05/19/18 11:24 250 MLS/HR Vitamin B Complex/ Vitamin C (Leanne-Bev) 1 tab DAILY 05/19/18 13:00 05/19/18 13:58 1 TAB Zinc Sulfate (Orazinc) 220 mg DAILY 05/19/18 13:00 05/19/18 13:59 220 MG Allergies Allergies Allergies Coded Allergies Type Severity Reaction Last Updated Verified I S O L A T I O N *CONTACT* Allergy Unknown 05/08/18 Yes No Known Medication Allergies Allergy Unknown 05/08/18 Yes ROS Review of System CONSTITUTIONAL: No fever or chills EYES: No recent changes SKIN: No rash or itching CARDIOVASCULAR: see HPI RESPIRATORY: No SOB or cough GASTROINTESTINAL: No nausea, vomiting or abdominal pain, positive for chronic diarrhea NEUROLOGICAL: No headaches, possible seizure vs normal autonomic response to vasovagal syncope ENDOCRINE: pancreatic insufficiency GENITOURINARY: he does make a small amount of urine MUSCULOSKELETAL: No back pain or joint pain LYMPHATICS: No enlarged lymph nodes PSYCHIATRIC: No anxiety or depression Physical Exam Physical Exam GEN.: No apparent distress. Alert and oriented. HEENT: Head is normocephalic, atraumatic NECK: Supple. LUNGS: Clear to auscultation. HEART: RRR, S1, S2 present. Peripheral pulses intact ABDOMEN: Soft, nontender. Positive bowel sounds. EXTREMITIES: Without any cyanosis, 2+ edema of left leg, 1+ of right. NEUROLOGIC: Normal speech, normal tone PSYCHIATRIC: Normal affect, normal mood. SKIN: sacral decub Vitals Vitals Vital Signs Date Time Temp Pulse Resp B/P (MAP) Pulse Ox O2 Delivery O2 Flow Rate FiO2 05/19/18 13:58 75 97/63 05/19/18 12:00 Nasal Cannula 2.0 05/19/18 10:15 97.9 12 100 97.9 Labs Labs Laboratory Tests Test 05/19/18 08:29 05/19/18 08:35 05/19/18 09:14 Bedside Hemoglobin 8.5 g/dL (14-18) Bedside Hematocrit 25 % (37-52) Bedside Sodium 136 mmol/L (135-145) Bedside Potassium 3.5 mmol/L (3.5-5.0) Bedside Chloride 104 mmol/L (98-110) Bedside Total CO2 19 mmol/L (23-32) Anion Gap 18 mmol/L (6-14) 14 (6-14) Bedside Blood Urea Nitrogen 36 mg/dL (8-26) Bedside Creatinine 1.8 mg/dL (0.5-1.4) Glucose Level 79 mg/dL (70-99) 93 mg/dL (70-99) Bedside Ionized Calcium (Polly) 0.81 mmol/L (1.13-1.32) White Blood Count 9.3 x10^3/uL (4.0-11.0) Red Blood Count 3.17 x10^6/uL (4.30-5.70) Hemoglobin 9.4 g/dL (13.0-17.5) Hematocrit 29.8 % (39.0-53.0) Mean Corpuscular Volume 94 fL (79-100) Mean Corpuscular Hemoglobin 30 pg (25-35) Mean Corpuscular Hemoglobin Concent 32 g/dL (31-37) Red Cell Distribution Width 15.4 % (11.5-14.5) Platelet Count 279 x10^3/uL (140-400) Neutrophils (%) (Auto) 72 % (31-73) Lymphocytes (%) (Auto) 19 % (24-48) Monocytes (%) (Auto) 8 % (0-9) Eosinophils (%) (Auto) 1 % (0-3) Basophils (%) (Auto) 1 % (0-3) Neutrophils # (Auto) 6.7 x10^3uL (1.8-7.7) Lymphocytes # (Auto) 1.7 x10^3/uL (1.0-4.8) Monocytes # (Auto) 0.8 x10^3/uL (0.0-1.1) Eosinophils # (Auto) 0.1 x10^3/uL (0.0-0.7) Basophils # (Auto) 0.1 x10^3/uL (0.0-0.2) Prothrombin Time 14.0 SEC (11.7-14.0) Prothromb Time International Ratio 1.1 (0.8-1.1) D-Dimer (Unique) 7.50 ug/mlFEU (0.00-0.50) Sodium Level 140 mmol/L (136-145) Potassium Level 3.9 mmol/L (3.5-5.1) Chloride Level 101 mmol/L (98-107) Carbon Dioxide Level 25 mmol/L (21-32) Blood Urea Nitrogen 43 mg/dL (8-26) Creatinine 2.1 mg/dL (0.7-1.3) Estimated GFR (Cockcroft-Gault) 37.1 BUN/Creatinine Ratio 20 (6-20) Lactic Acid Level 5.9 mmol/L (0.4-2.0) Calcium Level 7.8 mg/dL (8.5-10.1) Magnesium Level 1.6 mg/dL (1.8-2.4) Total Bilirubin 0.5 mg/dL (0.2-1.0) Aspartate Amino Transf (AST/SGOT) 45 U/L (15-37) Alanine Aminotransferase (ALT/SGPT) 96 U/L (16-63) Alkaline Phosphatase 141 U/L (46-116) Creatine Kinase 44 U/L (39-308) Troponin I Quantitative 0.057 ng/mL (0.000-0.055) GF-Xij-R-Type Natriuretic Peptide 07100 pg/mL (0-449) Total Protein 5.9 g/dL (6.4-8.2) Albumin 2.3 g/dL (3.4-5.0) Albumin/Globulin Ratio 0.6 (1.0-1.7) Digoxin Level 0.3 ng/mL (0.9-2.0) Digoxin Last Dose Date Unknown Digoxin Last Dose Time Unknown Glucose (Fingerstick) 57 mg/dL (70-99) Laboratory Tests Test 05/19/18 08:29 05/19/18 08:35 05/19/18 09:14 Bedside Hemoglobin 8.5 g/dL (14-18) Bedside Hematocrit 25 % (37-52) Bedside Sodium 136 mmol/L (135-145) Bedside Potassium 3.5 mmol/L (3.5-5.0) Bedside Chloride 104 mmol/L (98-110) Bedside Total CO2 19 mmol/L (23-32) Anion Gap 18 mmol/L (6-14) 14 (6-14) Bedside Blood Urea Nitrogen 36 mg/dL (8-26) Bedside Creatinine 1.8 mg/dL (0.5-1.4) Glucose Level 79 mg/dL (70-99) 93 mg/dL (70-99) Bedside Ionized Calcium (Polly) 0.81 mmol/L (1.13-1.32) White Blood Count 9.3 x10^3/uL (4.0-11.0) Red Blood Count 3.17 x10^6/uL (4.30-5.70) Hemoglobin 9.4 g/dL (13.0-17.5) Hematocrit 29.8 % (39.0-53.0) Mean Corpuscular Volume 94 fL (79-100) Mean Corpuscular Hemoglobin 30 pg (25-35) Mean Corpuscular Hemoglobin Concent 32 g/dL (31-37) Red Cell Distribution Width 15.4 % (11.5-14.5) Platelet Count 279 x10^3/uL (140-400) Neutrophils (%) (Auto) 72 % (31-73) Lymphocytes (%) (Auto) 19 % (24-48) Monocytes (%) (Auto) 8 % (0-9) Eosinophils (%) (Auto) 1 % (0-3) Basophils (%) (Auto) 1 % (0-3) Neutrophils # (Auto) 6.7 x10^3uL (1.8-7.7) Lymphocytes # (Auto) 1.7 x10^3/uL (1.0-4.8) Monocytes # (Auto) 0.8 x10^3/uL (0.0-1.1) Eosinophils # (Auto) 0.1 x10^3/uL (0.0-0.7) Basophils # (Auto) 0.1 x10^3/uL (0.0-0.2) Prothrombin Time 14.0 SEC (11.7-14.0) Prothromb Time International Ratio 1.1 (0.8-1.1) D-Dimer (Unique) 7.50 ug/mlFEU (0.00-0.50) Sodium Level 140 mmol/L (136-145) Potassium Level 3.9 mmol/L (3.5-5.1) Chloride Level 101 mmol/L (98-107) Carbon Dioxide Level 25 mmol/L (21-32) Blood Urea Nitrogen 43 mg/dL (8-26) Creatinine 2.1 mg/dL (0.7-1.3) Estimated GFR (Cockcroft-Gault) 37.1 BUN/Creatinine Ratio 20 (6-20) Lactic Acid Level 5.9 mmol/L (0.4-2.0) Calcium Level 7.8 mg/dL (8.5-10.1) Magnesium Level 1.6 mg/dL (1.8-2.4) Total Bilirubin 0.5 mg/dL (0.2-1.0) Aspartate Amino Transf (AST/SGOT) 45 U/L (15-37) Alanine Aminotransferase (ALT/SGPT) 96 U/L (16-63) Alkaline Phosphatase 141 U/L (46-116) Creatine Kinase 44 U/L (39-308) Troponin I Quantitative 0.057 ng/mL (0.000-0.055) OS-Wad-K-Type Natriuretic Peptide 95125 pg/mL (0-449) Total Protein 5.9 g/dL (6.4-8.2) Albumin 2.3 g/dL (3.4-5.0) Albumin/Globulin Ratio 0.6 (1.0-1.7) Digoxin Level 0.3 ng/mL (0.9-2.0) Digoxin Last Dose Date Unknown Digoxin Last Dose Time Unknown Glucose (Fingerstick) 57 mg/dL (70-99) Images Images Findings: Supine portable frontal view chest was obtained. Stent material is noted overlying the left axillary and subclavian region. Heart size is enlarged appearance but this is likely related to portable supine technique. Slight pulmonary vascular congestion is questioned but this may be artifactual with the patient in supine position and limited pulmonary inflation noted. Retrocardiac atelectasis at the left basilar aspect is minimal and similar to prior exam. Impression: No suspicious new process. No significant change in pulmonary aeration. VTE Prophylaxis Ordered VTE Prophylaxis Devices: Yes VTE Pharmacological Prophylaxi: Yes Assessment/Plan Assessment/Plan Assessment/Plan: Afib, RVR - Dig, amiodarone, cardiology following, admitted into ICU syncope possibly associated seizure - consider neuro consult ESRD - continue dialysis, renal following retroperitoneal fibrosis possible sepsis as cause of lactic acidosis - antibiotics while awaiting cultures, consider ID consult chronic lymphedema of LE - compression socks hypoglycemia - not a diabetic, likely reactive , monitor chronic diarrhea - continue loperamide Abdoulaye CARDENAS MD May 19, 2018 15:20
--- NOTE | 2018-05-19 15:59 | EKG ---
[facility] [address] [place] [address] Test Date: 2018-05-19 Test Time: 08:24:54 Pat Name: ROSALIA MARTI Department: Room: Gender: M [employer]er Sulfate: : 1940 Requested By: VIRGILIO CELESTIN Order Number: [id number] Reading MD: Measurements Intervals [place] Rate: 189 P: [place]: QRS: 74 QRSD: 88 T: -116 QT: 256 QTc: 457 Interpretive Statements SUPRAVENTRICULAR TACHYCARDIA LOW LIMB LEAD VOLTAGE CONSIDER RIGHT VENTRICULAR HYPERTROPHY QRS(T) CONTOUR ABNORMALITY CONSIDER ANTEROLATERAL MYOCARDIAL DAMAGE CONSIDER INFERIOR MYOCARDIAL DAMAGE ST ABNORMALITY, POSSIBLE ANTERIOR SUBENDOCARDIAL INJURY ABNORMAL ECG RI6.01 Unconfirmed report No previous ECG available for comparison
[2018-05-19] MEDS: AMIODARONE HCL 200 MG TABLET. PO SCH (20:32)
[2018-05-19] MEDS ORDERED: DARBEPOETIN ALFA 60 MCG/0.3 ML DISP.SYRIN. SQ SCH (21:00)
[2018-05-20] VITALS (15 sets, daily range): BP systolic 85–149; BP diastolic 53–75
[2018-05-20 06:30] LABS: HEMATOCRIT 24.1 % (39.0-53.0); RED BLOOD COUNT 2.62 x10^6/uL (4.30-5.70); RED CELL DISTRIBUTION WIDTH 15.3 % (11.5-14.5); WHITE BLOOD COUNT 5.5 x10^3/uL (4.0-11.0)
[2018-05-20 06:43] LABS: CALCIUM 7.7 mg/dL (8.5-10.1); CREATININE 2.5 mg/dL (0.7-1.3); GFR 30.4; MAGNESIUM 1.9 mg/dL (1.8-2.4); PHOSPHORUS 4.6 mg/dL (2.6-4.7); POTASSIUM 4.1 mmol/L (3.5-5.1)
[2018-05-20] MEDS: CLOPIDOGREL BISULFATE 75 MG TABLET PO SCH (07:47)
[2018-05-20] MEDS: ASPIRIN CHEWABLE 81 MG TABLET. PO SCH (07:48)
[2018-05-20] MEDS: MIDODRINE 5 MG TABLET PO SCH ×3 (07:48→18:50)
--- NOTE | 2018-05-20 07:52 | EKG ---
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
[2018-05-20] MEDS: ZINC SULFATE 220 MG CAPSULE. PO SCH (09:00)
[2018-05-20] MEDS: ALLOPURINOL 300 MG TABLET. PO SCH (09:00)
[2018-05-20] MEDS: FOLIC/VIT B COMP W-C (RENAL) TABLET. PO SCH (09:00)
[2018-05-20] MEDS: FLUDROCORTISONE 0.1 MG TABLET PO SCH (09:00)
[2018-05-20] MEDS: AMIODARONE HCL 200 MG TABLET. PO SCH ×2 (09:01→20:35)
[2018-05-20] MEDS: FUROSEMIDE 80 MG TABLET. PO SCH ×2 (09:01→13:36)
[2018-05-20] MEDS: DIGOXIN 125 MCG TABLET. PO SCH (09:01)
[2018-05-20] MEDS: predniSONE 20 MG TABLET PO SCH (09:01)
--- NOTE | 2018-05-20 09:24 | NUR ---
IP: Pt has a hx of (R) E/coli with ESBL in urine on 05/03/18. Pt to be in contact precautions until there are 2 negative urine cultures 7 days apart without antibiotics.
--- NOTE | 2018-05-20 11:00 | PDOC ---
SUBJECTIVE ROS Stable OBJECTIVE Vital Signs Vital Signs Date Time Temp Pulse Resp B/P (MAP) Pulse Ox O2 Delivery O2 Flow Rate FiO2 05/20/18 09:01 105 104/67 05/20/18 08:00 Room Air 05/20/18 06:04 14 100 05/20/18 04:19 98.4 98.4 05/19/18 16:00 2.0 I & 0 Intake and Output 05/20/18 07:00 Intake Total 2614 ml Output Total 150 ml Balance 2464 ml Intake Oral 920 ml Other 1694 ml Output Urine Total 150 ml # Bowel Movements 2 PHYSICAL EXAM Physical Exam General: No acute distress HEENT: OM dry . 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 Chronic Lymphedema COMMENT/RELEVANT DATA Meds Current Medications Medications (Trade) Dose Ordered Sig/Maria Eugenia Start Time Stop Time Status Last Admin Dose Admin Adenosine (Adenocard) 12 mg 1X ONCE 05/19/18 09:00 05/19/18 09:01 DC 05/19/18 09:10 12 MG Allopurinol (Zyloprim) 300 mg DAILY 05/19/18 13:00 05/20/18 09:00 300 MG Amiodarone HCl (Cordarone) 200 mg BID 05/19/18 21:00 05/20/18 09:01 200 MG Amiodarone HCl 150 mg/Dextrose 103 ml @ 618 mls/hr 1X ONCE 05/19/18 08:45 05/19/18 08:54 DC 05/19/18 09:12 618 MLS/HR Aspirin (Children'S Aspirin) 81 mg DAILY08 05/19/18 13:00 05/20/18 07:48 81 MG Clopidogrel Bisulfate (Plavix) 75 mg DAILY07 05/19/18 13:00 05/20/18 07:47 75 MG Darbepoetin Luciano (Aranesp) 60 mcg Denson 05/19/18 21:00 05/19/18 20:34 60 MCG Dextrose (Dextrose 50%-Water Syringe) 12.5 gm 1X ONCE 05/19/18 09:30 05/19/18 09:31 DC 05/19/18 09:24 12.5 GM Digoxin (Lanoxin) 125 mcg MoWeFr@0900 05/20/18 09:00 05/20/18 09:01 125 MCG Fludrocortisone Acetate (Florinef) 0.1 mg DAILY 05/19/18 13:00 05/20/18 09:00 0.1 MG Furosemide (Lasix) 80 mg BID92 05/19/18 14:00 05/20/18 09:01 80 MG Hyoscyamine (Anaspaz) 0.125 mg PRN Q6HRS PRN 05/19/18 11:30 Loperamide HCl (Imodium) 2 mg PRN Q15MIN PRN 05/19/18 11:30 Magnesium Sulfate 50 ml @ 25 mls/hr 1X ONCE 05/19/18 09:15 05/19/18 11:14 DC 05/19/18 09:22 25 MLS/HR Midazolam HCl (Versed) 5 mg 1X ONCE 05/19/18 09:00 05/19/18 09:01 DC 05/19/18 09:11 5 MG Midodrine (Proamatine) 5 mg [id number] 05/19/18 13:00 05/20/18 07:48 5 MG Norepinephrine Bitartrate 250 ml @ 1.875 mls/ hr CONT PRN 05/19/18 09:30 05/19/18 09:33 17.625 MLS/HR Ondansetron HCl (Zofran Odt) 4 mg PRN Q4HRS PRN 05/19/18 11:30 Piperacillin Sod/ Tazobactam Sod 3.375 gm/Sodium Chloride 50 ml @ 100 mls/hr 1X ONCE 05/19/18 09:45 05/19/18 10:14 DC 05/19/18 11:27 100 MLS/HR Prednisone (Prednisone) 40 mg DAILY 05/19/18 12:00 05/20/18 09:01 40 MG Vancomycin HCl 250 ml @ 250 mls/hr 1X ONCE 05/19/18 09:45 05/19/18 10:44 Cancel Vancomycin HCl 2 gm/Sodium Chloride 500 ml @ 250 mls/hr ONCE ONCE 05/19/18 09:45 05/19/18 11:44 DC 05/19/18 11:24 250 MLS/HR Vitamin B Complex/ Vitamin C (Leanne-Bev) 1 tab DAILY 05/19/18 13:00 05/20/18 09:00 1 TAB Zinc Sulfate (Orazinc) 220 mg DAILY 05/19/18 13:00 05/20/18 09:00 220 MG Lab Laboratory Tests Test 05/20/18 06:00 White Blood Count 5.5 x10^3/uL (4.0-11.0) Red Blood Count 2.62 x10^6/uL (4.30-5.70) Hemoglobin 8.0 g/dL (13.0-17.5) Hematocrit 24.1 % (39.0-53.0) Mean Corpuscular Volume 92 fL (79-100) Mean Corpuscular Hemoglobin 31 pg (25-35) Mean Corpuscular Hemoglobin Concent 33 g/dL (31-37) Red Cell Distribution Width 15.3 % (11.5-14.5) Platelet Count 196 x10^3/uL (140-400) Sodium Level 139 mmol/L (136-145) Potassium Level 4.1 mmol/L (3.5-5.1) Chloride Level 102 mmol/L (98-107) Carbon Dioxide Level 25 mmol/L (21-32) Anion Gap 12 (6-14) Blood Urea Nitrogen 51 mg/dL (8-26) Creatinine 2.5 mg/dL (0.7-1.3) Estimated GFR (Cockcroft-Gault) 30.4 Glucose Level 107 mg/dL (70-99) Calcium Level 7.7 mg/dL (8.5-10.1) Phosphorus Level 4.6 mg/dL (2.6-4.7) Magnesium Level 1.9 mg/dL (1.8-2.4) Results All relevant outside records, renal labs, imaging studies, telemetry/EKG's were reviewed. JERRY VERA MD May 20, 2018 11:00
--- NOTE | 2018-05-20 12:24 | PDOC ---
CARDIO Progress Notes Date and Time Date of Service 05/20/18 Time of Evaluation 1210 Subjective Subjective: No Chest Pain, No shortness of breath, No Dizziness Vitals Vitals Vital Signs Date Time Temp Pulse Resp B/P (MAP) Pulse Ox O2 Delivery O2 Flow Rate FiO2 05/20/18 11:00 84 16 124/65 (84) 100 Room Air 05/20/18 08:00 98.0 98.0 05/19/18 16:00 2.0 Weight Weight [ ] Input and Output Intake and Output Intake and Output 05/20/18 07:00 Intake Total 2614 ml Output Total 150 ml Balance 2464 ml Intake Oral 920 ml Other 1694 ml Output Urine Total 150 ml # Bowel Movements 2 Laboratory Labs Laboratory Tests Test 05/20/18 06:00 White Blood Count 5.5 x10^3/uL (4.0-11.0) Red Blood Count 2.62 x10^6/uL (4.30-5.70) Hemoglobin 8.0 g/dL (13.0-17.5) Hematocrit 24.1 % (39.0-53.0) Mean Corpuscular Volume 92 fL (79-100) Mean Corpuscular Hemoglobin 31 pg (25-35) Mean Corpuscular Hemoglobin Concent 33 g/dL (31-37) Red Cell Distribution Width 15.3 % (11.5-14.5) Platelet Count 196 x10^3/uL (140-400) Sodium Level 139 mmol/L (136-145) Potassium Level 4.1 mmol/L (3.5-5.1) Chloride Level 102 mmol/L (98-107) Carbon Dioxide Level 25 mmol/L (21-32) Anion Gap 12 (6-14) Blood Urea Nitrogen 51 mg/dL (8-26) Creatinine 2.5 mg/dL (0.7-1.3) Estimated GFR (Cockcroft-Gault) 30.4 Glucose Level 107 mg/dL (70-99) Calcium Level 7.7 mg/dL (8.5-10.1) Phosphorus Level 4.6 mg/dL (2.6-4.7) Magnesium Level 1.9 mg/dL (1.8-2.4) Physical Exam HEENT: Neck Supple W Full Motion Chest: Symmetric LUNGS: Clear to Auscultation Heart: S1S2, RRR Abdomen: Soft N/T Extremities: Other (1+ bilateral LE edema ) Neurology: alert, follow commands Assessment Assessment 1. PAFIB with RVR; mainly SR with controlled rate 2. Syncope in the setting of significant hypotension 3. Hypotension; on Midodrine. better- off pressor support. Maintaining low- normal BP 4. CAD s/p PCI/stent. Stable, CP free. MPI 01/2018 with no reversible ischemia or infarct. 5. ESRD on HD 6. SBO, chronic. Recommendations Continue ASA, Plavix. Dig every other day following HD Amiodarone for rhythm maintenance Poor overall candidate for OAC given advanced age, debility/high fall risk, and chronic SBO. Supportive care SONDRA CARCAMO APRN May 20, 2018 12:24
--- NOTE | 2018-05-20 14:51 | PDOC ---
PROGRESS NOTES Subjective Subjective Patient improved today off pressure agents. Dialysis tomorrow. Objective Objective Vital Signs Date Time Temp Pulse Resp B/P (MAP) Pulse Ox O2 Delivery O2 Flow Rate FiO2 05/20/18 12:52 96 134/70 05/20/18 11:00 16 100 Room Air 05/20/18 08:00 98.0 98.0 05/19/18 16:00 2.0 Intake and Output 05/20/18 06:59 Intake Total 2614 ml Output Total 150 ml Balance 2464 ml Intake Oral 920 ml Other 1694 ml Output Urine Total 150 ml # Bowel Movements 2 Physical Exam Abdomen: Normal bowel sounds Heart: Regular rate Extremities: Other (3+ edema) General: Alert Lungs: Clear to auscultation Assessment Assessment Problems Medical Problems: (1) Atrial fibrillation with rapid ventricular response Status: Acute (2) Cardiogenic shock Status: Acute (3) CHF (congestive heart failure) Status: Acute (4) Elevated troponin Status: Acute (5) Hypomagnesemia Status: Acute (6) Hypotension Status: Acute (7) Hypoxia Status: Acute (8) Severe sepsis Status: Acute Afib - RVR Hypotension syncope 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 Labs Laboratory Tests Test 05/19/18 08:29 05/19/18 08:35 05/19/18 09:14 05/20/18 06:00 Bedside Hemoglobin 8.5 g/dL (14-18) Bedside Hematocrit 25 % (37-52) Bedside Sodium 136 mmol/L (135-145) Bedside Potassium 3.5 mmol/L (3.5-5.0) Bedside Chloride 104 mmol/L (98-110) Bedside Total CO2 19 mmol/L (23-32) Anion Gap 18 mmol/L (6-14) 14 (6-14) 12 (6-14) Bedside Blood Urea Nitrogen 36 mg/dL (8-26) Bedside Creatinine 1.8 mg/dL (0.5-1.4) Glucose Level 79 mg/dL (70-99) 93 mg/dL (70-99) 107 mg/dL (70-99) Bedside Ionized Calcium (Polly) 0.81 mmol/L (1.13-1.32) White Blood Count 9.3 x10^3/uL (4.0-11.0) 5.5 x10^3/uL (4.0-11.0) Red Blood Count 3.17 x10^6/uL (4.30-5.70) 2.62 x10^6/uL (4.30-5.70) Hemoglobin 9.4 g/dL (13.0-17.5) 8.0 g/dL (13.0-17.5) Hematocrit 29.8 % (39.0-53.0) 24.1 % (39.0-53.0) Mean Corpuscular Volume 94 fL (79-100) 92 fL (79-100) Mean Corpuscular Hemoglobin 30 pg (25-35) 31 pg (25-35) Mean Corpuscular Hemoglobin Concent 32 g/dL (31-37) 33 g/dL (31-37) Red Cell Distribution Width 15.4 % (11.5-14.5) 15.3 % (11.5-14.5) Platelet Count 279 x10^3/uL (140-400) 196 x10^3/uL (140-400) Neutrophils (%) (Auto) 72 % (31-73) Lymphocytes (%) (Auto) 19 % (24-48) Monocytes (%) (Auto) 8 % (0-9) Eosinophils (%) (Auto) 1 % (0-3) Basophils (%) (Auto) 1 % (0-3) Neutrophils # (Auto) 6.7 x10^3uL (1.8-7.7) Lymphocytes # (Auto) 1.7 x10^3/uL (1.0-4.8) Monocytes # (Auto) 0.8 x10^3/uL (0.0-1.1) Eosinophils # (Auto) 0.1 x10^3/uL (0.0-0.7) Basophils # (Auto) 0.1 x10^3/uL (0.0-0.2) Prothrombin Time 14.0 SEC (11.7-14.0) Prothromb Time International Ratio 1.1 (0.8-1.1) D-Dimer (Unique) 7.50 ug/mlFEU (0.00-0.50) Sodium Level 140 mmol/L (136-145) 139 mmol/L (136-145) Potassium Level 3.9 mmol/L (3.5-5.1) 4.1 mmol/L (3.5-5.1) Chloride Level 101 mmol/L (98-107) 102 mmol/L (98-107) Carbon Dioxide Level 25 mmol/L (21-32) 25 mmol/L (21-32) Blood Urea Nitrogen 43 mg/dL (8-26) 51 mg/dL (8-26) Creatinine 2.1 mg/dL (0.7-1.3) 2.5 mg/dL (0.7-1.3) Estimated GFR (Cockcroft-Gault) 37.1 30.4 BUN/Creatinine Ratio 20 (6-20) Lactic Acid Level 5.9 mmol/L (0.4-2.0) Calcium Level 7.8 mg/dL (8.5-10.1) 7.7 mg/dL (8.5-10.1) Magnesium Level 1.6 mg/dL (1.8-2.4) 1.9 mg/dL (1.8-2.4) Total Bilirubin 0.5 mg/dL (0.2-1.0) Aspartate Amino Transf (AST/SGOT) 45 U/L (15-37) Alanine Aminotransferase (ALT/SGPT) 96 U/L (16-63) Alkaline Phosphatase 141 U/L (46-116) Creatine Kinase 44 U/L (39-308) Troponin I Quantitative 0.057 ng/mL (0.000-0.055) KG-Onz-N-Type Natriuretic Peptide 55085 pg/mL (0-449) Total Protein 5.9 g/dL (6.4-8.2) Albumin 2.3 g/dL (3.4-5.0) Albumin/Globulin Ratio 0.6 (1.0-1.7) Digoxin Level 0.3 ng/mL (0.9-2.0) Digoxin Last Dose Date Unknown Digoxin Last Dose Time Unknown Glucose (Fingerstick) 57 mg/dL (70-99) Phosphorus Level 4.6 mg/dL (2.6-4.7) Laboratory Tests Test 05/20/18 06:00 White Blood Count 5.5 x10^3/uL (4.0-11.0) Red Blood Count 2.62 x10^6/uL (4.30-5.70) Hemoglobin 8.0 g/dL (13.0-17.5) Hematocrit 24.1 % (39.0-53.0) Mean Corpuscular Volume 92 fL (79-100) Mean Corpuscular Hemoglobin 31 pg (25-35) Mean Corpuscular Hemoglobin Concent 33 g/dL (31-37) Red Cell Distribution Width 15.3 % (11.5-14.5) Platelet Count 196 x10^3/uL (140-400) Sodium Level 139 mmol/L (136-145) Potassium Level 4.1 mmol/L (3.5-5.1) Chloride Level 102 mmol/L (98-107) Carbon Dioxide Level 25 mmol/L (21-32) Anion Gap 12 (6-14) Blood Urea Nitrogen 51 mg/dL (8-26) Creatinine 2.5 mg/dL (0.7-1.3) Estimated GFR (Cockcroft-Gault) 30.4 Glucose Level 107 mg/dL (70-99) Calcium Level 7.7 mg/dL (8.5-10.1) Phosphorus Level 4.6 mg/dL (2.6-4.7) Magnesium Level 1.9 mg/dL (1.8-2.4) Medications Current Medications Amiodarone HCl 150 mg/Dextrose 103 ml @ 618 mls/hr 1X ONCE IV Last administered on 05/19/18at 09:12; Start 05/19/18 at 08:45; Stop 05/19/18 at 08:54 ; Status DC Digoxin (Lanoxin) 500 mcg 1X ONCE IV ; Start 05/19/18 at 08:45; Stop 05/19/18 at 08:46; Status DC Adenosine (Adenocard) 6 mg 1X ONCE IV Last administered on 05/19/18at 09:10; Start 05/19/18 at 09:00; Stop 05/19/18 at 09:01; Status DC Adenosine (Adenocard) 12 mg 1X ONCE IV Last administered on 05/19/18at 09:10; Start 05/19/18 at 09:00; Stop 05/19/18 at 09:01; Status DC Midazolam HCl (Versed) 5 mg 1X ONCE IV Last administered on 05/19/18 09:11; Start 05/19/18 at 09:00; Stop 05/19/18 at 09:01; Status DC Magnesium Sulfate 50 ml @ 25 mls/hr 1X ONCE IV Last administered on 05/19/18 09:22; Start 05/19/18 at 09:15; Stop 05/19/18 at 11:14; Status DC Norepinephrine Bitartrate 250 ml @ 1.875 mls/ hr CONT PRN IV SEE I/O RECORD Last administered on 05/19/18 09:33; Start 05/19/18 at 09:30 Dextrose (Dextrose 50%-Water Syringe) 12.5 gm 1X ONCE IV Last administered on 05/19/18 09:24; Start 05/19/18 at 09:30; Stop 05/19/18 at 09:31; Status DC Piperacillin Sod/ Tazobactam Sod 3.375 gm/Sodium Chloride 50 ml @ 100 mls/hr 1X ONCE IV Last administered on 05/19/18 11:27; Start 05/19/18 at 09:45; Stop 05/19/18 at 10:14; Status DC Vancomycin HCl 250 ml @ 250 mls/hr 1X ONCE IV ; Start 05/19/18 at 09:45; Stop 05/19/18 at 10:44; Status Cancel Vancomycin HCl 2 gm/Sodium Chloride 500 ml @ 250 mls/hr ONCE ONCE IV Last administered on 05/19/18 11:24; Start 05/19/18 at 09:45; Stop 05/19/18 at 11:44 ; Status DC Allopurinol (Zyloprim) 300 mg DAILY PO Last administered on 05/20/18 09:00; Start 05/19/18 at 13:00 Aspirin (Children'S Aspirin) 81 mg DAILY08 PO Last administered on 05/20/18 07 :48; Start 05/19/18 at 13:00 Clopidogrel Bisulfate (Plavix) 75 mg DAILY07 PO Last administered on 05/20/18 07:47; Start 05/19/18 at 13:00 Digoxin (Lanoxin) 125 mcg MoWeFr@0900 PO Last administered on 05/20/18 09:01; Start 05/20/18 at 09:00 Fludrocortisone Acetate (Florinef) 0.1 mg DAILY PO Last administered on 09:00; Start 05/19/18 at 13:00 Vitamin B Complex/ Vitamin C (Leanne-Bev) 1 tab DAILY PO Last administered on 09:00; Start 05/19/18 at 13:00 Furosemide (Lasix) 80 mg [id number] PO Last administered on 05/20/18 13:36; Start 05/19/18 at 14:00 Prednisone (Prednisone) 40 mg DAILY PO Last administered on 05/20/18 09:01; Start 05/19/18 at 12:00 Hyoscyamine (Anaspaz) 0.125 mg PRN Q6HRS PRN PO STOMACH CRAMPING; Start at 11:30 Loperamide HCl (Imodium) 2 mg PRN Q15MIN PRN PO DIARRHEA; Start 05/19/18 at 11: 30 Ondansetron HCl (Zofran Odt) 4 mg PRN Q4HRS PRN PO NAUSEA/VOMITING; Start 05/19 at 11:30 Zinc Sulfate (Orazinc) 220 mg DAILY PO Last administered on 05/20/18 09:00; Start 05/19/18 at 13:00 Midodrine (Proamatine) 5 mg [id number] PO Last administered on 05/20/18 12:52; Start 05/19/18 at 13:00 Amiodarone HCl (Cordarone) 200 mg BID PO Last administered on 05/20/18 09:01; Start 05/19/18 at 21:00 Darbepoetin Luciano (Aranesp) 60 mcg Denson SQ Last administered on 05/19/18 20:34; Start 05/19/18 at 21:00 Active Scripts Active Digoxin 125 Mcg Tablet 125 Mcg PO MOWEFR@0900 30 Days Midodrine Hcl 2.5 Mg Tablet 2.5 Mg PO [id number] 30 Days Reported Prednisone 20 Mg Tablet 40 Mg PO DAILY Furosemide 80 Mg Tablet 80 Mg PO BID Fludrocortisone Acetate 0.1 Mg Tablet 0.1 Mg PO DAILY Zinc (Zinc Gluconate) 50 Mg Tablet 50 Mg PO DAILY Zofran (Ondansetron Hcl) 4 Mg Tablet 1 Tab PO PRN Q4HRS PRN Levsin (Hyoscyamine Sulfate) 0.125 Mg Tablet 0.125 Mg PO PRN Q6HRS PRN Leanne-Bev Tablet (Folic Acid/Vitamin B Comp W-C) 0.8 Mg Tablet 0.8 Mg PO DAILY Anti-Diarrheal (Loperamide Hcl) 2 Mg Capsule 2 Mg PO PRN QID PRN Aspirin 81 Mg Tab.chew 1 Tab PO DAILY Clopidogrel (Clopidogrel Bisulfate) 75 Mg Tablet 75 Mg PO DAILY Allopurinol 300 Mg Tablet 300 Mg PO DAILY Vitals/I & O Vital Sign - Last 24 Hours 05/19/18 05/19/18 05/19/18 05/19/18 15:00 16:00 16:00 17:00 Temp 97.9 97.9 Pulse 87 76 98 Resp 21 11 22 B/P (MAP) 81/47 (58) 89/45 (60) 115/80 (92) Pulse Ox 100 100 100 O2 Delivery Room Air Room Air Nasal Cannula Room Air O2 Flow Rate 2.0 05/19/18 05/19/18 05/19/18 05/19/18 18:00 18:17 19:00 20:00 Temp 98.8 98.8 Pulse 89 89 102 92 Resp 25 13 16 B/P (MAP) 108/70 (83) 108/70 100/60 (73) 84/56 (65) Pulse Ox 100 100 100 O2 Delivery Room Air Room Air Room Air 05/19/18 05/19/18 05/19/18 05/19/18 20:00 20:32 21:00 22:00 Pulse 96 100 89 Resp 20 18 B/P (MAP) 84/56 94/57 (69) 96/53 (67) Pulse Ox 100 100 O2 Delivery Room Air Room Air Room Air 05/19/18 05/19/18 05/20/18 05/20/18 23:00 23:55 00:00 01:00 Temp 97.6 97.6 Pulse 93 91 90 Resp 18 16 24 B/P (MAP) 98/69 (79) 85/61 (69) 102/68 (79) Pulse Ox 100 100 100 O2 Delivery Room Air Room Air Room Air Room Air 05/20/18 05/20/18 05/20/18 05/20/18 02:00 03:00 04:00 04:19 Temp 98.4 98.4 Pulse 87 82 99 Resp 16 16 16 B/P (MAP) 99/65 (76) 101/75 (84) 109/71 (84) Pulse Ox 100 100 100 O2 Delivery Room Air Room Air Room Air Room Air 05/20/18 05/20/18 05/20/18 05/20/18 05:00 06:04 07:00 07:48 Pulse 93 79 84 83 Resp 19 B/P (MAP) 109/69 (82) 107/69 (82) 98/65 (76) 99/66 Pulse Ox 100 100 100 O2 Delivery Room Air Room Air Room Air 05/20/18 05/20/18 05/20/18 05/20/18 08:00 08:00 09:00 09:01 Temp 98.0 98.0 Pulse 90 92 96 Resp 19 B/P (MAP) 106/74 (85) 103/70 (81) 104/67 Pulse Ox 100 100 O2 Delivery Room Air Room Air Room Air 05/20/18 05/20/18 05/20/18 05/20/18 09:01 10:00 11:00 12:52 Pulse 105 90 84 96 Resp 17 16 B/P (MAP) 104/67 92/59 (70) 124/65 (84) 134/70 Pulse Ox 100 100 O2 Delivery Room Air Room Air Intake and Output 05/19/18 05/19/18 05/20/18 14:59 22:59 06:59 Intake Total 360 ml 1939 ml 315 ml Output Total 0 ml 150 ml 0 ml Balance 360 ml 1789 ml 315 ml HIRO FIGUEROA MD May 20, 2018 14:51
--- NOTE | 2018-05-20 15:09 | NUR ---
Wound Care Wound care consult for PU to coccyx. Pt has stage III to sacral area. Cleansed wound, applied skin prep, hydrocolloid, foam and Tegaderm. Recommend to change every 3 days and PRN. No other wounds noted on full skin inspection. Pt getting reddened areas over laverne prominences, covered with foam for protection. Pt on ICU bed at this time, recommend P500 if transferred. Pt educated on POC and PU prevention. Pt left on right side with heels floated. WC will continue to follow for possible changes.
--- NOTE | 2018-05-20 15:41 | NUR ---
SS following for discharge planning. 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 PT/OT ordered. SS will continue to follow for discharge planning.
--- NOTE | 2018-05-20 17:01 | NUR ---
Patient transfer to room 252. Telephone report given to Nataliia Rivera. POC, meds, reviewed. Patient belonging sent along with patient.
[2018-05-21 03:04] VITALS: BP 108/71
[2018-05-21 08:00] VITALS: BP 124/78
[2018-05-21 10:17] VITALS: BP 105/56
[2018-05-21] MEDS: FUROSEMIDE 80 MG TABLET. PO SCH ×2 (10:18→14:00)
[2018-05-21] MEDS: CLOPIDOGREL BISULFATE 75 MG TABLET PO SCH (10:18)
[2018-05-21] MEDS: predniSONE 20 MG TABLET PO SCH (10:18)
[2018-05-21] MEDS: ALLOPURINOL 300 MG TABLET. PO SCH (10:18)
[2018-05-21] MEDS: ASPIRIN CHEWABLE 81 MG TABLET. PO SCH (10:18)
[2018-05-21] MEDS: AMIODARONE HCL 200 MG TABLET. PO SCH ×2 (10:18→19:56)
[2018-05-21] MEDS: FOLIC/VIT B COMP W-C (RENAL) TABLET. PO SCH (10:18)
[2018-05-21] MEDS: FLUDROCORTISONE 0.1 MG TABLET PO SCH (10:18)
[2018-05-21] MEDS: MIDODRINE 5 MG TABLET PO SCH ×3 (10:19→19:55)
[2018-05-21] MEDS: ZINC SULFATE 220 MG CAPSULE. PO SCH (10:25)
[2018-05-21 11:58] VITALS: BP 105/56
--- NOTE | 2018-05-21 12:51 | PDOC ---
PROGRESS NOTES Subjective Subjective Patient feeling better and eating has improved. Patient's blood pressure is improved in the 120s now. Patient now has evidence of increased scrotal edema. Patient has continued venous stasis lower extremities slightly decreased. Nursing reports 250 mL postvoid residual. Decreased episodes of SVT and A. fib small runs of 150 bpm pulse for less than 2 minutes several occasions. Objective Objective Vital Signs Date Time Temp Pulse Resp B/P (MAP) Pulse Ox O2 Delivery O2 Flow Rate FiO2 05/21/18 11:58 97.8 80 18 105/56 (72) 98 Room Air 97.8 05/19/18 16:00 2.0 Intake and Output 05/21/18 07:00 Intake Total 840 ml Output Total 370 ml Balance 470 ml Intake Oral 840 ml Output Urine Total 370 ml # Voids 101 # Bowel Movements 2 Physical Exam Abdomen: Normal bowel sounds Heart: Regular rate Extremities: Other (3-4+ pitting edema lower extremities.) General: Alert Lungs: Clear to auscultation COMMENT Scrotal edema noted. 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 Lactic acidosis sacral decub Plan Plan of Care Continue cardiology and renal management of fluid status. Continue PT and OT efforts. Encourage mobility for mobilization of fluids and decreased edema Comment Review of Relevant I have reviewed the following items demar (where applicable) has been applied. Labs Laboratory Tests Test 05/20/18 06:00 White Blood Count 5.5 x10^3/uL (4.0-11.0) Red Blood Count 2.62 x10^6/uL (4.30-5.70) Hemoglobin 8.0 g/dL (13.0-17.5) Hematocrit 24.1 % (39.0-53.0) Mean Corpuscular Volume 92 fL (79-100) Mean Corpuscular Hemoglobin 31 pg (25-35) Mean Corpuscular Hemoglobin Concent 33 g/dL (31-37) Red Cell Distribution Width 15.3 % (11.5-14.5) Platelet Count 196 x10^3/uL (140-400) Sodium Level 139 mmol/L (136-145) Potassium Level 4.1 mmol/L (3.5-5.1) Chloride Level 102 mmol/L (98-107) Carbon Dioxide Level 25 mmol/L (21-32) Anion Gap 12 (6-14) Blood Urea Nitrogen 51 mg/dL (8-26) Creatinine 2.5 mg/dL (0.7-1.3) Estimated GFR (Cockcroft-Gault) 30.4 Glucose Level 107 mg/dL (70-99) Calcium Level 7.7 mg/dL (8.5-10.1) Phosphorus Level 4.6 mg/dL (2.6-4.7) Magnesium Level 1.9 mg/dL (1.8-2.4) Medications Current Medications Amiodarone HCl 150 mg/Dextrose 103 ml @ 618 mls/hr 1X ONCE IV Last administered on 05/19/18 09:12; Start 05/19/18 at 08:45; Stop 05/19/18 at 08:54 ; Status DC Digoxin (Lanoxin) 500 mcg 1X ONCE IV ; Start 05/19/18 at 08:45; Stop 05/19/18 at 08:46; Status DC Adenosine (Adenocard) 6 mg 1X ONCE IV Last administered on 05/19/18 09:10; Start 05/19/18 at 09:00; Stop 05/19/18 at 09:01; Status DC Adenosine (Adenocard) 12 mg 1X ONCE IV Last administered on 05/19/18at 09:10; Start 05/19/18 at 09:00; Stop 05/19/18 at 09:01; Status DC Midazolam HCl (Versed) 5 mg 1X ONCE IV Last administered on 05/19/18at 09:11; Start 05/19/18 at 09:00; Stop 05/19/18 at 09:01; Status DC Magnesium Sulfate 50 ml @ 25 mls/hr 1X ONCE IV Last administered on 05/19/18at 09:22; Start 05/19/18 at 09:15; Stop 05/19/18 at 11:14; Status DC Norepinephrine Bitartrate 250 ml @ 1.875 mls/ hr CONT PRN IV SEE I/O RECORD Last administered on 05/19/18 09:33; Start 05/19/18 at 09:30 Dextrose (Dextrose 50%-Water Syringe) 12.5 gm 1X ONCE IV Last administered on 05/19/18 09:24; Start 05/19/18 at 09:30; Stop 05/19/18 at 09:31; Status DC Piperacillin Sod/ Tazobactam Sod 3.375 gm/Sodium Chloride 50 ml @ 100 mls/hr 1X ONCE IV Last administered on 05/19/18 11:27; Start 05/19/18 at 09:45; Stop 05/19/18 at 10:14; Status DC Vancomycin HCl 250 ml @ 250 mls/hr 1X ONCE IV ; Start 05/19/18 at 09:45; Stop 05/19/18 at 10:44; Status Cancel Vancomycin HCl 2 gm/Sodium Chloride 500 ml @ 250 mls/hr ONCE ONCE IV Last administered on 05/19/18 11:24; Start 05/19/18 at 09:45; Stop 05/19/18 at 11:44 ; Status DC Allopurinol (Zyloprim) 300 mg DAILY PO Last administered on 05/21/18 10:18; Start 05/19/18 at 13:00 Aspirin (Children'S Aspirin) 81 mg DAILY08 PO Last administered on 05/21/18 10 :18; Start 05/19/18 at 13:00 Clopidogrel Bisulfate (Plavix) 75 mg DAILY07 PO Last administered on 05/21/18 10:18; Start 05/19/18 at 13:00 Digoxin (Lanoxin) 125 mcg MoWeFr@0900 PO Last administered on 05/20/18 09:01; Start 05/20/18 at 09:00 Fludrocortisone Acetate (Florinef) 0.1 mg DAILY PO Last administered on 10:18; Start 05/19/18 at 13:00 Vitamin B Complex/ Vitamin C (Leanne-Bev) 1 tab DAILY PO Last administered on 10:18; Start 05/19/18 at 13:00 Furosemide (Lasix) 80 mg [id number] PO Last administered on 05/21/18 10:18; Start 05/19/18 at 14:00 Prednisone (Prednisone) 40 mg DAILY PO Last administered on 05/21/18at 10:18; Start 05/19/18 at 12:00 Hyoscyamine (Anaspaz) 0.125 mg PRN Q6HRS PRN PO STOMACH CRAMPING; Start at 11:30 Loperamide HCl (Imodium) 2 mg PRN Q15MIN PRN PO DIARRHEA; Start 05/19/18 at 11: 30 Ondansetron HCl (Zofran Odt) 4 mg PRN Q4HRS PRN PO NAUSEA/VOMITING; Start 05/19 at 11:30 Zinc Sulfate (Orazinc) 220 mg DAILY PO Last administered on 05/21/18at 10:25; Start 05/19/18 at 13:00 Midodrine (Proamatine) 5 mg [id number] PO Last administered on 05/21/18 10:19; Start 05/19/18 at 13:00 Amiodarone HCl (Cordarone) 200 mg BID PO Last administered on 05/21/18at 10:18; Start 05/19/18 at 21:00 Darbepoetin Luciano (Aranesp) 60 mcg Denson SQ Last administered on 05/19/18at 20:34; Start 05/19/18 at 21:00 Adenosine (Adenocard) 18 mg STK-MED ONCE IV ; Start 05/19/18 at 08:00; Stop at 17:26; Status DC Dextrose (Dextrose 50%-Water Syringe) 25 gm STK-MED ONCE IV ; Start 05/19/18 at 08:00; Stop 05/20/18 at 17:26; Status DC Epinephrine HCl (EPINEPHrine SYRINGE) 2 mg STK-MED ONCE .ROUTE ; Start 05/19/18 at 08:00; Stop 05/20/18 at 17:26; Status DC Active Scripts Active Digoxin 125 Mcg Tablet 125 Mcg PO MOWEFR@0900 30 Days Midodrine Hcl 2.5 Mg Tablet 2.5 Mg PO [id number] 30 Days Reported Prednisone 20 Mg Tablet 40 Mg PO DAILY Furosemide 80 Mg Tablet 80 Mg PO BID Fludrocortisone Acetate 0.1 Mg Tablet 0.1 Mg PO DAILY Zinc (Zinc Gluconate) 50 Mg Tablet 50 Mg PO DAILY Zofran (Ondansetron Hcl) 4 Mg Tablet 1 Tab PO PRN Q4HRS PRN Levsin (Hyoscyamine Sulfate) 0.125 Mg Tablet 0.125 Mg PO PRN Q6HRS PRN Leanne-Bev Tablet (Folic Acid/Vitamin B Comp W-C) 0.8 Mg Tablet 0.8 Mg PO DAILY Anti-Diarrheal (Loperamide Hcl) 2 Mg Capsule 2 Mg PO PRN QID PRN Aspirin 81 Mg Tab.chew 1 Tab PO DAILY Clopidogrel (Clopidogrel Bisulfate) 75 Mg Tablet 75 Mg PO DAILY Allopurinol 300 Mg Tablet 300 Mg PO DAILY Vitals/I & O Vital Sign - Last 24 Hours 05/20/18 05/20/18 05/20/18 05/20/18 12:52 16:00 18:50 19:30 Temp 98.0 98.0 Pulse 96 83 83 Resp 12 B/P (MAP) 134/70 114/69 (84) 114/69 Pulse Ox 100 O2 Delivery Room Air Room Air 05/20/18 05/20/18 05/20/18 05/21/18 19:37 20:35 23:50 03:04 Temp 98.1 97.8 97.7 98.1 97.8 97.7 Pulse 81 81 88 84 Resp 16 16 16 B/P (MAP) 149/72 (97) 149/72 97/53 (68) 108/71 (83) Pulse Ox 99 97 96 O2 Delivery Room Air Room Air Room Air 05/21/18 05/21/18 05/21/18 05/21/18 08:00 08:00 10:17 10:18 Temp 97.6 97.6 Pulse 76 93 93 Resp 18 B/P (MAP) 124/78 (93) 105/56 (72) 105/56 Pulse Ox 99 O2 Delivery Room Air Room Air 05/21/18 05/21/18 10:19 11:58 Temp 97.8 97.8 Pulse 93 80 Resp 18 B/P (MAP) 105/56 105/56 (72) Pulse Ox 98 O2 Delivery Room Air Intake and Output 05/20/18 05/20/18 05/21/18 15:00 23:00 07:00 Intake Total 840 ml 0 ml Output Total 120 ml 250 ml Balance 720 ml -250 ml 0 ml HIRO FIGUEROA MD May 21, 2018 12:51
--- NOTE | 2018-05-21 13:56 | PDOC ---
CARDIO Progress Notes Date and Time Date of Service 05/21/2018 Time of Evaluation 1330 Subjective Subjective: No Chest Pain, No shortness of breath, No Dizziness Vitals Vitals Vital Signs Date Time Temp Pulse Resp B/P (MAP) Pulse Ox O2 Delivery O2 Flow Rate FiO2 05/21/18 11:58 97.8 80 18 105/56 (72) 98 Room Air 97.8 Weight Weight [ ] Input and Output Intake and Output Intake and Output 05/21/18 06:59 Intake Total 840 ml Output Total 370 ml Balance 470 ml Intake Oral 840 ml Output Urine Total 370 ml # Voids 101 # Bowel Movements 2 Physical Exam HEENT: Neck Supple W Full Motion Chest: Symmetric LUNGS: Clear to Auscultation Heart: S1S2, other (irregular WAP) Abdomen: Soft N/T Extremities: Other (1+ bilateral LE edema ) Neurology: alert, follow commands Assessment Assessment 1. PAFIB with RVR; organized P waves that are consistent with WAP. 2. Syncope in the setting of significant hypotension: marginal but stable 3. Hypotension; marginal 4. CAD s/p PCI/stent. Stable, CP free. MPI 01/2018 with no reversible ischemia or infarct. 5. ESRD on HD 6. SBO, chronic. 7. Elevated DDIMER: 05/19/4018 recent V/Q with low probability for PE. May need chest CTA for further delineation given his tachycardia and hypotension issues with RV dilation, defer to PCP Recommendations Continue ASA, Plavix. Dig every other day following HD Continue Amiodarone for rhythm maintenance Poor overall candidate for OAC given advanced age, debility/high fall risk, and chronic SBO. Supportive care ERENDIRA HERNANDEZ [employer] May 21, 2018 13:55
[2018-05-21] MEDS ORDERED: IV NORMAL SALINE 1000ML BAG 1,000 ML IV PRN ×2 (14:27)
[2018-05-21] MEDS ORDERED: DIALYSIS PATIENT. MC PRN ×2 (14:30)
--- NOTE | 2018-05-21 17:27 | PDOC ---
SUBJECTIVE ROS Stable OBJECTIVE Vital Signs Vital Signs Date Time Temp Pulse Resp B/P (MAP) Pulse Ox O2 Delivery O2 Flow Rate FiO2 05/21/18 11:58 97.8 80 18 105/56 (72) 98 Room Air 97.8 I & 0 Intake and Output 05/21/18 07:00 Intake Total 840 ml Output Total 370 ml Balance 470 ml Intake Oral 840 ml Output Urine Total 370 ml # Voids 101 # Bowel Movements 2 PHYSICAL EXAM Physical Exam General: No acute distress HEENT: OM dry . 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 Chronic Lymphedema COMMENT/RELEVANT DATA Meds Current Medications Medications (Trade) Dose Ordered Sig/Maria Eugenia Start Time Stop Time Status Last Admin Dose Admin Adenosine (Adenocard) 18 mg STK-MED ONCE 05/19/18 08:00 05/20/18 17:26 DC Allopurinol (Zyloprim) 300 mg DAILY 05/19/18 13:00 05/21/18 10:18 300 MG Amiodarone HCl (Cordarone) 200 mg BID 05/19/18 21:00 05/21/18 10:18 200 MG Amiodarone HCl 150 mg/Dextrose 103 ml @ 618 mls/hr 1X ONCE 05/19/18 08:45 05/19/18 08:54 DC 05/19/18 09:12 618 MLS/HR Aspirin (Children'S Aspirin) 81 mg DAILY08 05/19/18 13:00 05/21/18 10:18 81 MG Clopidogrel Bisulfate (Plavix) 75 mg DAILY07 05/19/18 13:00 05/21/18 10:18 75 MG Darbepoetin Luciano (Aranesp) 60 mcg Denson 05/19/18 21:00 05/19/18 20:34 60 MCG Dextrose (Dextrose 50%-Water Syringe) 25 gm STK-MED ONCE 05/19/18 08:00 05/20/18 17:26 DC Digoxin (Lanoxin) 125 mcg MoWeFr@0900 05/20/18 09:00 05/20/18 09:01 125 MCG Epinephrine HCl (EPINEPHrine SYRINGE) 2 mg STK-MED ONCE 05/19/18 08:00 05/20/18 17:26 DC Fludrocortisone Acetate (Florinef) 0.1 mg DAILY 05/19/18 13:00 05/21/18 10:18 0.1 MG Furosemide (Lasix) 80 mg [id number] 05/19/18 14:00 05/21/18 10:18 80 MG Hyoscyamine (Anaspaz) 0.125 mg PRN Q6HRS PRN 05/19/18 11:30 Info (PHARMACY MONITORING -- do not chart) 1 each PRN DAILY PRN 05/21/18 14:30 Loperamide HCl (Imodium) 2 mg PRN Q15MIN PRN 05/19/18 11:30 Magnesium Sulfate 50 ml @ 25 mls/hr 1X ONCE 05/19/18 09:15 05/19/18 11:14 DC 05/19/18 09:22 25 MLS/HR Midazolam HCl (Versed) 5 mg 1X ONCE 05/19/18 09:00 05/19/18 09:01 DC 05/19/18 09:11 5 MG Midodrine (Proamatine) 5 mg [id number] 05/19/18 13:00 05/21/18 10:19 5 MG Norepinephrine Bitartrate 250 ml @ 1.875 mls/ hr CONT PRN 05/19/18 09:30 05/21/18 14:11 DC 05/19/18 09:33 17.625 MLS/HR Ondansetron HCl (Zofran Odt) 4 mg PRN Q4HRS PRN 05/19/18 11:30 Piperacillin Sod/ Tazobactam Sod 3.375 gm/Sodium Chloride 50 ml @ 100 mls/hr 1X ONCE 05/19/18 09:45 05/19/18 10:14 DC 05/19/18 11:27 100 MLS/HR Prednisone (Prednisone) 40 mg DAILY 05/19/18 12:00 05/21/18 10:18 40 MG Sodium Chloride 1,000 ml @ 400 mls/hr Q2H30M PRN 05/21/18 14:27 05/22/18 02:26 Vancomycin HCl 250 ml @ 250 mls/hr 1X ONCE 05/19/18 09:45 05/19/18 10:44 Cancel Vancomycin HCl 2 gm/Sodium Chloride 500 ml @ 250 mls/hr ONCE ONCE 05/19/18 09:45 05/19/18 11:44 DC 05/19/18 11:24 250 MLS/HR Vitamin B Complex/ Vitamin C (Leanne-Bev) 1 tab DAILY 05/19/18 13:00 05/21/18 10:18 1 TAB Zinc Sulfate (Orazinc) 220 mg DAILY 05/19/18 13:00 05/21/18 10:25 220 MG Results All relevant outside records, renal labs, imaging studies, telemetry/EKG's were reviewed. JERRY VERA MD May 21, 2018 17:27
[2018-05-21 20:16] VITALS: BP 127/72
[2018-05-21 23:35] VITALS: BP 126/59
[2018-05-22 03:46] VITALS: BP 111/60
[2018-05-22] MEDS: CLOPIDOGREL BISULFATE 75 MG TABLET PO SCH (06:22)
[2018-05-22] MEDS: MIDODRINE 5 MG TABLET PO SCH ×2 (06:23→15:03)
[2018-05-22 07:00] VITALS: BP 112/63
--- NOTE | 2018-05-22 10:26 | PDOC2 ---
NEUROLOGY CONSULT Date of Admission Date of Admission DATE: 05/22/18 TIME: 10:16 Reason for Consult Reason for Consult: Seizure Referring Physician Referring Physician: Dr. Casper Source Source: Chart review, Patient History of Present Illness History of Present Illness The patient is a 77-year-old right-handed male who was at [facility] when he had a seizure, and was admitted here 3 days ago. He was found to have hypotension, tachycardia, later found to be atrial fibrillation with rapid particular response. He has fainted before. He has never had a seizure, stroke, or head injury. He has had no subsequent problems over the past 3 days here.He was at [facility] because of poor appetite and weight loss, and he had been doing well. He usually gets around with a wheelchair or a roller walker. He was also admitted on 05/16 for his atrial fibrillation with rapid ventricular response at which time he had a negative head CT has reviewed below. Past Medical History Cardiovascular: AFIB, CAD, CHF, HTN, CO, Syncope, Hyperlipidemia Pulmonary: Other ( sleep apnea) GI: Constipation Heme/Onc: Anemia NOS Musculoskeletal: Osteoarthritis Rheumatologic: Gout ENT: Other (Tinnitus) Renal/: Chronic renal failure ( on dialysis) Past Surgical History Past Surgical History: Cholecystectomy, Total hip replacement ( right), Total knee replacement ( bilateral), Tonsillectomy ( adenoidectomy), Other ( coronary stent, small bowel resection due to obstruction, lysis of adhesions, TURP) Family History Family History: No pertinent hx Social History Social History , retired, no alcohol or tobacco Current Medications Current Medications Current Medications Amiodarone HCl 150 mg/Dextrose 103 ml @ 618 mls/hr 1X ONCE IV Last administered on 05/19/18at 09:12; Start 05/19/18 at 08:45; Stop 05/19/18 at 08:54 ; Status DC Digoxin (Lanoxin) 500 mcg 1X ONCE IV ; Start 05/19/18 at 08:45; Stop 05/19/18 at 08:46; Status DC Adenosine (Adenocard) 6 mg 1X ONCE IV Last administered on 05/19/18at 09:10; Start 05/19/18 at 09:00; Stop 05/19/18 at 09:01; Status DC Adenosine (Adenocard) 12 mg 1X ONCE IV Last administered on 05/19/18at 09:10; Start 05/19/18 at 09:00; Stop 05/19/18 at 09:01; Status DC Midazolam HCl (Versed) 5 mg 1X ONCE IV Last administered on 05/19/18 09:11; Start 05/19/18 at 09:00; Stop 05/19/18 at 09:01; Status DC Magnesium Sulfate 50 ml @ 25 mls/hr 1X ONCE IV Last administered on 05/19/18 09:22; Start 05/19/18 at 09:15; Stop 05/19/18 at 11:14; Status DC Norepinephrine Bitartrate 250 ml @ 1.875 mls/ hr CONT PRN IV SEE I/O RECORD Last administered on 05/19/18 09:33; Start 05/19/18 at 09:30; Stop 05/21/18 at 14:11; Status DC Dextrose (Dextrose 50%-Water Syringe) 12.5 gm 1X ONCE IV Last administered on 05/19/18 09:24; Start 05/19/18 at 09:30; Stop 05/19/18 at 09:31; Status DC Piperacillin Sod/ Tazobactam Sod 3.375 gm/Sodium Chloride 50 ml @ 100 mls/hr 1X ONCE IV Last administered on 05/19/18 11:27; Start 05/19/18 at 09:45; Stop 05/19/18 at 10:14; Status DC Vancomycin HCl 250 ml @ 250 mls/hr 1X ONCE IV ; Start 05/19/18 at 09:45; Stop 05/19/18 at 10:44; Status Cancel Vancomycin HCl 2 gm/Sodium Chloride 500 ml @ 250 mls/hr ONCE ONCE IV Last administered on 05/19/18at 11:24; Start 05/19/18 at 09:45; Stop 05/19/18 at 11:44 ; Status DC Allopurinol (Zyloprim) 300 mg DAILY PO Last administered on 05/21/18 10:18; Start 05/19/18 at 13:00 Aspirin (Children'S Aspirin) 81 mg DAILY08 PO Last administered on 05/21/18 10 :18; Start 05/19/18 at 13:00 Clopidogrel Bisulfate (Plavix) 75 mg DAILY07 PO Last administered on 05/22/18at 06:22; Start 05/19/18 at 13:00 Digoxin (Lanoxin) 125 mcg MoWeFr@0900 PO Last administered on 05/20/18 09:01; Start 05/20/18 at 09:00 Fludrocortisone Acetate (Florinef) 0.1 mg DAILY PO Last administered on 10:18; Start 05/19/18 at 13:00 Vitamin B Complex/ Vitamin C (Leanne-Bev) 1 tab DAILY PO Last administered on 10:18; Start 05/19/18 at 13:00 Furosemide (Lasix) 80 mg BID92 PO Last administered on 05/21/18 10:18; Start 05/19/18 at 14:00 Prednisone (Prednisone) 40 mg DAILY PO Last administered on 05/21/18 10:18; Start 05/19/18 at 12:00 Hyoscyamine (Anaspaz) 0.125 mg PRN Q6HRS PRN PO STOMACH CRAMPING; Start at 11:30 Loperamide HCl (Imodium) 2 mg PRN Q15MIN PRN PO DIARRHEA; Start 05/19/18 at 11: 30 Ondansetron HCl (Zofran Odt) 4 mg PRN Q4HRS PRN PO NAUSEA/VOMITING; Start 05/19 at 11:30 Zinc Sulfate (Orazinc) 220 mg DAILY PO Last administered on 05/21/18at 10:25; Start 05/19/18 at 13:00 Midodrine (Proamatine) 5 mg [id number] PO Last administered on 05/22/18at 06:23; Start 05/19/18 at 13:00 Amiodarone HCl (Cordarone) 200 mg BID PO Last administered on 05/21/18 19:56; Start 05/19/18 at 21:00 Darbepoetin Luciano (Aranesp) 60 mcg Denson SQ Last administered on 05/19/18 20:34; Start 05/19/18 at 21:00 Adenosine (Adenocard) 18 mg STK-MED ONCE IV ; Start 05/19/18 at 08:00; Stop at 17:26; Status DC Dextrose (Dextrose 50%-Water Syringe) 25 gm STK-MED ONCE IV ; Start 05/19/18 at 08:00; Stop 05/20/18 at 17:26; Status DC Epinephrine HCl (EPINEPHrine SYRINGE) 2 mg STK-MED ONCE .ROUTE ; Start 05/19/18 at 08:00; Stop 05/20/18 at 17:26; Status DC Sodium Chloride 1,000 ml @ 1,000 mls/hr Q1H PRN IV hypotension; Start 05/21/18 at 14:27; Stop 05/21/18 at 20:26; Status DC Sodium Chloride 1,000 ml @ 400 mls/hr Q2H30M PRN IV PATENCY; Start 05/21/18 at 14:27; Stop 05/22/18 at 02:26; Status DC Info (PHARMACY MONITORING -- do not chart) 1 each PRN DAILY PRN MC SEE COMMENTS ; Start 05/21/18 at 14:30; Status UNV Info (PHARMACY MONITORING -- do not chart) 1 each PRN DAILY PRN MC SEE COMMENTS ; Start 05/21/18 at 14:30 Active Scripts Active Digoxin 125 Mcg Tablet 125 Mcg PO MOWEFR@0900 30 Days Midodrine Hcl 2.5 Mg Tablet 2.5 Mg PO [id number] 30 Days Reported Prednisone 20 Mg Tablet 40 Mg PO DAILY Furosemide 80 Mg Tablet 80 Mg PO BID Fludrocortisone Acetate 0.1 Mg Tablet 0.1 Mg PO DAILY Zinc (Zinc Gluconate) 50 Mg Tablet 50 Mg PO DAILY Zofran (Ondansetron Hcl) 4 Mg Tablet 1 Tab PO PRN Q4HRS PRN Levsin (Hyoscyamine Sulfate) 0.125 Mg Tablet 0.125 Mg PO PRN Q6HRS PRN Leanne-Bev Tablet (Folic Acid/Vitamin B Comp W-C) 0.8 Mg Tablet 0.8 Mg PO DAILY Anti-Diarrheal (Loperamide Hcl) 2 Mg Capsule 2 Mg PO PRN QID PRN Aspirin 81 Mg Tab.chew 1 Tab PO DAILY Clopidogrel (Clopidogrel Bisulfate) 75 Mg Tablet 75 Mg PO DAILY Allopurinol 300 Mg Tablet 300 Mg PO DAILY Allergies Allergies: Coded Allergies: I S O L A T I O N *CONTACT* (Verified Allergy, Unknown, 05/08/18) ESBL No Known Medication Allergies (Verified Allergy, Unknown, 05/08/18) ROS Review of System Negative for fever, chills, shortness of breath, chest pain, indigestion, hematochezia, melena. Positive for weight loss and dysuria. Full 14-point review of systems is negative. Physical Exam Physical Examination General: Well-developed, well-nourished black male in no acute distress HEENT: Normocephalic andatraumatic. Temporal arteriespulsatile and nontender. Neck: Supple without bruit, no meningismus Musculoskeletal: Stability:see neurologic. Gait exam:see neurologic. Tone:see neurologic. Strength:see neurologic. Neurological: Mental Status:intact, orientation, memory, attention span/concentration, language, fund of knowledge normal. Cranial Nerves:Pupils equal and reactive to light, visual martinez are full to confrontation. There is a left exotropia, otherwise normal eye movements. Facial sensation is normal. There is no facial asymmetry. Vestibulo-ocular reflex is intact. Palate elevates and tongue protrudes in midline. All other cranial related problems are negative except as mentioned before.Reflexes:0-1+ and symmetric with flexor plantar responses. Motor:4/5 strength with normal tone and bulk. Coordination:Finger-nose finger and tlko-nx-umrz testing are normal. Rapid alternating movements and fine finger movements are intact. Gait:not tested. Sensory:Normal pinprick, vibration, light touch, proprioception. Vitals VITALS Vital Signs Date Time Temp Pulse Resp B/P (MAP) Pulse Ox O2 Delivery O2 Flow Rate FiO2 05/22/18 07:00 98.1 71 16 112/63 (79) 98 Room Air 98.[address] HEAD WO CONTRAST, 05/16 Axial images of the head were obtained without contrast. Atrophy and chronic ischemic changes white matter noted. 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 No midline shift or mass effect. Cavernous carotid calcifications noted. Visualized paranasal sinuses are unremarkable. Right globe is unremarkable. 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 There is slightly high density posterior aspect of the left lobe measuring 2 x 1 cm transverse by 1.2 cm anteroposterior. It is unchanged compared to the prior exam. Impression: No intracranial hemorrhage. Advanced chronic ischemic changes white matter. Atrophy and volume loss ventriculomegaly. Left coloboma. Somewhat high density within the posterior aspect of the left globe is unchanged. Assessment/Plan Assessment/Plan Impression: Convulsive syncope, I doubt that he has a separate epileptic problem. He has done well over the past 3 days. Multifactorial gait disorder. He tells me it developed after his multiple orthopedic procedures. Recommendations: As it has been 3 days since the seizure activity, an electroencephalogram would be unhelpful, and probably would not have changed anything even if we did it immediately. No need to pursue further neurological studies or workup. Thank you for letting me help with the patient's care. GINA HARTMANN MD May 22, 2018 10:26
[2018-05-22 10:52] VITALS: BP 120/57
[2018-05-22] MEDS: FOLIC/VIT B COMP W-C (RENAL) TABLET. PO SCH (10:53)
[2018-05-22] MEDS: DIGOXIN 125 MCG TABLET. PO SCH (10:54)
[2018-05-22] MEDS: AMIODARONE HCL 200 MG TABLET. PO SCH (10:54)
[2018-05-22] MEDS: ZINC SULFATE 220 MG CAPSULE. PO SCH (10:55)
[2018-05-22] MEDS: ASPIRIN CHEWABLE 81 MG TABLET. PO SCH (10:55)
[2018-05-22] MEDS: FUROSEMIDE 80 MG TABLET. PO SCH ×2 (10:55→15:03)
[2018-05-22] MEDS: predniSONE 20 MG TABLET PO SCH (10:55)
[2018-05-22] MEDS: ALLOPURINOL 300 MG TABLET. PO SCH (10:55)
[2018-05-22] MEDS: FLUDROCORTISONE 0.1 MG TABLET PO SCH (10:55)
[2018-05-22 11:55] VITALS: BP 120/57
--- NOTE | 2018-05-22 12:41 | NUR ---
SS following up with discharge planning. Intermediate Project Manager, Annemarie Conde, phoned and faxed clinical to [facility], ; fax [phone]. Pt may return pending insurance authorization at this time. SS will continue to follow for discharge planning.
[2018-05-22] MEDS ORDERED: AMIO200T4 PO (13:01)
--- NOTE | 2018-05-22 13:02 | SNU/HH DC ---
DISCHARGE ORDERS DISCHARGE INFORMATION: FINAL DIAGNOSIS Problems Medical Problems: (1) Atrial fibrillation with rapid ventricular response Status: Acute (2) Cardiogenic shock Status: Acute (3) CHF (congestive heart failure) Status: Acute (4) Elevated troponin Status: Acute (5) Hypomagnesemia Status: Acute (6) Hypotension Status: Acute (7) Hypoxia Status: Acute (8) Severe sepsis Status: Acute CONDITION ON DISCHARGE: Stable CODE STATUS: Code Status: Full CARE HOME: SNF STAY <30 DAYS: Yes POST DISCHARGE ORDERS: ACTIVITY ORDERS: Activity as tolerated WEIGHT BEARING STATUS: No restrictions BATHING ORDERS: Shower-keep dressing dry WOUND/INCISION CARE: Ice to area for comfort, Keep wound/cast CDI, Do not change dressing CHECKS AFTER DISCHARGE: CHECKS AFTER DISCHARGE: Check blood press - daily, Check your Temp as needed TREATMENT/EQUIPMENT ORDERS: ADAPTIVE EQUIPMENT NEEDED: Walker RESPIRATORY EQUIPMENT NEEDED: Oxygen Physical Therapy For: Evalulation/Treatment Occupational Therapy For: Evaluation/Treatment DISCHARGE MEDICATIONS: Home Meds Active Scripts Amiodarone Hcl (AMIODARONE HCL) 200 Mg Tablet, 200 MG PO BID for afib for 30 Days, #60 TAB Prov:HIRO FIGUEROA MD 05/22/18 Digoxin (DIGOXIN) 125 Mcg Tablet, 125 MCG PO MoWeFr@0900 for afib for 30 Days, # 30 TAB Prov:HIRO FIGUEROA MD 05/17/18 Midodrine Hcl (MIDODRINE HCL) 2.5 Mg Tablet, 2.5 MG PO [id number] for low bp for 30 Days, #90 TAB Prov:HIRO FIGUEROA MD 04/26/18 Reported Medications Prednisone (PREDNISONE) 20 Mg Tablet, 40 MG PO DAILY for IBS, TAB 05/16/18 Furosemide (FUROSEMIDE) 80 Mg Tablet, 80 MG PO BID for ESRD, TAB 05/16/18 Fludrocortisone Acetate (FLUDROCORTISONE ACETATE) 0.1 Mg Tablet, 0.1 MG PO DAILY for IBS, TAB 05/16/18 Zinc Gluconate (ZINC) 50 Mg Tablet, 50 MG PO DAILY for PX, TAB 04/21/18 Ondansetron Hcl (ZOFRAN) 4 Mg Tablet, 1 TAB PO PRN Q4HRS PRN for NAUSEA, #20 TAB 04/21/18 Hyoscyamine Sulfate (LEVSIN) 0.125 Mg Tablet, 0.125 MG PO PRN Q6HRS PRN for cramps, TAB 04/21/18 Folic Acid/Vitamin B Comp W-C (ELBA-GARRET TABLET) 0.8 Mg Tablet, 0.8 MG PO DAILY for ESRD, TAB 04/21/18 Loperamide Hcl (ANTI-DIARRHEAL) 2 Mg Capsule, 2 MG PO PRN QID PRN for DIARRHEA, CAP 04/21/18 Aspirin (ASPIRIN) 81 Mg Tab.chew, 1 TAB PO DAILY, #30 TAB 3 Refills 06/13/17 Clopidogrel Bisulfate (CLOPIDOGREL) 75 Mg Tablet, 75 MG PO DAILY for TO PREVENT BLOOD CLOTS, #30 TAB 0 Refills 10/13/16 Allopurinol (ALLOPURINOL) 300 Mg Tablet, 300 MG PO DAILY, TAB 08/20/13 HIRO FIGUEROA MD May 22, 2018 13:02
--- NOTE | 2018-05-22 14:28 | NUR ---
SS following up with discharge planning. Authorization received for [facility]. SS phoned and faxed discharge orders to [facility], ; fax [phone]. Pt will discharge today and return to [facility] between 1630 and 1700 via [employer] transportation, . Pt and pt's RN notified.
[2018-05-22 15:07] VITALS: BP 114/62
--- NOTE | 2018-05-22 15:37 | PDOC ---
SUBJECTIVE ROS Stable OBJECTIVE Vital Signs Vital Signs Date Time Temp Pulse Resp B/P (MAP) Pulse Ox O2 Delivery O2 Flow Rate FiO2 05/22/18 15:07 98.1 81 16 114/62 (79) 93 Room Air 98.1 I & 0 Intake and Output 05/22/18 06:59 Intake Total 500 ml Output Total 200 ml Balance 300 ml Intake Oral 500 ml Output Urine Total 200 ml # Voids 3 PHYSICAL EXAM Physical Exam General: No acute distress HEENT: OM dry . 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 Chronic Lymphedema COMMENT/RELEVANT DATA Meds Current Medications Medications (Trade) Dose Ordered Sig/Maria Eugenia Start Time Stop Time Status Last Admin Dose Admin Adenosine (Adenocard) 18 mg STK-MED ONCE 05/19/18 08:00 05/20/18 17:26 DC Allopurinol (Zyloprim) 300 mg DAILY 05/19/18 13:00 05/22/18 10:55 300 MG Amiodarone HCl (Cordarone) 200 mg BID 05/19/18 21:00 05/22/18 10:54 200 MG Amiodarone HCl 150 mg/Dextrose 103 ml @ 618 mls/hr 1X ONCE 05/19/18 08:45 05/19/18 08:54 DC 05/19/18 09:12 618 MLS/HR Aspirin (Children'S Aspirin) 81 mg DAILY08 05/19/18 13:00 05/22/18 10:55 81 MG Clopidogrel Bisulfate (Plavix) 75 mg DAILY07 05/19/18 13:00 05/22/18 06:22 75 MG Darbepoetin Luciano (Aranesp) 60 mcg Denson 05/19/18 21:00 05/19/18 20:34 60 MCG Dextrose (Dextrose 50%-Water Syringe) 25 gm STK-MED ONCE 05/19/18 08:00 05/20/18 17:26 DC Digoxin (Lanoxin) 125 mcg MoWeFr@0900 05/20/18 09:00 05/22/18 10:54 125 MCG Epinephrine HCl (EPINEPHrine SYRINGE) 2 mg STK-MED ONCE 05/19/18 08:00 05/20/18 17:26 DC Fludrocortisone Acetate (Florinef) 0.1 mg DAILY 05/19/18 13:00 05/22/18 10:55 0.1 MG Furosemide (Lasix) 80 mg [id number] 05/19/18 14:00 05/22/18 15:03 80 MG Hyoscyamine (Anaspaz) 0.125 mg PRN Q6HRS PRN 05/19/18 11:30 Info (PHARMACY MONITORING -- do not chart) 1 each PRN DAILY PRN 05/21/18 14:30 Loperamide HCl (Imodium) 2 mg PRN Q15MIN PRN 05/19/18 11:30 Magnesium Sulfate 50 ml @ 25 mls/hr 1X ONCE 05/19/18 09:15 05/19/18 11:14 DC 05/19/18 09:22 25 MLS/HR Midazolam HCl (Versed) 5 mg 1X ONCE 05/19/18 09:00 05/19/18 09:01 DC 05/19/18 09:11 5 MG Midodrine (Proamatine) 5 mg [id number] 05/19/18 13:00 05/22/18 15:03 5 MG Norepinephrine Bitartrate 250 ml @ 1.875 mls/ hr CONT PRN 05/19/18 09:30 05/21/18 14:11 DC 05/19/18 09:33 17.625 MLS/HR Ondansetron HCl (Zofran Odt) 4 mg PRN Q4HRS PRN 05/19/18 11:30 Piperacillin Sod/ Tazobactam Sod 3.375 gm/Sodium Chloride 50 ml @ 100 mls/hr 1X ONCE 05/19/18 09:45 05/19/18 10:14 DC 05/19/18 11:27 100 MLS/HR Prednisone (Prednisone) 40 mg DAILY 05/19/18 12:00 05/22/18 10:55 40 MG Sodium Chloride 1,000 ml @ 400 mls/hr Q2H30M PRN 05/21/18 14:27 4/17/19 02:26 DC Vancomycin HCl 250 ml @ 250 mls/hr 1X ONCE 05/19/18 09:45 05/19/18 10:44 Cancel Vancomycin HCl 2 gm/Sodium Chloride 500 ml @ 250 mls/hr ONCE ONCE 05/19/18 09:45 05/19/18 11:44 DC 05/19/18 11:24 250 MLS/HR Vitamin B Complex/ Vitamin C (Leanne-Bev) 1 tab DAILY 05/19/18 13:00 05/22/18 10:53 1 TAB Zinc Sulfate (Orazinc) 220 mg DAILY 05/19/18 13:00 05/22/18 10:55 220 MG Results All relevant outside records, renal labs, imaging studies, telemetry/EKG's were reviewed. JERRY VERA MD May 22, 2018 15:37
--- NOTE | 2018-05-22 20:50 | DS ---
DATE OF DISCHARGE: 05/22/2018 ADMITTING DIAGNOSES: 1. Syncope. 2. Atrial fibrillation with rapid ventricular response. 3. Hypotension. 4. Seizure activity. CHRONIC DIAGNOSES: 1. End-stage renal disease. 2. Retroperitoneal fibrosis. 3. Chronic lymphedema of lower extremities. 4. Chronic diarrhea. 5. Severe protein malnutrition. 6. Sacral decubitus. HISTORY OF PRESENT ILLNESS AND HOSPITAL COURSE: This patient is a 77-year-old -I[place] male with severe debilitated by recurrent bowel issues and chronic diarrhea suffering with malnutrition, also having end-stage renal disease, on chronic dialysis, admitted after hypotensive and syncopal episode at senior care unit, also found to have atrial fibrillation with rapid ventricular response. He was admitted and Cardiology was consulted as well as Renal Medicine. The patient's medications were adjusted and he was taken off all blood pressure medications and he was started on amiodarone and Digitalis for rate control. This was accomplished and the patient was back to baseline, tolerating diet and starting to ambulate and participate in PT. Therefore, he was recommended to transfer back to senior care for continued PT efforts. DISCHARGE MEDICATIONS: He will be discharged on the following medications: Amiodarone 200 mg b.i.d., allopurinol 300 mg daily, aspirin 81 mg daily, clopidogrel 75 mg daily, Lanoxin 125 mcg daily, Florinef 0.1 mg daily for hypotension, folic acid, Leanne-Bev 0.8 daily, Lasix 80 mg b.i.d., Levsin 0.25 q.6 hours p.r.n., Lomotil 2 mg q. 6 p.r.n., Midodrine 2.5 mg t.i.d. for low blood pressures, Zofran 4 mg q 4 hours p.r.n. nausea, prednisone 40 mg daily for retroperitoneal fibrosis, zinc 50 mg daily for decubitus ulcers and skin integrity. DISCHARGE INSTRUCTIONS: He will followup by house physician at [facility] for continued care as well as proceed with PT and OT modalities. HIRO FIGUEROA MD DR: NELI/jennifer JOB#: [id number] / [id number]
[2018-07-09] MEDS ORDERED: FLUD0.1T PO (10:58)
[2018-07-12] MEDS ORDERED: Pantoprazole PO (09:01)
[2018-07-12] MEDS ORDERED: AMOX1TAB61 PO (09:01)
== END 2018-05-22 16:55 | DRG 308 ==
LOC: ER 08:19 → 1 WEST ICU 08:50 → 2 SOUTH 05-20 18:25
PROVIDERS: ADMIT Family Medicine; ATTEND Family Medicine
PROC: 5A1D70Z Performance of Urinary Filtration, Intermittent, Less than 6 Hours Per Day (ICD-10-PCS; principal; 2018-05-19)
PROC: 5A1D70Z Performance of Urinary Filtration, Intermittent, Less than 6 Hours Per Day (ICD-10-PCS; 2018-05-21)
DX: I48.1 Persistent atrial fibrillation (principal); R57.0 Cardiogenic shock; E43 Unspecified severe protein-calorie malnutrition; N18.6 End stage renal disease; I13.2 Hypertensive heart and chronic kidney disease with heart failure and with stage 5 chronic kidney disease, or end stage renal disease; K56.609 Unspecified intestinal obstruction, unspecified as to partial versus complete obstruction; E87.2 Acidosis; I95.9 Hypotension, unspecified; L89.159 Pressure ulcer of sacral region, unspecified stage; I25.10 Atherosclerotic heart disease of native coronary artery without angina pectoris; M10.9 Gout, unspecified; R74.8 Abnormal levels of other serum enzymes; I50.9 Heart failure, unspecified; E83.42 Hypomagnesemia; E78.5 Hyperlipidemia, unspecified; N13.5 Crossing vessel and stricture of ureter without hydronephrosis; I89.0 Lymphedema, not elsewhere classified; K52.9 Noninfective gastroenteritis and colitis, unspecified; E16.2 Hypoglycemia, unspecified; M19.90 Unspecified osteoarthritis, unspecified site; D64.9 Anemia, unspecified; K86.81 Exocrine pancreatic insufficiency; G47.30 Sleep apnea, unspecified; Z96.641 Presence of right artificial hip joint; Z96.653 Presence of artificial knee joint, bilateral; R26.9 Unspecified abnormalities of gait and mobility; Z79.02 Long term (current) use of antithrombotics/antiplatelets; Z95.5 Presence of coronary angioplasty implant and graft; Z99.2 Dependence on renal dialysis; Z82.49 Family history of ischemic heart disease and other diseases of the circulatory system; Z79.82 Long term (current) use of aspirin
CPT/HCPCS: 36415; 71045; 80047; 80048; 80053; 80162; 82550; 82962; 83605; 83735; 83880; 84100; 84484; 85025; 85027; 85379; 85610; 87641; 93005; 94760; 96365; 96375; 99291; 99292; J0153; J0171; J0282; J0881; J2250; J2543; J3370; J3475; J7040; J7042; J7512; 97530; 97535

== ENCOUNTER 2018-07-13 12:15 | Inpatient (IN) | payer BC ==
[~2018-07-13] VITALS: Ht 185.4 cm; Wt 77.1 kg
[~2018-07-13 12:15] MED LIST changes: -ADENOSINE 6 MG/2 ML VIAL. IV ONE; +AMIO200T4 PO; +AMOX1TAB61 PO; -DEXTROSE 50% 25 GM / 50ML DISP.SYRIN. IV ONE; -EPINEPHrine SYRINGE 1 MG/10 ML SYRINGE ONE; +Pantoprazole PO
--- NOTE | 2018-07-13 13:03 | RAD ---
AP chest x-ray HISTORY: Weakness, sore throat. COMPARISON: Chest x-ray July 08, 2018. FINDINGS: Heart size stable. Mild tortuosity/ectasia aortic arch grossly stable. Left axillary and subclavian vascular stents. Reticulonodular density at the right medial lung base could represent atelectasis or early developing pneumonia. Left lung is clear. Bones are unremarkable. IMPRESSION: Mild airspace disease at the right medial lung base. Electronically signed by: Sb Grewal MD (07/13/2018 1:00 PM) [facility]
--- NOTE | 2018-07-13 13:30 | NUR ---
Received report from Marla HDZ from ED. Did vitals, mentioned they never checked his blood sugar. Mentioned he hadn't eaten in 6days. BS was 39, gave 40ml of Dextrose 50 via protocol. Became more alert. Monitoring patient.
[2018-07-13 13:33] LABS: BASO % 0 % (0-3); EOS % 0 % (0-3); HEMATOCRIT 23.3 % (39.0-53.0); HEMOGLOBIN 7.8 g/dL (13.0-17.5); LYMPH # 0.6 x10^3/uL (1.0-4.8); LYMPH % 8 % (24-48); MEAN CORPUSCULAR HEMOGLOBIN 30 pg (25-35); MEAN CORPUSCULAR HGB CONC 34 g/dL (31-37); MEAN CORPUSCULAR VOLUME 90 fL (79-100); MONO # 0.4 x10^3/uL (0.0-1.1); MONO % 5 % (0-9); NEUT # 6.2 x10^3uL (1.8-7.7); NEUT % 86 % (31-73); PLATELET COUNT 201 x10^3/uL (140-400); RED BLOOD COUNT 2.59 x10^6/uL (4.30-5.70); RED CELL DISTRIBUTION WIDTH 15.1 % (11.5-14.5); WHITE BLOOD COUNT 7.2 x10^3/uL (4.0-11.0)
--- NOTE | 2018-07-13 13:34 | PHYS DOC ---
Past Medical History Past Medical History: Hypertension, Renal Failure Additional Past Medical Histor: GOUT, SBO,ABD TUMOR Past Surgical History: Hip Replacement, Other Additional Past Surgical Histo: cardiac stents placed, left upper extremity AV shunt Alcohol Use: None Drug Use: None Adult General Chief Complaint Chief Complaint: WEAKNESS/GENERALIZED HPI HPI Patient is a 77 year old male with history of chronic renal failure on dialysis in by EMS because of generalized weakness and not eating. Patient had a recent hospitalization and for the first time transferred to assisted because of generalized weakness. Patient's IV states he was not able to eat for several days and had increasing of generalized weakness and unable to get out of the bed. Patient is more the and cachectic comparing to 5 days ago when I admitted him. Patient denies chest pain and shortness of breath and focal neurodeficit. Review of Systems Review of Systems Constitutional: Denies fever or chills , reports generalized weakness[] Eyes: Denies change in visual acuity, redness, or eye pain [] HENT: Denies nasal congestion or sore throat [] Respiratory: Denies cough or shortness of breath [] Cardiovascular: No additional information not addressed in HPI [] GI: Denies abdominal pain, nausea, vomiting, bloody stools or diarrhea [] : Denies dysuria or hematuria [] Musculoskeletal: Denies back pain or joint pain [] Integument: Denies rash or skin lesions [] Neurologic: Denies headache, focal weakness or sensory changes [] Endocrine: Denies polyuria or polydipsia [] All other systems were reviewed and found to be within normal limits, except as documented in this note. Allergies Allergies Allergies Coded Allergies Type Severity Reaction Last Updated Verified I S O L A T I O N *CONTACT* Allergy Unknown 07/13/18 Yes No Known Medication Allergies Allergy Unknown 07/13/18 Yes Physical Exam Physical Exam Constitutional: ill looking and cachectic, mild distress, non-toxic appearance. [] HENT: Normocephalic, atraumatic, oral breathing Eyes: PERRLA, EOMI, conjunctiva normal, no discharge. [] Neck: Normal range of motion, no tenderness, supple, no stridor. [] Cardiovascular:Heart rate regular rhythm, no murmur [] Lungs & Thorax: Bilateral breath sounds clear to auscultation [] Abdomen: Bowel sounds normal, soft, no tenderness, no masses, no pulsatile masses. [] Skin: Warm, dry, no erythema, no rash. [] Back: No tenderness, no CVA tenderness. [] Extremities: No tenderness, no cyanosis, no clubbing, ROM intact, no edema. [] Neurologic: Alert and oriented X 3, normal motor function, normal sensory function, no focal deficits noted. [] Current Patient Data Vital Signs Vital Signs Date Time Temp Pulse Resp B/P (MAP) Pulse Ox O2 Delivery O2 Flow Rate FiO2 07/13/18 12:50 102 100 07/13/18 12:15 97.5 18 97/66 (76) Room Air 97.5 EKG EKG EKG interpreted by me. EKG at 1226 showed sinus tachycardia at rate of 104, low voltage QRS, poor R-wave progress in anteroseptal leads,LVH, inverted T in anteroseptal leads, and T-wave abnormalities. Radiology/Procedures Radiology/Procedures [facility] [address] [place] [address] IMAGING REPORT Signed PATIENT: ROSALIA MARTI ACCOUNT: [id number] : 1940 LOCATION: ER AGE: 77 SEX: M EXAM STATUS: REG ER ORD. PHYSICIAN: VIRGILIO CELESTIN MD REASON: generalized weakness, sore throat PROCEDURE: PORTABLE CHEST 1V AP chest x-ray HISTORY: Weakness, sore throat. COMPARISON: Chest x-ray July 08, 2018. FINDINGS: Heart size stable. Mild tortuosity/ectasia aortic arch grossly stable. Left axillary and subclavian vascular stents. Reticulonodular density at the right medial lung base could represent atelectasis or early developing pneumonia. Left lung is clear. Bones are unremarkable. IMPRESSION: Mild airspace disease at the right medial lung base. Electronically signed by: Jayde Richardson MD (07/13/2018 1:00 PM) [facility] DICTATED and SIGNED BY: JAYDE RICHARDSON MD DATE: 07/13/18 1300 Course & Med Decision Making Course & Med Decision Making Pertinent Labs and Imaging studies reviewed. (See chart for details) Patient requiring admission for further evaluation and treatment. Discussed with Dr. Condon who is in agreement with admission. Discussed findings and plan with patient and family, who acknowledge understanding and agreement. Dragon Disclaimer Dragon Disclaimer This electronic medical record was generated, in whole or in part, using a voice recognition dictation system. Departure Departure Impression: Primary Impression: Generalized weakness Additional Impressions: Chronic kidney disease with end stage renal failure on dialysis Anemia Failure to thrive Disposition: 09 ADMITTED INPATIENT (at 1258) Admitting Physician: Juan Manuel Condon (accepted admission at 1257) Condition: GUARDED Referrals: HIRO FIGUEROA MD (PCP) Problem Qualifiers Additional Impressions: Anemia Anemia type: unspecified type Qualified Codes: D64.9 - Anemia, unspecified Failure to thrive Failure to thrive age range: in adult Qualified Codes: R62.7 - Adult failure to thrive VIRGILIO CELESTIN MD Jul 13, 2018 13:34
[2018-07-13 13:43] LABS: PROTHROMBIN TIME PATIENT 16.9 SEC (11.7-14.0)
[2018-07-13 13:48] LABS: CALCIUM 7.5 mg/dL (8.5-10.1); CREATININE 3.3 mg/dL (0.7-1.3); POTASSIUM 4.8 mmol/L (3.5-5.1)
[2018-07-13 13:53] LABS: ALBUMIN 2.5 g/dL (3.4-5.0); ALBUMIN/GLOBULIN RATIO 0.8 (1.0-1.7); TOTAL BILIRUBIN 0.7 mg/dL (0.2-1.0); TOTAL PROTEIN 5.6 g/dL (6.4-8.2)
[2018-07-13 13:58] LABS: % BANDS 12 % (0-9); % LYMPHS 7 % (24-48); % MONOS 5 % (0-10); % SEGS 76 % (35-66); NUCLEATED RBC 3
[2018-07-13 14:02] LABS: ANISOCYTOSIS SLIGHT; PLT ESTIMATE ADEQUATE (ADEQUATE)
[2018-07-13 14:03] LABS: OVALOCYTES FEW; SCHISTOCYTES FEW; SPHEROCYTES OCC
[2018-07-13 14:04] LABS: BIZZARE CELLS OCC
[2018-07-13] MEDS ORDERED: DEXTROSE 50% 25 GM / 50ML DISP.SYRIN. IV ONE (15:00)
[2018-07-13 16:04] VITALS: BP 111/64
[2018-07-13 19:15] VITALS: BP 104/42
[2018-07-13] MEDS ORDERED: DEXTROSE 50% 25 GM / 50ML DISP.SYRIN. IV PRN (20:00)
[2018-07-13] MEDS ORDERED: IV DEXTROSE 10% 1,000 ML IV SCH (20:45)
[2018-07-13 23:53] VITALS: BP 106/32
[2018-07-14 03:20] VITALS: BP 115/40
[2018-07-14 07:05] VITALS: BP 106/35
--- NOTE | 2018-07-14 09:41 | PDOC5 ---
CODE REPORT CODE REPORT I was called to a CODE BLUE at 9 AM I arrived at approximately 903 from the emergency department. CPR was in progress we initiated bag valve mask ventilation intubation note: mac 4 two attempt secretions in airway suctioned out 7.5 tube 23 lip confirmed etco2 and breath sounds. pt pulsesless apneic fixed pupils no neuro response. we gave caclicum bicarp multiple epi, d50, 20 minutes of high quality cpr. pea or asystole throughout. 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 Critical care time was 35 minutes exclusive of procedures. GALE NOVOA MD Jul 14, 2018 09:41
--- NOTE | 2018-07-14 09:42 | NUR ---
At approximately 0855 RN and aides went into room to check patient. RN noticed a change in condition, pt was not responding to any commands. RN called a rapid at 0858. Blood sugar checked at 0900 and it was 76. pt began agonal breathing, no pulse felt, no heartbeat heard. RN then called a code blue and started CPR. ER Dr. Nazario and Dr. Condon called time of at 0918. RN called spouse Socorro at approx. 0915 to inform her of the patients change of condition.
--- NOTE | 2018-07-14 14:31 | HP ---
ADMIT DATE: 07/14/2018 ADMISSION HISTORY AND PHYSICAL AND SUMMARY COMBINED DATE OF : 07/14/2018. ADMISSION DIAGNOSIS: Hypoglycemia. CAUSE OF : PEA. HISTORY OF PRESENT ILLNESS: This is a 77-year-old -[place] male that was recently discharged from this facility to a custodial. He has chronic end-stage renal disease and is on dialysis and was brought in by EMS due to generalized weakness and not eating and found to have profound hypoglycemia. Blood sugar was as low as 41 last evening and was started on D10 as it had not responded to glucose boluses. He was admitted as a full code. We previously discussed end-of-life care with him and his at his last hospital stay and they were adamant he remain there. They were not interested in previous hospitalizations about hospice care. He had been at the [facility] and I believe he went to dialysis, which was his normal routine yesterday. He did have significant electrolyte abnormalities. PAST MEDICAL HISTORY: Significant for failure to thrive and he has retroperitoneal fibrosis. He has a chronic ileus. He has pancreatic insufficiency, history of hypertension, congestive heart failure, coronary artery disease, atrial fibrillation, sleep apnea, chronic kidney disease, BPH, osteoarthritis and gout. PAST SURGICAL HISTORY: Surgeries include tonsillectomy, adenoidectomy, dialysis shunt, cardiac catheterization with coronary stent placement, cholecystectomy, lysis of adhesions in the , small bowel resection in 2002 due to obstruction, cholecystectomy, TURP and bilateral knee replacements in 2008. FAMILY HISTORY: He has a family history of obesity, hypertension, type 2 diabetes and heart disease. SOCIAL HISTORY: No tobacco or alcohol use. ALLERGIES: He has no known drug allergies. HOME MEDICATIONS: Include Augmentin 875 mg b.i.d., Levsin 0.125 mg q. 6 hours p.r.n., clopidogrel 75 mg daily, amiodarone 200 mg b.i.d., digoxin 125 mcg daily, aspirin 81 mg daily, zinc gluconate 50 mg daily, furosemide 80 mg daily, loperamide 2 mg q.i.d. p.r.n. diarrhea, Zofran 4 mg one p.o. q. 4 hours p.r.n. nausea and vomiting, fludrocortisone acetate 0.1 mg daily, prednisone 20 mg 2 daily, folic acid/vitamin B 0.8 mg daily, allopurinol 300 mg daily and pantoprazole 40 mg daily. REVIEW OF SYSTEMS: CONSTITUTIONAL: Positive for progressive weight loss and progressive weakness. HEENT: Notable for glasses. CARDIAC: No recent chest pain or palpitations. PULMONARY: No cough or wheezing. GASTROINTESTINAL: Poor appetite with chronic partial bowel obstruction, causing intermittent nausea and intermittent diarrhea. GENITOURINARY: He does make urine despite his end-stage renal disease. MUSCULOSKELETAL: Positive for progressive weakness. He was recently at custodial and strong enough to ambulate with a walker, although he had significant difficulty managing the stairs at home. He had not had any recent gout symptoms. SKIN: No significant breakdown, although he was developing a mild sacral pressure redness his last hospitalization. PHYSICAL EXAMINATION: Vitals at admission were unremarkable, although his heart rates have been as high as 108. Exam was not done until after passed and he is noted to be awaiting transport in his hospital bed, without signs of life. LABORATORY DATA: Blood sugars have ranged from a low of 41-113. Hematology showed a white count of 7.2, hemoglobin of 7.8 and platelets of 201,000. Coags show an INR of 1.4. Sodium was 135, potassium was 4.8, BUN was 108 and creatinine 3.3. Lactic acid 1.5, calcium 7.5, albumin 2.5 with a total protein of 5.6. Troponin was 0.092. IMAGING: Chest x-ray showed mild airspace disease at the right medial lung base. EKG showed AFib without acute changes. HOSPITAL COURSE: He was hypoglycemic overnight, treated with hypoglycemia protocol and dextrose and then placed on D10. This morning at 09:00 a.m., magdi zuniga was called. CPR was initiated, bag valve mask ventilation. The patient was pulseless, apneic, fixed pupils. No neuro response, was given calcium bicarbonate, multiple IV doses D50 and despite a high quality CPR, he remained in PEA or asystole throughout the code lasted until 09:19 and then was called. Body will be [facility] to [facility]. W Aj CARDENAS MD DR: JOSELINE/jennifer JOB#: [id number] / [id number]
--- NOTE | 2018-07-15 06:36 | EKG ---
[facility] [address] [place] [address] Test Date: 2018-07-13 Test Time: 12:25:11 Pat Name: ROSALIA MARTI Department: Room: Gender: M Tennis Director: : 1940 Requested By: VIRGILIO CELESTIN Order Number: [id number] Reading MD: Measurements Intervals [place] Rate: 104 P: -90 OR: 150 QRS: 31 QRSD: 86 T: 177 QT: 348 QTc: 464 Interpretive Statements SINUS TACHYCARDIA LOW LIMB LEAD VOLTAGE QRS(T) CONTOUR ABNORMALITY CONSIDER ANTEROLATERAL MYOCARDIAL DAMAGE ST & T ABNORMALITY, CONSIDER ANTERIOR ISCHEMIA OR LEFT VENTRICULAR STRAIN INFEROLATERAL ISCHEMIA OR LEFT VENTRICULAR STRAIN ABNORMAL ECG RI6.01 Unconfirmed report No previous ECG available for comparison
== END 2018-07-14 09:15 | disposition expired | DRG 640 ==
LOC: ER 12:15 → 6 SOUTH 13:13
PROVIDERS: ADMIT Family Medicine; ATTEND Family Medicine
PROC: 5A12012 Performance of Cardiac Output, Single, Manual (ICD-10-PCS; principal; 2018-07-14)
PROC: 0BH17EZ Insertion of Endotracheal Airway into Trachea, Via Natural or Artificial Opening (ICD-10-PCS; 2018-07-14)
DX: E16.2 Hypoglycemia, unspecified (principal); N18.6 End stage renal disease; I13.2 Hypertensive heart and chronic kidney disease with heart failure and with stage 5 chronic kidney disease, or end stage renal disease; R64 Cachexia; I46.9 Cardiac arrest, cause unspecified; D64.9 Anemia, unspecified; G47.30 Sleep apnea, unspecified; I25.10 Atherosclerotic heart disease of native coronary artery without angina pectoris; I50.9 Heart failure, unspecified; I48.91 Unspecified atrial fibrillation; N40.0 Benign prostatic hyperplasia without lower urinary tract symptoms; R62.7 Adult failure to thrive; M10.9 Gout, unspecified; Z96.653 Presence of artificial knee joint, bilateral; Z96.649 Presence of unspecified artificial hip joint; M19.90 Unspecified osteoarthritis, unspecified site; Z82.49 Family history of ischemic heart disease and other diseases of the circulatory system; Z95.5 Presence of coronary angioplasty implant and graft; Z99.2 Dependence on renal dialysis; Z83.3 Family history of diabetes mellitus
CPT/HCPCS: 36415; 71045; 80053; 82550; 82962; 83605; 84484; 85007; 85025; 85610; 85730; 87040; 87641; 93005; J7042; 99285-25